=== PATIENT | female | born 1990 | race Caucasian/White ===

== ENCOUNTER 2020-07-20 11:52 | Outpatient (REF) | payer MEDICAID, SELFPAY ==
[2020-07-20 12:34] LABS: MANUAL DIFF FLAG NO
[2020-07-20 12:38] LABS: Basophils Absolute Auto 0.1 X10*3/uL (0.0-0.2); Basophils Percent Auto 0.7 % (0-2); Eosinophils Absolute Auto 0.2 X10*3/uL (0.0-0.4); Eosinophils Percent Auto 2.7 % (0-4); Hematocrit 41.7 % (37-47); Hemoglobin 13.6 g/dl (12.0-16.0); Imm Gran Abs Auto 0.02 X10*3/uL (0.00-0.03); Imm Gran Pct Auto 0.3 % (0.0-0.4); Lymphocytes Absolute Auto 2.4 X10*3/uL (1.2-4.9); Lymphocytes Percent Auto 31.9 % (20-40); Mean Corpuscular HGB Conc 32.6 g/dl (31.0-35.0); Mean Corpuscular Hemoglobin 30.4 pg (27.0-33.0); Mean Corpuscular Volume 93.1 fL (80-98); Mean Platelet Volume 9.3 fL (9.4-12.3); Monocytes Absolute Auto 0.5 X10*3/uL (0.1-1.2); Monocytes Percent Auto 6.4 % (2-11); Neutrophils Absolute Auto 4.3 X10*3/uL (2.0-8.3); Platelet Count 227 X10*3/uL (160-400); Red Blood Count 4.48 X10*6/uL (4.20-5.50); Red Cell Distribution Width 13.4 % (11.0-16.0); White Blood Count 7.5 X10*3/uL (4.8-10.8)
[2020-07-20 13:19] LABS: Lithium 0.49 mmol/L (0.60-1.20)
[2020-07-20 13:31] LABS: Alanine Aminotransferase 13 U/L (0-31); Albumin Level 4.4 g/dL (3.5-5.0); Alkaline Phosphatase 53 U/L (39-117); Anion Gap 12 (12-20); Aspartate Amino Transferase 17 U/L (5-31); Bilirubin Total 0.5 mg/dL (0.0-1.0); Blood Urea Nitrogen 10 mg/dL (9-16); Calcium 9.1 mg/dL (8.4-10.2); Carbon Dioxide 20 mmol/L (22-29); Chloride 111 mmol/L (96-108); Cholesterol 197 mg/dL; Estimated Glomerular Filt Rate > 60; Glucose Fasting 89 mg/dL (60-99); Potassium 3.9 mmol/l (3.3-5.1); Sodium 139 mmol/L (135-145); Total Protein 6.8 g/dL (6.5-8.0); Triglycerides 91 mg/dL
[2020-07-20 13:44] LABS: Thyroid Stimulating Hormone 3.02 mIU/mL (0.32-4.0)
[2020-07-20 14:36] LABS: Estimated Average Glucose 80 mg/dL; Hemoglobin A1c % 4.4 %
== END 2020-07-20 11:53 | disposition home or self-care (01) ==
LOC: HO.LAB 11:52
PROVIDERS: PCP Nurse Practitioner Family; Visit Provider Psychiatry & Neurology Psychiatry
DX: F31.75 Bipolar disorder, in partial remission, most recent episode depressed (principal)
CPT/HCPCS: 36415; 80053; 80178; 82465; 82947; 83036; 84443; 84478; 85025

== ENCOUNTER 2020-09-12 16:00 | Outpatient (RCR) | payer OTHER, SELFPAY | END 2020-09-22 23:55 | disposition home or self-care (01) | LOC: HO.PAOS 16:00 | PROVIDERS: Visit Provider Psychologist | DX: F31.9 Bipolar disorder, unspecified (principal) | CPT/HCPCS: 90834 ==

== ENCOUNTER 2021-02-13 07:18 | Outpatient (REF) | payer OTHER, SELFPAY ==
[2021-02-13 08:08] LABS: MANUAL DIFF FLAG NO
[2021-02-13 08:23] LABS: Basophils Percent Auto 0.5 % (0-2); Eosinophils Absolute Auto 0.2 X10*3/uL (0.0-0.4); Eosinophils Percent Auto 3.5 % (0-4); Hematocrit 43.9 % (37-47); Hemoglobin 14.3 g/dl (12.0-16.0); Imm Gran Abs Auto 0.03 X10*3/uL (0.00-0.03); Imm Gran Pct Auto 0.5 % (0.0-0.4); Lymphocytes Percent Auto 29.8 % (20-40); Mean Corpuscular HGB Conc 32.6 g/dl (31.0-35.0); Mean Corpuscular Hemoglobin 30.9 pg (27.0-33.0); Mean Corpuscular Volume 94.8 fL (80-98); Mean Platelet Volume 9.9 fL (9.4-12.3); Monocytes Absolute Auto 0.4 X10*3/uL (0.1-1.2); Monocytes Percent Auto 6.4 % (2-11); Neutrophils Absolute Auto 3.9 X10*3/uL (2.0-8.3); Neutrophils Percent Auto 59.3 % (45-73); Platelet Count 212 X10*3/uL (160-400); Red Blood Count 4.63 X10*6/uL (4.20-5.50); Red Cell Distribution Width 13.4 % (11.0-16.0); White Blood Count 6.6 X10*3/uL (4.8-10.8)
[2021-02-13 08:31] LABS: Lithium 0.69 mmol/L (0.60-1.20)
[2021-02-13 08:37] LABS: Alanine Aminotransferase 11 U/L (0-31); Albumin Level 4.3 g/dL (3.5-5.0); Alkaline Phosphatase 52 U/L (39-117); Anion Gap 9 (12-20); Aspartate Amino Transferase 14 U/L (5-31); Bilirubin Direct 0.2 mg/dL (0.0-0.5); Bilirubin Total 0.5 mg/dL (0.0-1.0); Blood Urea Nitrogen 18 mg/dL (9-16); Calcium 9.3 mg/dL (8.4-10.2); Carbon Dioxide 23 mmol/L (22-29); Chloride 112 mmol/L (96-108); Cholesterol 208 mg/dL; Estimated Glomerular Filt Rate > 60; Glucose Fasting 94 mg/dL (60-99); HDL Cholesterol 60 mg/dL; LDL Cholesterol Calculated 123 mg/dl; Potassium 4.1 mmol/L (3.3-5.1); Sodium 140 mmol/L (135-145); Total Protein 6.8 g/dL (6.5-8.0); Triglycerides 129 mg/dL
[2021-02-13 08:57] LABS: Thyroid Stimulating Hormone 3.79 uIU/mL (0.32-4.0)
[2021-02-13 10:08] LABS: Estimated Average Glucose 82 mg/dL; Hemoglobin A1c % 4.5 %
== END 2021-02-13 07:19 | disposition home or self-care (01) ==
LOC: HO.LAB 07:18
PROVIDERS: PCP Nurse Practitioner Family; Visit Provider Psychiatry & Neurology Psychiatry
DX: F31.75 Bipolar disorder, in partial remission, most recent episode depressed (principal); Z79.899 Other long term (current) drug therapy
CPT/HCPCS: 36415; 80048; 80061; 80076; 80178; 82947; 83036; 84443; 85025

== ENCOUNTER 2021-08-02 06:55 | Outpatient (REF) | payer OTHER, SELFPAY ==
[2021-08-02 07:03] LABS: MANUAL DIFF FLAG NO
[2021-08-02 07:56] LABS: Basophils Percent Auto 0.5 % (0-2); Eosinophils Absolute Auto 0.3 X10*3/uL (0.0-0.4); Eosinophils Percent Auto 3.6 % (0-4); Hematocrit 41.9 % (37-47); Hemoglobin 14.3 g/dl (12.0-16.0); Imm Gran Abs Auto 0.02 X10*3/uL (0.00-0.03); Imm Gran Pct Auto 0.3 % (0.0-0.4); Lymphocytes Absolute Auto 2.3 X10*3/uL (1.2-4.9); Lymphocytes Percent Auto 29.1 % (20-40); Mean Corpuscular HGB Conc 34.1 g/dl (31.0-35.0); Mean Corpuscular Volume 90.7 fL (80-98); Mean Platelet Volume 9.6 fL (9.4-12.3); Monocytes Absolute Auto 0.5 X10*3/uL (0.1-1.2); Monocytes Percent Auto 5.7 % (2-11); Neutrophils Absolute Auto 4.8 X10*3/uL (2.0-8.3); Neutrophils Percent Auto 60.8 % (45-73); Platelet Count 232 X10*3/uL (160-400); Red Blood Count 4.62 X10*6/uL (4.20-5.50); Red Cell Distribution Width 12.7 % (11.0-16.0); White Blood Count 7.9 X10*3/uL (4.8-10.8)
[2021-08-02 08:12] LABS: Lithium 0.57 mmol/L (0.60-1.20)
[2021-08-02 08:16] LABS: Alanine Aminotransferase 10 U/L (0-31); Albumin Level 4.4 g/dL (3.5-5.0); Alkaline Phosphatase 61 U/L (39-117); Anion Gap 13 (12-20); Aspartate Amino Transferase 16 U/L (5-31); Bilirubin Direct 0.3 mg/dL (0.0-0.5); Bilirubin Total 1.1 mg/dL (0.0-1.0); Blood Urea Nitrogen 10 mg/dL (9-16); Calcium 9.3 mg/dL (8.4-10.2); Carbon Dioxide 20 mmol/L (22-29); Chloride 109 mmol/L (96-108); Cholesterol 187 mg/dL; Estimated Glomerular Filt Rate > 60; Glucose Fasting 88 mg/dL (60-99); HDL Cholesterol 61 mg/dL; LDL Cholesterol Calculated 101 mg/dl; Potassium 4.1 mmol/L (3.3-5.1); Sodium 138 mmol/L (135-145); Total Protein 6.9 g/dL (6.5-8.0); Triglycerides 128 mg/dL
[2021-08-02 08:48] LABS: Thyroid Stimulating Hormone 3.95 uIU/mL (0.32-4.0)
[2021-08-02 08:53] LABS: Estimated Average Glucose 82 mg/dL; Hemoglobin A1c % 4.5 %
== END 2021-08-02 06:56 | disposition home or self-care (01) ==
LOC: HO.LAB 06:55
PROVIDERS: PCP Internal Medicine; Visit Provider Psychiatry & Neurology Psychiatry
DX: F31.75 Bipolar disorder, in partial remission, most recent episode depressed (principal)
CPT/HCPCS: 36415; 80048; 80061; 80076; 80178; 82947; 83036; 84443; 85025

== ENCOUNTER 2022-04-07 07:31 | Outpatient (REF) | payer OTHER, SELFPAY ==
[2022-04-07 07:45] LABS: MANUAL DIFF FLAG NO
[2022-04-07 08:18] LABS: Basophils Percent Auto 0.6 % (0-2); Eosinophils Absolute Auto 0.3 X10*3/uL (0.0-0.4); Eosinophils Percent Auto 4.4 % (0-4); Hematocrit 42.5 % (37.0-47.0); Imm Gran Abs Auto 0.02 X10*3/uL (0.00-0.03); Imm Gran Pct Auto 0.3 % (0.0-0.4); Lymphocytes Absolute Auto 1.8 X10*3/uL (1.2-4.9); Lymphocytes Percent Auto 28.2 % (20-40); Mean Corpuscular HGB Conc 32.9 g/dl (31.0-35.0); Mean Corpuscular Hemoglobin 30.4 pg (27.0-33.0); Mean Corpuscular Volume 92.4 fL (80.0-98.0); Monocytes Absolute Auto 0.4 X10*3/uL (0.1-1.2); Monocytes Percent Auto 6.5 % (2-11); Neutrophils Absolute Auto 3.8 x10*3/uL (2.0-8.3); Platelet Count 237 X10*3/uL (160-400); Red Cell Distribution Width 13.2 % (11.0-16.0); White Blood Count 6.3 X10*3/uL (4.8-10.8)
[2022-04-07 08:26] LABS: Lithium 0.79 mmol/L (0.60-1.20)
[2022-04-07 08:33] LABS: Estimated Average Glucose 80 mg/dL; Hemoglobin A1c % 4.4 %
[2022-04-07 08:39] LABS: Alanine Aminotransferase 11 U/L (0-31); Albumin Level 4.1 g/dL (3.5-5.0); Alkaline Phosphatase 51 U/L (39-117); Anion Gap 9 (12-20); Aspartate Amino Transferase 15 U/L (5-31); Bilirubin Total 0.4 mg/dL (0.0-1.0); Blood Urea Nitrogen 11 mg/dL (9-16); Calcium 8.9 mg/dL (8.4-10.2); Carbon Dioxide 21 mmol/L (22-29); Chloride 114 mmol/L (96-108); Cholesterol 176 mg/dL; Estimated Glomerular Filt Rate > 60; Glucose Fasting 88 mg/dL (60-99); HDL Cholesterol 60 mg/dL; LDL Cholesterol Calculated 101 mg/dl; Potassium 4.2 mmol/L (3.3-5.1); Sodium 140 mmol/L (135-145); Total Protein 6.6 g/dL (6.5-8.0); Triglycerides 77 mg/dL
[2022-04-07 09:01] LABS: Thyroid Stimulating Hormone 3.91 uIU/mL (0.32-4.0)
== END 2022-04-07 07:32 | disposition home or self-care (01) ==
LOC: HO.LAB 07:31
PROVIDERS: PCP Internal Medicine; Visit Provider Psychiatry & Neurology Psychiatry
DX: F31.75 Bipolar disorder, in partial remission, most recent episode depressed (principal)
CPT/HCPCS: 36415; 80053; 80061; 80178; 82947; 83036; 84443; 85025

== ENCOUNTER 2022-06-22 09:25 | Day surgery (SDC) | payer OTHER, SELFPAY ==
[2022-06-22] VITALS (9 sets, daily range): BP systolic 100–123; BP diastolic 60–87; PULSE 64–78; RESP 12–20; TEMP 36.6–36.7; O2SAT 98–100; BMI 30.2
--- NOTE | ~2022-06-22 | FL_ITS ---
EXAMINATION: XR LUMBAR PUNCTURE CLINICAL INFORMATION: Pseudotumor cerebri. COMPARISON: None. TECHNIQUE: Following explaining fluoroscopy-guided lumbar puncture procedure, benefits and risks, a written consent was obtained. Patient was placed prone on fluoroscopy table and low back area was cleaned and draped in the usual sterile manner. 1% lidocaine was injected overlying the left L4-L5 disc level. A 22-gauge spinal needle was then advanced from the skin intrathecally at the L4-L5 disc level. Patient was placed in left lateral decubitus view, however, fluid was not continuous. Patient was placed in the prone position and opening CSF pressure was obtained. FINDINGS: On visualized images, there is mild straightening of lumbar lordosis. The vertebral heights, alignment and disc heights are normal. No aggressive lytic or sclerotic process seen. There is needle positioned at L4-L5 disc level. The opening CSF pressure measured 17 cm of water. Approximately 8 ml of clear CSF fluid was collected. Initially the catheter was slightly hemorrhagic. With time, the CSF improved and was clear. FLUOROSCOPY TIME: 1.6 minutes. DOSE AREA PRODUCT: 15.821 uGy-m2 (microgray-meter squared). FL/FL guided lumbar puncture LP IMPRESSION: Successful fluoroscopy-guided L4-L5 lumbar puncture performed. Opening CSF pressure 17 cm of water. 8 mL of clear CSF fluid collected in 4 test tubes.
[2022-06-22 10:04] LABS: MANUAL DIFF FLAG NO
[2022-06-22 10:09] LABS: Basophils Percent Auto 0.6 % (0-2); Eosinophils Absolute Auto 0.2 X10*3/uL (0.0-0.4); Eosinophils Percent Auto 2.9 % (0-4); Hematocrit 40.3 % (37.0-47.0); Hemoglobin 13.4 g/dl (12.0-16.0); Imm Gran Abs Auto 0.01 X10*3/uL (0.00-0.03); Imm Gran Pct Auto 0.2 % (0.0-0.4); Lymphocytes Percent Auto 31.3 % (20-40); Mean Corpuscular HGB Conc 33.3 g/dl (31.0-35.0); Mean Corpuscular Hemoglobin 30.4 pg (27.0-33.0); Mean Corpuscular Volume 91.4 fL (80.0-98.0); Mean Platelet Volume 9.4 fL (9.4-12.3); Monocytes Absolute Auto 0.4 X10*3/uL (0.1-1.2); Monocytes Percent Auto 5.6 % (2-11); Neutrophils Absolute Auto 3.7 x10*3/uL (2.0-8.3); Neutrophils Percent Auto 59.4 % (45-73); Platelet Count 187 X10*3/uL (160-400); Red Blood Count 4.41 X10*6/uL (4.20-5.50); Red Cell Distribution Width 13.1 % (11.0-16.0); White Blood Count 6.2 X10*3/uL (4.8-10.8)
[2022-06-22 10:22] LABS: Prothrombin Time 10.9 SEC (10.0-13.1)
[2022-06-22 10:25] LABS: Partial Thromboplastin Time 32.5 SEC (26.0-36.4)
[2022-06-22 10:31] LABS: UPreg QC Valid YES; Urine Pregnancy NEGATIVE (NEGATIVE)
[2022-06-22 13:07] LABS: CSF Appearance Clear, Colorless; CSF Tube # 1
[2022-06-22 13:14] LABS: Glucose CSF 51 mg/dL; Total Protein CSF 56.6 mg/dL (15-45)
[2022-06-22] MEDS: ondansetron HCL 4 MG/2 ML VIAL IVPUSH (13:33)
[2022-06-22] MEDS: Acetaminophen 325 MG TABLET 650 MG PO (13:35)
[2022-06-22] MEDS: oxyCODONE HCl Immed Release 5 MG TABLET PO (13:35)
[2022-06-22 14:18] LABS: CSF Monos 11 %; Color CSF PINK; Lymphocytes CSF 35 %; Neutrophils CSF 54 %
[2022-06-22 14:19] LABS: Appearance CSF HAZY; CSF Tube # 3; Red Blood Cell CSF 1240 MM*3; White Blood Cell CSF 5 MM*3
== END 2022-06-22 15:31 | disposition home or self-care (01) ==
PROVIDERS: Radiology Diagnostic Radiology; PCP Internal Medicine; Visit Provider Psychiatry & Neurology Neurology
PROC: 009U3ZZ Drainage of Spinal Canal, Percutaneous Approach (ICD-10-PCS; CPT 62270; principal; 2022-06-22 11:00)
DX: G93.2 Benign intracranial hypertension (principal); G43.901 Migraine, unspecified, not intractable, with status migrainosus; G25.3 Myoclonus; F32.9 Major depressive disorder, single episode, unspecified; F41.8 Other specified anxiety disorders; F17.210 Nicotine dependence, cigarettes, uncomplicated; F14.90 Cocaine use, unspecified, uncomplicated; F12.90 Cannabis use, unspecified, uncomplicated; F11.90 Opioid use, unspecified, uncomplicated
CPT/HCPCS: 36415; 62328; 81025; 82945; 84157; 85025; 85610; 85730; 87015; 87070; 87205; 89051; J2405

== ENCOUNTER 2022-07-24 16:26 | Inpatient (IN) | payer OTHER, SELFPAY ==
[2022-07-24 16:28] VITALS: BP 155/101; PULSE 105; RESP 20; TEMP 37.1; O2SAT 98; BMI 31.1
--- NOTE | 2022-07-24 16:42 | ED.PSYCH ---
HPI - Psych General Chief Complaint: Psychiatric Symptoms Stated Complaint: CRISIS Time Seen by Provider: 07/24/22 16:41 Source: patient Mode of arrival: ambulatory Limitations: no limitations History of Present Illness HPI Narrative: 31-year-old female history of depression presents to the emergency department complaints of suicidal ideation with plan to overdose. Patient tells me that she has been having lot of life stressors, reports that in January her mother in since then she has not been feeling the same. She reports that she went to her psychiatrist today where she also told them that she was feeling suicidal. She reports in October she tried to overdose by taking 61 mg Ativan tablets. She tells me that her doctor told her that she could have from taking this and she is planning on doing it again. She denies visual, auditory and tactile hallucinations. Denies drugs, alcohol and tobacco. Tells me she is not taking her psychiatric medications as prescribed. Denies medical complaints at this time. Related Data Allergies Allergy/AdvReac Type Severity Reaction Status Date / Time No Known Allergies Allergy Unverified 06/30/20 18:56 [No Known Allergies*] Review of Systems Review of Systems: Constitutional : No Weight loss, No Fever, No Chills, No Fatigue, No Malaise ENT/Mouth : No sore throat, No Rhinorrhea Eyes: No Eye Pain, No Swelling, No Redness Cardiovascular : No Chest Pain, No SOB, No Dyspnea on Exertion, No Orthopnea, No Edema, No Palpitations Respiratory : No Cough, No Sputum, No Wheezing Gastrointestinal : No Nausea, No Vomiting, No Diarrhea, No Constipation, No abdominal Pain, No Hematochezia, No Melena Genitourinary : No Dysuria, No Urinary Frequency, No Hematuria, Musculoskeletal : No joint pain, No Myalgias, No Joint Swelling Skin : No Skin Lesions, No rash Neuro : No Weakness, No Numbness, No Dizziness, No Headache Psych : + Anxiety/Panic, + Depression, + SI All other systems reviewed and are negative Yes all other systems are reviewed and are negative [facility] Past Medical History Attestation statement: The following information was validated with the patient. Source: old records reviewed and nursing notes reviewed Social History Social History Alcohol intake: current Alcohol intake frequency: a few times a week Patient Tobacco Use Status: Former Tobacco user Smoked in Last 30 Days: No Use of substances other than those prescribed or required for medical reasons: Yes Substance Use Type: Marijuana Substance Use Frequency: Chronic Longstanding Last Used Substance: Unknown Advance Directives: No Advance Directives Information Provided: Yes Physical Exam Vital Signs: Vital Signs: Last Vital Signs Temp 98.7 F 07/24/22 16:28 Pulse 105 H 07/24/22 16:28 Resp 20 07/24/22 16:28 BP 155/101 H 07/24/22 16:28 Pulse Ox 98 07/24/22 16:28 O2 Del Method 07/24/22 16:28 BMI result Body Mass Index 31.1 vss Appearance: Alert.? Oriented X3.? No acute distress.? Head: Normocephalic, atraumatic, no step-offs or deformities Eyes: Pupils equal, round and reactive to light.? ENT: Pharynx normal.? Neck: Normal inspection.? Neck supple.? CVS: Normal heart rate and rhythm.? Pulses normal.? Respiratory: No respiratory distress.? Breath sounds normal.? Abdomen: Soft and nontender.? Skin: Skin warm and dry.? Normal skin color.? Normal skin turgor.? Extremities: No lower extremity edema.? No calf ttp. 5/5 strength to bilateral upper and lower extremities Neuro: Oriented X 3.? No motor deficit.? No sensory deficit. CN 2-12 intact Course Reevaluation(s) Reevaluation #1: CBC within normal limits. Chemistry with no acute electrolyte abnormalities requiring intervention. UA without infection, likely contaminated. Urine toxicology positive for marijuana. Ethanol negative. At this time patient will be placed into physician observation to allow more time to be evaluated by the care team. At time evaluation was started patient common cooperative no acute distress. Will continue to monitor. Time: 17:50 MDM - Psych MDM Narrative Medical decision making narrative: [id number] 31-year-old female presents with suicidal ideation with plan to overdose. Not taking her medications as prescribed. Physical exam benign Patient is noted to be hypertensive however patient very anxious and paranoid upon my examination. Likely contributing. Will obtain a repeat blood pressure at a later time after patient settles in. Plan at this time is medical clearance and evaluation by the behavioral health team. Medical Records Attestation: I reviewed the patient's medical records. Lab Data Attestation: I reviewed the patient's lab results. Result diagrams: 07/24/22 17:19 07/24/22 17:19 Labs: Lab Results 07/24/22 07/24/22 07/24/22 Range/Units 16:54 16:54 16:54 WBC (4.8-10.8) X10*3/uL RBC (4.20-5.50) X10*6/uL Hgb (12.0-16.0) g/dl Hct (37.0-47.0) % MCV (80.0-98.0) fL MCH (27.0-33.0) pg MCHC (31.0-35.0) g/dl RDW (11.0-16.0) % Plt Count (160-400) X10*3/uL MPV (9.4-12.3) fL Absolute Nucleated RBC (0.0-0.012) X10*3/uL Nucleated RBC % (auto) (0.0-0.2) /100WBC Sodium (135-145) mmol/L Potassium (3.3-5.1) mmol/L Chloride (96-108) mmol/L Carbon Dioxide (22-29) mmol/L Anion Gap (12-20) BUN (9-16) mg/dL Creatinine (0.5-1.4) mg/dL Estim Creat Clear Calc Estimated GFR Random Glucose (60-115) mg/dL Calcium (8.4-10.2) mg/dL Urine Color Yellow Urine Appearance Cloudy Urine pH 5.0 (5.0-9.0) Ur Specific [place] 1.025 (1.005-1.025) Urine Protein Negative (Neg-Trace) mg/dL Urine Glucose (UA) Negative (Negative) mg/dL Urine Ketones Trace (Negative) mg/dL Urine Blood Negative (Negative) Urine Nitrite Negative (Negative) Ur Leukocyte Esterase Small (1+) H (Negative) Urine RBC 0-2 (0-2) /HPF Urine WBC 0-5 (0-5) /HPF Ur Squamous Epith Cells 6-10 (0-2) /HPF Urine Bacteria 1+ (None Seen) Hyaline Casts 0-2 (0-2) /LPF Urine Opiates Screen Not Detected (Not Detect) Urine Fentanyl Screen Not Detected (Not Detect) Ur Barbiturates Screen Not Detected (Not Detect) Ur Phencyclidine Scrn Not Detected (Not Detect) Ur Amphetamines Screen Not Detected (Not Detect) U Benzodiazepines Scrn Not Detected (Not Detect) Urine Cocaine Screen Not Detected (Not Detect) U Marijuana (THC) Screen POSITIVE H (Not Detect) Ethyl Alcohol mg/dL COVID-19 (MIGUEL) Negative (Negative) COVID-19 Clin Com See Note 07/24/22 07/24/22 07/24/22 Range/Units 17:19 17:19 17:19 WBC 10.2 (4.8-10.8) X10*3/uL RBC 4.51 (4.20-5.50) X10*6/uL Hgb 13.8 (12.0-16.0) g/dl Hct 40.0 (37.0-47.0) % MCV 88.7 (80.0-98.0) fL MCH 30.6 (27.0-33.0) pg MCHC 34.5 (31.0-35.0) g/dl RDW 12.5 (11.0-16.0) % Plt Count 230 (160-400) X10*3/uL MPV 9.4 (9.4-12.3) fL Absolute Nucleated RBC 0.000 (0.0-0.012) X10*3/uL Nucleated RBC % (auto) 0.0 (0.0-0.2) /100WBC Sodium 140 (135-145) mmol/L Potassium 3.6 (3.3-5.1) mmol/L Chloride 112 H (96-108) mmol/L Carbon Dioxide 16 L (22-29) mmol/L Anion Gap 16 (12-20) BUN 11 (9-16) mg/dL Creatinine 0.74 (0.5-1.4) mg/dL Estim Creat Clear Calc 105.8 Estimated GFR > 60 Random Glucose 98 (60-115) mg/dL Calcium 9.0 (8.4-10.2) mg/dL Urine Color Urine Appearance Urine pH (5.0-9.0) Ur Specific [place] (1.005-1.025) Urine Protein (Neg-Trace) mg/dL Urine Glucose (UA) (Negative) mg/dL Urine Ketones (Negative) mg/dL Urine Blood (Negative) Urine Nitrite (Negative) Ur Leukocyte Esterase (Negative) Urine RBC (0-2) /HPF Urine WBC (0-5) /HPF Ur Squamous Epith Cells (0-2) /HPF Urine Bacteria (None Seen) Hyaline Casts (0-2) /LPF Urine Opiates Screen (Not Detect) Urine Fentanyl Screen (Not Detect) Ur Barbiturates Screen (Not Detect) Ur Phencyclidine Scrn (Not Detect) Ur Amphetamines Screen (Not Detect) U Benzodiazepines Scrn (Not Detect) Urine Cocaine Screen (Not Detect) U Marijuana (THC) Screen (Not Detect) Ethyl Alcohol < 10 mg/dL COVID-19 (MIGUEL) (Negative) COVID-19 Clin Com Critical Care Time Critical Care Time Critical Care Time: No Discharge Plan Discharge Clinical Impression: Suicidal ideation, Depression, Paranoid behavior Patient Disposition: Still a Patient
[2022-07-24 17:04] LABS: Appearance Urine Cloudy; Color Urine Yellow; Glucose Urine UA Negative (Negative); Leukocyte Esterase Urine Small (1+) (Negative); Nitrite Urine Negative (Negative); Specific Gravity - Urine 1.025 (1.005-1.025); UMIC TRIGGER UACC YES; Urine Blood Negative (Negative); Urine Ketones Trace mg/dL (Negative); Urine Protein Negative (Neg-Trace)
[2022-07-24 17:16] LABS: Amphetamine Screen Urine Not Detected (Not Detect); Barbiturates, Urine Not Detected (Not Detect); Benzodiazepines Screen Urine Not Detected (Not Detect); COVID-19 Test Negative (Negative); Cannabinoid Screen Urine POSITIVE (Not Detect); Cocaine Screen Urine Not Detected (Not Detect); Fentanyl, urine Not Detected (Not Detect); IDNOW Serial# 16C4AD1C; Opiate Screen Urine Not Detected (Not Detect); Phencyclidine Screen Urine Not Detected (Not Detect)
[2022-07-24 17:21] LABS: Bacteria Urine 1+ (None Seen); Hyaline Casts Urine 0-2 /LPF (0-2); RBC Urine 0-2 /HPF (0-2); UACC Culture Trigger YES; WBC Urine 0-5 /HPF (0-5)
[2022-07-24 17:28] LABS: Hemoglobin 13.8 g/dl (12.0-16.0); Mean Corpuscular HGB Conc 34.5 g/dl (31.0-35.0); Mean Corpuscular Hemoglobin 30.6 pg (27.0-33.0); Mean Corpuscular Volume 88.7 fL (80.0-98.0); Mean Platelet Volume 9.4 fL (9.4-12.3); Platelet Count 230 X10*3/uL (160-400); Red Blood Count 4.51 X10*6/uL (4.20-5.50); Red Cell Distribution Width 12.5 % (11.0-16.0); White Blood Count 10.2 X10*3/uL (4.8-10.8)
[2022-07-24 17:45] LABS: Anion Gap 16 (12-20); Blood Urea Nitrogen 11 mg/dL (9-16); Carbon Dioxide 16 mmol/L (22-29); Chloride 112 mmol/L (96-108); Creatinine Clr Calc Pharmacy 105.8; Estimated Glomerular Filt Rate > 60; Glucose Random 98 mg/dL (60-115); Potassium 3.6 mmol/L (3.3-5.1); Sodium 140 mmol/L (135-145)
[2022-07-24 17:47] LABS: Ethanol < 10 mg/dL
[2022-07-24 17:57] LABS: Acetaminophen LAB < 1 mcg/mL (<30); Salicylate < 5.0 mg/dL (15-30)
[2022-07-24] MEDS: LORazepam 1 MG TABLET PO (17:59)
[2022-07-24 18:45] VITALS: BP 115/77; PULSE 89
--- NOTE | 2022-07-24 19:33 | PHA.MEDREC ---
Pharmacy Consult ? Medication Reconciliation Pharmacy has completed the medication reconciliation Spoke with patient in [facility]. patient knew all medications. patient states she has not taken her medications in a few days. .
--- OUTSIDE RECORDS SUMMARY | 2022-07-24 19:36 | XMS_ITS ---
:1990 Author Care Team Providers Name Role Phone Julieth Davidson Primary Care Provider Unavailable Allergies Code Code System Name Reaction Severity Status Onset NKDA ? Medications Name Status Start Date Stop Date ? ? acetazolamide 250 mg tablet Active ? Not available TAKE 1 & 1/2 TABLET TWICE A DAY azithromycin 250 mg tablet Completed ? 05/16 TAKE 2 TABLETS BY MOUTH TODAY, THEN TAKE 1 TABLET DAILY FOR 4 D AYS [id number]-vvtgzhab 50 mg-325 mg-40 mg tablet Acti ve ? Not available TAKE 1-2 TABLETS NEEDED EVERY 8 HOURS ORALLY 30 DAYS cephalexin 500 mg capsule Completed ? 2019 TAKE 1 CAPSULE BY MOUTH THREE TIMES A DAY FOR 7 DAYS lamotrigine 100 mg tablet Active ? Not av ailable TAKE 1 TABLET BY MOUTH EVERY DAY lamotrigine 150 mg tablet Completed ? 2019 TAKE 1 TABLET BY MOUTH EVERY DAY lamotrigine 25 mg tablet Completed ? 020 TAKE 1 TABLET BY MOUTH ONCE DAILY FOR 7 DAYS THEN INCREASE TO 1 TABLET TWICE DAILY lithium carbonate ER 300 mg tablet,extended release Active ? Not available TAKE 4 TABLETS BY MOUTH AT BEDTIME lorazepam 1 mg tablet Active ? Not availa ble TAKE 1 TABLET BY MOUTH EVERY DAY ondansetron HCl 4 mg tablet Completed ? 12/2019 TAKE 1 TABLET BY MOUTH EVERY 8 HOURS ondansetron HCl 8 mg tablet Active ? Not available TAKE 1 TABLET EVERY 12 HOURS NEEDED FOR NAUSEA ORALLY 30 DAY S prednisone 10 mg tablet Completed ? 05/16/20 20 TAKE 4 TABLETS BY MOUTH EVERY DAY prednisone 20 mg tablet Completed ? 05/16/20 20 TAKE 2 TABLETS BY MOUTH 1 TIME PER DAY FOR 5 DAYS TAKE WITH JACQUELYN Mann quetiapine 25 mg tablet Completed ? 05/16/20 20 TAKE 1 TABLET BY MOUTH TWICE A DAY NEEDED FOR ANXIETY quetiapine 300 mg tablet Completed ? 020 TAKE 2 TABLETS BY MOUTH AT BEDTIME quetiapine 400 mg tablet Active ? Not toyin ilable TAKE 1 TABLET BY MOUTH EVERYDAY AT BEDTIME quetiapine 50 mg tablet Completed ? 05/16/20 20 TAKE 1 TABLET BY MOUTH EVERY 4 HOURS NEEDED ANXIETY/RESTLESS NESS sumatriptan 100 mg tablet Active ? Not av ailable 1 TABLET NEEDED EVERY 4 HOURS. UP TO 2 TABS PER DAY ORALLY 3 0 DAYS topiramate 100 mg tablet Active ? Not toyin ilable TAKE 1 TABLET BY MOUTH TWICE A DAY trazodone 50 mg tablet Completed ? 0 TAKE 1/2 -1 TAB BEDTIME Problems None recorded. Procedures None recorded. Results Lab Results Date Name Specimen Result Interpretation Description Value Range Status Address ? 05/16/2020 SARS CoV 2 RNA ? Covid-19 RNA ? (neg) Final [facility] Reference (COVID-19), QL, by PCR L [facility]atories: [address] [employer]-PCR, Graciela Barrientos, [facility] [place] Specimen Past Encounters None recorded. Social History Tobacco Smoking Status Never Smoker Vaccine List None recorded. Plan of Care Reminders Provider Appointments None recorded. ? ? Lab None recorded. ? ? Referral None recorded. ? ? Procedures None recorded. ? ? Surgeries None recorded. ? ? Imaging None recorded. ? ? Vitals None recorded.
--- NOTE | 2022-07-24 20:59 | PC.NURSE ---
Jodi was admitted to at 1945 from [facility] [place] pod on CV for treatment of Bipolar Disorder? Precipitants of admission include of mom in 01/2022, inconsistent compliance with medications and stressors at work. Patient has experienced exacerbation of insomnia and nightmares, excessive spending and paranoia about her medications. She reports she had a plan today to overdose on prescribed medications which she discussed with Dr Jensen Joseph and came to the ED instead. She is alert, fully oriented, and cooperative with admission process. Mood is depressed. Jodi is tearful throughout admission interview. Affect is sad. She denies hallucinations of any kind. Thought process is linear and organized. She continues to report ideation, plan and intent to overdose on prescribed medications but denies plan to harm self or others while on the unit. Jodi reports appetite is good and has not experienced weight loss or gain. Sleep is poor. If I take seroquel I have terrible nightmares. If I don't take it I don't sleep at all. Jodi reports history of cocaine use disorder - no use x 3 years. She reports drinking 5 drinks 2-3 x weekly, last use on Saturday07/22/22 Medical Issue is pseudo tumor cerebri causing excessive CSF and headaches Jodi denies current physical complaint. She is placed on q 15 min checks for safety.
[2022-07-24 21:17] VITALS: BMI 31.6
[2022-07-24 21:31] LABS: Lithium < 0.04 mmol/L (0.60-1.20)
[2022-07-24] MEDS: acetaZOLAMIDE 250 MG TABLET PO (23:03)
[2022-07-24] MEDS: lamoTRIgine 100 MG TABLET 200 MG PO (23:03)
[2022-07-24] MEDS: QUEtiapine Fumarate 50 MG TABLET PO (23:03)
[2022-07-24] MEDS: Lithium Carbonate ER 450 MG TABLET.ER 900 MG PO (23:03)
[2022-07-24] MEDS: Topiramate 100 MG TABLET PO (23:03)
[2022-07-24] MEDS: QUEtiapine Fumarate 400 MG TABLET PO (23:05)
--- NOTE | 2022-07-25 | ECG_ITS ---
Test Reason : medical clearance for ECT Blood Pressure : / mmHG Vent. Rate : 085 BPM Atrial Rate : 085 BPM P-R Int : 138 ms QRS Dur : 110 ms QT Int : 382 ms P-R-T Axes : 050 049 033 degrees QTc Int : 454 ms Normal sinus rhythm Normal ECG When compared with ECG of 23-MAY-2020 15:20, No significant change was found Referred By: Von Shah Electronically Signed By:MICHAEL IZAGUIRRE MD
[2022-07-25 08:52] LABS: Estimated Average Glucose 80 mg/dL; Hemoglobin A1c % 4.4 %
[2022-07-25 08:59] VITALS: BP 112/71; PULSE 91; RESP 18; TEMP 36.6; O2SAT 100
[2022-07-25] MEDS: acetaZOLAMIDE 250 MG TABLET PO ×2 (09:00→20:16)
[2022-07-25] MEDS: Multivitamin TABLET 1 TAB PO (09:00)
[2022-07-25 09:16] LABS: Alanine Aminotransferase 8 U/L (0-31); Alkaline Phosphatase 54 U/L (39-117); Anion Gap 11 (12-20); Aspartate Amino Transferase 13 U/L (5-31); Bilirubin Total 0.6 mg/dL (0.0-1.0); Blood Urea Nitrogen 11 mg/dL (9-16); Calcium 8.7 mg/dL (8.4-10.2); Carbon Dioxide 20 mmol/L (22-29); Chloride 112 mmol/L (96-108); Cholesterol 200 mg/dL; Creatinine Clr Calc Pharmacy 96.4; Estimated Glomerular Filt Rate > 60; Glucose Fasting 91 mg/dL (60-99); HDL Cholesterol 55 mg/dL; LDL Cholesterol Calculated 126 mg/dl; Sodium 139 mmol/L (135-145); Total Protein 6.3 g/dL (6.5-8.0); Triglycerides 99 mg/dL
[2022-07-25 09:39] LABS: Thyroid Stimulating Hormone 3.28 uIU/mL (0.32-4.0)
[2022-07-25 10:02] LABS: Folate 11.1 ng/mL (> or = 4.0); Vitamin B12 279 pg/mL (200-900)
[2022-07-25] MEDS: LORazepam 1 MG TABLET PO ×2 (10:33→20:16)
[2022-07-25] MEDS: Nicotine Polacrilex Lozenge 2 MG LOZENGE BUCCAL ×2 (10:33→20:17)
--- NOTE | 2022-07-25 16:55 | HO.PSYADMNOT ---
HPI Date of Service: 07/25/22 Chief Complaint: psychosis HPI Narrative: pt self-presented to ED at recommendation of her outpt psych MD after reporting increased SI with plan to overdose, which she has done in the past. has Dx of bipolar disorder and has been off meds for weeks. not sleeping well, up all night cleaning, periods of no energy, engaging in excessive spending. she reported to crisis that she has been struggling since the of her mother from cancer in january,. she reports she started to feel better a couple months ago and stopped taking her meds as prescribed, then a month after that the SI started. 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 thoughts of SI increasingly intrusive the past few days, so came in. on interview with MD, pt expresses desire to restart/continue her preior medications regimen. meds reviewed and reconciled. one change was made, which was to decrease HS seroquel from 450 mg to 300 mg, as she stated she has been feeling over sedated from it. she reported she has been taking ara medications as prescribed for the past week, but her lithium level at admission was negligible. she states she was very much helped by ECT previously, and she is interested in doing it again. she asked that her outpt psych MD be kept informed of the plan. Past Psychiatric History: sees osmar aviles for outpt meds. cherie metzger for therapy. intermittently in therapy and meds since 20 yo. h/o at least 7 psych hosps. MRE 11/04 at [facility] after SA via overdose. h/o 4 SAs, all via overdose (ages 16, 20, 26, 31) [place] and [place] [facility] [place] Medical Evaluation Reviewed: Yes [facility] Narrative: migraine BRENNAN asthma pseudotumor cerebri Family History: father - alcohol mother - depression bro - bipolar paternal grandfather - bipolar Social History: in partnership past 3 years. from [place] in intact family. one younger brother and two older half-sisters from her mother's prior partnership. mother 02/02. father in recivery from alcohol addiction. Substance History: cannabis - uses tobacco - uses denies other use Diagnostics Vital Signs (24Hr): Vital Signs - 24 hr 07/24/22 18:45 07/25/22 08:59 Temperature 97.8 F Pulse Rate 89 91 Respiratory Rate 18 Blood Pressure 115/77 112/71 Pulse Oximetry 100 Oxygen Delivery Method Room Air BMI result Body Mass Index 31.6 Labs Results: 07/24/22 17:19 07/25/22 08:23 Labs: Laboratory Results - last 48 hr 07/24/22 07/24/22 07/24/22 16:54 16:54 16:54 WBC RBC Hgb Hct MCV MCH MCHC RDW Plt Count MPV Absolute Nucleated RBC Nucleated RBC % (auto) Sodium Potassium Chloride Carbon Dioxide Anion Gap BUN Creatinine Estim Creat Clear Calc Estimated GFR Random Glucose Fasting Glucose Estimat Average Glucose Hemoglobin A1c % Calcium Total Bilirubin AST ALT Alkaline Phosphatase Total Protein Albumin Triglycerides Cholesterol LDL Cholesterol, Calc HDL Cholesterol Vitamin B12 Folate TSH Urine Color Yellow Urine Appearance Cloudy Urine pH 5.0 Ur Specific [place] 1.025 Urine Protein Negative Urine Glucose (UA) Negative Urine Ketones Trace Urine Blood Negative Urine Nitrite Negative Ur Leukocyte Esterase Small (1+) H Urine RBC 0-2 Urine WBC 0-5 Ur Squamous Epith Cells 6-10 Urine Bacteria 1+ Hyaline Casts 0-2 Salicylates Urine Opiates Screen Not Detected Urine Fentanyl Screen Not Detected Acetaminophen Ur Barbiturates Screen Not Detected Ur Phencyclidine Scrn Not Detected Ur Amphetamines Screen Not Detected U Benzodiazepines Scrn Not Detected [place] Urine Cocaine Screen Not Detected U Marijuana (THC) Screen POSITIVE H Ethyl Alcohol COVID-19 (MIGUEL) Negative COVID-19 Clin Com See Note 07/24/22 07/24/22 07/24/22 17:19 17:19 17:19 WBC 10.2 RBC 4.51 Hgb 13.8 Hct 40.0 MCV 88.7 MCH 30.6 MCHC 34.5 RDW 12.5 Plt Count 230 MPV 9.4 Absolute Nucleated RBC 0.000 Nucleated RBC % (auto) 0.0 Sodium 140 Potassium 3.6 Chloride 112 H Carbon Dioxide 16 L Anion Gap 16 BUN 11 Creatinine 0.74 Estim Creat Clear Calc 105.8 Estimated GFR > 60 Random Glucose 98 Fasting Glucose Estimat Average Glucose Hemoglobin A1c % Calcium 9.0 Total Bilirubin AST ALT Alkaline Phosphatase Total Protein Albumin Triglycerides Cholesterol LDL Cholesterol, Calc HDL Cholesterol Vitamin B12 Folate TSH Urine Color Urine Appearance Urine pH Ur Specific [place] Urine Protein Urine Glucose (UA) Urine Ketones Urine Blood Urine Nitrite Ur Leukocyte Esterase Urine RBC Urine WBC Ur Squamous Epith Cells Urine Bacteria Hyaline Casts Salicylates < 5.0 L Urine Opiates Screen Urine Fentanyl Screen Acetaminophen < 1 Ur Barbiturates Screen Ur Phencyclidine Scrn Ur Amphetamines Screen U Benzodiazepines Scrn [place] Urine Cocaine Screen U Marijuana (THC) Screen Ethyl Alcohol < 10 COVID-19 (MIGUEL) COVID-19 [facility] 07/24/22 07/25/22 07/25/22 20:45 08:23 08:23 WBC RBC Hgb Hct MCV MCH MCHC RDW Plt Count MPV Absolute Nucleated RBC Nucleated RBC % (auto) Sodium 139 Potassium 4.0 Chloride 112 H Carbon Dioxide 20 L Anion Gap 11 L BUN 11 Creatinine 0.82 Estim Creat Clear Calc 96.4 Estimated GFR > 60 Random Glucose Fasting Glucose 91 Estimat Average Glucose 80 Hemoglobin A1c % 4.4 Calcium 8.7 Total Bilirubin 0.6 AST 13 ALT 8 Alkaline Phosphatase 54 Total Protein 6.3 L Albumin 4.0 Triglycerides 99 Cholesterol 200 LDL Cholesterol, Calc 126 HDL Cholesterol 55 Vitamin B12 Folate TSH 3.28 Urine Color Urine Appearance Urine pH Ur Specific [place] Urine Protein Urine Glucose (UA) Urine Ketones Urine Blood Urine Nitrite Ur Leukocyte Esterase Urine RBC Urine WBC Ur Squamous Epith Cells Urine Bacteria Hyaline Casts Salicylates Urine Opiates Screen Urine Fentanyl Screen Acetaminophen Ur Barbiturates Screen Ur Phencyclidine Scrn Ur Amphetamines Screen U Benzodiazepines Scrn [place] < 0.04 L Urine Cocaine Screen U Marijuana (THC) Screen Ethyl Alcohol COVID-19 ([facility]IGUEL) COVID-19 [facility] 07/25/22 08:23 WBC RBC Hgb Hct MCV MCH MCHC RDW Plt Count MPV Absolute Nucleated RBC Nucleated RBC % (auto) Sodium Potassium Chloride Carbon Dioxide Anion Gap BUN Creatinine Estim Creat Clear Calc Estimated GFR Random Glucose Fasting Glucose Estimat Average Glucose Hemoglobin A1c % Calcium Total Bilirubin AST ALT Alkaline Phosphatase Total Protein Albumin Triglycerides Cholesterol LDL Cholesterol, Calc HDL Cholesterol Vitamin B12 279 Folate 11.1 TSH Urine Color Urine Appearance Urine pH Ur Specific [place] Urine Protein Urine Glucose (UA) Urine Ketones Urine Blood Urine Nitrite Ur Leukocyte Esterase Urine RBC Urine WBC Ur Squamous Epith Cells Urine Bacteria Hyaline Casts Salicylates Urine Opiates Screen Urine Fentanyl Screen Acetaminophen Ur Barbiturates Screen Ur Phencyclidine Scrn Ur Amphetamines Screen U Benzodiazepines Scrn [place] Urine Cocaine Screen U Marijuana (THC) Screen Ethyl Alcohol COVID-19 ([facility]IGUEL) COVID-19 [facility] Meds/Allergies Meds Home Medications Medication Instructions Recorded Confirmed Type acetazolamide 250 mg tablet 250 mg PO BID 07/24/22 07/24/22 History lamotrigine 200 mg tablet 200 mg PO BEDTIME 07/24/22 07/24/22 History lithium carbonate 450 mg 900 mg PO BEDTIME 07/24/22 07/24/22 History tablet,extended release lorazepam 1 mg tablet 1 tab PO BID PRN Anxiety 07/24/22 07/24/22 History multivitamin 1 tab PO DAILY 07/24/22 07/24/22 History ondansetron HCl 8 mg tablet 1 tab PO Q12H PRN nausea 07/24/22 07/24/22 History quetiapine 300 mg tablet 450 mg PO BEDTIME 07/24/22 07/24/22 History sumatriptan succinate 100 mg tablet 100 mg PO Q4H PRN Migraine Headache 07/24/22 07/24/22 History topiramate 100 mg tablet 100 mg PO BEDTIME 07/24/22 07/24/22 History Allergies Allergies Allergy/AdvReac Type Severity Reaction Status Date / Time No Known Allergies Allergy Unverified 06/30/20 18:56 [No Known Allergies*] Mental Status Exam Mental Status Exam Narrative: calm, cooperative. dressed in street clothes. adequately dressed and groomed. cooperative, no PMA/PMR. some tearfulness. speech nml rate, amount, loudness, latency. thoughts linear and logical with report of paranoia of someone manipulating her medications in some way (inside her home). affect constricted, min-labile. mood depressed. endorses SI with plan to overdose. denies HI/AVH. Assessment & Plan Assessment & Plan (1) Bipolar 1 disorder: Status: Acute Code(s): F31.9 - Bipolar disorder, unspecified Plan restart prior meds regimen aside from reducing seroquel from 450 QHS to 300 QHS. investigate and prepare for ECT as an option. Patient educated on: medication risk/benefits and ECT Reason for continued inpatient stay Substantial Risk for: harm to self, inability to function and rapid decompensation
--- NOTE | 2022-07-25 18:50 | HO.PM.IMCN ---
History of Present Illness Data of Consult Service Date: 07/25/22 Requesting physician: Von Shah Primary Care Provider: Julieth Ulloa MD [facility] Reason for consult: ect evaluation 31 year old female with history of pseudotumor cerebri, migraines, cigarette smoker, mild intermittent asthma, bipolar disorder admitted to psychiatry with consult placed for ECT medical pre-op eval. She follows with neurology and recently underwent therapeutic LP. Also taking diamox. Reports symptoms have been stable, no heaches or visual changes. Migraines stable on topamax. Rare albuterol usage, only when sick. No sob, adame, orthopnea, palpitations, lightheadedness, or chest pain. Review of Systems Review of Systems: General: No fevers, malaise, unintentional weight loss HEENT: No blurred vision or diplopia Cardiovascular: No chest pain, palpitations, or leg edema Respiratory: No shortness of breath, wheezing, cough GI: No abdominal pain, nausea, vomiting, diarrhea, constipation, melena, hematochezia Neuro: No headaches, weakness, paresthesias Skin: No rashes or lesions [facility] Medical History (Updated 07/25/22 @ 18:58 by TRISHA Thomas) Bipolar 1 disorder Migraines Mild intermittent asthma Pseudotumor cerebri Family History (Updated 07/25/22 @ 19:00 by TRISHA Thomas) Brother Bipolar disorder Depression Paternal Grandfather Bipolar disorder Father Alcohol dependence Mother Breast cancer Social History Household Members: None Housing: Apartment Do you presently have visiting nurse or other home services: No Alcohol intake: current Alcohol intake frequency: a few times a week Patient Tobacco Use Status: Former Tobacco user Smoked in Last 30 Days: Yes e-Cigarette/Vaping Use: Currently Using Frequency of e-Cigarette/Vaping Use: 5-6 uses per day Patient Interested in Nicotine Replacement: Yes (requested theo lozenges) Patient Given Instructions on How to Stop Smoking: No Second Hand Smoke Exposure: No Use of substances other than those prescribed or required for medical reasons: Yes Substance Use Type: Marijuana Substance Use Frequency: Weekly Last Used Substance: Days (ago) Last Used Substance Other:: 1 Currently Displaying Signs/Symptoms of Drug Intoxication Withdrawal: No Other Past Substance Use Problem:: history of cocaine abuse - last use 3 years ago Any prior treatment program specific to substance use: No Have you been hit, kicked, punched, or otherwise hurt by someone within the past year? If so, by whom?: No Do you feel safe in your current relationship?: Yes Is there a partner from a previous relationship who is making you feel unsafe now?: No Are you made to feel afraid or neglected: No Advance Directives: No Advance Directives Information Provided: Yes Guardian: No Do you have thoughts of harming others: None Do you have a plan to hurt others: No Plan Recently lost weight without trying: No Nutrition Risks: No Nutritional Risk Patient : No : No Poor oral hygiene: No service: No Sexual orientation: Straight/Heterosexual Meds Allergies Allergy/AdvReac Type Severity Reaction Status Date / Time No Known Allergies Allergy Unverified 06/30/20 18:56 [No Known Allergies*] Active Medications: Current Medications Acetaminophen (Acetaminophen 325 Mg Tablet) 650 mg PO Q6H PRN PRN Reason: Headache/Pain Mild Scale (1-3) Acetazolamide (Acetazolamide 250 Mg Tablet) 250 mg PO BID [facility] Last Admin: 07/25/22 09:00 Dose: 250 mg Al Hydroxide/Mg Hydroxide (Magnesium Hydrox/Alum Hydrox 30 Ml Oral.Susp) 30 ml PO Q6H PRN PRN Reason: Heartburn/Nausea Hydroxyzine HCl (Hydroxyzine Hcl 25 Mg Tablet) 25 mg PO Q6H PRN PRN Reason: Anxiety Lamotrigine (Lamotrigine 100 Mg Tablet) 200 mg PO BEDTIME [facility] Last Admin: 07/24/22 23:03 Dose: [address] [place] Carbonate ([place] Carbonate Er 450 Mg Tablet.Er) 900 mg PO BEDTIME [facility] Last Admin: 07/24/22 23:03 Dose: 900 mg Lorazepam (Lorazepam 1 Mg Tablet) 1 mg PO BID PRN PRN Reason: Anxiety Last Admin: 07/25/22 10:33 Dose: 1 mg Magnesium Hydroxide (Milk Of Magnesia 30 Ml Oral.Susp) 30 ml PO DAILY PRN PRN Reason: Constipation Multivitamins/Vitamin C (Multivitamin Tablet) 1 tab PO DAILY [facility] Last Admin: 07/25/22 09:00 Dose: 1 tab Nicotine Polacrilex (Nicotine Polacrilex Lozenge 2 Mg Lozenge) 2 mg BUCCAL Q2H PRN PRN Reason: Nicotine Cravings Last Admin: 07/25/22 10:33 Dose: 2 mg Ondansetron HCl (Ondansetron Odt 8 Mg Tab.Rapdis) 8 mg TRANSLINGU Q12H PRN PRN Reason: nausea Quetiapine Fumarate (Quetiapine Fumarate 300 Mg Tablet) 300 mg PO BEDTIME [facility] Quetiapine Fumarate (Quetiapine Fumarate 50 Mg Tablet) 150 mg PO BEDTIME PRN PRN Reason: insomnia Sumatriptan Succinate (Sumatriptan Succinate 100 Mg Tablet) 100 mg PO Q4H PRN PRN Reason: Migraine Headache Topiramate (Topiramate 100 Mg Tablet) 100 mg PO BEDTIME [facility] Last Admin: 07/24/22 23:03 Dose: 100 mg Trazodone HCl (Trazodone Hcl 50 Mg Tablet) 50 mg PO BEDTIME PRN PRN Reason: Insomnia Home Medications Medication Instructions Recorded Confirmed Last Taken Type acetazolamide 250 mg tablet 250 mg PO BID 07/24/22 07/24/22 Unknown History lamotrigine 200 mg tablet 200 mg PO BEDTIME 07/24/22 07/24/22 Unknown History lithium carbonate 450 mg 900 mg PO BEDTIME 07/24/22 07/24/22 Unknown History tablet,extended release lorazepam 1 mg tablet 1 tab PO BID PRN Anxiety 07/24/22 07/24/22 Unknown History multivitamin 1 tab PO DAILY 07/24/22 07/24/22 Unknown History ondansetron HCl 8 mg tablet 1 tab PO Q12H PRN nausea 07/24/22 07/24/22 Unknown History quetiapine 300 mg tablet 450 mg PO BEDTIME 07/24/22 07/24/22 Unknown History sumatriptan succinate 100 mg tablet 100 mg PO Q4H PRN Migraine Headache 07/24/22 07/24/22 Unknown History topiramate 100 mg tablet 100 mg PO BEDTIME 07/24/22 07/24/22 Unknown History Physical Exam Vital Signs and Narrative: Vital Signs: Last Vital Signs Temp 97.8 F 07/25/22 08:59 Pulse 91 07/25/22 08:59 Resp 18 07/25/22 08:59 BP 112/71 07/25/22 08:59 Pulse Ox 100 07/25/22 08:59 O2 Del Method 07/25/22 08:59 BMI result Body Mass Index 31.6 Constitutional - Awake and Alert, No apparent distress Eyes - PERRLA, EOMI Cardiovascular - S1S2, RRR, No edema Respiratory - Normal lung expansion, Normal respiratory effort, No respiratory distress, CTA bilaterally Gastrointestinal - NT / ND; +BS; No rebound or guarding Extremities - no calf tenderness bilaterally, no swelling Skin - Warm/Dry Neurological - Alert & oriented x3, CN II-XII in tact, 5/5 strength BUE and BLE Psychological - Appropriate affect Results Labs CBC and Chem 7: 07/24/22 17:19 07/25/22 08:23 Labs: Laboratory Results - last 24 hr 07/24/22 07/25/22 07/25/22 20:45 08:23 08:23 Anion Gap 11 L Estim Creat Clear Calc 96.4 Estimated GFR > 60 Fasting Glucose 91 Estimat Average Glucose 80 Hemoglobin A1c % 4.4 Calcium 8.7 Total Bilirubin 0.6 AST 13 ALT 8 Alkaline Phosphatase 54 Total Protein 6.3 L Albumin 4.0 Triglycerides 99 Cholesterol 200 LDL Cholesterol, Calc 126 HDL Cholesterol 55 Vitamin B12 Folate TSH 3.28 [place] < 0.04 L 07/25/22 08:23 Anion Gap Estim Creat Clear Calc Estimated GFR Fasting Glucose Estimat Average Glucose Hemoglobin A1c % Calcium Total Bilirubin AST ALT Alkaline Phosphatase Total Protein Albumin Triglycerides Cholesterol LDL Cholesterol, Calc HDL Cholesterol Vitamin B12 [address] Assessment and Plan (1) Bipolar 1 disorder: Status: Acute (2) Suicidal ideation: Status: Acute (3) Depression: Status: Acute (4) Paranoid behavior: Status: Acute Plan 31 year old female with history of pseudotumor cerebri, migraines, cigarette smoker, mild intermittent asthma, bipolar disorder admitted to psychiatry with consult placed for ECT medical pre-op eval. 1- Bipolar disorder with paranoia and SI -Planning for possible ECT -Plan per psychiatry 2-Pseudotumor cerebri- stable -Recent LP with full resolution of symptoms -Continue diamox 3-Migraines- stable on topamax 4- Mild intermittent asthma without exacerbation -Albuterol prn- no recent use Cardiac pre-op risk score is 0. At this time there is no medical contraindication to patient undergoing ECT. Thank you for allowing me to participate in this consult. Signing off at this time. Please do not hesitate to call for further questions.
[2022-07-25] MEDS: lamoTRIgine 100 MG TABLET 200 MG PO (20:16)
[2022-07-25] MEDS: Lithium Carbonate ER 450 MG TABLET.ER 900 MG PO (20:16)
[2022-07-25] MEDS: QUEtiapine Fumarate 300 MG TABLET PO (20:16)
[2022-07-25] MEDS: Topiramate 100 MG TABLET PO (20:17)
[2022-07-25 20:20] VITALS: BP 117/82; PULSE 86; RESP 16; TEMP 36.4; O2SAT 99
[2022-07-26 07:00] VITALS: BMI 31.9
[2022-07-26] MEDS: Multivitamin TABLET 1 TAB PO (08:39)
[2022-07-26] MEDS: acetaZOLAMIDE 250 MG TABLET PO ×2 (08:39→20:36)
[2022-07-26 08:40] VITALS: BP 112/64; PULSE 84; RESP 18; TEMP 36.6; O2SAT 100
[2022-07-26] MEDS: LORazepam 1 MG TABLET PO ×3 (08:46→18:36)
--- NOTE | 2022-07-26 14:20 | P.PNPSI_ITS ---
Subjective Subjective Date of Service: 07/26/22 Reason For Visit: psychosis Interim History: calm, cooperative. tearful at points. some residual paranoia about her meds being tampered with, even here, but she is trying to trust. c/o severe anxiety, increases ativan availability to Q4H PRN. slept OK, no nightmares. now agrees seroquel doesn't have anything to do with nightmares. EKG results reviewed, med consult for ECT clearance reviewed. pt awaiting eval by ECT practitioner prior to scheduling. no other complaints or requests currently. per staff, isolative, not attending groups. showered. poor sleep. anx 8 dep 9. +SI, no plan. cleared medically for ECT. med-compliant. Mental Status Exam Mental Status Exam Narrative: calm, cooperative. dressed in street clothes. adequately dressed and groomed. cooperative, no PMA/PMR. some tearfulness. speech nml rate, amount, loudness, latency. thoughts linear and logical with report of paranoia of someone manipulating her medications in some way. affect constricted, min-labile. no SI/HI/AVH expressed. Diagnostics Vital Signs (24Hr): Vital Signs - 24 hr 07/25/22 20:20 07/26/22 08:40 Temperature 97.6 F 97.8 F Pulse Rate 86 84 Respiratory Rate 16 18 Blood Pressure 117/82 112/64 Pulse Oximetry 99 100 Oxygen Delivery Method Room Air Room Air BMI result Body Mass Index 31.9 Labs Results: 07/24/22 17:19 07/25/22 08:23 Labs: Laboratory Results - last 48 hr 07/24/22 07/24/22 07/24/22 16:54 16:54 16:54 WBC RBC Hgb Hct MCV MCH MCHC RDW Plt Count MPV Absolute Nucleated RBC Nucleated RBC % (auto) Sodium Potassium Chloride Carbon Dioxide Anion Gap BUN Creatinine Estim Creat Clear Calc Estimated GFR Random Glucose Fasting Glucose Estimat Average Glucose Hemoglobin A1c % Calcium Total Bilirubin AST ALT Alkaline Phosphatase Total Protein Albumin Triglycerides Cholesterol LDL Cholesterol, Calc HDL Cholesterol Vitamin B12 Folate TSH Urine Color Yellow Urine Appearance Cloudy Urine pH 5.0 Ur Specific [place] 1.025 Urine Protein Negative Urine Glucose (UA) Negative Urine Ketones Trace Urine Blood Negative Urine Nitrite Negative Ur Leukocyte Esterase Small (1+) H Urine RBC 0-2 Urine WBC 0-5 Ur Squamous Epith Cells 6-10 Urine Bacteria 1+ Hyaline Casts 0-2 Salicylates Urine Opiates Screen Not Detected Urine Fentanyl Screen Not Detected Acetaminophen Ur Barbiturates Screen Not Detected Ur Phencyclidine Scrn Not Detected Ur Amphetamines Screen Not Detected U Benzodiazepines Scrn Not Detected [place] Urine Cocaine Screen Not Detected U Marijuana (THC) Screen POSITIVE H Ethyl Alcohol COVID-19 ([facility]) Negative COVID-19 Clin Com See Note 07/24/22 07/24/22 07/24/22 17:19 17:19 17:19 WBC 10.2 RBC 4.51 Hgb 13.8 Hct 40.0 MCV 88.7 MCH 30.6 MCHC 34.5 RDW 12.5 Plt Count 230 MPV 9.4 Absolute Nucleated RBC 0.000 Nucleated RBC % (auto) 0.0 Sodium 140 Potassium 3.6 Chloride 112 H Carbon Dioxide 16 L Anion Gap 16 BUN 11 Creatinine 0.74 Estim Creat Clear Calc 105.8 Estimated GFR > 60 Random Glucose 98 Fasting Glucose Estimat Average Glucose Hemoglobin A1c % Calcium 9.0 Total Bilirubin AST ALT Alkaline Phosphatase Total Protein Albumin Triglycerides Cholesterol LDL Cholesterol, Calc HDL Cholesterol Vitamin B12 Folate TSH Urine Color Urine Appearance Urine pH Ur Specific [place] Urine Protein Urine Glucose (UA) Urine Ketones Urine Blood Urine Nitrite Ur Leukocyte Esterase Urine RBC Urine WBC Ur Squamous Epith Cells Urine Bacteria Hyaline Casts Salicylates < 5.0 L Urine Opiates Screen Urine Fentanyl Screen Acetaminophen < 1 Ur Barbiturates Screen Ur Phencyclidine Scrn Ur Amphetamines Screen U Benzodiazepines Scrn [place] Urine Cocaine Screen U Marijuana (THC) Screen Ethyl Alcohol < 10 COVID-19 ([facility]) COVID-19 [employer] Com 07/24/22 07/25/22 07/25/22 20:45 08:23 08:23 WBC RBC Hgb Hct MCV MCH MCHC RDW Plt Count MPV Absolute Nucleated RBC Nucleated RBC % (auto) Sodium 139 Potassium 4.0 Chloride 112 H Carbon Dioxide 20 L Anion Gap 11 L BUN 11 Creatinine 0.82 Estim Creat Clear Calc 96.4 Estimated GFR > 60 Random Glucose Fasting Glucose 91 Estimat Average Glucose 80 Hemoglobin A1c % 4.4 Calcium 8.7 Total Bilirubin 0.6 AST 13 ALT 8 Alkaline Phosphatase 54 Total Protein 6.3 L Albumin 4.0 Triglycerides 99 Cholesterol 200 LDL Cholesterol, Calc 126 HDL Cholesterol 55 Vitamin B12 Folate TSH 3.28 Urine Color Urine Appearance Urine pH Ur Specific [place] Urine Protein Urine Glucose (UA) Urine Ketones Urine Blood Urine Nitrite Ur Leukocyte Esterase Urine RBC Urine WBC Ur Squamous Epith Cells Urine Bacteria Hyaline Casts Salicylates Urine Opiates Screen Urine Fentanyl Screen Acetaminophen Ur Barbiturates Screen Ur Phencyclidine Scrn Ur Amphetamines Screen U Benzodiazepines Scrn [place] < 0.04 L Urine Cocaine Screen U Marijuana (THC) Screen Ethyl Alcohol COVID-19 ([facility]) COVID-19 Clin Com 07/25/22 08:23 WBC RBC Hgb Hct MCV MCH MCHC RDW Plt Count MPV Absolute Nucleated RBC Nucleated RBC % (auto) Sodium Potassium Chloride Carbon Dioxide Anion Gap BUN Creatinine Estim Creat Clear Calc Estimated GFR Random Glucose Fasting Glucose Estimat Average Glucose Hemoglobin A1c % Calcium Total Bilirubin AST ALT Alkaline Phosphatase Total Protein Albumin Triglycerides Cholesterol LDL Cholesterol, Calc HDL Cholesterol Vitamin B12 279 Folate 11.1 TSH Urine Color Urine Appearance Urine pH Ur Specific [place] Urine Protein Urine Glucose (UA) Urine Ketones Urine Blood Urine Nitrite Ur Leukocyte Esterase Urine RBC Urine WBC Ur Squamous Epith Cells Urine Bacteria Hyaline Casts Salicylates Urine Opiates Screen Urine Fentanyl Screen Acetaminophen Ur Barbiturates Screen Ur Phencyclidine Scrn Ur Amphetamines Screen U Benzodiazepines Scrn [place] Urine Cocaine Screen U Marijuana (THC) Screen Ethyl Alcohol COVID-19 ([facility]) COVID-19 Clin Com Medications Medications Current Medications Acetaminophen (Acetaminophen 325 Mg Tablet) 650 mg PO Q6H PRN PRN Reason: Headache/Pain Mild Scale (1-3) Acetazolamide (Acetazolamide 250 Mg Tablet) 250 mg PO BID [facility] Last Admin: 07/26/22 08:39 Dose: 250 mg Al Hydroxide/Mg Hydroxide (Magnesium Hydrox/Alum Hydrox 30 Ml Oral.Susp) 30 ml PO Q6H PRN PRN Reason: Heartburn/Nausea Hydroxyzine HCl (Hydroxyzine Hcl 25 Mg Tablet) 25 mg PO Q6H PRN PRN Reason: Anxiety Lamotrigine (Lamotrigine 100 Mg Tablet) 200 mg PO BEDTIME [facility] Last Admin: 07/25/22 20:16 Dose: 200 mg [place] Carbonate ([place] Carbonate Er 450 Mg Tablet.Er) 900 mg PO BEDTIME [facility] Last Admin: 07/25/22 20:16 Dose: 900 mg Lorazepam (Lorazepam 1 Mg Tablet) 1 mg PO Q4H PRN PRN Reason: Anxiety Last Admin: 07/26/22 12:10 Dose: 1 mg Magnesium Hydroxide (Milk Of Magnesia 30 Ml Oral.Susp) 30 ml PO DAILY PRN PRN Reason: Constipation Multivitamins/Vitamin C (Multivitamin Tablet) 1 tab PO DAILY [facility] Last Admin: 07/26/22 08:39 Dose: 1 tab Nicotine Polacrilex (Nicotine Polacrilex Lozenge 2 Mg Lozenge) 2 mg BUCCAL Q2H PRN PRN Reason: Nicotine Cravings Last Admin: 07/25/22 20:17 Dose: 2 mg Ondansetron HCl (Ondansetron Odt 8 Mg Tab.Rapdis) 8 mg TRANSLINGU Q12H PRN PRN Reason: nausea Quetiapine Fumarate (Quetiapine Fumarate 300 Mg Tablet) 300 mg PO BEDTIME [facility] Last Admin: 07/25/22 20:16 Dose: 300 mg Quetiapine Fumarate (Quetiapine Fumarate 50 Mg Tablet) 150 mg PO BEDTIME PRN PRN Reason: insomnia Sumatriptan Succinate (Sumatriptan Succinate 100 Mg Tablet) 100 mg PO Q4H PRN PRN Reason: Migraine Headache Topiramate (Topiramate 100 Mg Tablet) 100 mg PO BEDTIME [facility] Last Admin: 07/25/22 20:17 Dose: 100 mg Trazodone HCl (Trazodone Hcl 50 Mg Tablet) 50 mg PO BEDTIME PRN PRN Reason: Insomnia Allergies Allergies Allergy/AdvReac Type Severity Reaction Status Date / Time No Known Allergies Allergy Unverified 06/30/20 18:56 [No Known Allergies*] Assessment & Plan Assessment & Plan (1) Bipolar 1 disorder: Status: Acute Code(s): F31.9 - Bipolar disorder, unspecified (2) Suicidal ideation: Status: Acute Code(s): R45.851 - Suicidal ideations (3) Depression: Status: Acute Code(s): F32.A - Depression, unspecified (4) Paranoid behavior: Status: Acute Code(s): F22 - Delusional disorders Plan 07/25: restarted prior meds regimen aside from reducing seroquel from 450 QHS to 300 QHS. investigate and prepare for ECT as an option. 07/26: medically cleared for ECT. awaiting consultation from ECT practitioner. c/o severe anxiety, ativan frequency increased. otherwise no med changes. per staff, SI without plan. I spent ___25___ minutes with the patient and/or on the patient floor today, greater than?50% of which was spent counseling/coordinating care. Reason for contiued inpatient stay Substantial Risk for: harm to self, inability to function and rapid d ecompensation
[2022-07-26] MEDS: Nicotine Polacrilex Lozenge 2 MG LOZENGE BUCCAL (18:36)
[2022-07-26] MEDS: Topiramate 100 MG TABLET PO (20:36)
[2022-07-26] MEDS: QUEtiapine Fumarate 300 MG TABLET PO (20:37)
[2022-07-26] MEDS: Lithium Carbonate ER 450 MG TABLET.ER 900 MG PO (20:37)
[2022-07-26] MEDS: lamoTRIgine 100 MG TABLET 200 MG PO (20:37)
[2022-07-26 20:40] VITALS: BP 126/83; PULSE 87; RESP 16; TEMP 36.8; O2SAT 99
[2022-07-27 06:00] VITALS: BP 103/76; PULSE 86; RESP 18; TEMP 36.6; O2SAT 99
--- NOTE | 2022-07-27 09:36 | HO.PSYCHPN ---
Subjective Subjective Date of Service: 07/27/22 Reason For Visit: psychosis Subjective Notes: Conditional Voluntary Interim History: Pt reports feeling very anxious. She also reports at times feeling numbed. She reports using PRN meds with good effect. She reports sleep is fair. She denies AH/VH. She reports passive SI but denies any plan or intent to harm self while on the unit. She is looking forward to start ECT as it has been very helpful for her in the past. Medication Compliance: Yes Side effects from medications: No Review of Systems Review of Systems General: No fevers, malaise, unintentional weight loss HEENT: No blurred vision or diplopia Cardiovascular: No chest pain, palpitations, or leg edema Respiratory: No shortness of breath, wheezing, cough GI: No abdominal pain, nausea, vomiting, diarrhea, constipation, melena, hematochezia Neuro: No headaches, weakness, paresthesias Skin: No rashes or lesions Yes all other systems are reviewed and are negative Mental Status Exam Mental Status Exam Narrative: calm, cooperative. dressed in street clothes. adequately dressed and groomed. cooperative, no PMA/PMR. some tearfulness. speech nml rate, amount, loudness, latency. thoughts linear and logical with report of paranoia of someone manipulating her medications in some way. affect constricted, min-labile. no SI/HI/AVH expressed. Diagnostics Vital Signs (24Hr): Vital Signs - 24 hr 07/27/22 21:10 Temperature 98.6 F Pulse Rate 77 Respiratory Rate 18 Blood Pressure 114/67 Pulse Oximetry 98 Oxygen Delivery Method Room Air BMI result Body Mass Index 31.9 Labs Results: 07/24/22 17:19 07/25/22 08:23 Medications Medications Current Medications Acetaminophen (Acetaminophen 325 Mg Tablet) 650 mg PO Q6H PRN PRN Reason: Headache/Pain Mild Scale (1-3) Acetazolamide (Acetazolamide 250 Mg Tablet) 250 mg PO BID [facility] Last Admin: 07/27/22 21:22 Dose: 250 mg Al Hydroxide/Mg Hydroxide (Magnesium Hydrox/Alum Hydrox 30 Ml Oral.Susp) 30 ml PO Q6H PRN PRN Reason: Heartburn/Nausea Hydroxyzine HCl (Hydroxyzine Hcl 25 Mg Tablet) 25 mg PO Q6H PRN PRN Reason: Anxiety Lamotrigine (Lamotrigine 100 Mg Tablet) 200 mg PO BEDTIME [facility] Last Admin: 07/27/22 21:23 Dose: 200 mg [place] Carbonate ([place] Carbonate Er 450 Mg Tablet.Er) 900 mg PO BEDTIME [facility] Last Admin: 07/27/22 21:22 Dose: 900 mg Lorazepam (Lorazepam 1 Mg Tablet) 1 mg PO Q4H PRN PRN Reason: Anxiety Last Admin: 07/27/22 21:22 Dose: 1 mg Magnesium Hydroxide (Milk Of Magnesia 30 Ml Oral.Susp) 30 ml PO DAILY PRN PRN Reason: Constipation Multivitamins/Vitamin C (Multivitamin Tablet) 1 tab PO DAILY [facility] Last Admin: 07/27/22 10:33 Dose: 1 tab Nicotine Polacrilex (Nicotine Polacrilex Lozenge 2 Mg Lozenge) 2 mg BUCCAL Q2H PRN PRN Reason: Nicotine Cravings Last Admin: 07/27/22 15:39 Dose: 2 mg Ondansetron HCl (Ondansetron Odt 8 Mg Tab.Rapdis) 8 mg TRANSLINGU Q12H PRN PRN Reason: nausea Quetiapine Fumarate (Quetiapine Fumarate 300 Mg Tablet) 300 mg PO BEDTIME [facility] Last Admin: 07/27/22 21:21 Dose: 300 mg Quetiapine Fumarate (Quetiapine Fumarate 50 Mg Tablet) 150 mg PO BEDTIME PRN PRN Reason: insomnia Sumatriptan Succinate (Sumatriptan Succinate 100 Mg Tablet) 100 mg PO Q4H PRN PRN Reason: Migraine Headache Topiramate (Topiramate 100 Mg Tablet) 100 mg PO BEDTIME [facility] Last Admin: 07/27/22 21:22 Dose: 100 mg Trazodone HCl (Trazodone Hcl 50 Mg Tablet) 50 mg PO BEDTIME PRN PRN Reason: Insomnia Allergies Allergies Allergy/AdvReac Type Severity Reaction Status Date / Time No Known Allergies Allergy Unverified 06/30/20 18:56 [No Known Allergies*] Assessment & Plan Assessment & Plan (1) Bipolar 1 disorder: Status: Acute Code(s): F31.9 - Bipolar disorder, unspecified (2) Suicidal ideation: Status: Acute Code(s): R45.851 - Suicidal ideations (3) Depression: Status: Acute Code(s): F32.A - Depression, unspecified (4) Paranoid behavior: Status: Acute Code(s): F22 - Delusional disorders Plan 07/25: restarted prior meds regimen aside from reducing seroquel from 450 QHS to 300 QHS. investigate and prepare for ECT as an option. 07/26: medically cleared for ECT. awaiting consultation from ECT practitioner. c/o severe anxiety, ativan frequency increased. otherwise no med changes. per staff, SI without plan. 07/27 teaful, anxious, no VH/AH, passive SI, awaiting ECT. I spent minutes with the patient and/or on the patient floor today, greater than?50% of which was spent counseling/coordinating care. Reason for contiued inpatient stay Substantial Risk for: harm to self and inability to function
[2022-07-27] MEDS: Multivitamin TABLET 1 TAB PO (10:33)
[2022-07-27] MEDS: acetaZOLAMIDE 250 MG TABLET PO ×2 (10:34→21:22)
[2022-07-27] MEDS: LORazepam 1 MG TABLET PO ×3 (10:36→21:22)
[2022-07-27] MEDS: Nicotine Polacrilex Lozenge 2 MG LOZENGE BUCCAL ×2 (12:15→15:39)
[2022-07-27 21:10] VITALS: BP 114/67; PULSE 77; RESP 18; TEMP 37; O2SAT 98
[2022-07-27] MEDS: QUEtiapine Fumarate 300 MG TABLET PO (21:21)
[2022-07-27] MEDS: Lithium Carbonate ER 450 MG TABLET.ER 900 MG PO (21:22)
[2022-07-27] MEDS: Topiramate 100 MG TABLET PO (21:22)
[2022-07-27] MEDS: lamoTRIgine 100 MG TABLET 200 MG PO (21:23)
[2022-07-28 10:18] VITALS: BP 115/63; PULSE 80; RESP 17; TEMP 36.6; O2SAT 98
[2022-07-28] MEDS: LORazepam 1 MG TABLET PO ×3 (10:35→20:49)
[2022-07-28] MEDS: Acetaminophen 325 MG TABLET 650 MG PO (10:35)
[2022-07-28] MEDS: Multivitamin TABLET 1 TAB PO (10:37)
[2022-07-28] MEDS: acetaZOLAMIDE 250 MG TABLET PO ×2 (10:37→20:49)
[2022-07-28] MEDS: hydrOXYzine HCL 25 MG TABLET PO (13:25)
--- NOTE | 2022-07-28 15:02 | HO.PSYCHPN ---
Subjective Subjective Date of Service: 07/28/22 Reason For Visit: psychosis Interim History: calm, cooperative. a bit teary. states she had a dream about her mother, who several months ago. talking of her impulse to isolate in her room. awaiting ECT consult. mood depressed, MNA at 3-4 a.m. agreeable to increase HS seroquel to 350 from 300. per staff, medically cleared for ECT. attending groups, showering. MNA. had a panic attack at 2100. got ativan and scheduled meds at 2130. appeared to have slept after 2200. Mental Status Exam Mental Status Exam Narrative: calm, cooperative. dressed in street clothes. adequately dressed and groomed. cooperative, no PMA/PMR. some tearfulness. speech nml rate, amount, loudness, latency. thoughts linear and logical, no paranoia or delusions expressed. mood depressed. affect constricted, min-labile. no SI/HI/AVH expressed. Diagnostics Vital Signs (24Hr): Vital Signs - 24 hr 07/27/22 21:10 07/28/22 10:18 Temperature 98.6 F 98 F Pulse Rate 77 80 Respiratory Rate 18 17 Blood Pressure 114/67 115/63 Pulse Oximetry 98 98 Oxygen Delivery Method Room Air Room Air BMI result Body Mass Index 31.9 Labs Results: 07/24/22 17:19 07/25/22 08:23 Medications Medications Current Medications Acetaminophen (Acetaminophen 325 Mg Tablet) 650 mg PO Q6H PRN PRN Reason: Headache/Pain Mild Scale (1-3) Last Admin: 07/28/22 10:35 Dose: 650 mg Acetazolamide (Acetazolamide 250 Mg Tablet) 250 mg PO BID [facility]ACI Last Admin: 07/28/22 10:37 Dose: 250 mg Al Hydroxide/Mg Hydroxide (Magnesium Hydrox/Alum Hydrox 30 Ml Oral.Susp) 30 ml PO Q6H PRN PRN Reason: Heartburn/Nausea Hydroxyzine HCl (Hydroxyzine Hcl 25 Mg Tablet) 25 mg PO Q6H PRN PRN Reason: Anxiety Last Admin: 07/28/22 13:25 Dose: 25 mg Lamotrigine (Lamotrigine 100 Mg Tablet) 200 mg PO BEDTIME KACI Last Admin: 07/27/22 21:23 Dose: 200 mg [place] Carbonate ([place] Carbonate Er 450 Mg Tablet.Er) 900 mg PO BEDTIME KACI Last Admin: 07/27/22 21:22 Dose: 900 mg Lorazepam (Lorazepam 1 Mg Tablet) 1 mg PO Q4H PRN PRN Reason: Anxiety Last Admin: 07/28/22 10:35 Dose: 1 mg Magnesium Hydroxide (Milk Of Magnesia 30 Ml Oral.Susp) 30 ml PO DAILY PRN PRN Reason: Constipation Multivitamins/Vitamin C (Multivitamin Tablet) 1 tab PO DAILY KACI Last Admin: 07/28/22 10:37 Dose: 1 tab Nicotine Polacrilex (Nicotine Polacrilex Lozenge 2 Mg Lozenge) 2 mg BUCCAL Q2H PRN PRN Reason: Nicotine Cravings Last Admin: 07/27/22 15:39 Dose: 2 mg Ondansetron HCl (Ondansetron Odt 8 Mg Tab.Rapdis) 8 mg TRANSLINGU Q12H PRN PRN Reason: nausea Quetiapine Fumarate (Quetiapine Fumarate 50 Mg Tablet) 150 mg PO BEDTIME PRN PRN Reason: insomnia Quetiapine Fumarate (Quetiapine Fumarate 50 Mg Tablet) 350 mg PO BEDTIME [facility] Sumatriptan Succinate (Sumatriptan Succinate 100 Mg Tablet) 100 mg PO Q4H PRN PRN Reason: Migraine Headache Topiramate (Topiramate 100 Mg Tablet) 100 mg PO BEDTIME [facility] Last Admin: 07/27/22 21:22 Dose: 100 mg Trazodone HCl (Trazodone Hcl 50 Mg Tablet) 50 mg PO BEDTIME PRN PRN Reason: Insomnia Allergies Allergies Allergy/AdvReac Type Severity Reaction Status Date / Time No Known Allergies Allergy Unverified 06/30/20 18:56 [No Known Allergies*] Assessment & Plan Assessment & Plan (1) Bipolar 1 disorder: Status: Acute Code(s): F31.9 - Bipolar disorder, unspecified (2) Suicidal ideation: Status: Acute Code(s): R45.851 - Suicidal ideations (3) Depression: Status: Acute Code(s): F32.A - Depression, unspecified (4) Paranoid behavior: Status: Acute Code(s): F22 - Delusional disorders Plan 07/25: restarted prior meds regimen aside from reducing seroquel from 450 QHS to 300 QHS. investigate and prepare for ECT as an option. 07/26: medically cleared for ECT. awaiting consultation from ECT practitioner. c/o severe anxiety, ativan frequency increased. otherwise no med changes. per staff, SI without plan. 07/27 teaful, anxious, no VH/AH, passive SI, awaiting ECT. 07/28: stable presentation, same as yesterday. continue current mgmt. yuliya or kimberly to see pt for ECT saturday. I spent ___15___ minutes with the patient and/or on the patient floor today, greater than?50% of which was spent counseling/coordinating care. Reason for contiued inpatient stay Substantial Risk for: harm to self, inability to function and rapid decompensation
[2022-07-28 20:40] VITALS: BP 134/83; PULSE 82; RESP 18; TEMP 36.5; O2SAT 100
[2022-07-28] MEDS: Lithium Carbonate ER 450 MG TABLET.ER 900 MG PO (20:49)
[2022-07-28] MEDS: lamoTRIgine 100 MG TABLET 200 MG PO (20:49)
[2022-07-28] MEDS: Topiramate 100 MG TABLET PO (20:49)
[2022-07-28] MEDS: QUEtiapine Fumarate 50 MG TABLET PO (21:14)
[2022-07-28] MEDS: QUEtiapine Fumarate 300 MG TABLET PO (21:14)
[2022-07-29] MEDS: acetaZOLAMIDE 250 MG TABLET PO ×2 (09:21→20:38)
[2022-07-29] MEDS: LORazepam 1 MG TABLET PO ×3 (09:22→18:21)
[2022-07-29] MEDS: Multivitamin TABLET 1 TAB PO (09:22)
[2022-07-29 09:45] VITALS: BP 102/65; PULSE 90; RESP 18; TEMP 36.6; O2SAT 99
[2022-07-29] MEDS: QUEtiapine Fumarate 25 MG TABLET PO ×2 (14:01→18:21)
--- NOTE | 2022-07-29 15:04 | P.PNPSI_ITS ---
Subjective Subjective Date of Service: 07/29/22 Reason For Visit: psychosis Interim History: tearful, lable. Sad and anxious. can't stop crying. states she slept better last night with increase in seroquel. will try seroquel 25 mg PRN anxiety as well as ativan. per staff, taking ativan regularly. lots of anxiety. poor sleep. MNA. Mental Status Exam Mental Status Exam Narrative: calm, cooperative. dressed in street clothes. adequately dressed and groomed. cooperative, no PMA/PMR. tearful. speech nml rate, amount, loudness, latency. thoughts linear and logical, no paranoia or delusions expressed. mood depressed. affect constricted, mod-labile. no SI/HI/AVH expressed. Diagnostics Vital Signs (24Hr): Vital Signs - 24 hr 07/28/22 20:40 07/29/22 09:45 Temperature 97.7 F 97.9 F Pulse Rate 82 90 Respiratory Rate 18 18 Blood Pressure 134/83 102/65 Pulse Oximetry 100 99 Oxygen Delivery Method Room Air Room Air BMI result Body Mass Index 31.9 Labs Results: 07/24/22 17:19 07/25/22 08:23 Medications Medications Current Medications Acetaminophen (Acetaminophen 325 Mg Tablet) 650 mg PO Q6H PRN PRN Reason: Headache/Pain Mild Scale (1-3) Last Admin: 07/28/22 10:35 Dose: 650 mg Acetazolamide (Acetazolamide 250 Mg Tablet) 250 mg PO BID [facility] Last Admin: 07/29/22 09:21 Dose: 250 mg Al Hydroxide/Mg Hydroxide (Magnesium Hydrox/Alum Hydrox 30 Ml Oral.Susp) 30 ml PO Q6H PRN PRN Reason: Heartburn/Nausea Hydroxyzine HCl (Hydroxyzine Hcl 25 Mg Tablet) 25 mg PO Q6H PRN PRN Reason: Anxiety Last Admin: 07/28/22 13:25 Dose: 25 mg Lamotrigine (Lamotrigine 100 Mg Tablet) 200 mg PO BEDTIME [facility] Last Admin: 07/28/22 20:49 Dose: 200 mg [place] Carbonate ([place] Carbonate Er 450 Mg Tablet.Er) 900 mg PO BEDTIME KACI Last Admin: 07/28/22 20:49 Dose: 900 mg Lorazepam (Lorazepam 1 Mg Tablet) 1 mg PO Q4H PRN PRN Reason: Anxiety Last Admin: 07/29/22 14:00 Dose: 1 mg Magnesium Hydroxide (Milk Of Magnesia 30 Ml Oral.Susp) 30 ml PO DAILY PRN PRN Reason: Constipation Multivitamins/Vitamin C (Multivitamin Tablet) 1 tab PO DAILY [facility]I Last Admin: 07/29/22 09:22 Dose: 1 tab Nicotine Polacrilex (Nicotine Polacrilex Lozenge 2 Mg Lozenge) 2 mg BUCCAL Q2H PRN PRN Reason: Nicotine Cravings Last Admin: 07/27/22 15:39 Dose: 2 mg Ondansetron HCl (Ondansetron Odt 8 Mg Tab.Rapdis) 8 mg TRANSLINGU Q12H PRN PRN Reason: nausea Quetiapine Fumarate (Quetiapine Fumarate 50 Mg Tablet) 150 mg PO BEDTIME PRN PRN Reason: insomnia Quetiapine Fumarate (Quetiapine Fumarate 300 Mg Tablet) 300 mg PO BEDTIME [facility] Last Admin: 07/28/22 21:14 Dose: 300 mg Quetiapine Fumarate (Quetiapine Fumarate 50 Mg Tablet) 50 mg PO BEDTIME [facility] Last Admin: 07/28/22 21:14 Dose: 50 mg Quetiapine Fumarate (Quetiapine Fumarate 25 Mg Tablet) 25 mg PO Q4H PRN PRN Reason: anxiety Last Admin: 07/29/22 14:01 Dose: 25 mg Sumatriptan Succinate (Sumatriptan Succinate 100 Mg Tablet) 100 mg PO Q4H PRN PRN Reason: Migraine Headache Topiramate (Topiramate 100 Mg Tablet) 100 mg PO BEDTIME [facility] Last Admin: 07/28/22 20:49 Dose: 100 mg Trazodone HCl (Trazodone Hcl 50 Mg Tablet) 50 mg PO BEDTIME PRN PRN Reason: Insomnia Allergies Allergies Allergy/AdvReac Type Severity Reaction Status Date / Time No Known Allergies Allergy Unverified 06/30/20 18:56 [No Known Allergies*] Assessment & Plan Assessment & Plan (1) Bipolar 1 disorder: Status: Acute Code(s): F31.9 - Bipolar disorder, unspecified (2) Suicidal ideation: Status: Acute Code(s): R45.851 - Suicidal ideations (3) Depression: Status: Acute Code(s): F32.A - Depression, unspecified (4) Paranoid behavior: Status: Acute Code(s): F22 - Delusional disorders Plan 07/25: restarted prior meds regimen aside from reducing seroquel from 450 QHS to 300 QHS. investigate and prepare for ECT as an option. 07/26: medically cleared for ECT. awaiting consultation from ECT practitioner. c/o severe anxiety, ativan frequency increased. otherwise no med changes. per staff, SI without plan. 07/27 teaful, anxious, no VH/AH, passive SI, awaiting ECT. 07/28: stable presentation, same as yesterday. continue current mgmtEmery dwyer or kimberly to see pt for ECT saturday. 07/29: more tearful/labile today. added seroquel 25 PRNs for anxiety. otherwise continue current mgmt. yuliya or kimberly to see pt for ECT saturday. I spent ___15___ minutes with the patient and/or on the patient floor today, greater than?50% of which was spent counseling/coordinating care. Reason for contiued inpatient stay Substantial Risk for: harm to self, inability to function and rapid decompensation
[2022-07-29 20:10] VITALS: BP 109/55; PULSE 84; RESP 16; TEMP 36.7; O2SAT 99
[2022-07-29] MEDS: Lithium Carbonate ER 450 MG TABLET.ER 900 MG PO (20:39)
[2022-07-29] MEDS: lamoTRIgine 100 MG TABLET 200 MG PO (20:39)
[2022-07-29] MEDS: Topiramate 100 MG TABLET PO (20:40)
[2022-07-29] MEDS: QUEtiapine Fumarate 300 MG TABLET PO (20:40)
[2022-07-29] MEDS: QUEtiapine Fumarate 50 MG TABLET PO (20:40)
[2022-07-30 08:30] VITALS: BP 133/78; PULSE 87; TEMP 36.4; O2SAT 100
[2022-07-30] MEDS: QUEtiapine Fumarate 25 MG TABLET PO ×2 (08:43→13:14)
[2022-07-30] MEDS: LORazepam 1 MG TABLET PO ×2 (08:43→13:14)
[2022-07-30] MEDS: acetaZOLAMIDE 250 MG TABLET PO ×2 (08:44→20:30)
[2022-07-30] MEDS: Multivitamin TABLET 1 TAB PO (08:44)
[2022-07-30] MEDS: Nicotine Polacrilex Lozenge 2 MG LOZENGE BUCCAL ×2 (12:21→19:40)
--- NOTE | 2022-07-30 14:56 | P.PNPSI_ITS ---
Subjective Subjective Date of Service: 07/30/22 Reason For Visit: psychosis Interim History: feeling worse today than yesterday, irritable. negativistic. up mostly since 329. ativan and seroquel hlpeful for anxiety. dreading the dark thoughts she is having. hopeless, doesn't want to live anymore. no plan or intent, just feeling hopeless. MD informed pt Dr. Brady has been made aware of her desire for ECT. asks to increase seroquel at HS to 400 mg, as she did not sleep well last night. no other complaints or requests. Mental Status Exam Mental Status Exam Narrative: calm, cooperative. dressed in street clothes. adequately dressed and groomed. cooperative, no PMA/PMR. tearful. speech nml rate, amount, loudness, latency. thoughts linear and logical, no paranoia or delusions expressed. mood hopeless. affect constricted, mod-labile. passive SI. no HI/AVH expressed. Diagnostics Vital Signs (24Hr): Vital Signs - 24 hr 07/29/22 20:10 07/30/22 08:30 Temperature 98.1 F 97.6 F Pulse Rate 84 87 Respiratory Rate 16 Blood Pressure 109/55 L 133/78 Pulse Oximetry 99 100 Oxygen Delivery Method Room Air Room Air BMI result Body Mass Index 31.9 Labs Results: 07/24/22 17:19 07/25/22 08:23 Medications Medications Current Medications Acetaminophen (Acetaminophen 325 Mg Tablet) 650 mg PO Q6H PRN PRN Reason: Headache/Pain Mild Scale (1-3) Last Admin: 07/28/22 10:35 Dose: 650 mg Acetazolamide (Acetazolamide 250 Mg Tablet) 250 mg PO BID [facility] Last Admin: 07/30/22 08:44 Dose: 250 mg Al Hydroxide/Mg Hydroxide (Magnesium Hydrox/Alum Hydrox 30 Ml Oral.Susp) 30 ml PO Q6H PRN PRN Reason: Heartburn/Nausea Hydroxyzine HCl (Hydroxyzine Hcl 25 Mg Tablet) 25 mg PO Q6H PRN PRN Reason: Anxiety Last Admin: 07/28/22 13:25 Dose: 25 mg Lamotrigine (Lamotrigine 100 Mg Tablet) 200 mg PO BEDTIME [facility] Last Admin: 07/29/22 20:39 Dose: 200 mg [place] Carbonate ([place] Carbonate Er 450 Mg Tablet.Er) 900 mg PO BEDTIME [facility] Last Admin: 07/29/22 20:39 Dose: 900 mg Lorazepam (Lorazepam 1 Mg Tablet) 1 mg PO Q4H PRN PRN Reason: Anxiety Last Admin: 07/30/22 13:14 Dose: 1 mg Magnesium Hydroxide (Milk Of Magnesia 30 Ml Oral.Susp) 30 ml PO DAILY PRN PRN Reason: Constipation Multivitamins/Vitamin C (Multivitamin Tablet) 1 tab PO DAILY [facility]I Last Admin: 07/30/22 08:44 Dose: 1 tab Nicotine Polacrilex (Nicotine Polacrilex Lozenge 2 Mg Lozenge) 2 mg BUCCAL Q2H PRN PRN Reason: Nicotine Cravings Last Admin: 07/30/22 12:21 Dose: 2 mg Ondansetron HCl (Ondansetron Odt 8 Mg Tab.Rapdis) 8 mg TRANSLINGU Q12H PRN PRN Reason: nausea Quetiapine Fumarate (Quetiapine Fumarate 50 Mg Tablet) 150 mg PO BEDTIME PRN PRN Reason: insomnia Quetiapine Fumarate (Quetiapine Fumarate 25 Mg Tablet) 25 mg PO Q4H PRN PRN Reason: anxiety Last Admin: 07/30/22 13:14 Dose: 25 mg Quetiapine Fumarate (Quetiapine Fumarate 400 Mg Tablet) 400 mg PO BEDTIME [facility] Sumatriptan Succinate (Sumatriptan Succinate 100 Mg Tablet) 100 mg PO Q4H PRN PRN Reason: Migraine Headache Topiramate (Topiramate 100 Mg Tablet) 100 mg PO BEDTIME [facility] Last Admin: 07/29/22 20:40 Dose: 100 mg Trazodone HCl (Trazodone Hcl 50 Mg Tablet) 50 mg PO BEDTIME PRN PRN Reason: Insomnia Allergies Allergies Allergy/AdvReac Type Severity Reaction Status Date / Time No Known Allergies Allergy Unverified 06/30/20 18:56 [No Known Allergies*] Assessment & Plan Assessment & Plan (1) Bipolar 1 disorder: Status: Acute Code(s): F31.9 - Bipolar disorder, unspecified (2) Suicidal ideation: Status: Acute Code(s): R45.851 - Suicidal ideations (3) Depression: Status: Acute Code(s): F32.A - Depression, unspecified (4) Paranoid behavior: Status: Acute Code(s): F22 - Delusional disorders Plan 07/25: restarted prior meds regimen aside from reducing seroquel from 450 QHS to 300 QHS. investigate and prepare for ECT as an option. 07/26: medically cleared for ECT. awaiting consultation from ECT practitioner. c/o severe anxiety, ativan frequency increased. otherwise no med changes. per staff, SI without plan. 07/27 teaful, anxious, no VH/AH, passive SI, awaiting ECT. 07/28: stable presentation, same as yesterday. continue current mgmt. yuliya or harris to see pt for ECT saturday. 07/29: more tearful/labile today. added seroquel 25 PRNs for anxiety. otherwise continue current mgmt. yuliya or harris to see pt for ECT saturday. 07/30: poor sleep, seroquel increased to 400 mg QHS as of tonight. seroquel 25 mg plus ativan 1 mg helpful for anxiety. awaiting visit from ECT provider. reports she is feeling worse today, very hopeless. [place] paperwork filled out. I spent ___35___ minutes with the patient and/or on the patient floor today, greater than?50% of which was spent counseling/coordinating care. Reason for contiued inpatient stay Substantial Risk for: harm to self, inability to function and rapid decompensation
[2022-07-30 20:04] VITALS: BP 112/55; PULSE 89; RESP 16; TEMP 36.6; O2SAT 95
[2022-07-30] MEDS: Topiramate 100 MG TABLET PO (20:30)
[2022-07-30] MEDS: Lithium Carbonate ER 450 MG TABLET.ER 900 MG PO (20:30)
[2022-07-30] MEDS: QUEtiapine Fumarate 400 MG TABLET PO (20:30)
[2022-07-30] MEDS: lamoTRIgine 100 MG TABLET 200 MG PO (20:30)
[2022-07-31] MEDS: Multivitamin TABLET 1 TAB PO (09:22)
[2022-07-31] MEDS: acetaZOLAMIDE 250 MG TABLET PO ×2 (09:22→20:28)
[2022-07-31 09:24] VITALS: BP 139/94; PULSE 99; RESP 18; TEMP 36.3; O2SAT 100
[2022-07-31] MEDS: LORazepam 1 MG TABLET PO (09:47)
[2022-07-31] MEDS: QUEtiapine Fumarate 25 MG TABLET PO ×2 (09:47→16:43)
--- NOTE | 2022-07-31 11:28 | P.CONECT_ITS ---
History of Present Illness General Data Date of Service: 07/30/22 Reason for consult: ect referral pt requesting Requesting provider: Von Shah History of Present Illness The patient is a 31-year-old female with a history of bipolar disorder patient of Dr. Francisca chicas who is requesting ECT treatment. She has done well with this on previous occasions for bipolar depression last treatment was in June of 2020 she had had a series of 9 treatments 3 maintenance treatments last treatment was bitemporal with a pulse with the of 60.2 500% energy has seizure 72 seconds was treated with etomidate 14 mg succinylcholine 100 mg Toradol 15 mg had fentanyl 50 mcg as part of a protocol which had been helpful and Zofran 4 mg pretreatment. The patient has been on a combination of lithium Seroquel Lamictal and Topamax. Patient has been increasingly despondent intermittently suicidal with significant thoughts self-harm particularly since the of her mother January of 2022. Patient had gone off her medications for number of weeks increasingly hopeless despondent. Past Psychiatric History/Medication Trials: Patient states she has done quite well with ECT previously and had felt quite stable for an extended period of time patient does have a history of manic episodes with euphoria grandiosity increased energy [facility] Medical History (Updated 07/31/22 @ 11:45 by Laci Brady MD) Bipolar 1 disorder Migraines Mild intermittent asthma Pseudotumor cerebri Narrative: History of pseudotumor cerebri treated with Diamox sees Dr. Giovanny Lei from Neurology Family History: father - alcohol mother - depression bro - bipolar paternal grandfather - bipolar Social History: in partnership past 3 years. from [place], [place] in intact family. one younger brother and two older half-sisters from her mother's prior partnership. mother 02/02. father in recivery from alcohol addiction. Meds/Allergies Meds Home Medications Medication Instructions Recorded Confirmed Type acetazolamide 250 mg tablet 250 mg PO BID 07/24/22 07/24/22 History lamotrigine 200 mg tablet 200 mg PO BEDTIME 07/24/22 07/24/22 History lithium carbonate 450 mg 900 mg PO BEDTIME 07/24/22 07/24/22 History tablet,extended release lorazepam 1 mg tablet 1 tab PO BID PRN Anxiety 07/24/22 07/24/22 History multivitamin 1 tab PO DAILY 07/24/22 07/24/22 History ondansetron HCl 8 mg tablet 1 tab PO Q12H PRN nausea 07/24/22 07/24/22 History quetiapine 300 mg tablet 450 mg PO BEDTIME 07/24/22 07/24/22 History sumatriptan succinate 100 mg tablet 100 mg PO Q4H PRN Migraine Headache 07/24/22 07/24/22 History topiramate 100 mg tablet 100 mg PO BEDTIME 07/24/22 07/24/22 History Allergies Allergies Allergy/AdvReac Type Severity Reaction Status Date / Time No Known Allergies Allergy Unverified 06/30/20 18:56 [No Known Allergies*] Mental Status Exam Mental Status Exam Narrative: Patient casually dressed appropriately groomed. She is sad looking and tearful. She is cooperative to the interview. Speech is normal rate volume she feels hopeless helpless despondent cannot stand how she is feeling thoughts that she would be better off unsafe if discharged denies current plan or intent. Mood depressed constricted affect appropriate to mood impulse control seems adequate in this setting patient requesting ECT cannot stand how she is feeling understands that she needs to take medication regularly understands risks benefits alternatives and to ECT. No hallucinations or delusional material. Able to take information. Patient also where she is somewhat higher risk with ECT given history of pseudotumor cerebri Assessment & Plan Assessment & Plan (1) Bipolar 1 disorder, depressed, severe: Status: Acute Code(s): F31.4 - Bipolar disorder, current episode depressed, severe, without psychotic features Plan Patient has a history of severe bipolar depression has done well with ECT previously. Patient meets criteria for ECT because of acute suicidality inability to tolerate how she is feeling has lack of response to current medication regimen even when she was taking regimen regularly. Patient aware although much she Topamax Lamictal will need to be adjusted so as not to interfere with ECT patient was medically evaluated for ECT history of pseudotumor cerebri relative contraindication however patient's condition has generally been stable without significant increase pressure Dr. Salmon notified patient has tolerated ECT previously without difficulty. Labs EKG medical notes reviewed prior chart and treatment history including ECT reviewed I spent __35__ minutes with the patient and/or on the patient floor today, greater than?50% of which was spent counseling/coordinating care. Patient educated on: diagnosis, ECT and medical condition Informed Consent: understands
[2022-07-31 12:09] LABS: COVID-19 Test Negative (Negative); IDNOW Serial# 16C4AD1C
[2022-07-31] MEDS: Magnesium Hydrox/Alum Hydrox 30 ML ORAL.SUSP PO (12:59)
--- NOTE | 2022-07-31 13:48 | P.PNPSI_ITS ---
Subjective Subjective Date of Service: 07/31/22 Reason For Visit: psychosis Interim History: seen by yuliya last night, prepared for ECT tomorrow pending neuro consult and clearance due to pseudotumor cerebri. less labile than last couple of days, does state she continues to have a hard time due to dark thoughts. states she slept well, less paranoid. Very depressed and anxious. concerned about being on lamictal for ECT, referred to discuss further with yuliya. no other co mplaints or requests. per staff, overwhelmed yesterday. anx 7, dep 6. isolative. denied SI/HI/AVH. reading eves, attended art group. Mental Status Exam Mental Status Exam Narrative: Patient casually dressed appropriately groomed. She is cooperative to the interview. Speech is normal rate volume she feels hopeless helpless despondent cannot stand how she is feeling thoughts that she would be better off unsafe if discharged denies current plan or intent. Mood depressed constricted affect appropriate to mood impulse control seems adequate in this setting patient requesting ECT cannot stand how she is feeling understands that she needs to take medication regularly. No hallucinations or delusional material. Diagnostics Vital Signs (24Hr): Vital Signs - 24 hr 07/30/22 20:04 07/31/22 09:24 Temperature 97.9 F 97.3 F Pulse Rate 89 99 Respiratory Rate 16 18 Blood Pressure 112/55 L 139/94 H Pulse Oximetry 95 100 Oxygen Delivery Method Room Air Room Air BMI result Body Mass Index 31.9 Labs Results: 07/24/22 17:19 07/25/22 08:23 Labs: Laboratory Results - last 48 hr 07/31/22 11:30 COVID-19 (MIGUEL) Negative COVID-19 Clin Com See Note Medications Medications Current Medications Acetaminophen (Acetaminophen 325 Mg Tablet) 650 mg PO Q6H PRN PRN Reason: Headache/Pain Mild Scale (1-3) Last Admin: 07/28/22 10:35 Dose: 650 mg Acetazolamide (Acetazolamide 250 Mg Tablet) 250 mg PO BID KACI Last Admin: 07/31/22 09:22 Dose: 250 mg Al Hydroxide/Mg Hydroxide (Magnesium Hydrox/Alum Hydrox 30 Ml Oral.Susp) 30 ml PO Q6H PRN PRN Reason: Heartburn/Nausea Last Admin: 07/31/22 12:59 Dose: 30 ml Hydroxyzine HCl (Hydroxyzine Hcl 25 Mg Tablet) 25 mg PO Q6H PRN PRN Reason: Anxiety Last Admin: 07/28/22 13:25 Dose: 25 mg Lamotrigine (Lamotrigine 100 Mg Tablet) 200 mg PO BEDTIME KACI Last Admin: 07/30/22 20:30 Dose: 200 mg Pacific Carbonate (Pacific Carbonate Er 450 Mg Tablet.Er) 900 mg PO BEDTIME KACI Last Admin: 07/30/22 20:30 Dose: 900 mg Magnesium Hydroxide (Milk Of Magnesia 30 Ml Oral.Susp) 30 ml PO DAILY PRN PRN Reason: Constipation Multivitamins/Vitamin C (Multivitamin Tablet) 1 tab PO DAILY [facility] Last Admin: 07/31/22 09:22 Dose: 1 tab Nicotine Polacrilex (Nicotine Polacrilex Lozenge 2 Mg Lozenge) 2 mg BUCCAL Q2H PRN PRN Reason: Nicotine Cravings Last Admin: 07/30/22 19:40 Dose: 2 mg Ondansetron HCl (Ondansetron Odt 8 Mg Tab.Rapdis) 8 mg TRANSLINGU Q12H PRN PRN Reason: nausea Quetiapine Fumarate (Quetiapine Fumarate 50 Mg Tablet) 150 mg PO BEDTIME PRN PRN Reason: insomnia Quetiapine Fumarate (Quetiapine Fumarate 25 Mg Tablet) 25 mg PO Q4H PRN PRN Reason: anxiety Last Admin: 07/31/22 09:47 Dose: 25 mg Quetiapine Fumarate (Quetiapine Fumarate 400 Mg Tablet) 400 mg PO BEDTIME [facility] Last Admin: 07/30/22 20:30 Dose: 400 mg Sumatriptan Succinate (Sumatriptan Succinate 100 Mg Tablet) 100 mg PO Q4H PRN PRN Reason: Migraine Headache Topiramate (Topiramate 100 Mg Tablet) 100 mg PO BEDTIME [facility] Last Admin: 07/30/22 20:30 Dose: 100 mg Trazodone HCl (Trazodone Hcl 50 Mg Tablet) 50 mg PO BEDTIME PRN PRN Reason: Insomnia Allergies Allergies Allergy/AdvReac Type Severity Reaction Status Date / Time No Known Allergies Allergy Unverified 06/30/20 18:56 [No Known Allergies*] Assessment & Plan Assessment & Plan (1) Bipolar 1 disorder, depressed, severe: Status: Acute Code(s): F31.4 - Bipolar disorder, current episode depressed, severe, without psychotic features Assessment and Plan: Patient has a history of severe bipolar depression has done well with ECT previously. Patient meets criteria for ECT because of acute suicidality inability to tolerate how she is feeling has lack of response to current medication regimen even when she was taking regimen regularly. Patient aware although much she Topamax Lamictal will need to be adjusted so as not to interfere with ECT patient was medically evaluated for ECT history of pseudotumor cerebri relative contraindication however patient's condition has generally been stable without significant increase pressure Dr. Salmon notified patient has tolerated ECT previously without difficulty. Labs EKG medical notes reviewed prior chart and treatment history including ECT reviewed Plan 07/25: restarted prior meds regimen aside from reducing seroquel from 450 QHS to 300 QHS.? investigate and prepare for ECT as an option. 07/26: medically cleared for ECT.? awaiting consultation from ECT practitioner.? c/o severe anxiety, ativan frequency increased.? otherwise no med changes.? per staff, SI without plan. 07/27 teaful, anxious, no VH/AH, passive SI, awaiting ECT. 07/28: stable presentation, same as yesterday.? continue current mgmt.? yuliya or kimberly to see pt for ECT saturday. 07/29: more tearful/labile today.? added seroquel 25 PRNs for anxiety.? otherwise continue current mgmt.? yuliya or kimberly to see pt for ECT saturday. 07/30: poor sleep, seroquel increased to 400 mg QHS as of tonight.? seroquel 25 mg plus ativan 1 mg helpful for anxiety.? awaiting visit from ECT provider.? reports she is feeling worse today, very hopeless.? [facility] paperwork filled out. 07/31: seen by yuliya for ECT yesterday, which is approved pending neuro consult and clearance due to pseudotumor cerebri. less tearful today, remains despondent and hopeless. scheduled for ECT tomorrow. I spent ___35___ minutes with the patient and/or on the patient floor today, greater than?50% of which was spent counseling/coordinating care. Reason for contiued inpatient stay Substantial Risk for: inability to function and rapid decompensation
--- NOTE | 2022-07-31 16:03 | PM.NEUROCN ---
History of Present Illness Data of Consult Service Date: 07/31/22 Primary Care Provider: Julieth Ulloa MD [facility] Reason for consult: Clearance for ECT this is a 31-year-old woman with a history of bipolar disorder admitted for severe depression and suicidal ideation and is scheduled for ECT treatments. She had 8 ECT treatments previously that were completed in June 2020 and she did fairly well from it. I follow her along for long history of headaches and a past history of pseudotumor cerebri. She is a had a recent lumbar puncture done on 06/22/22 with normal pressure was 17 cm. Her EEG was normal. Review of Systems Review of Systems: General: No fevers, malaise, unintentional weight loss HEENT: No blurred vision or diplopia Cardiovascular: No chest pain, palpitations, or leg edema Respiratory: No shortness of breath, wheezing, cough GI: No abdominal pain, nausea, vomiting, diarrhea, constipation, melena, hematochezia Neuro: No headaches, weakness, paresthesias Skin: No rashes or lesions Yes all other systems are reviewed and are negative [facility] Past Medical History Medical History (Updated 07/31/22 @ 16:06 by Graciela Salmon MD) Bipolar 1 disorder Migraines Mild intermittent asthma Pseudotumor cerebri Family History Family History (Updated 07/25/22 @ 19:00 by TRISHA Thomas) Brother Bipolar disorder Depression Paternal Grandfather Bipolar disorder Father Alcohol dependence Mother Breast cancer Social History Social History Household Members: None Housing: Apartment Do you presently have visiting nurse or other home services: No Alcohol intake: current Alcohol intake frequency: a few times a week Patient Tobacco Use Status: Former Tobacco user Smoked in Last 30 Days: Yes e-Cigarette/Vaping Use: Currently Using Frequency of e-Cigarette/Vaping Use: 5-6 uses per day Patient Interested in Nicotine Replacement: Yes (requested theo lozenges) Patient Given Instructions on How to Stop Smoking: No Second Hand Smoke Exposure: No Use of substances other than those prescribed or required for medical reasons: Yes Substance Use Type: Marijuana Substance Use Frequency: Weekly Last Used Substance: Days (ago) Last Used Substance Other:: 1 Currently Displaying Signs/Symptoms of Drug Intoxication Withdrawal: No Other Past Substance Use Problem:: history of cocaine abuse - last use 3 years ago Any prior treatment program specific to substance use: No Have you been hit, kicked, punched, or otherwise hurt by someone within the past year? If so, by whom?: No Do you feel safe in your current relationship?: Yes Is there a partner from a previous relationship who is making you feel unsafe now?: No Are you made to feel afraid or neglected: No Advance Directives: No Advance Directives Information Provided: Yes Guardian: No Do you have thoughts of harming others: None Do you have a plan to hurt others: No Plan Recently lost weight without trying: No Nutrition Risks: No Nutritional Risk Patient : No : No Poor oral hygiene: No service: No Sexual orientation: Straight/Heterosexual Meds Allergies Allergy/AdvReac Type Severity Reaction Status Date / Time No Known Allergies Allergy Unverified 06/30/20 18:56 [No Known Allergies*] Active Medications: Current Medications Acetaminophen (Acetaminophen 325 Mg Tablet) 650 mg PO Q6H PRN PRN Reason: Headache/Pain Mild Scale (1-3) Last Admin: 07/28/22 10:35 Dose: 650 mg Acetazolamide (Acetazolamide 250 Mg Tablet) 250 mg PO BID KACI Last Admin: 07/31/22 09:22 Dose: 250 mg Al Hydroxide/Mg Hydroxide (Magnesium Hydrox/Alum Hydrox 30 Ml Oral.Susp) 30 ml PO Q6H PRN PRN Reason: Heartburn/Nausea Last Admin: 07/31/22 12:59 Dose: 30 ml Hydroxyzine HCl (Hydroxyzine Hcl 25 Mg Tablet) 25 mg PO Q6H PRN PRN Reason: Anxiety Last Admin: 07/28/22 13:25 Dose: 25 mg Lamotrigine (Lamotrigine 100 Mg Tablet) 200 mg PO BEDTIME KACI Last Admin: 07/30/22 20:30 Dose: 200 mg Smoke Rise Carbonate (Smoke Rise Carbonate Er 450 Mg Tablet.Er) 900 mg PO BEDTIME KACI Last Admin: 07/30/22 20:30 Dose: 900 mg Magnesium Hydroxide (Milk Of Magnesia 30 Ml Oral.Susp) 30 ml PO DAILY PRN PRN Reason: Constipation Multivitamins/Vitamin C (Multivitamin Tablet) 1 tab PO DAILY KACI Last Admin: 07/31/22 09:22 Dose: 1 tab Nicotine Polacrilex (Nicotine Polacrilex Lozenge 2 Mg Lozenge) 2 mg BUCCAL Q2H PRN PRN Reason: Nicotine Cravings Last Admin: 07/30/22 19:40 Dose: 2 mg Ondansetron HCl (Ondansetron Odt 8 Mg Tab.Rapdis) 8 mg TRANSLINGU Q12H PRN PRN Reason: nausea Quetiapine Fumarate (Quetiapine Fumarate 50 Mg Tablet) 150 mg PO BEDTIME PRN PRN Reason: insomnia Quetiapine Fumarate (Quetiapine Fumarate 25 Mg Tablet) 25 mg PO Q4H PRN PRN Reason: anxiety Last Admin: 07/31/22 09:47 Dose: 25 mg Quetiapine Fumarate (Quetiapine Fumarate 400 Mg Tablet) 400 mg PO BEDTIME KACI Last Admin: 07/30/22 20:30 Dose: 400 mg Sumatriptan Succinate (Sumatriptan Succinate 100 Mg Tablet) 100 mg PO Q4H PRN PRN Reason: Migraine Headache Topiramate (Topiramate 100 Mg Tablet) 100 mg PO BEDTIME KACI Last Admin: 07/30/22 20:30 Dose: 100 mg Trazodone HCl (Trazodone Hcl 50 Mg Tablet) 50 mg PO BEDTIME PRN PRN Reason: Insomnia Home Medications Medication Instructions Recorded Confirmed Last Taken Type acetazolamide 250 mg tablet 250 mg PO BID 07/24/22 07/24/22 Unknown History lamotrigine 200 mg tablet 200 mg PO BEDTIME 07/24/22 07/24/22 Unknown History lithium carbonate 450 mg 900 mg PO BEDTIME 07/24/22 07/24/22 Unknown History tablet,extended release lorazepam 1 mg tablet 1 tab PO BID PRN Anxiety 07/24/22 07/24/22 Unknown History multivitamin 1 tab PO DAILY 07/24/22 07/24/22 Unknown History ondansetron HCl 8 mg tablet 1 tab PO Q12H PRN nausea 07/24/22 07/24/22 Unknown History quetiapine 300 mg tablet 450 mg PO BEDTIME 07/24/22 07/24/22 Unknown History sumatriptan succinate 100 mg tablet 100 mg PO Q4H PRN Migraine Headache 07/24/22 07/24/22 Unknown History topiramate 100 mg tablet 100 mg PO BEDTIME 07/24/22 07/24/22 Unknown History Physical Exam Vital Signs: Vital Signs: Last Vital Signs Temp 97.3 F 10/18/22 09:24 Pulse 99 07/31/22 09:24 Resp 18 07/31/22 09:24 BP 139/94 H 07/31/22 09:24 Pulse Ox 100 07/31/22 09:24 O2 Del Method 07/31/22 09:24 BMI result Body Mass Index 31.9 Neuro: Other: normal nonfocal neurological examination Results Labs CBC & Chem 7: 07/24/22 17:19 07/25/22 08:23 Microbiology Microbiology Results: Microbiology 07/24/22 Unknown Urine clean catch - Urine crowley top Urine Culture - Final Assessment and Plan (1) Bipolar 1 disorder, depressed, severe: Status: Acute Patient has a history of severe bipolar depression has done well with ECT previously. Patient meets criteria for ECT because of acute suicidality inability to tolerate how she is feeling has lack of response to current medication regimen even when she was taking regimen regularly. Patient aware although much she Topamax Lamictal will need to be adjusted so as not to interfere with ECT patient was medically evaluated for ECT history of pseudotumor cerebri relative contraindication however patient's condition has generally been stable without significant increase pressure Dr. Salmon notified patient has tolerated ECT previously without difficulty. Labs EKG medical notes reviewed prior chart and treatment history including ECT reviewed (2) Migraine: Status: Acute she is cleared for ECT treatments for her depression. There is no neurological contraindication. Her spinal fluid pressure one month ago was normal Plan 07/25: restarted prior meds regimen aside from reducing seroquel from 450 QHS to 300 QHS.? investigate and prepare for ECT as an option. 07/26: medically cleared for ECT.? awaiting consultation from ECT practitioner.? c/o severe anxiety, ativan frequency increased.? otherwise no med changes.? per staff, SI without plan. 07/27 teaful, anxious, no VH/AH, passive SI, awaiting ECT. 07/28: stable presentation, same as yesterday.? continue current mgmt.? yuliya or kimberly to see pt for ECT saturday. 07/29: more tearful/labile today.? added seroquel 25 PRNs for anxiety.? otherwise continue current mgmt.? yuliya or kimberly to see pt for ECT saturday. 07/30: poor sleep, seroquel increased to 400 mg QHS as of tonight.? seroquel 25 mg plus ativan 1 mg helpful for anxiety.? awaiting visit from ECT provider.? reports she is feeling worse today, very hopeless.? [facility] paperwork filled out. 07/31: seen by yuliya for ECT yesterday, which is approved pending neuro consult and clearance due to pseudotumor cerebri. less tearful today, remains despondent and hopeless. scheduled for ECT tomorrow. Procedures Date of Service Date of Service: 07/31/22
[2022-07-31] MEDS: hydrOXYzine HCL 25 MG TABLET PO (16:43)
[2022-07-31 20:00] VITALS: BP 124/70; PULSE 85; RESP 16; TEMP 36.4; O2SAT 99
--- NOTE | 2022-07-31 20:20 | PC.NURSE ---
Pt scheduled for ECT 08/01/[address] Shah, will hold lamotrigine and topiramate tonight. Pt verbalized understanding and will be NPO after midnight.
[2022-07-31] MEDS: Lithium Carbonate ER 450 MG TABLET.ER 900 MG PO (20:28)
[2022-07-31] MEDS: Nicotine Polacrilex Lozenge 2 MG LOZENGE BUCCAL (20:28)
[2022-07-31] MEDS: QUEtiapine Fumarate 400 MG TABLET PO (20:28)
[2022-08-01] VITALS (15 sets, daily range): BP systolic 99–123; BP diastolic 58–83; PULSE 70–94; RESP 12–21; TEMP 36.1–36.6; O2SAT 95–100; BMI 31.1
--- NOTE | 2022-08-01 06:46 | HO.ANESPROP2 ---
ON LICENSE OF [facility] Active Problems Active Problems: All Active Problems (Updated 07/31/22 @ 16:06 by Graciela Salmon MD) Migraine (Acute) Pseudotumor cerebri (Acute) Bipolar 1 disorder, depressed, severe (Acute) Bipolar 1 disorder (Acute) Suicidal ideation (Acute) Depression (Acute) Paranoid behavior (Acute) Past Medical History Medical History Bipolar 1 disorder Migraines Mild intermittent asthma Pseudotumor cerebri Functional capacity: independent ambulation Patient : No Family History Family History Brother Bipolar disorder Depression Paternal Grandfather Bipolar disorder Father Alcohol dependence Mother Breast cancer Family history of problems with anesthesia: No Surgical History History of Problems with Anesthesia: No Social History Social History Household Members: None Housing: Apartment Do you presently have visiting nurse or other home services: No Alcohol intake: current Alcohol intake frequency: a few times a week Patient Tobacco Use Status: Current someday Tobacco user Tobacco use type: Cigarette Smoked in Last 30 Days: Yes e-Cigarette/Vaping Use: Currently Using Frequency of e-Cigarette/Vaping Use: 5-6 uses per day Patient Interested in Nicotine Replacement: Yes (requested theo lozenges) Patient Given Instructions on How to Stop Smoking: No Second Hand Smoke Exposure: No Use of substances other than those prescribed or required for medical reasons: Yes Substance Use Type: Marijuana Substance Use Frequency: Socially Last Used Substance: Days (ago) Last Used Substance Other:: 1 Currently Displaying Signs/Symptoms of Drug Intoxication Withdrawal: No Other Past Substance Use Problem:: history of cocaine abuse - last use 3 years ago Any prior treatment program specific to substance use: No Have you been hit, kicked, punched, or otherwise hurt by someone within the past year? If so, by whom?: No Do you feel safe in your current relationship?: Yes Is there a partner from a previous relationship who is making you feel unsafe now?: No Are you made to feel afraid or neglected: No Are you DNR?: No Advance Directives: No Advance Directives Information Provided: Yes Guardian: No Do you have thoughts of harming others: None Do you have a plan to hurt others: No Plan Recently lost weight without trying: No Nutrition Risks: No Nutritional Risk Patient : No : No Poor oral hygiene: No service: No Sexual orientation: Straight/Heterosexual Meds Allergies Allergy/AdvReac Type Severity Reaction Status Date / Time No Known Allergies Allergy Unverified 06/30/20 18:56 [No Known Allergies*] Active Medications: Current Medications Acetaminophen (Acetaminophen 325 Mg Tablet) 650 mg PO Q6H PRN PRN Reason: Headache/Pain Mild Scale (1-3) Last Admin: 07/28/22 10:35 Dose: 650 mg Acetazolamide (Acetazolamide 250 Mg Tablet) 250 mg PO BID [facility] Last Admin: 07/31/22 20:28 Dose: 250 mg Al Hydroxide/Mg Hydroxide (Magnesium Hydrox/Alum Hydrox 30 Ml Oral.Susp) 30 ml PO Q6H PRN PRN Reason: Heartburn/Nausea Last Admin: 07/31/22 12:59 Dose: 30 ml Hydroxyzine HCl (Hydroxyzine Hcl 25 Mg Tablet) 25 mg PO Q6H PRN PRN Reason: Anxiety Last Admin: 07/31/22 16:43 Dose: 25 mg Lamotrigine (Lamotrigine 100 Mg Tablet) 100 mg PO DAILY [facility] [employer] Carbonate ([employer] [place] Carbonate Er 450 Mg Tablet.Er) 900 mg PO BEDTIME [facility] Last Admin: 07/31/22 20:28 Dose: 900 mg Lorazepam (Lorazepam 1 Mg Tablet) 1 mg PO Q4H PRN PRN Reason: Anxiety Magnesium Hydroxide (Milk Of Magnesia 30 Ml Oral.Susp) 30 ml PO DAILY PRN PRN Reason: Constipation Multivitamins/Vitamin C (Multivitamin Tablet) 1 tab PO DAILY [facility] Last Admin: 07/31/22 09:22 Dose: 1 tab Nicotine Polacrilex (Nicotine Polacrilex Lozenge 2 Mg Lozenge) 2 mg BUCCAL Q2H PRN PRN Reason: Nicotine Cravings Last Admin: 07/31/22 20:28 Dose: 2 mg Ondansetron HCl (Ondansetron Odt 8 Mg Tab.Rapdis) 8 mg TRANSLINGU Q12H PRN PRN Reason: nausea Quetiapine Fumarate (Quetiapine Fumarate 50 Mg Tablet) 150 mg PO BEDTIME PRN PRN Reason: insomnia Quetiapine Fumarate (Quetiapine Fumarate 25 Mg Tablet) 25 mg PO Q4H PRN PRN Reason: anxiety Last Admin: 07/31/22 16:43 Dose: 25 mg Quetiapine Fumarate (Quetiapine Fumarate 400 Mg Tablet) 400 mg PO BEDTIME [facility] Last Admin: 07/31/22 20:28 Dose: 400 mg Sumatriptan Succinate (Sumatriptan Succinate 100 Mg Tablet) 100 mg PO Q4H PRN PRN Reason: Migraine Headache Topiramate (Topiramate 25 Mg Tablet) 50 mg PO DAILY [facility] Trazodone HCl (Trazodone Hcl 50 Mg Tablet) 50 mg PO BEDTIME PRN PRN Reason: Insomnia Home Medications Medication Instructions Recorded Confirmed Last Taken Type acetazolamide 250 mg tablet 250 mg PO BID 07/24/22 07/24/22 Unknown History lamotrigine 200 mg tablet 200 mg PO BEDTIME 07/24/22 07/24/22 Unknown History lithium carbonate 450 mg 900 mg PO BEDTIME 07/24/22 07/24/22 Unknown History tablet,extended release lorazepam 1 mg tablet 1 tab PO BID PRN Anxiety 07/24/22 07/24/22 Unknown History multivitamin 1 tab PO DAILY 07/24/22 07/24/22 Unknown History ondansetron HCl 8 mg tablet 1 tab PO Q12H PRN nausea 07/24/22 07/24/22 Unknown History quetiapine 300 mg tablet 450 mg PO BEDTIME 07/24/22 07/24/22 Unknown History sumatriptan succinate 100 mg tablet 100 mg PO Q4H PRN Migraine Headache 07/24/22 07/24/22 Unknown History topiramate 100 mg tablet 100 mg PO BEDTIME 07/24/22 07/24/22 Unknown History Exam Exam Date and Time: August 01, 2022 0646 Height,Weight and Vital Signs: Height 5 ft 2 in Weight 77.111 kg Last Vital Signs Temp 97.2 F 08/01/22 06:32 Pulse 77 08/01/22 06:32 Resp 18 08/01/22 06:32 BP 106/61 08/01/22 06:32 Pulse Ox 100 08/01/22 06:32 O2 Del Method 08/01/22 06:32 Pertinent Lab Results Pertinent Lab Results: Laboratory Tests 07/24/22 07/24/22 07/24/22 16:54 16:54 16:54 WBC RBC Hgb Hct MCV MCH MCHC RDW Plt Count MPV Absolute Nucleated RBC Nucleated RBC % (auto) Sodium Potassium Chloride Carbon Dioxide Anion Gap BUN Creatinine Estim Creat Clear Calc Estimated GFR Random Glucose Fasting Glucose Estimat Average Glucose Hemoglobin A1c % Calcium Total Bilirubin AST ALT Alkaline Phosphatase Total Protein Albumin Triglycerides Cholesterol LDL Cholesterol, Calc HDL Cholesterol Vitamin B12 Folate TSH Urine Color Yellow Urine Appearance Cloudy Urine pH 5.0 Ur Specific Correll 1.025 Urine Protein Negative Urine Glucose (UA) Negative Urine Ketones Trace Urine Blood Negative Urine Nitrite Negative Ur Leukocyte Esterase Small (1+) H Urine RBC 0-2 Urine WBC 0-5 Ur Squamous Epith Cells 6-10 Urine Bacteria 1+ Hyaline Casts 0-2 Salicylates Urine Opiates Screen Not Detected Urine Fentanyl Screen Not Detected Acetaminophen Ur Barbiturates Screen Not Detected Ur Phencyclidine Scrn Not Detected Ur Amphetamines Screen Not Detected U Benzodiazepines Scrn Not Detected [employer] Urine Cocaine Screen Not Detected U Marijuana (THC) Screen POSITIVE H Ethyl Alcohol COVID-19 ([facility]) Negative COVID-19 Clin Com See Note 07/24/22 07/24/22 07/24/22 17:19 17:19 17:19 WBC 10.2 RBC 4.51 Hgb 13.8 Hct 40.0 MCV 88.7 MCH 30.6 MCHC 34.5 RDW 12.5 Plt Count 230 MPV 9.4 Absolute Nucleated RBC 0.000 Nucleated RBC % (auto) 0.0 Sodium 140 Potassium 3.6 Chloride 112 H Carbon Dioxide 16 L Anion Gap 16 BUN 11 Creatinine 0.74 Estim Creat Clear Calc 105.8 Estimated GFR > 60 Random Glucose 98 Fasting Glucose Estimat Average Glucose Hemoglobin A1c % Calcium 9.0 Total Bilirubin AST ALT Alkaline Phosphatase Total Protein Albumin Triglycerides Cholesterol LDL Cholesterol, Calc HDL Cholesterol Vitamin B12 Folate TSH Urine Color Urine Appearance Urine pH Ur Specific [place] Urine Protein Urine Glucose (UA) Urine Ketones Urine Blood Urine Nitrite Ur Leukocyte Esterase Urine RBC Urine WBC Ur Squamous Epith Cells Urine Bacteria Hyaline Casts Salicylates < 5.0 L Urine Opiates Screen Urine Fentanyl Screen Acetaminophen < 1 Ur Barbiturates Screen Ur Phencyclidine Scrn Ur Amphetamines Screen U Benzodiazepines Scrn [employer] Urine Cocaine Screen U Marijuana (THC) Screen Ethyl Alcohol < 10 COVID-19 ([facility]) COVID-19 Clin Com 07/24/22 07/25/22 07/25/22 20:45 08:23 08:23 WBC RBC Hgb Hct MCV MCH MCHC RDW Plt Count MPV Absolute Nucleated RBC Nucleated RBC % (auto) Sodium 139 Potassium 4.0 Chloride 112 H Carbon Dioxide 20 L Anion Gap 11 L BUN 11 Creatinine 0.82 Estim Creat Clear Calc 96.4 Estimated GFR > 60 Random Glucose Fasting Glucose 91 Estimat Average Glucose 80 Hemoglobin A1c % 4.4 Calcium 8.7 Total Bilirubin 0.6 AST 13 ALT 8 Alkaline Phosphatase 54 Total Protein 6.3 L Albumin 4.0 Triglycerides 99 Cholesterol 200 LDL Cholesterol, Calc 126 HDL Cholesterol 55 Vitamin B12 Folate TSH 3.28 Urine Color Urine Appearance Urine pH Ur Specific [place] Urine Protein Urine Glucose (UA) Urine Ketones Urine Blood Urine Nitrite Ur Leukocyte Esterase Urine RBC Urine WBC Ur Squamous Epith Cells Urine Bacteria Hyaline Casts Salicylates Urine Opiates Screen Urine Fentanyl Screen Acetaminophen Ur Barbiturates Screen Ur Phencyclidine Scrn Ur Amphetamines Screen U Benzodiazepines Scrn [employer] < 0.04 L Urine Cocaine Screen U Marijuana (THC) Screen Ethyl Alcohol COVID-19 ([facility]) COVID-19 [employer] Com 07/25/22 07/31/22 08:23 11:30 WBC RBC Hgb Hct MCV MCH MCHC RDW Plt Count MPV Absolute Nucleated RBC Nucleated RBC % (auto) Sodium Potassium Chloride Carbon Dioxide Anion Gap BUN Creatinine Estim Creat Clear Calc Estimated GFR Random Glucose Fasting Glucose Estimat Average Glucose Hemoglobin A1c % Calcium Total Bilirubin AST ALT Alkaline Phosphatase Total Protein Albumin Triglycerides Cholesterol LDL Cholesterol, Calc HDL Cholesterol Vitamin B12 279 Folate 11.1 TSH Urine Color Urine Appearance Urine pH Ur Specific [place] Urine Protein Urine Glucose (UA) Urine Ketones Urine Blood Urine Nitrite Ur Leukocyte Esterase Urine RBC Urine WBC Ur Squamous Epith Cells Urine Bacteria Hyaline Casts Salicylates Urine Opiates Screen Urine Fentanyl Screen Acetaminophen Ur Barbiturates Screen Ur Phencyclidine Scrn Ur Amphetamines Screen U Benzodiazepines Scrn [employer] Urine Cocaine Screen U Marijuana (THC) Screen Ethyl Alcohol COVID-19 ([facility]) Negative COVID-19 [employer] Com See Note Airway Mallampati Class: II TM Dist: >3cm Neck ROM: Full Heart: RRR Lungs: CTA Assessment and Plan Final Anesthetic Review Family History of Problems with Anesthesia: No History of Problems with Anesthesia: No NPO: Yes Final Preanesthetic Review: No Changes in Pt Med Stat, Meds/Allgs Chart Reviewed, Consent Obtained/Reviewed and Anes Risks/Benef Reviewed Patient Risk: Low Procedure Risk: Low Anesthetic Plan Anesthetic Plan: GA Disposition: Standard PACU
--- NOTE | 2022-08-01 07:07 | MHC.SHP ---
Pre-Procedural Eval Section A Date of Service: 08/01/22 The patient is an INPATIENT: Yes Changes since office visit: Yes Patient answered all questions; No Cold of Flu in the past 2 weeks, No New Medical Problems and No Changes in Medication The History & Physical has been completed within 30 days and I have reviewed it.: Yes Section B Chief Complaint: psychosis Allergies: Allergies Allergy/AdvReac Type Severity Reaction Status Date / Time No Known Allergies Allergy Unverified 06/30/20 18:56 [No Known Allergies*] Plan I have reviewed the history and physical and performed a pertinent physical examination on my patient. No changes have occurred unless specified.
--- NOTE | 2022-08-01 07:34 | HO.ECTPROC ---
ECT Procedure Note Diagnosis/Treatment Date of Service: 08/01/22 Diagnosis: Bipolar disorder Current Treatment Number: 1 Treatment: Series Interval Clinical Notes: pt with severe bipolar dep hx good response to ect hx of pseudotumor nl icp 1 month ago ECT Settings Device: THYMATRON DGx Electrode Placement: Bitemporal Program/Pulse Width: 0.25 Energy Percent: 100 Seizure Duration By EEG (in seconds): 71 Medications Administration General Anesthetic: Etomidate (16) Muscle Relaxant: Succinylcholine (100) Ancillary Medications Analgesics: Torodol - Pre ECT (15) Anti-emetics: Zofran - Pre ECT (4) Miscillaneous Medications: Propofol (30 post sz ) Airway Management Airway Management: Bag Mask Ventilation Treatment Recommendations Notes: inc salivation anesthesia suggests glyco pretx next time
--- NOTE | 2022-08-01 07:41 | HO.POSTANES ---
Post Anesthesia Evaluation Post Anesthesia Evaluation Vital Signs: Vital Signs Temp Pulse Resp BP Pulse Ox O2 Del Method 08/01/22 06:32 97.2 F 77 18 106/61 100 Room Air 08/01/22 05:55 97.8 F 82 111/72 100 Room Air 08/01/22 05:53 97.8 F 82 12 111/72 100 07/31/22 20:00 97.6 F 85 16 124/70 99 Room Air Anesthesia: General Mental Status: Awake Pain Control: Satisfactory Nausea/Vomiting: None Hydration: Adequate Anesthesia-Related Issues: No Anes. Related Issues
[2022-08-01] MEDS: fentaNYL citrate/PF 100 MCG/2 ML VIAL 50 MCG IVPUSH (08:24)
[2022-08-01] MEDS: Acetaminophen 325 MG TABLET 650 MG PO ×3 (08:28→19:11)
[2022-08-01] MEDS: Topiramate 25 MG TABLET 50 MG PO (09:50)
[2022-08-01] MEDS: acetaZOLAMIDE 250 MG TABLET PO ×2 (09:51→20:54)
[2022-08-01] MEDS: Multivitamin TABLET 1 TAB PO (09:51)
[2022-08-01] MEDS: lamoTRIgine 100 MG TABLET PO (09:51)
--- NOTE | 2022-08-01 11:04 | P.PNPSI_ITS ---
Subjective Subjective Date of Service: 08/01/22 Reason For Visit: psychosis Subjective Notes: Conditional Voluntary Interim History: Pt had ECT this AM. Pt reports headache after it, had tylenol with good effect. Pt reports improvement in some symptoms but continues to endorse depressed mood, anxious mood. She denies VH/AH. She denies SI/HI. No overt delusional content noted or reported. Pt mostly in bed today. No behavioral concerns. Medication Compliance: Yes Side effects from medications: No Review of Systems Review of Systems General: No fevers, malaise, unintentional weight loss HEENT: No blurred vision or diplopia Cardiovascular: No chest pain, palpitations, or leg edema Respiratory: No shortness of breath, wheezing, cough GI: No abdominal pain, nausea, vomiting, diarrhea, constipation, melena, hematochezia Neuro: No headaches, weakness, paresthesias Skin: No rashes or lesions Yes all other systems are reviewed and are negative Mental Status Exam Mental Status Exam Narrative: Appearance: casually groomed, fair hygiene in NAD Behavior: cooperative, less tearful than previous days psychomotor: no agitation or retardation noted Speech: clear, normal rate/rhythm, volume Thought process:linear Thought content:feeling better, positive about treatment, no overt delusional content Mood: better Affect: constricted but much less tearful and dysregulated SI:none HI: none VH/AH:none Delusions: none Insight/judgment:fair x 2. Memory/cog: alert, oriented x 3. grossly intact to conversational testing but not formally tested. Diagnostics Vital Signs (24Hr): Vital Signs - 24 hr 08/01/22 09:41 08/01/22 20:35 Temperature 97.3 F 97.4 F Pulse Rate 70 82 Respiratory Rate 16 16 Blood Pressure 99/58 L 105/62 Pulse Oximetry 98 100 Oxygen Delivery Method Room Air BMI result Body Mass Index 31.1 Labs Results: 07/24/22 17:19 07/25/22 08:23 Labs: Laboratory Results - last 48 hr 07/31/22 11:30 COVID-19 ([facility]) Negative COVID-19 Clin Com See Note Medications Medications Current Medications Acetaminophen (Acetaminophen 325 Mg Tablet) 650 mg PO Q6H PRN PRN Reason: Headache/Pain Mild Scale (1-3) Last Admin: 08/01/22 19:11 Dose: 650 mg Acetazolamide (Acetazolamide 250 Mg Tablet) 250 mg PO BID [facility] Last Admin: 08/01/22 20:54 Dose: 250 mg Al Hydroxide/Mg Hydroxide (Magnesium Hydrox/Alum Hydrox 30 Ml Oral.Susp) 30 ml PO Q6H PRN PRN Reason: Heartburn/Nausea Last Admin: 07/31/22 12:59 Dose: 30 ml Hydroxyzine HCl (Hydroxyzine Hcl 25 Mg Tablet) 25 mg PO Q6H PRN PRN Reason: Anxiety Last Admin: 07/31/22 16:43 Dose: 25 mg Lamotrigine (Lamotrigine 100 Mg Tablet) 100 mg PO DAILY [facility] Last Admin: 08/01/22 09:51 Dose: 100 mg [place] Carbonate ([place] Carbonate Er 450 Mg Tablet.Er) 900 mg PO BEDTIME [facility] Last Admin: 08/01/22 20:54 Dose: 900 mg Lorazepam (Lorazepam 1 Mg Tablet) 1 mg PO Q4H PRN PRN Reason: Anxiety Last Admin: 08/01/22 19:10 Dose: 1 mg Magnesium Hydroxide (Milk Of Magnesia 30 Ml Oral.Susp) 30 ml PO DAILY PRN PRN Reason: Constipation Multivitamins/Vitamin C (Multivitamin Tablet) 1 tab PO DAILY [facility] Last Admin: 08/01/22 09:51 Dose: 1 tab Nicotine Polacrilex (Nicotine Polacrilex Lozenge 2 Mg Lozenge) 2 mg BUCCAL Q2H PRN PRN Reason: Nicotine Cravings Last Admin: 07/31/22 20:28 Dose: 2 mg Ondansetron HCl (Ondansetron Odt 8 Mg Tab.Rapdis) 8 mg TRANSLINGU Q12H PRN PRN Reason: nausea Last Admin: 08/01/22 12:09 Dose: 8 mg Quetiapine Fumarate (Quetiapine Fumarate 50 Mg Tablet) 150 mg PO BEDTIME PRN PRN Reason: insomnia Quetiapine Fumarate (Quetiapine Fumarate 25 Mg Tablet) 25 mg PO Q4H PRN PRN Reason: anxiety Last Admin: 07/31/22 16:43 Dose: 25 mg Quetiapine Fumarate (Quetiapine Fumarate 400 Mg Tablet) 400 mg PO BEDTIME [facility] Last Admin: 08/01/22 20:54 Dose: 400 mg Sumatriptan Succinate (Sumatriptan Succinate 100 Mg Tablet) 100 mg PO Q4H PRN PRN Reason: Migraine Headache Last Admin: 08/01/22 12:09 Dose: 100 mg Topiramate (Topiramate 25 Mg Tablet) 50 mg PO DAILY [facility] Last Admin: 08/01/22 09:50 Dose: 50 mg Trazodone HCl (Trazodone Hcl 50 Mg Tablet) 50 mg PO BEDTIME PRN PRN Reason: Insomnia Allergies Allergies Allergy/AdvReac Type Severity Reaction Status Date / Time No Known Allergies Allergy Unverified 06/30/20 18:56 [No Known Allergies*] Assessment & Plan Assessment & Plan (1) Bipolar 1 disorder, depressed, severe: Status: Acute Code(s): F31.4 - Bipolar disorder, current episode depressed, severe, without psychotic features Assessment and Plan: Patient has a history of severe bipolar depression has done well with ECT previously. Patient meets criteria for ECT because of acute suicidality inability to tolerate how she is feeling has lack of response to current medication regimen even when she was taking regimen regularly. Patient aware although much she Topamax Lamictal will need to be adjusted so as not to interfere with ECT patient was medically evaluated for ECT history of pseudotumor cerebri relative contraindication however patient's condition has generally been stable without significant increase pressure Dr. Salmon notified patient has tolerated ECT previously without difficulty. Labs EKG medical notes reviewed prior chart and treatment history including ECT reviewed (2) Migraine: Status: Acute Code(s): G43.909 - Migraine, unspecified, not intractable, without status migrainosus Assessment and Plan: she is cleared for ECT treatments for her depression. There is no neurological contraindication. Her spinal fluid pressure one month ago was normal Plan 07/25: restarted prior meds regimen aside from reducing seroquel from 450 QHS to 300 QHS.? investigate and prepare for ECT as an option. 07/26: medically cleared for ECT.? awaiting consultation from ECT practitioner.? c/o severe anxiety, ativan frequency increased.? otherwise no med changes.? per staff, SI without plan. 07/27 teaful, anxious, no VH/AH, passive SI, awaiting ECT. 07/28: stable presentation, same as yesterday.? continue current mgmt.? yuliya or kimberly to see pt for ECT saturday. 07/29: more tearful/labile today.? added seroquel 25 PRNs for anxiety.? otherwise continue current mgmt.? yuliya or kimberly to see pt for ECT saturday. 07/30: poor sleep, seroquel increased to 400 mg QHS as of tonight.? seroquel 25 mg plus ativan 1 mg helpful for anxiety.? awaiting visit from ECT provider.? reports she is feeling worse today, very hopeless.? [facility] paperwork filled out. 07/31: seen by yuliya for ECT yesterday, which is approved pending neuro consult and clearance due to pseudotumor cerebri. less tearful today, remains despondent and hopeless. scheduled for ECT tomorrow. 08/01 continue tx. I spent minutes with the patient and/or on the patient floor today, grea ter than?50% of which was spent counseling/coordinating care. Reason for contiued inpatient stay Substantial Risk for: inability to function
[2022-08-01] MEDS: SUMAtriptan succinate 100 MG TABLET PO (12:09)
[2022-08-01] MEDS: Ondansetron ODT 8 MG TAB.RAPDIS TRANSLINGU (12:09)
[2022-08-01] MEDS: LORazepam 1 MG TABLET PO (19:10)
[2022-08-01] MEDS: Lithium Carbonate ER 450 MG TABLET.ER 900 MG PO (20:54)
[2022-08-01] MEDS: QUEtiapine Fumarate 400 MG TABLET PO (20:54)
[2022-08-02 07:00] VITALS: BMI 32.9
[2022-08-02 08:45] VITALS: BP 120/70; PULSE 86; RESP 18; TEMP 36.7; O2SAT 100
[2022-08-02] MEDS: Acetaminophen 325 MG TABLET 650 MG PO ×2 (09:31→16:39)
[2022-08-02] MEDS: Topiramate 25 MG TABLET 50 MG PO (09:31)
[2022-08-02] MEDS: lamoTRIgine 100 MG TABLET PO (09:32)
[2022-08-02] MEDS: Multivitamin TABLET 1 TAB PO (09:32)
[2022-08-02] MEDS: acetaZOLAMIDE 250 MG TABLET PO ×2 (09:34→21:04)
[2022-08-02] MEDS: LORazepam 1 MG TABLET PO ×2 (12:02→16:38)
--- NOTE | 2022-08-02 14:08 | HO.PSYCHPN ---
Subjective Subjective Date of Service: 08/02/22 Reason For Visit: psychosis Interim History: ECT yesterday, reports feeling improved, no need for ativan in the past day. both depression and anxiety are better. less paranoid, feeling more connected and grounded. discuss her not having had a lithium level recently, agrees to have labs drawn this evening. does report severe BRENNAN yesterday for which she received fentanyl, which she hopes will be avoided by use of fentanyl during the procedure. per staff, ECT yesterday, low anxiety and moderate depression. BRENNAN after ECT. brighter, not attending groups. eating eves, anxiety and depression moderate. Mental Status Exam Mental Status Exam Narrative: calm, cooperative. dressed in street clothes. adequately dressed and groomed. cooperative, no PMA/PMR. speech nml rate, amount, loudness, latency. thoughts linear and logical, no paranoia or delusions expressed. mood moderately depressed but less anxious. affect constricted, non-labile. no SI/HI/AVH expressed. Diagnostics Vital Signs (24Hr): Vital Signs - 24 hr 08/01/22 20:35 08/02/22 08:45 Temperature 97.4 F 98.1 F Pulse Rate 82 86 Respiratory Rate 16 18 Blood Pressure 105/62 120/70 Pulse Oximetry 100 100 Oxygen Delivery Method Room Air Room Air BMI result Body Mass Index 31.1 Labs Results: 07/24/22 17:19 07/25/22 08:23 Medications Medications Current Medications Acetaminophen (Acetaminophen 325 Mg Tablet) 650 mg PO Q6H PRN PRN Reason: Headache/Pain Mild Scale (1-3) Last Admin: 08/02/22 09:31 Dose: 650 mg Acetazolamide (Acetazolamide 250 Mg Tablet) 250 mg PO BID [facility] Last Admin: 08/02/22 09:34 Dose: 250 mg Al Hydroxide/Mg Hydroxide (Magnesium Hydrox/Alum Hydrox 30 Ml Oral.Susp) 30 ml PO Q6H PRN PRN Reason: Heartburn/Nausea Last Admin: 07/31/22 12:59 Dose: 30 ml Hydroxyzine HCl (Hydroxyzine Hcl 25 Mg Tablet) 25 mg PO Q6H PRN PRN Reason: Anxiety Last Admin: 07/31/22 16:43 Dose: 25 mg Lamotrigine (Lamotrigine 100 Mg Tablet) 100 mg PO DAILY [facility] Last Admin: 08/02/22 09:32 Dose: 100 mg [place] Carbonate ([place] Carbonate Er 450 Mg Tablet.Er) 900 mg PO BEDTIME KACI Last Admin: 08/01/22 20:54 Dose: 900 mg Lorazepam (Lorazepam 1 Mg Tablet) 1 mg PO Q4H PRN PRN Reason: Anxiety Last Admin: 08/02/22 12:02 Dose: 1 mg Magnesium Hydroxide (Milk Of Magnesia 30 Ml Oral.Susp) 30 ml PO DAILY PRN PRN Reason: Constipation Multivitamins/Vitamin C (Multivitamin Tablet) 1 tab PO DAILY [facility] Last Admin: 08/02/22 09:32 Dose: 1 tab Nicotine Polacrilex (Nicotine Polacrilex Lozenge 2 Mg Lozenge) 2 mg BUCCAL Q2H PRN PRN Reason: Nicotine Cravings Last Admin: 07/31/22 20:28 Dose: 2 mg Ondansetron HCl (Ondansetron Odt 8 Mg Tab.Rapdis) 8 mg TRANSLINGU Q12H PRN PRN Reason: nausea Last Admin: 08/01/22 12:09 Dose: 8 mg Quetiapine Fumarate (Quetiapine Fumarate 50 Mg Tablet) 150 mg PO BEDTIME PRN PRN Reason: insomnia Quetiapine Fumarate (Quetiapine Fumarate 25 Mg Tablet) 25 mg PO Q4H PRN PRN Reason: anxiety Last Admin: 07/31/22 16:43 Dose: 25 mg Quetiapine Fumarate (Quetiapine Fumarate 400 Mg Tablet) 400 mg PO BEDTIME KACI Last Admin: 08/01/22 20:54 Dose: 400 mg Sumatriptan Succinate (Sumatriptan Succinate 100 Mg Tablet) 100 mg PO Q4H PRN PRN Reason: Migraine Headache Last Admin: 08/01/22 12:09 Dose: 100 mg Topiramate (Topiramate 25 Mg Tablet) 50 mg PO DAILY [facility] Last Admin: 08/02/22 09:31 Dose: 50 mg Trazodone HCl (Trazodone Hcl 50 Mg Tablet) 50 mg PO BEDTIME PRN PRN Reason: Insomnia Allergies Allergies Allergy/AdvReac Type Severity Reaction Status Date / Time No Known Allergies Allergy Unverified 06/30/20 18:56 [No Known Allergies*] Assessment & Plan Assessment & Plan (1) Bipolar 1 disorder, depressed, severe: Status: Acute Code(s): F31.4 - Bipolar disorder, current episode depressed, severe, without psychotic features Assessment and Plan: Patient has a history of severe bipolar depression has done well with ECT previously. Patient meets criteria for ECT because of acute suicidality inability to tolerate how she is feeling has lack of response to current medication regimen even when she was taking regimen regularly. Patient aware although much she Topamax Lamictal will need to be adjusted so as not to interfere with ECT patient was medically evaluated for ECT history of pseudotumor cerebri relative contraindication however patient's condition has generally been stable without significant increase pressure Dr. Salmon notified patient has tolerated ECT previously without difficulty. Labs EKG medical notes reviewed prior chart and treatment history including ECT reviewed (2) Migraine: Status: Acute Code(s): G43.909 - Migraine, unspecified, not intractable, without status migrainosus Assessment and Plan: she is cleared for ECT treatments for her depression. There is no neurological contraindication. Her spinal fluid pressure one month ago was normal Plan 07/25: restarted prior meds regimen aside from reducing seroquel from 450 QHS to 300 QHS.? investigate and prepare for ECT as an option. 07/26: medically cleared for ECT.? awaiting consultation from ECT practitioner.? c/o severe anxiety, ativan frequency increased.? otherwise no med changes.? per staff, SI without plan. 07/27 teaful, anxious, no VH/AH, passive SI, awaiting ECT. 07/28: stable presentation, same as yesterday.? continue current mgmt.? yuliya or kimberly to see pt for ECT saturday. 07/29: more tearful/labile today.? added seroquel 25 PRNs for anxiety.? otherwise continue current mgmt.? yuliya or kimberly to see pt for ECT saturday. 07/30: poor sleep, seroquel increased to 400 mg QHS as of tonight.? seroquel 25 mg plus ativan 1 mg helpful for anxiety.? awaiting visit from ECT provider.? reports she is feeling worse today, very hopeless.? [facility] paperwork filled out. 07/31: seen by yuliya for ECT yesterday, which is approved pending neuro consult and clearance due to pseudotumor cerebri. less tearful today, remains despondent and hopeless. scheduled for ECT tomorrow. 08/01 continue tx. 08/02: check lithium level and related labs this evening. ECT #2 tomorrow. HS AEDs have been rescheduled for mornings for now. I spent ___25___ minutes with the patient and/or on the patient floor today, greater than?50% of which was spent counseling/coordinating care. Reason for contiued inpatient stay Substantial Risk for: harm to self, inability to function and rapid decompensation
[2022-08-02] MEDS: QUEtiapine Fumarate 25 MG TABLET PO (16:39)
[2022-08-02 17:25] VITALS: BP 118/68; PULSE 90; RESP 16; TEMP 36.4; O2SAT 100
[2022-08-02 19:17] LABS: MANUAL DIFF FLAG NO
[2022-08-02 19:19] LABS: Basophils Absolute Auto 0.1 X10*3/uL (0.0-0.2); Basophils Percent Auto 0.6 % (0-2); Eosinophils Absolute Auto 0.3 X10*3/uL (0.0-0.4); Eosinophils Percent Auto 3.1 % (0-4); Hematocrit 39.8 % (37.0-47.0); Hemoglobin 13.1 g/dl (12.0-16.0); Imm Gran Abs Auto 0.03 X10*3/uL (0.00-0.03); Imm Gran Pct Auto 0.3 % (0.0-0.4); Lymphocytes Absolute Auto 2.4 X10*3/uL (1.2-4.9); Mean Corpuscular HGB Conc 32.9 g/dl (31.0-35.0); Mean Corpuscular Hemoglobin 30.8 pg (27.0-33.0); Mean Corpuscular Volume 93.4 fL (80.0-98.0); Mean Platelet Volume 9.3 fL (9.4-12.3); Monocytes Absolute Auto 0.5 X10*3/uL (0.1-1.2); Monocytes Percent Auto 5.2 % (2-11); Neutrophils Absolute Auto 6.2 x10*3/uL (2.0-8.3); Neutrophils Percent Auto 65.8 % (45-73); Platelet Count 217 X10*3/uL (160-400); Red Blood Count 4.26 X10*6/uL (4.20-5.50); Red Cell Distribution Width 12.6 % (11.0-16.0); White Blood Count 9.4 X10*3/uL (4.8-10.8)
[2022-08-02 19:34] LABS: Lithium 0.31 mmol/L (0.60-1.20)
[2022-08-02 19:38] LABS: Anion Gap 14 (12-20); Blood Urea Nitrogen 13 mg/dL (9-16); Calcium 8.6 mg/dL (8.4-10.2); Carbon Dioxide 21 mmol/L (22-29); Chloride 109 mmol/L (96-108); Creatinine Clr Calc Pharmacy 92.7; Estimated Glomerular Filt Rate > 60; Glucose Random 106 mg/dL (60-115); Potassium 3.9 mmol/L (3.3-5.1); Sodium 140 mmol/L (135-145)
[2022-08-02] MEDS: QUEtiapine Fumarate 400 MG TABLET PO (21:04)
[2022-08-02] MEDS: Lithium Carbonate ER 450 MG TABLET.ER 900 MG PO (21:04)
[2022-08-03] VITALS (11 sets, daily range): BP systolic 99–120; BP diastolic 56–76; PULSE 70–92; RESP 14–18; TEMP 36.1–36.8; O2SAT 95–100
--- NOTE | 2022-08-03 10:30 | P.CONAN_ITS ---
[facility]LY [facility] Active Problems Active Problems: All Active Problems (Updated 07/31/22 @ 16:06 by Graciela Salmon MD) Migraine (Acute) Pseudotumor cerebri (Acute) Bipolar 1 disorder, depressed, severe (Acute) Bipolar 1 disorder (Acute) Suicidal ideation (Acute) Depression (Acute) Paranoid behavior (Acute) Past Medical History Medical History Bipolar 1 disorder Migraines Mild intermittent asthma Pseudotumor cerebri Functional capacity: independent ambulation Family History Family History Brother Bipolar disorder Depression Paternal Grandfather Bipolar disorder Father Alcohol dependence Mother Breast cancer Family history of problems with anesthesia: No Surgical History History of Problems with Anesthesia: No Social History Social History Household Members: None Housing: Apartment Do you presently have visiting nurse or other home services: No Alcohol intake: current Alcohol intake frequency: a few times a week Patient Tobacco Use Status: Current someday Tobacco user Tobacco use type: Cigarette Smoked in Last 30 Days: Yes e-Cigarette/Vaping Use: Currently Using Frequency of e-Cigarette/Vaping Use: 5-6 uses per day Patient Interested in Nicotine Replacement: Yes (requested theo lozenges) Patient Given Instructions on How to Stop Smoking: No Second Hand Smoke Exposure: No Use of substances other than those prescribed or required for medical reasons: Yes Substance Use Type: Marijuana Substance Use Frequency: Socially Last Used Substance: Days (ago) Last Used Substance Other:: 1 Currently Displaying Signs/Symptoms of Drug Intoxication Withdrawal: No Other Past Substance Use Problem:: history of cocaine abuse - last use 3 years ago Any prior treatment program specific to substance use: No Have you been hit, kicked, punched, or otherwise hurt by someone within the past year? If so, by whom?: No Do you feel safe in your current relationship?: Yes Is there a partner from a previous relationship who is making you feel unsafe now?: No Are you made to feel afraid or neglected: No Are you DNR?: No Advance Directives: No Advance Directives Information Provided: Yes Guardian: No Do you have thoughts of harming others: None Do you have a plan to hurt others: No Plan Recently lost weight without trying: No Nutrition Risks: No Nutritional Risk Patient : No : No Poor oral hygiene: No service: No Sexual orientation: Straight/Heterosexual Meds Allergies Allergy/AdvReac Type Severity Reaction Status Date / Time No Known Allergies Allergy Unverified 06/30/20 18:56 [No Known Allergies*] Active Medications: Current Medications Acetaminophen (Acetaminophen 325 Mg Tablet) 650 mg PO Q6H PRN PRN Reason: Headache/Pain Mild Scale (1-3) Last Admin: 08/02/22 16:39 Dose: 650 mg Acetazolamide (Acetazolamide 250 Mg Tablet) 250 mg PO BID KACI Last Admin: 08/02/22 21:04 Dose: 250 mg Al Hydroxide/Mg Hydroxide (Magnesium Hydrox/Alum Hydrox 30 Ml Oral.Susp) 30 ml PO Q6H PRN PRN Reason: Heartburn/Nausea Last Admin: 07/31/22 12:59 Dose: 30 ml Hydroxyzine HCl (Hydroxyzine Hcl 25 Mg Tablet) 25 mg PO Q6H PRN PRN Reason: Anxiety Last Admin: 07/31/22 16:43 Dose: 25 mg Lamotrigine (Lamotrigine 100 Mg Tablet) 100 mg PO DAILY KACI Last Admin: 08/02/22 09:32 Dose: 100 mg [place] Carbonate ([place] Carbonate Er 450 Mg Tablet.Er) 900 mg PO BEDTIME KACI Last Admin: 08/02/22 21:04 Dose: 900 mg Lorazepam (Lorazepam 1 Mg Tablet) 1 mg PO Q4H PRN PRN Reason: Anxiety Last Admin: 08/02/22 16:38 Dose: 1 mg Magnesium Hydroxide (Milk Of Magnesia 30 Ml Oral.Susp) 30 ml PO DAILY PRN PRN Reason: Constipation Multivitamins/Vitamin C (Multivitamin Tablet) 1 tab PO DAILY KACI Last Admin: 08/02/22 09:32 Dose: 1 tab Nicotine Polacrilex (Nicotine Polacrilex Lozenge 2 Mg Lozenge) 2 mg BUCCAL Q2H PRN PRN Reason: Nicotine Cravings Last Admin: 07/31/22 20:28 Dose: 2 mg Ondansetron HCl (Ondansetron Odt 8 Mg Tab.Rapdis) 8 mg TRANSLINGU Q12H PRN PRN Reason: nausea Last Admin: 08/01/22 12:09 Dose: 8 mg Quetiapine Fumarate (Quetiapine Fumarate 50 Mg Tablet) 150 mg PO BEDTIME PRN PRN Reason: insomnia Quetiapine Fumarate (Quetiapine Fumarate 25 Mg Tablet) 25 mg PO Q4H PRN PRN Reason: anxiety Last Admin: 08/02/22 16:39 Dose: 25 mg Quetiapine Fumarate (Quetiapine Fumarate 400 Mg Tablet) 400 mg PO BEDTIME KACI Last Admin: 08/02/22 21:04 Dose: 400 mg Sumatriptan Succinate (Sumatriptan Succinate 100 Mg Tablet) 100 mg PO Q4H PRN PRN Reason: Migraine Headache Last Admin: 08/01/22 12:09 Dose: 100 mg Topiramate (Topiramate 25 Mg Tablet) 50 mg PO DAILY [facility] Last Admin: 08/02/22 09:31 Dose: 50 mg Trazodone HCl (Trazodone Hcl 50 Mg Tablet) 50 mg PO BEDTIME PRN PRN Reason: Insomnia Home Medications Medication Instructions Recorded Confirmed Last Taken Type acetazolamide 250 mg tablet 250 mg PO BID 07/24/22 07/24/22 Unknown History lamotrigine 200 mg tablet 200 mg PO BEDTIME 07/24/22 07/24/22 Unknown History lithium carbonate 450 mg 900 mg PO BEDTIME 07/24/22 07/24/22 Unknown History tablet,extended release lorazepam 1 mg tablet 1 tab PO BID PRN Anxiety 07/24/22 07/24/22 Unknown History multivitamin 1 tab PO DAILY 07/24/22 07/24/22 Unknown History ondansetron HCl 8 mg tablet 1 tab PO Q12H PRN nausea 07/24/22 07/24/22 Unknown H istory quetiapine 300 mg tablet 450 mg PO BEDTIME 07/24/22 07/24/22 Unknown History sumatriptan succinate 100 mg tablet 100 mg PO Q4H PRN Migraine Headache 07/24/22 07/24/22 Unknown History topiramate 100 mg tablet 100 mg PO BEDTIME 07/24/22 07/24/22 Unknown History Exam Exam Date and Time: August 03, 2022 1030 Height,Weight and Vital Signs: Height 5 ft 2 in Weight 81.703 kg Last Vital Signs Temp 98.2 F 08/03/22 08:37 Pulse 89 08/03/22 08:37 Resp 18 08/03/22 08:37 BP 120/76 08/03/22 08:37 Pulse Ox 100 08/03/22 08:37 O2 Del Method 08/03/22 08:37 O2 Flow Rate 2 08/01/22 08:07 Pertinent Lab Results Pertinent Lab Results: Laboratory Tests 07/24/22 07/24/22 07/24/22 16:54 16:54 16:54 WBC RBC Hgb Hct MCV MCH MCHC RDW Plt Count MPV Immature Gran % (Auto) Neut % (Auto) Lymph % (Auto) [place] % (Auto) Eos % (Auto) Baso % (Auto) Lymph # (Auto) [place] # (Auto) Eos # (Auto) Baso # (Auto) Abs Immat Gran (auto) Absolute Neuts (auto) Absolute Nucleated RBC Nucleated RBC % (auto) Sodium Potassium Chloride Carbon Dioxide Anion Gap BUN Creatinine Estim Creat Clear Calc Estimated GFR Random Glucose Fasting Glucose Estimat Average Glucose Hemoglobin A1c % Calcium Total Bilirubin AST ALT Alkaline Phosphatase Total Protein Albumin Triglycerides Cholesterol LDL Cholesterol, Calc HDL Cholesterol Vitamin B12 Folate TSH Urine Color Yellow Urine Appearance Cloudy Urine pH 5.0 Ur Specific [place] 1.025 Urine Protein Negative Urine Glucose (UA) Negative Urine Ketones Trace Urine Blood Negative Urine Nitrite Negative Ur Leukocyte Esterase Small (1+) H Urine RBC 0-2 Urine WBC 0-5 Ur Squamous Epith Cells 6-10 Urine Bacteria 1+ Hyaline Casts 0-2 Salicylates Urine Opiates Screen Not Detected Urine Fentanyl Screen Not Detected Acetaminophen Ur Barbiturates Screen Not Detected Ur Phencyclidine Scrn Not Detected Ur Amphetamines Screen Not Detected U Benzodiazepines Scrn Not Detected [place] Urine Cocaine Screen Not Detected U Marijuana (THC) Screen POSITIVE H Ethyl Alcohol COVID-19 (MIGUEL) Negative COVID-19 Clin Com See Note 07/24/22 07/24/22 07/24/22 17:19 17:19 17:19 WBC 10.2 RBC 4.51 Hgb 13.8 Hct 40.0 MCV 88.7 MCH 30.6 MCHC 34.5 RDW 12.5 Plt Count 230 MPV 9.4 Immature Gran % (Auto) Neut % (Auto) Lymph % (Auto) [place] % (Auto) Eos % (Auto) Baso % (Auto) Lymph # (Auto) [place] # (Auto) Eos # (Auto) Baso # (Auto) Abs Immat Gran (auto) Absolute Neuts (auto) Absolute Nucleated RBC 0.000 Nucleated RBC % (auto) 0.0 Sodium 140 Potassium 3.6 Chloride 112 H Carbon Dioxide 16 L Anion Gap 16 BUN 11 Creatinine 0.74 Estim Creat Clear Calc 105.8 Estimated GFR > 60 Random Glucose 98 Fasting Glucose Estimat Average Glucose Hemoglobin A1c % Calcium 9.0 Total Bilirubin AST ALT Alkaline Phosphatase Total Protein Albumin Triglycerides Cholesterol LDL Cholesterol, Calc HDL Cholesterol Vitamin B12 Folate TSH Urine Color Urine Appearance Urine pH Ur Specific [place] Urine Protein Urine Glucose (UA) Urine Ketones Urine Blood Urine Nitrite Ur Leukocyte Esterase Urine RBC Urine WBC Ur Squamous Epith Cells Urine Bacteria Hyaline Casts Salicylates < 5.0 L Urine Opiates Screen Urine Fentanyl Screen Acetaminophen < 1 Ur Barbiturates Screen Ur Phencyclidine Scrn Ur Amphetamines Screen U Benzodiazepines Scrn [place] Urine Cocaine Screen U Marijuana (THC) Screen Ethyl Alcohol < 10 COVID-19 (MIGUEL) [employer] For[employer] 07/24/22 07/25/22 07/25/22 20:45 08:23 08:23 WBC RBC Hgb Hct MCV MCH MCHC RDW Plt Count MPV Immature Gran % (Auto) Neut % (Auto) Lymph % (Auto) [place] % (Auto) Eos % (Auto) Baso % (Auto) Lymph # (Auto) [place] # (Auto) Eos # (Auto) Baso # (Auto) Abs Immat Gran (auto) Absolute Neuts (auto) Absolute Nucleated RBC Nucleated RBC % (auto) Sodium 139 Potassium 4.0 Chloride 112 H Carbon Dioxide 20 L Anion Gap 11 L BUN 11 Creatinine 0.82 Estim Creat Clear Calc 96.4 Estimated GFR > 60 Random Glucose Fasting Glucose 91 Estimat Average Glucose 80 Hemoglobin A1c % 4.4 Calcium 8.7 Total Bilirubin 0.6 AST 13 ALT 8 Alkaline Phosphatase 54 Total Protein 6.3 L Albumin 4.0 Triglycerides 99 Cholesterol 200 LDL Cholesterol, Calc 126 HDL Cholesterol 55 Vitamin B12 Folate TSH 3.28 Urine Color Urine Appearance Urine pH Ur Specific [place] Urine Protein Urine Glucose (UA) Urine Ketones Urine Blood Urine Nitrite Ur Leukocyte Esterase Urine RBC Urine WBC Ur Squamous Epith Cells Urine Bacteria Hyaline Casts Salicylates Urine Opiates Screen Urine Fentanyl Screen Acetaminophen Ur Barbiturates Screen Ur Phencyclidine Scrn Ur Amphetamines Screen U Benzodiazepines Scrn [place] < 0.04 L Urine Cocaine Screen U Marijuana (THC) Screen Ethyl Alcohol COVID-19 (MIGUEL) COVID-19 Synaffix Com 07/25/22 07/31/22 08/02/22 08:23 11:30 19:08 WBC 9.4 RBC 4.26 Hgb 13.1 Hct 39.8 MCV 93.4 MCH 30.8 MCHC 32.9 RDW 12.6 Plt Count 217 MPV 9.3 L Immature Gran % (Auto) 0.3 Neut % (Auto) 65.8 Lymph % (Auto) 25.0 [place] % (Auto) 5.2 Eos % (Auto) 3.1 Baso % (Auto) 0.6 Lymph # (Auto) 2.4 [place] # (Auto) 0.5 Eos # (Auto) 0.3 Baso # (Auto) 0.1 Abs Immat Gran (auto) 0.03 Absolute Neuts (auto) 6.2 Absolute Nucleated RBC 0.000 Nucleated RBC % (auto) 0.0 Sodium Potassium Chloride Carbon Dioxide Anion Gap BUN Creatinine Estim Creat Clear Calc Estimated GFR Random Glucose Fasting Glucose Estimat Average Glucose Hemoglobin A1c % Calcium Total Bilirubin AST ALT Alkaline Phosphatase Total Protein Albumin Triglycerides Cholesterol LDL Cholesterol, Calc HDL Cholesterol Vitamin B12 279 Folate 11.1 TSH Urine Color Urine Appearance Urine pH Ur Specific [place] Urine Protein Urine Glucose (UA) Urine Ketones Urine Blood Urine Nitrite Ur Leukocyte Esterase Urine RBC Urine WBC Ur Squamous Epith Cells Urine Bacteria Hyaline Casts Salicylates Urine Opiates Screen Urine Fentanyl Screen Acetaminophen Ur Barbiturates Screen Ur Phencyclidine Scrn Ur Amphetamines Screen U Benzodiazepines Scrn [place] Urine Cocaine Screen U Marijuana (THC) Screen Ethyl Alcohol COVID-19 (MIGUEL) Negative COVID-19 Clin Com See Note 08/02/22 08/02/22 19:08 19:08 WBC RBC Hgb Hct MCV MCH MCHC RDW Plt Count MPV Immature Gran % (Auto) Neut % (Auto) Lymph % (Auto) [place] % (Auto) Eos % (Auto) Baso % (Auto) Lymph # (Auto) [place] # (Auto) Eos # (Auto) Baso # (Auto) Abs Immat Gran (auto) Absolute Neuts (auto) Absolute Nucleated RBC Nucleated RBC % (auto) Sodium 140 Potassium 3.9 Chloride 109 H Carbon Dioxide 21 L Anion Gap 14 BUN 13 Creatinine 0.87 Estim Creat Clear Calc 92.7 Estimated GFR > 60 Random Glucose 106 Fasting Glucose Estimat Average Glucose Hemoglobin A1c % Calcium 8.6 Total Bilirubin AST ALT Alkaline Phosphatase Total Protein Albumin Triglycerides Cholesterol LDL Cholesterol, Calc HDL Cholesterol Vitamin B12 Folate TSH Urine Color Urine Appearance Urine pH Ur Specific [place] Urine Protein Urine Glucose (UA) Urine Ketones Urine Blood Urine Nitrite Ur Leukocyte Esterase Urine RBC Urine WBC Ur Squamous Epith Cells Urine Bacteria Hyaline Casts Salicylates Urine Opiates Screen Urine Fentanyl Screen Acetaminophen Ur Barbiturates Screen Ur Phencyclidine Scrn Ur Amphetamines Screen U Benzodiazepines Scrn [place] 0.31 L Urine Cocaine Screen U Marijuana (THC) Screen Ethyl Alcohol COVID-19 (MGIUEL) COVID-19 Clin Com Airway Mallampati Class: II TM Dist: >3cm Neck ROM: Full Heart: rrr Lungs: cta Assessment and Plan Assessment Anesthesia Assessment: Anesthesia Plan Discussed and Chart Reviewed Final Anesthetic Review Family History of Problems with Anesthesia: No History of Problems with Anesthesia: No NPO: Yes ASA Class: III Final Preanesthetic Review: No Changes in Pt Med Stat, Meds/Allgs Chart Reviewed and Consent Obtained/Reviewed Patient Risk: Intermediate Procedure Risk: Intermediate Anesthetic Plan Anesthetic Plan: GA Disposition: Standard PACU
--- NOTE | 2022-08-03 10:57 | MHC.SHP ---
Pre-Procedural Eval Section A Date of Service: 08/03/22 The patient is an INPATIENT: Yes Changes since office visit: Yes Changes in Medication and Yes Patient answered all questions; No Cold of Flu in the past 2 weeks and No New Medical Problems The History & Physical has been completed within 30 days and I have reviewed it.: Yes Section B Chief Complaint: psychosis Allergies: Allergies Allergy/AdvReac Type Severity Reaction Status Date / Time No Known Allergies Allergy Unverified 06/30/20 18:56 [No Known Allergies*] Plan I have reviewed the history and physical and performed a pertinent physical examination on my patient. No changes have occurred unless specified.
[2022-08-03] MEDS: lamoTRIgine 100 MG TABLET PO (12:32)
[2022-08-03] MEDS: Topiramate 25 MG TABLET 50 MG PO (12:32)
[2022-08-03] MEDS: Multivitamin TABLET 1 TAB PO (12:32)
[2022-08-03] MEDS: acetaZOLAMIDE 250 MG TABLET PO ×2 (12:32→20:56)
--- NOTE | 2022-08-03 12:34 | PC.NURSE ---
Patient arrived back to [facility] from PACU post ECT at about 12:!0. A & Ox4. Patient reported 6/10 headache. No acute distress noted or reported. VSS.
--- NOTE | 2022-08-03 13:36 | P.PNPSI_ITS ---
Subjective Subjective Date of Service: 08/03/22 Reason For Visit: psychosis Interim History: pt seen shortly after return from ECT. appears somewhat dazed. calm and cooperative, lucid. states she does not have the severe BRENNAN she had after previous Tx. continues to feel improved from admission. no requests or complaints. per staff, attending groups. ECT today. brighter, anxious of having BRENNAN again after today's Tx. lithium 0.31 yesterday. appears rested. Mental Status Exam Mental Status Exam Narrative: calm, cooperative. in bed under covers. adequately groomed. cooperative, no PMA/PMR. speech nml rate, decr amount, decr loudness, nml latency. thoughts linear and logical, no paranoia or delusions expressed. affect constricted, non-labile. no SI/HI/AVH expressed. Diagnostics Vital Signs (24Hr): Vital Signs - 24 hr 08/02/22 17:25 08/03/22 06:15 08/03/22 06:23 Temperature 97.6 F 97.0 F 97.0 F Pulse Rate 90 78 78 Respiratory Rate 16 18 18 Blood Pressure 118/68 116/70 116/70 Pulse Oximetry 100 100 100 Oxygen Delivery Method Room Air Room Air Oxygen Flow Rate 08/03/22 08:37 08/03/22 11:30 08/03/22 11:35 Temperature 98.2 F 97.7 F Pulse Rate 89 70 87 Respiratory Rate 18 14 16 Blood Pressure 120/76 103/67 102/56 L Pulse Oximetry 100 100 97 Oxygen Delivery Method Room Air Nasal Cannula Room Air Oxygen Flow Rate 2 08/03/22 11:40 08/03/22 11:44 08/03/22 11:45 Temperature Pulse Rate 90 92 90 Respiratory Rate 14 14 Blood Pressure 100/58 L 110/71 107/63 Pulse Oximetry 97 97 95 Oxygen Delivery Method Room Air Room Air Room Air Oxygen Flow Rate 2 08/03/22 12:05 08/03/22 12:24 Temperature 97.2 F 97.8 F Pulse Rate 80 79 Respiratory Rate 17 17 Blood Pressure 105/64 116/66 Pulse Oximetry 96 97 Oxygen Delivery Method Room Air Oxygen Flow Rate BMI result Body Mass Index 32.9 Labs Results: 08/02/22 19:08 08/02/22 19:08 Labs: Laboratory Results - last 48 hr 08/02/22 08/02/22 08/02/22 19:08 19:08 19:08 WBC 9.4 RBC 4.26 Hgb 13.1 Hct 39.8 MCV 93.4 MCH 30.8 MCHC 32.9 RDW 12.6 Plt Count 217 MPV 9.3 L Immature Gran % (Auto) 0.3 Neut % (Auto) 65.8 Lymph % (Auto) 25.0 [place] % (Auto) 5.2 Eos % (Auto) 3.1 Baso % (Auto) 0.6 Lymph # (Auto) 2.4 [place] # (Auto) 0.5 Eos # (Auto) 0.3 Baso # (Auto) 0.1 Abs Immat Gran (auto) 0.03 Absolute Neuts (auto) 6.2 Absolute Nucleated RBC 0.000 Nucleated RBC % (auto) 0.0 Sodium 140 Potassium 3.9 Chloride 109 H Carbon Dioxide 21 L Anion Gap 14 BUN 13 Creatinine 0.87 Estim Creat Clear Calc 92.7 Estimated GFR > 60 Random Glucose 106 Calcium 8.6 [place] 0.31 L Medications Medications Current Medications Acetaminophen (Acetaminophen 325 Mg Tablet) 650 mg PO Q6H PRN PRN Reason: Headache/Pain Mild Scale (1-3) Last Admin: 08/02/22 16:39 Dose: 650 mg Acetazolamide (Acetazolamide 250 Mg Tablet) 250 mg PO BID [facility] Last Admin: 08/03/22 12:32 Dose: 250 mg Al Hydroxide/Mg Hydroxide (Magnesium Hydrox/Alum Hydrox 30 Ml Oral.Susp) 30 ml PO Q6H PRN PRN Reason: Heartburn/Nausea Last Admin: 07/31/22 12:59 Dose: 30 ml Hydroxyzine HCl (Hydroxyzine Hcl 25 Mg Tablet) 25 mg PO Q6H PRN PRN Reason: Anxiety Last Admin: 07/31/22 16:43 Dose: 25 mg Lamotrigine (Lamotrigine 100 Mg Tablet) 100 mg PO DAILY [facility] Last Admin: 08/03/22 12:32 Dose: 100 mg [place] Carbonate ([place] Carbonate Er 450 Mg Tablet.Er) 900 mg PO BEDTIME [facility] Last Admin: 08/02/22 21:04 Dose: 900 mg Lorazepam (Lorazepam 1 Mg Tablet) 1 mg PO Q4H PRN PRN Reason: Anxiety Last Admin: 08/02/22 16:38 Dose: 1 mg Magnesium Hydroxide (Milk Of Magnesia 30 Ml Oral.Susp) 30 ml PO DAILY PRN PRN Reason: Constipation Multivitamins/Vitamin C (Multivitamin Tablet) 1 tab PO DAILY [facility] Last Admin: 08/03/22 12:32 Dose: 1 tab Nicotine Polacrilex (Nicotine Polacrilex Lozenge 2 Mg Lozenge) 2 mg BUCCAL Q2H PRN PRN Reason: Nicotine Cravings Last Admin: 07/31/22 20:28 Dose: 2 mg Ondansetron HCl (Ondansetron Odt 8 Mg Tab.Rapdis) 8 mg TRANSLINGU Q12H PRN PRN Reason: nausea Last Admin: 08/01/22 12:09 Dose: 8 mg Quetiapine Fumarate (Quetiapine Fumarate 50 Mg Tablet) 150 mg PO BEDTIME PRN PRN Reason: insomnia Quetiapine Fumarate (Quetiapine Fumarate 25 Mg Tablet) 25 mg PO Q4H PRN PRN Reason: anxiety Last Admin: 08/02/22 16:39 Dose: 25 mg Quetiapine Fumarate (Quetiapine Fumarate 400 Mg Tablet) 400 mg PO BEDTIME [facility] Last Admin: 08/02/22 21:04 Dose: 400 mg Sumatriptan Succinate (Sumatriptan Succinate 100 Mg Tablet) 100 mg PO Q4H PRN PRN Reason: Migraine Headache Last Admin: 08/01/22 12:09 Dose: 100 mg Topiramate (Topiramate 25 Mg Tablet) 50 mg PO DAILY [facility] Last Admin: 08/03/22 12:32 Dose: 50 mg Trazodone HCl (Trazodone Hcl 50 Mg Tablet) 50 mg PO BEDTIME PRN PRN Reason: Insomnia Allergies Allergies Allergy/AdvReac Type Severity Reaction Status Date / Time No Known Allergies Allergy Unverified 06/30/20 18:56 [No Known Allergies*] Assessment & Plan Assessment & Plan (1) Bipolar 1 disorder, depressed, severe: Status: Acute Code(s): F31.4 - Bipolar disorder, current episode depressed, severe, without psychotic features Assessment and Plan: Patient has a history of severe bipolar depression has done well with ECT previ ously. Patient meets criteria for ECT because of acute suicidality inability to tolerate how she is feeling has lack of response to current medication regimen even when she was taking regimen regularly. Patient aware although much she Topamax Lamictal will need to be adjusted so as not to interfere with ECT patient was medically evaluated for ECT history of pseudotumor cerebri relative contraindication however patient's condition has generally been stable without significant increase pressure Dr. Salmon notified patient has tolerated ECT previously without difficulty. Labs EKG medical notes reviewed prior chart and treatment history including ECT reviewed (2) Migraine: Status: Acute Code(s): G43.909 - Migraine, unspecified, not intractable, without status migrainosus Assessment and Plan: she is cleared for ECT treatments for her depression. There is no neurological contraindication. Her spinal fluid pressure one month ago was normal Plan 07/25: restarted prior meds regimen aside from reducing seroquel from 450 QHS to 300 QHS.? investigate and prepare for ECT as an option. 07/26: medically cleared for ECT.? awaiting consultation from ECT practitioner.? c/o severe anxiety, ativan frequency increased.? otherwise no med changes.? per staff, SI without plan. 07/27 teaful, anxious, no VH/AH, passive SI, awaiting ECT. 07/28: stable presentation, same as yesterday.? continue current mgmt.? yuliya or kimberly to see pt for ECT saturday. 07/29: more tearful/labile today.? added seroquel 25 PRNs for anxiety.? otherwise continue current mgmt.? yuliya or kimberly to see pt for ECT saturday. 07/30: poor sleep, seroquel increased to 400 mg QHS as of tonight.? seroquel 25 mg plus ativan 1 mg helpful for anxiety.? awaiting visit from ECT provider.? reports she is feeling worse today, very hopeless.? [facility] paperwork filled out. 07/31: seen by yuliya for ECT yesterday, which is approved pending neuro consult and clearance due to pseudotumor cerebri. less tearful today, remains despondent and hopeless. scheduled for ECT tomorrow. 08/01 continue tx. 08/02: check lithium level and related labs this evening. ECT #2 tomorrow. HS AEDs have been rescheduled for mornings for now. 08/03: lithium subtherapeutic at 0.31, other labs unremarkable. ECT #2 completed, #3 scheduled for saturday. continue current mgmt for the weekend. I spent __20____ minutes with the patient and/or on the patient floor today, greater than?50% of which was spent counseling/coordinating care. Reason for contiued inpatient stay Substantial Risk for: harm to self, inability to function and rapid decompensation
[2022-08-03] MEDS: Acetaminophen 325 MG TABLET 650 MG PO ×2 (13:40→18:14)
[2022-08-03] MEDS: oxyCODONE HCl Immed Release 5 MG TABLET PO (15:54)
[2022-08-03] MEDS: Ibuprofen 400 MG TABLET PO (15:54)
--- NOTE | 2022-08-03 16:43 | HO.ECTPROC ---
ECT Procedure Note Diagnosis/Treatment Date of Service: 08/03/22 Diagnosis: Bipolar disorder Previous ECT Date: 08/01/22 Current Treatment Number: 2 Treatment: Series Interval Clinical Notes: pt seems somewhat improved had significant BRENNAN post ect otherwise tolerated well ECT Settings Device: THYMATRON DGx Electrode Placement: Bitemporal Program/Pulse Width: 0.25 Energy Percent: 100 Seizure Duration By EEG (in seconds): 73 Medications Administration General Anesthetic: Etomidate (16) Muscle Relaxant: Succinylcholine (100) Ancillary Medications Analgesics: Torodol - Pre ECT (15) and Narcotics (50 mcg ) Anti-emetics: Zofran - Pre ECT (4) Miscillaneous Medications: Propofol (30 post sz ) Airway Management Airway Management: Bag Mask Ventilation Treatment Recommendations Energy Percent: 75 Pt Tolerated Procedure w/o Issue: Yes
[2022-08-03] MEDS: Lithium Carbonate ER 450 MG TABLET.ER 900 MG PO (20:56)
[2022-08-03] MEDS: QUEtiapine Fumarate 400 MG TABLET PO (20:56)
[2022-08-03] MEDS: SUMAtriptan succinate 100 MG TABLET PO (20:56)
[2022-08-04 08:15] VITALS: BP 118/60; PULSE 91; RESP 18; TEMP 36.5; O2SAT 100
--- NOTE | 2022-08-04 08:38 | P.PNPSI_ITS ---
Subjective Subjective Date of Service: 08/04/22 Reason For Visit: psychosis Subjective Notes: Conditional Voluntary Healthcare Proxy: No Guardianship: No Medical Problems Affecting Mental Status: No Interim History: Patient was seen and discussed in rounds today. Records and plans were revie wed. She has been doing better and it appears that the ECT treatment has been helpful. No SI. Eating adequately. Continues to be somewhat isolative. No complaints today. No changes were made Medication Compliance: Yes Side effects from medications: No Review of Systems Review of Systems Yes all other systems are reviewed and are negative Mental Status Exam Mental Status Exam Narrative: In today's visit she is alert, oriented and pleasant. Normal speech. Moderate eye contact. Affect is appropriate and constricted. No SI. Cognitively is intact. Judgment is intact Diagnostics Vital Signs (24Hr): Vital Signs - 24 hr 08/03/22 11:30 08/03/22 11:35 08/03/22 11:40 Temperature 97.7 F Pulse Rate 70 87 90 Respiratory Rate 14 16 14 Blood Pressure 103/67 102/56 L 100/58 L Pulse Oximetry 100 97 97 Oxygen Delivery Method Nasal Cannula Room Air Room Air Oxygen Flow Rate 2 08/03/22 11:44 08/03/22 11:45 08/03/22 12:05 Temperature 97.2 F Pulse Rate 92 90 80 Respiratory Rate 14 17 Blood Pressure 110/71 107/63 105/64 Pulse Oximetry 97 95 96 Oxygen Delivery Method Room Air Room Air Room Air Oxygen Flow Rate 2 08/03/22 12:24 08/03/22 21:01 Temperature 97.8 F 97.8 F Pulse Rate 79 77 Respiratory Rate 17 16 Blood Pressure 116/66 99/58 L Pulse Oximetry 97 95 Oxygen Delivery Method Room Air Oxygen Flow Rate BMI result Body Mass Index 32.9 Labs Results: 08/02/22 19:08 08/02/22 19:08 Labs: Laboratory Results - last 48 hr 08/02/22 08/02/22 08/02/22 19:08 19:08 19:08 WBC 9.4 RBC 4.26 Hgb 13.1 Hct 39.8 MCV 93.4 MCH 30.8 MCHC 32.9 RDW 12.6 Plt Count 217 MPV 9.3 L Immature Gran % (Auto) 0.3 Neut % (Auto) 65.8 Lymph % (Auto) 25.0 [place] % (Auto) 5.2 Eos % (Auto) 3.1 Baso % (Auto) 0.6 Lymph # (Auto) 2.4 [place] # (Auto) 0.5 Eos # (Auto) 0.3 Baso # (Auto) 0.1 Abs Immat Gran (auto) 0.03 Absolute Neuts (auto) 6.2 Absolute Nucleated RBC 0.000 Nucleated RBC % (auto) 0.0 Sodium 140 Potassium 3.9 Chloride 109 H Carbon Dioxide 21 L Anion Gap 14 BUN 13 Creatinine 0.87 Estim Creat Clear Calc 92.7 Estimated GFR > 60 Random Glucose 106 Calcium 8.6 [place] 0.31 L Medications Medications Current Medications Acetaminophen (Acetaminophen 325 Mg Tablet) 650 mg PO Q6H PRN PRN Reason: Headache/Pain Mild Scale (1-3) Last Admin: 08/03/22 18:14 Dose: 650 mg Acetazolamide (Acetazolamide 250 Mg Tablet) 250 mg PO BID [facility] Last Admin: 08/03/22 20:56 Dose: 250 mg Al Hydroxide/Mg Hydroxide (Magnesium Hydrox/Alum Hydrox 30 Ml Oral.Susp) 30 ml PO Q6H PRN PRN Reason: Heartburn/Nausea Last Admin: 07/31/22 12:59 Dose: 30 ml Hydroxyzine HCl (Hydroxyzine Hcl 25 Mg Tablet) 25 mg PO Q6H PRN PRN Reason: Anxiety Last Admin: 07/31/22 16:43 Dose: 25 mg Lamotrigine (Lamotrigine 100 Mg Tablet) 100 mg PO DAILY [facility] Last Admin: 08/03/22 12:32 Dose: 100 mg [place] Number Two Carbonate ([place] Carbonate Er 450 Mg Tablet.Er) 900 mg PO BEDTIME [facility] Last Admin: 08/03/22 20:56 Dose: 900 mg Lorazepam (Lorazepam 1 Mg Tablet) 1 mg PO Q4H PRN PRN Reason: Anxiety Last Admin: 08/02/22 16:38 Dose: 1 mg Magnesium Hydroxide (Milk Of Magnesia 30 Ml Oral.Susp) 30 ml PO DAILY PRN PRN Reason: Constipation Multivitamins/Vitamin C (Multivitamin Tablet) 1 tab PO DAILY [facility] Last Admin: 08/03/22 12:32 Dose: 1 tab Nicotine Polacrilex (Nicotine Polacrilex Lozenge 2 Mg Lozenge) 2 mg BUCCAL Q2H PRN PRN Reason: Nicotine Cravings Last Admin: 07/31/22 20:28 Dose: 2 mg Ondansetron HCl (Ondansetron Odt 8 Mg Tab.Rapdis) 8 mg TRANSLINGU Q12H PRN PRN Reason: nausea Last Admin: 08/01/22 12:09 Dose: 8 mg Quetiapine Fumarate (Quetiapine Fumarate 50 Mg Tablet) 150 mg PO BEDTIME PRN PRN Reason: insomnia Quetiapine Fumarate (Quetiapine Fumarate 25 Mg Tablet) 25 mg PO Q4H PRN PRN Reason: anxiety Last Admin: 08/02/22 16:39 Dose: 25 mg Quetiapine Fumarate (Quetiapine Fumarate 400 Mg Tablet) 400 mg PO BEDTIME [facility] Last Admin: 08/03/22 20:56 Dose: 400 mg Sumatriptan Succinate (Sumatriptan Succinate 100 Mg Tablet) 100 mg PO Q4H PRN PRN Reason: Migraine Headache Last Admin: 08/03/22 20:56 Dose: 100 mg Topiramate (Topiramate 25 Mg Tablet) 50 mg PO DAILY [facility] Last Admin: 08/03/22 12:32 Dose: 50 mg Trazodone HCl (Trazodone Hcl 50 Mg Tablet) 50 mg PO BEDTIME PRN PRN Reason: Insomnia Allergies Allergies Allergy/AdvReac Type Severity Reaction Status Date / Time No Known Allergies Allergy Unverified 06/30/20 18:56 [No Known Allergies*] Assessment & Plan Assessment & Plan (1) Bipolar 1 disorder, depressed, severe: Status: Acute Code(s): F31.4 - Bipolar disorder, current episode depressed, severe, without psychotic features Assessment and Plan: Patient has a history of severe bipolar depression has done well with ECT prev iously. Patient meets criteria for ECT because of acute suicidality inability to tolerate how she is feeling has lack of response to current medication regimen even when she was taking regimen regularly. Patient aware although much she Topamax Lamictal will need to be adjusted so as not to interfere with ECT patient was medically evaluated for ECT history of pseudotumor cerebri relative contraindication however patient's condition has generally been stable without significant increase pressure Dr. Salmon notified patient has tolerated ECT previously without difficulty. Labs EKG medical notes reviewed prior chart and treatment history including ECT reviewed 08/04: Continue current regimen and plans (2) Migraine: Status: Acute Code(s): G43.909 - Migraine, unspecified, not intractable, without status migrainosus Assessment and Plan: she is cleared for ECT treatments for her depression. There is no neurological contraindication. Her spinal fluid pressure one month ago was normal Plan 07/25: restarted prior meds regimen aside from reducing seroquel from 450 QHS to 300 QHS.? investigate and prepare for ECT as an option. 07/26: medically cleared for ECT.? awaiting consultation from ECT practitioner.? c/o severe anxiety, ativan frequency increased.? otherwise no med changes.? per staff, SI without plan. 07/27 teaful, anxious, no VH/AH, passive SI, awaiting ECT. 07/28: stable presentation, same as yesterday.? continue current mgmt.? yuliya or kimberly to see pt for ECT saturday. 07/29: more tearful/labile today.? added seroquel 25 PRNs for anxiety.? otherwise continue current mgmt.? yuliya or kimberly to see pt for ECT saturday. 07/30: poor sleep, seroquel increased to 400 mg QHS as of tonight.? seroquel 25 mg plus ativan 1 mg helpful for anxiety.? awaiting visit from ECT provider.? reports she is feeling worse today, very hopeless.? [facility] paperwork filled out. 07/31: seen by yuliya for ECT yesterday, which is approved pending neuro consult and clearance due to pseudotumor cerebri. less tearful today, remains despondent and hopeless. scheduled for ECT tomorrow. 08/01 continue tx. 08/02: check lithium level and related labs this evening. ECT #2 tomorrow. HS AEDs have been rescheduled for mornings for now. 08/03: lithium subtherapeutic at 0.31, other labs unremarkable. ECT #2 completed, #3 scheduled for saturday. continue current mgmt for the . I spent minutes with the patient and/or on the patient floor today, greater than?50% of which was spent counseling/coordinating care. Reason for contiued inpatient stay Substantial Risk for: harm to self and med/psych decompensation
[2022-08-04] MEDS: Topiramate 25 MG TABLET 50 MG PO (09:00)
[2022-08-04] MEDS: lamoTRIgine 100 MG TABLET PO (09:00)
[2022-08-04] MEDS: Multivitamin TABLET 1 TAB PO (09:00)
[2022-08-04] MEDS: acetaZOLAMIDE 250 MG TABLET PO ×2 (09:00→20:52)
[2022-08-04] MEDS: QUEtiapine Fumarate 25 MG TABLET PO (10:37)
[2022-08-04] MEDS: LORazepam 1 MG TABLET PO (10:43)
[2022-08-04 20:35] VITALS: BP 108/64; PULSE 83; RESP 16; TEMP 36.6; O2SAT 99
[2022-08-04] MEDS: QUEtiapine Fumarate 400 MG TABLET PO (20:52)
[2022-08-04] MEDS: Acetaminophen 325 MG TABLET 650 MG PO (20:52)
[2022-08-04] MEDS: Lithium Carbonate ER 450 MG TABLET.ER 900 MG PO (20:52)
[2022-08-05 09:22] VITALS: BP 105/66; PULSE 89; RESP 16; TEMP 36.7; O2SAT 99
[2022-08-05] MEDS: lamoTRIgine 100 MG TABLET PO (09:24)
[2022-08-05] MEDS: Topiramate 25 MG TABLET 50 MG PO (09:24)
[2022-08-05] MEDS: acetaZOLAMIDE 250 MG TABLET PO ×2 (09:24→20:51)
[2022-08-05] MEDS: Multivitamin TABLET 1 TAB PO (09:24)
--- NOTE | 2022-08-05 09:26 | P.PNPSI_ITS ---
Subjective Subjective Date of Service: 08/05/22 Reason For Visit: psychosis Subjective Notes: Conditional Voluntary Healthcare Proxy: No Guardianship: No Medical Problems Affecting Mental Status: No Interim History: Patient was seen and discussed in rounds today. Records and plans were revie wed. She has been stable and continues to feel ?better?. No SI. She is also feeling less anxious. She has been little more visible. The headaches from the ECT on Saturday have subsided. Eating and sleeping well. No changes were made today Medication Compliance: Yes Side effects from medications: No Review of Systems Review of Systems Yes all other systems are reviewed and are negative Diagnostics Vital Signs (24Hr): Vital Signs - 24 hr 08/04/22 20:35 08/05/22 09:22 Temperature 97.8 F 98.1 F Pulse Rate 83 89 Respiratory Rate 16 16 Blood Pressure 108/64 105/66 Pulse Oximetry 99 99 Oxygen Delivery Method Room Air Room Air BMI result Body Mass Index 32.9 Labs Results: 08/02/22 19:08 08/02/22 19:08 Medications Medications Current Medications Acetaminophen (Acetaminophen 325 Mg Tablet) 650 mg PO Q6H PRN PRN Reason: Headache/Pain Mild Scale (1-3) Last Admin: 08/04/22 20:52 Dose: 650 mg Acetazolamide (Acetazolamide 250 Mg Tablet) 250 mg PO BID [facility] Last Admin: 08/04/22 20:52 Dose: 250 mg Al Hydroxide/Mg Hydroxide (Magnesium Hydrox/Alum Hydrox 30 Ml Oral.Susp) 30 ml PO Q6H PRN PRN Reason: Heartburn/Nausea Last Admin: 07/31/22 12:59 Dose: 30 ml Hydroxyzine HCl (Hydroxyzine Hcl 25 Mg Tablet) 25 mg PO Q6H PRN PRN Reason: Anxiety Last Admin: 07/31/22 16:43 Dose: 25 mg Lamotrigine (Lamotrigine 100 Mg Tablet) 100 mg PO DAILY [facility] Last Admin: 08/04/22 09:00 Dose: 100 mg [place] Carbonate ([place] Carbonate Er 450 Mg Tablet.Er) 900 mg PO BEDTIME [facility] Last Admin: 08/04/22 20:52 Dose: 900 mg Lorazepam (Lorazepam 1 Mg Tablet) 1 mg PO Q4H PRN PRN Reason: Anxiety Last Admin: 08/04/22 10:43 Dose: 1 mg Magnesium Hydroxide (Milk Of Magnesia 30 Ml Oral.Susp) 30 ml PO DAILY PRN PRN Reason: Constipation Multivitamins/Vitamin C (Multivitamin Tablet) 1 tab PO DAILY [facility] Last Admin: 08/04/22 09:00 Dose: 1 tab Nicotine Polacrilex (Nicotine Polacrilex Lozenge 2 Mg Lozenge) 2 mg BUCCAL Q2H PRN PRN Reason: Nicotine Cravings Last Admin: 07/31/22 20:28 Dose: 2 mg Ondansetron HCl (Ondansetron Odt 8 Mg Tab.Rapdis) 8 mg TRANSLINGU Q12H PRN PRN Reason: nausea Last Admin: 08/01/22 12:09 Dose: 8 mg Quetiapine Fumarate (Quetiapine Fumarate 50 Mg Tablet) 150 mg PO BEDTIME PRN PRN Reason: insomnia Quetiapine Fumarate (Quetiapine Fumarate 25 Mg Tablet) 25 mg PO Q4H PRN PRN Reason: anxiety Last Admin: 08/04/22 10:37 Dose: 25 mg Quetiapine Fumarate (Quetiapine Fumarate 400 Mg Tablet) 400 mg PO BEDTIME [facility] Last Admin: 08/04/22 20:52 Dose: 400 mg Sumatriptan Succinate (Sumatriptan Succinate 100 Mg Tablet) 100 mg PO Q4H PRN PRN Reason: Migraine Headache Last Admin: 08/03/22 20:56 Dose: 100 mg Topiramate (Topiramate 25 Mg Tablet) 50 mg PO DAILY [facility] Last Admin: 08/04/22 09:00 Dose: 50 mg Trazodone HCl (Trazodone Hcl 50 Mg Tablet) 50 mg PO BEDTIME PRN PRN Reason: Insomnia Allergies Allergies Allergy/AdvReac Type Severity Reaction Status Date / Time No Known Allergies Allergy Unverified 06/30/20 18:56 [No Known Allergies*] Assessment & Plan Assessment & Plan (1) Bipolar 1 disorder, depressed, severe: Status: Acute Code(s): F31.4 - Bipolar disorder, current episode depressed, severe, without psychotic features Assessment and Plan: Patient has a history of severe bipolar depression has done well with ECT previously. Patient meets criteria for ECT because of acute suicidality inability to tolerate how she is feeling has lack of response to current medication regimen even when she was taking regimen regularly. Patient aware although much she Topamax Lamictal will need to be adjusted so as not to interfere with ECT patient was medically evaluated for ECT history of pseudotumor cerebri relative contraindication however patient's condition has generally been stable without significant increase pressure Dr. Salmon notified patient has tolerated ECT previously without difficulty. Labs EKG medical notes reviewed prior chart and treatment history including ECT reviewed 08/04: Continue current regimen and plans (2) Migraine: Status: Acute Code(s): G43.909 - Migraine, unspecified, not intractable, without status migrainosus Assessment and Plan: she is cleared for ECT treatments for her depression. There is no neurological contraindication. Her spinal fluid pressure one month ago was normal Plan 07/25: restarted prior meds regimen aside from reducing seroquel from 450 QHS to 300 QHS.? investigate and prepare for ECT as an option. 07/26: medically cleared for ECT.? awaiting consultation from ECT practitioner.? c/o severe anxiety, ativan frequency increased.? otherwise no med changes.? per staff, SI without plan. 07/27 teaful, anxious, no VH/AH, passive SI, awaiting ECT. 07/28: stable presentation, same as yesterday.? continue current mgmt.? yuliya or kimberly to see pt for ECT saturday. 07/29: more tearful/labile today.? added seroquel 25 PRNs for anxiety.? otherwise continue current mgmt.? yuliya or kimberly to see pt for ECT saturday. 07/30: poor sleep, seroquel increased to 400 mg QHS as of tonight.? seroquel 25 mg plus ativan 1 mg helpful for anxiety.? awaiting visit from ECT provider.? reports she is feeling worse today, very hopeless.? [facility] paperwork filled out. 07/31: seen by yuliya for ECT yesterday, which is approved pending neuro cons ult and clearance due to pseudotumor cerebri. less tearful today, remains despondent and hopeless. scheduled for ECT tomorrow. 08/01 continue tx. 08/02: check lithium level and related labs this evening. ECT #2 tomorrow. HS AEDs have been rescheduled for mornings for now. 08/03: lithium subtherapeutic at 0.31, other labs unremarkable. ECT #2 completed, #3 scheduled for saturday. continue current mgmt for the weekend. 08/05: Continue current regimen and plans I spent minutes with the patient and/or on the patient floor today, greater than?50% of which was spent counseling/coordinating care. Reason for contiued inpatient stay Substantial Risk for: med/psych decompensation
[2022-08-05] MEDS: LORazepam 1 MG TABLET PO ×2 (09:28→14:29)
[2022-08-05] MEDS: Nicotine Polacrilex Lozenge 2 MG LOZENGE BUCCAL (09:28)
[2022-08-05] MEDS: QUEtiapine Fumarate 25 MG TABLET PO (09:28)
[2022-08-05 20:35] VITALS: BP 108/58; PULSE 94; RESP 16; TEMP 36.4; O2SAT 99
[2022-08-05] MEDS: QUEtiapine Fumarate 400 MG TABLET PO (20:51)
[2022-08-05] MEDS: Lithium Carbonate ER 450 MG TABLET.ER 900 MG PO (20:51)
[2022-08-06] VITALS (12 sets, daily range): BP systolic 106–119; BP diastolic 41–75; PULSE 71–89; RESP 12–20; TEMP 36.1–36.8; O2SAT 96–100
--- NOTE | 2022-08-06 06:57 | HO.ANESPROP2 ---
[facility] Active Problems Active Problems: All Active Problems (Updated 07/31/22 @ 16:06 by Graciela Salmon MD) Migraine (Acute) Pseudotumor cerebri (Acute) Bipolar 1 disorder, depressed, severe (Acute) Bipolar 1 disorder (Acute) Suicidal ideation (Acute) Depression (Acute) Paranoid behavior (Acute) Past Medical History Medical History Bipolar 1 disorder Migraines Mild intermittent asthma Pseudotumor cerebri Functional capacity: independent ambulation Family History Family History Brother Bipolar disorder Depression Paternal Grandfather Bipolar disorder Father Alcohol dependence Mother Breast cancer Family history of problems with anesthesia: No Surgical History History of Problems with Anesthesia: No Social History Social History Household Members: None Housing: Apartment Do you presently have visiting nurse or other home services: No Alcohol intake: current Alcohol intake frequency: a few times a week Patient Tobacco Use Status: Current someday Tobacco user Tobacco use type: Cigarette Smoked in Last 30 Days: Yes e-Cigarette/Vaping Use: Currently Using Frequency of e-Cigarette/Vaping Use: 5-6 uses per day Patient Interested in Nicotine Replacement: Yes (requested theo lozenges) Patient Given Instructions on How to Stop Smoking: No Second Hand Smoke Exposure: No Use of substances other than those prescribed or required for medical reasons: Yes Substance Use Type: Marijuana Substance Use Frequency: Socially Last Used Substance: Days (ago) Last Used Substance Other:: 1 Currently Displaying Signs/Symptoms of Drug Intoxication Withdrawal: No Other Past Substance Use Problem:: history of cocaine abuse - last use 3 years ago Any prior treatment program specific to substance use: No Have you been hit, kicked, punched, or otherwise hurt by someone within the past year? If so, by whom?: No Do you feel safe in your current relationship?: Yes Is there a partner from a previous relationship who is making you feel unsafe now?: No Are you made to feel afraid or neglected: No Are you DNR?: No Advance Directives: No Advance Directives Information Provided: Yes Guardian: No Do you have thoughts of harming others: None Do you have a plan to hurt others: No Plan Recently lost weight without trying: No Nutrition Risks: No Nutritional Risk Patient : No : No Poor oral hygiene: No service: No Sexual orientation: Straight/Heterosexual Meds Allergies Allergy/AdvReac Type Severity Reaction Status Date / Time No Known Allergies Allergy Unverified 06/30/20 18:56 [No Known Allergies*] Active Medications: Current Medications Acetaminophen (Acetaminophen 325 Mg Tablet) 650 mg PO Q6H PRN PRN Reason: Headache/Pain Mild Scale (1-3) Last Admin: 08/04/22 20:52 Dose: 650 mg Acetazolamide (Acetazolamide 250 Mg Tablet) 250 mg PO BID KACI Last Admin: 08/05/22 20:51 Dose: 250 mg Al Hydroxide/Mg Hydroxide (Magnesium Hydrox/Alum Hydrox 30 Ml Oral.Susp) 30 ml PO Q6H PRN PRN Reason: Heartburn/Nausea Last Admin: 07/31/22 12:59 Dose: 30 ml Hydroxyzine HCl (Hydroxyzine Hcl 25 Mg Tablet) 25 mg PO Q6H PRN PRN Reason: Anxiety Last Admin: 07/31/22 16:43 Dose: 25 mg Lactated Ringer's (Lr) 1,000 mls @ 50 mls/hr IVCONT .Q20H KACI Lamotrigine (Lamotrigine 100 Mg Tablet) 100 mg PO DAILY [facility] Last Admin: 08/05/22 09:24 Dose: 100 mg [place] Carbonate ([place] Carbonate Er 450 Mg Tablet.Er) 900 mg PO BEDTIME [facility]I Last Admin: 08/05/22 20:51 Dose: 900 mg Magnesium Hydroxide (Milk Of Magnesia 30 Ml Oral.Susp) 30 ml PO DAILY PRN PRN Reason: Constipation Multivitamins/Vitamin C (Multivitamin Tablet) 1 tab PO DAILY [facility] Last Admin: 08/05/22 09:24 Dose: 1 tab Nicotine Polacrilex (Nicotine Polacrilex Lozenge 2 Mg Lozenge) 2 mg BUCCAL Q2H PRN PRN Reason: Nicotine Cravings Last Admin: 08/05/22 09:28 Dose: 2 mg Ondansetron HCl (Ondansetron Odt 8 Mg Tab.Rapdis) 8 mg TRANSLINGU Q12H PRN PRN Reason: nausea Last Admin: 08/01/22 12:09 Dose: 8 mg Quetiapine Fumarate (Quetiapine Fumarate 50 Mg Tablet) 150 mg PO BEDTIME PRN PRN Reason: insomnia Quetiapine Fumarate (Quetiapine Fumarate 25 Mg Tablet) 25 mg PO Q4H PRN PRN Reason: anxiety Last Admin: 08/05/22 09:28 Dose: 25 mg Quetiapine Fumarate (Quetiapine Fumarate 400 Mg Tablet) 400 mg PO BEDTIME [facility] Last Admin: 08/05/22 20:51 Dose: 400 mg Sumatriptan Succinate (Sumatriptan Succinate 100 Mg Tablet) 100 mg PO Q4H PRN PRN Reason: Migraine Headache Last Admin: 08/03/22 20:56 Dose: 100 mg Topiramate (Topiramate 25 Mg Tablet) 50 mg PO DAILY [facility] Last Admin: 08/05/22 09:24 Dose: 50 mg Trazodone HCl (Trazodone Hcl 50 Mg Tablet) 50 mg PO BEDTIME PRN PRN Reason: Insomnia Home Medications Medication Instructions Recorded Confirmed Last Taken Type acetazolamide 250 mg tablet 250 mg PO BID 07/24/22 07/24/22 Unknown History lamotrigine 200 mg tablet 200 mg PO BEDTIME 07/24/22 07/24/22 Unknown History lithium carbonate 450 mg 900 mg PO BEDTIME 07/24/22 07/24/22 Unknown History tablet,extended release lorazepam 1 mg tablet 1 tab PO BID PRN Anxiety 07/24/22 07/24/22 Unknown History multivitamin 1 tab PO DAILY 07/24/22 07/24/22 Unknown History ondansetron HCl 8 mg tablet 1 tab PO Q12H PRN nausea 07/24/22 07/24/22 Unknown History quetiapine 300 mg tablet 450 mg PO BEDTIME 07/24/22 07/24/22 Unknown History sumatriptan succinate 100 mg tablet 100 mg PO Q4H PRN Migraine Headache 07/24/22 07/24/22 Unknown History topiramate 100 mg tablet 100 mg PO BEDTIME 07/24/22 07/24/22 Unknown History Exam Exam Date and Time: August 06, 2022 0657 Height,Weight and Vital Signs: Height 5 ft 2 in Weight 81.703 kg Last Vital Signs Temp 97.4 F 08/06/22 06:35 Pulse 84 08/06/22 06:35 Resp 20 08/06/22 06:35 BP 115/41 L 08/06/22 06:35 Pulse Ox 96 08/06/22 06:35 O2 Del Method 08/06/22 06:35 O2 Flow Rate 2 08/03/22 11:45 Pertinent Lab Results Pertinent Lab Results: Laboratory Tests 07/24/22 07/24/22 07/24/22 16:54 16:54 16:54 WBC RBC Hgb Hct MCV MCH MCHC RDW Plt Count MPV Immature Gran % (Auto) Neut % (Auto) Lymph % (Auto) Travis % (Auto) Eos % (Auto) Baso % (Auto) Lymph # (Auto) Travis # (Auto) Eos # (Auto) Baso # (Auto) Abs Immat Gran (auto) Absolute Neuts (auto) Absolute Nucleated RBC Nucleated RBC % (auto) Sodium Potassium Chloride Carbon Dioxide Anion Gap BUN Creatinine Estim Creat Clear Calc Estimated GFR Random Glucose Fasting Glucose Estimat Average Glucose Hemoglobin A1c % Calcium Total Bilirubin AST ALT Alkaline Phosphatase Total Protein Albumin Triglycerides Cholesterol LDL Cholesterol, Calc HDL Cholesterol Vitamin B12 Folate TSH Urine Color Yellow Urine Appearance Cloudy Urine pH 5.0 Ur Specific [place] 1.025 Urine Protein Negative Urine Glucose (UA) Negative Urine Ketones Trace Urine Blood Negative Urine Nitrite Negative Ur Leukocyte Esterase Small (1+) H Urine RBC 0-2 Urine WBC 0-5 Ur Squamous Epith Cells 6-10 Urine Bacteria 1+ Hyaline Casts 0-2 Salicylates Urine Opiates Screen Not Detected Urine Fentanyl Screen Not Detected Acetaminophen Ur Barbiturates Screen Not Detected Ur Phencyclidine Scrn Not Detected Ur Amphetamines Screen Not Detected U Benzodiazepines Scrn Not Detected [place] Urine Cocaine Screen Not Detected U Marijuana (THC) Screen POSITIVE H Ethyl Alcohol COVID-19 ([facility]UEL) Negative COVID-19 Clin Com See Note 07/24/22 07/24/22 07/24/22 17:19 17:19 17:19 WBC 10.2 RBC 4.51 Hgb 13.8 Hct 40.0 MCV 88.7 MCH 30.6 MCHC 34.5 RDW 12.5 Plt Count 230 MPV 9.4 Immature Gran % (Auto) Neut % (Auto) Lymph % (Auto) Travis % (Auto) Eos % (Auto) Baso % (Auto) Lymph # (Auto) Travis # (Auto) Eos # (Auto) Baso # (Auto) Abs Immat Gran (auto) Absolute Neuts (auto) Absolute Nucleated RBC 0.000 Nucleated RBC % (auto) 0.0 Sodium 140 Potassium 3.6 Chloride 112 H Carbon Dioxide 16 L Anion Gap 16 BUN 11 Creatinine 0.74 Estim Creat Clear Calc 105.8 Estimated GFR > 60 Random Glucose 98 Fasting Glucose Estimat Average Glucose Hemoglobin A1c % Calcium 9.0 Total Bilirubin AST ALT Alkaline Phosphatase Total Protein Albumin Triglycerides Cholesterol LDL Cholesterol, Calc HDL Cholesterol Vitamin B12 Folate TSH Urine Color Urine Appearance Urine pH Ur Specific [place] Urine Protein Urine Glucose (UA) Urine Ketones Urine Blood Urine Nitrite Ur Leukocyte Esterase Urine RBC Urine WBC Ur Squamous Epith Cells Urine Bacteria Hyaline Casts Salicylates < 5.0 L Urine Opiates Screen Urine Fentanyl Screen Acetaminophen < 1 Ur Barbiturates Screen Ur Phencyclidine Scrn Ur Amphetamines Screen U Benzodiazepines Scrn [place] Urine Cocaine Screen U Marijuana (THC) Screen Ethyl Alcohol < 10 COVID-19 ([facility]UEL) COVID-19 [facility] 07/24/22 07/25/22 07/25/22 20:45 08:23 08:23 WBC RBC Hgb Hct MCV MCH MCHC RDW Plt Count MPV Immature Gran % (Auto) Neut % (Auto) Lymph % (Auto) Travis % (Auto) Eos % (Auto) Baso % (Auto) Lymph # (Auto) Travis # (Auto) Eos # (Auto) Baso # (Auto) Abs Immat Gran (auto) Absolute Neuts (auto) Absolute Nucleated RBC Nucleated RBC % (auto) Sodium 139 Potassium 4.0 Chloride 112 H Carbon Dioxide 20 L Anion Gap 11 L BUN 11 Creatinine 0.82 Estim Creat Clear Calc 96.4 Estimated GFR > 60 Random Glucose Fasting Glucose 91 Estimat Average Glucose 80 Hemoglobin A1c % 4.4 Calcium 8.7 Total Bilirubin 0.6 AST 13 ALT 8 Alkaline Phosphatase 54 Total Protein 6.3 L Albumin 4.0 Triglycerides 99 Cholesterol 200 LDL Cholesterol, Calc 126 HDL Cholesterol 55 Vitamin B12 Folate TSH 3.28 Urine Color Urine Appearance Urine pH Ur Specific [place] Urine Protein Urine Glucose (UA) Urine Ketones Urine Blood Urine Nitrite Ur Leukocyte Esterase Urine RBC Urine WBC Ur Squamous Epith Cells Urine Bacteria Hyaline Casts Salicylates Urine Opiates Screen Urine Fentanyl Screen Acetaminophen Ur Barbiturates Screen Ur Phencyclidine Scrn Ur Amphetamines Screen U Benzodiazepines Scrn [place] < 0.04 L Urine Cocaine Screen U Marijuana (THC) Screen Ethyl Alcohol COVID-19 ([facility]IGUEL) COVID-Native 07/25/22 07/31/22 08/02/22 08:23 11:30 19:08 WBC 9.4 RBC 4.26 Hgb 13.1 Hct 39.8 MCV 93.4 MCH 30.8 MCHC 32.9 RDW 12.6 Plt Count 217 MPV 9.3 L Immature Gran % (Auto) 0.3 Neut % (Auto) 65.8 Lymph % (Auto) 25.0 Travis % (Auto) 5.2 Eos % (Auto) 3.1 Baso % (Auto) 0.6 Lymph # (Auto) 2.4 Travis # (Auto) 0.5 Eos # (Auto) 0.3 Baso # (Auto) 0.1 Abs Immat Gran (auto) 0.03 Absolute Neuts (auto) 6.2 Absolute Nucleated RBC 0.000 Nucleated RBC % (auto) 0.0 Sodium Potassium Chloride Carbon Dioxide Anion Gap BUN Creatinine Estim Creat Clear Calc Estimated GFR Random Glucose Fasting Glucose Estimat Average Glucose Hemoglobin A1c % Calcium Total Bilirubin AST ALT Alkaline Phosphatase Total Protein Albumin Triglycerides Cholesterol LDL Cholesterol, Calc HDL Cholesterol Vitamin B12 279 Folate 11.1 TSH Urine Color Urine Appearance Urine pH Ur Specific [place] Urine Protein Urine Glucose (UA) Urine Ketones Urine Blood Urine Nitrite Ur Leukocyte Esterase Urine RBC Urine WBC Ur Squamous Epith Cells Urine Bacteria Hyaline Casts Salicylates Urine Opiates Screen Urine Fentanyl Screen Acetaminophen Ur Barbiturates Screen Ur Phencyclidine Scrn Ur Amphetamines Screen U Benzodiazepines Scrn [place] Urine Cocaine Screen U Marijuana (THC) Screen Ethyl Alcohol COVID-19 ([facility]EL) Negative COVID-19 Clin Com See Note 08/02/22 08/02/22 19:08 19:08 WBC RBC Hgb Hct MCV MCH MCHC RDW Plt Count MPV Immature Gran % (Auto) Neut % (Auto) Lymph % (Auto) Travis % (Auto) Eos % (Auto) Baso % (Auto) Lymph # (Auto) Travis # (Auto) Eos # (Auto) Baso # (Auto) Abs Immat Gran (auto) Absolute Neuts (auto) Absolute Nucleated RBC Nucleated RBC % (auto) Sodium 140 Potassium 3.9 Chloride 109 H Carbon Dioxide 21 L Anion Gap 14 BUN 13 Creatinine 0.87 Estim Creat Clear Calc 92.7 Estimated GFR > 60 Random Glucose 106 Fasting Glucose Estimat Average Glucose Hemoglobin A1c % Calcium 8.6 Total Bilirubin AST ALT Alkaline Phosphatase Total Protein Albumin Triglycerides Cholesterol LDL Cholesterol, Calc HDL Cholesterol Vitamin B12 Folate TSH Urine Color Urine Appearance Urine pH Ur Specific [place] Urine Protein Urine Glucose (UA) Urine Ketones Urine Blood Urine Nitrite Ur Leukocyte Esterase Urine RBC Urine WBC Ur Squamous Epith Cells Urine Bacteria Hyaline Casts Salicylates Urine Opiates Screen Urine Fentanyl Screen Acetaminophen Ur Barbiturates Screen Ur Phencyclidine Scrn Ur Amphetamines Screen U Benzodiazepines Scrn [place] 0.31 L Urine Cocaine Screen U Marijuana (THC) Screen Ethyl Alcohol COVID-19 ([facility]) COVID-19 Clin Com Airway Mallampati Class: II TM Dist: >3cm Neck ROM: Full Heart: rrr Lungs: cta Assessment and Plan Assessment Anesthesia Assessment: Anesthesia Plan Discussed and Chart Reviewed Final Anesthetic Review Family History of Problems with Anesthesia: No History of Problems with Anesthesia: No NPO: Yes ASA Class: III Final Preanesthetic Review: No Changes in Pt Med Stat, Meds/Allgs Chart Reviewed and Consent Obtained/Reviewed Patient Risk: Intermediate Procedure Risk: Intermediate Anesthetic Plan Anesthetic Plan: GA Disposition: Standard PACU
--- NOTE | 2022-08-06 07:00 | MHC.SHP ---
Pre-Procedural Eval Section A Date of Service: 08/06/22 The patient is an INPATIENT: Yes Changes since office visit: No Cold of Flu in the past 2 weeks, No New Medical Problems, No Changes in Medication and No Patient answered all questions The History & Physical has been completed within 30 days and I have reviewed it.: Yes Section B Chief Complaint: psychosis Allergies: Allergies Allergy/AdvReac Type Severity Reaction Status Date / Time No Known Allergies Allergy Unverified 06/30/20 18:56 [No Known Allergies*] Plan I have reviewed the history and physical and performed a pertinent physical examination on my patient. No changes have occurred unless specified.
--- NOTE | 2022-08-06 07:25 | HO.ECTPROC ---
ECT Procedure Note Diagnosis/Treatment Date of Service: 08/06/22 Diagnosis: Bipolar disorder Previous ECT Date: 08/03/22 Current Treatment Number: 3 Treatment: Series Interval Clinical Notes: The patient reported improvement of dysphoria. Her headaches on the last session started after been in the [place]. ECT Settings Device: THYMATRON DGx Electrode Placement: Bifrontal Program/Pulse Width: 0.25 Energy Percent: 100 Seizure Duration By EEG (in seconds): 99 By Motor Observation (in seconds): 0 Medications Administration General Anesthetic: Etomidate (16) Muscle Relaxant: Succinylcholine (100) Ancillary Medications Analgesics: Narcotics Anti-emetics: Zofran - Pre ECT Miscillaneous Medications: Flumazenil Airway Management Airway Management: Bag Mask Ventilation Treatment Recommendations Electrode Placement: Bitemporal Program/Pulse Width: 0.25 Energy Percent: 80 Notes: The patient had a long seizure since we reverted Ativan with Flumazenil, consider lowering the stimulation next time if she is reverted with Flumazenil Pt Tolerated Procedure w/o Issue: Yes
[2022-08-06] MEDS: Acetaminophen 325 MG TABLET 650 MG PO ×2 (08:22→16:31)
[2022-08-06] MEDS: oxyCODONE HCl Immed Release 5 MG TABLET PO (08:23)
[2022-08-06] MEDS: Topiramate 25 MG TABLET 50 MG PO (09:09)
[2022-08-06] MEDS: lamoTRIgine 100 MG TABLET PO (09:10)
[2022-08-06] MEDS: acetaZOLAMIDE 250 MG TABLET PO ×2 (09:10→21:21)
[2022-08-06] MEDS: Multivitamin TABLET 1 TAB PO (09:10)
--- NOTE | 2022-08-06 14:38 | HO.PSYCHPN ---
Subjective Subjective Date of Service: 08/06/22 Reason For Visit: psychosis Interim History: calm cooperative. seen post-ECT. reports her mood is improved. no bad BRENNAN today due to having been pre-medicated with oxycodone, she believes. taking ativan 1-2 times daily, is receiving flumazenil at ECT. will consider how many ECTs she would like to to inpatient and discuss the matter with Dr. Brady on . Mental Status Exam Mental Status Exam Narrative: calm, cooperative. in bed. adequately groomed. cooperative, no PMA/PMR. speech nml rate, decr amount, decr loudness, nml latency. thoughts linear and logical, no paranoia or delusions expressed. mood better. affect constricted, non-labile. no SI/HI/AVH expressed. Diagnostics Vital Signs (24Hr): Vital Signs - 24 hr 08/05/22 20:35 08/06/22 05:55 08/06/22 05:57 Temperature 97.6 F 97.0 F 97.0 F Pulse Rate 94 85 85 Respiratory Rate 16 16 16 Blood Pressure 108/58 L 107/64 107/64 Pulse Oximetry 99 98 98 Oxygen Delivery Method Room Air Room Air Oxygen Flow Rate 08/06/22 06:35 08/06/22 07:34 08/06/22 07:39 Temperature 97.4 F 98.2 F Pulse Rate 84 71 84 Respiratory Rate 20 12 15 Blood Pressure 115/41 L 114/66 118/75 Pulse Oximetry 96 100 99 Oxygen Delivery Method Room Air Nasal Cannula Nasal Cannula Oxygen Flow Rate 2 2 08/06/22 07:44 08/06/22 07:49 08/06/22 08:04 Temperature Pulse Rate 89 83 79 Respiratory Rate 16 17 17 Blood Pressure 119/68 110/72 107/63 Pulse Oximetry 99 99 99 Oxygen Delivery Method Nasal Cannula Nasal Cannula Nasal Cannula Oxygen Flow Rate 2 2 2 08/06/22 08:19 08/06/22 08:34 08/06/22 09:55 Temperature 98.2 F 97.8 F Pulse Rate 85 78 80 Respiratory Rate 16 16 16 Blood Pressure 107/65 106/64 107/69 Pulse Oximetry 98 98 99 Oxygen Delivery Method Room Air Room Air Room Air Oxygen Flow Rate 08/06/22 09:55 Temperature 97.8 F Pulse Rate 80 Respiratory Rate 16 Blood Pressure 107/69 Pulse Oximetry 99 Oxygen Delivery Method Oxygen Flow Rate BMI result Body Mass Index 32.9 Labs Results: 08/02/22 19:08 08/02/22 19:08 Medications Medications Current Medications Acetaminophen (Acetaminophen 325 Mg Tablet) 650 mg PO Q6H PRN PRN Reason: Headache/Pain Mild Scale (1-3) Last Admin: 08/04/22 20:52 Dose: 650 mg Acetazolamide (Acetazolamide 250 Mg Tablet) 250 mg PO BID [facility] Last Admin: 08/06/22 09:10 Dose: 250 mg Al Hydroxide/Mg Hydroxide (Magnesium Hydrox/Alum Hydrox 30 Ml Oral.Susp) 30 ml PO Q6H PRN PRN Reason: Heartburn/Nausea Last Admin: 07/31/22 12:59 Dose: 30 ml Hydroxyzine HCl (Hydroxyzine Hcl 25 Mg Tablet) 25 mg PO Q6H PRN PRN Reason: Anxiety Last Admin: 07/31/22 16:43 Dose: 25 mg Lamotrigine (Lamotrigine 100 Mg Tablet) 100 mg PO DAILY [facility] Last Admin: 08/06/22 09:10 Dose: 100 mg [place] Carbonate ([place] Carbonate Er 450 Mg Tablet.Er) 900 mg PO BEDTIME [facility] Last Admin: 08/05/22 20:51 Dose: 900 mg Magnesium Hydroxide (Milk Of Magnesia 30 Ml Oral.Susp) 30 ml PO DAILY PRN PRN Reason: Constipation Multivitamins/Vitamin C (Multivitamin Tablet) 1 tab PO DAILY [facility] Last Admin: 08/06/22 09:10 Dose: 1 tab Nicotine Polacrilex (Nicotine Polacrilex Lozenge 2 Mg Lozenge) 2 mg BUCCAL Q2H PRN PRN Reason: Nicotine Cravings Last Admin: 08/05/22 09:28 Dose: 2 mg Ondansetron HCl (Ondansetron Odt 8 Mg Tab.Rapdis) 8 mg TRANSLINGU Q12H PRN PRN Reason: nausea Last Admin: 08/01/22 12:09 Dose: 8 mg Quetiapine Fumarate (Quetiapine Fumarate 50 Mg Tablet) 150 mg PO BEDTIME PRN PRN Reason: insomnia Quetiapine Fumarate (Quetiapine Fumarate 25 Mg Tablet) 25 mg PO Q4H PRN PRN Reason: anxiety Last Admin: 08/05/22 09:28 Dose: 25 mg Quetiapine Fumarate (Quetiapine Fumarate 400 Mg Tablet) 400 mg PO BEDTIME [facility] Last Admin: 08/05/22 20:51 Dose: 400 mg Sumatriptan Succinate (Sumatriptan Succinate 100 Mg Tablet) 100 mg PO Q4H PRN PRN Reason: Migraine Headache Last Admin: 08/03/22 20:56 Dose: 100 mg Topiramate (Topiramate 25 Mg Tablet) 50 mg PO DAILY [facility] Last Admin: 08/06/22 09:09 Dose: 50 mg Trazodone HCl (Trazodone Hcl 50 Mg Tablet) 50 mg PO BEDTIME PRN PRN Reason: Insomnia Allergies Allergies Allergy/AdvReac Type Severity Reaction Status Date / Time No Known Allergies Allergy Unverified 06/30/20 18:56 [No Known Allergies*] Assessment & Plan Assessment & Plan (1) Bipolar 1 disorder, depressed, severe: Status: Acute Code(s): F31.4 - Bipolar disorder, current episode depressed, severe, without psychotic features Assessment and Plan: Patient has a history of severe bipolar depression has done well with ECT previously. Patient meets criteria for ECT because of acute suicidality inability to tolerate how she is feeling has lack of response to current medication regimen even when she was taking regimen regularly. Patient aware although much she Topamax Lamictal will need to be adjusted so as not to interfere with ECT patient was medically evaluated for ECT history of pseudotumor cerebri relative contraindication however patient's condition has generally been stable without significant increase pressure Dr. Salmon notified patient has tolerated ECT previously without difficulty. Labs EKG medical notes reviewed prior chart and treatment history including ECT reviewed (2) Migraine: Status: Acute Code(s): G43.909 - Migraine, unspecified, not intractable, without status migrainosus Assessment and Plan: she is cleared for ECT treatments for her depression. There is no neurological contraindication. Her spinal fluid pressure one month ago was normal Plan 07/25: restarted prior meds regimen aside from reducing seroquel from 450 QHS to 300 QHS.? investigate and prepare for ECT as an option. 07/26: medically cleared for ECT.? awaiting consultation from ECT practitioner.? c/o severe anxiety, ativan frequency increased.? otherwise no med changes.? per staff, SI without plan. 07/27 teaful, anxious, no VH/AH, passive SI, awaiting ECT. 07/28: stable presentation, same as yesterday.? continue current mgmt.? yuliya or kimberly to see pt for ECT saturday. 07/29: more tearful/labile today.? added seroquel 25 PRNs for anxiety.? otherwise continue current mgmt.? yuliya or kimberly to see pt for ECT saturday. 07/30: poor sleep, seroquel increased to 400 mg QHS as of tonight.? seroquel 25 mg plus ativan 1 mg helpful for anxiety.? awaiting visit from ECT provider.? reports she is feeling worse today, very hopeless.? [facility] paperwork filled out. 07/31: seen by yuliya for ECT yesterday, which is approved pending neuro consult and clearance due to pseudotumor cerebri. less tearful today, remains despondent and hopeless. scheduled for ECT tomorrow. 08/01 continue tx. 08/02: check lithium level and related labs this evening. ECT #2 tomorrow. HS AEDs have been rescheduled for mornings for now. 08/03: lithium subtherapeutic at 0.31, other labs unremarkable. ECT #2 completed, #3 scheduled for saturday. continue current mgmt for the weekend. 08/04: Continue current regimen and plans 08/05: Continue current regimen and plans 08/06: ECT #3 completed this morning, mood improved. contiue current mgmt. pt feels her medications are good as they are. I spent __25____ minutes with the patient and/or on the patient floor today, greater than?50% of which was spent counseling/coordinating care. Reason for contiued inpatient stay Substantial Risk for: inability to function and rapid decompensation
[2022-08-06] MEDS: Ondansetron ODT 8 MG TAB.RAPDIS TRANSLINGU (16:31)
[2022-08-06] MEDS: Lithium Carbonate ER 450 MG TABLET.ER 900 MG PO (21:21)
[2022-08-06] MEDS: QUEtiapine Fumarate 400 MG TABLET PO (21:21)
[2022-08-07 08:15] VITALS: BP 107/63; PULSE 86; RESP 18; TEMP 36.6; O2SAT 98
[2022-08-07] MEDS: Topiramate 25 MG TABLET 50 MG PO (08:59)
[2022-08-07] MEDS: acetaZOLAMIDE 250 MG TABLET PO ×2 (09:00→21:00)
[2022-08-07] MEDS: lamoTRIgine 100 MG TABLET PO (09:00)
[2022-08-07] MEDS: Multivitamin TABLET 1 TAB PO (09:01)
[2022-08-07] MEDS: LORazepam 1 MG TABLET PO (12:39)
--- NOTE | 2022-08-07 16:00 | HO.PSYCHPN ---
Subjective Subjective Date of Service: 08/07/22 Reason For Visit: psychosis Interim History: calm, cooperative. definitely feeling her mood has improved. did develop a BRENNAN later in the day yesterday, around 5 pm, with nausea, and got tylenol and zofran with reasonably good effect. she is weighing when to discharge to continue ECT from home. she is concerned she may have a severe BRENNAN at home and will have trouble getting adequate care for it there. she plans to discuss with Dr. Brady tomorrow morning prior to ECT. per staff, had BRENNAN after ECT yesterday. denies SI/HI/AVH. pleasant, eating well. Mental Status Exam Mental Status Exam Narrative: calm, cooperative. visible on the unit. adequately groomed. cooperative, no PMA/PMR. speech nml rate, amount, loudness, latency. thoughts linear and logical, no paranoia or delusions expressed. mood much better. affect more flexible, non-labile. no SI/HI/AVH expressed. Diagnostics Vital Signs (24Hr): Vital Signs - 24 hr 08/06/22 20:55 08/07/22 08:15 Temperature 97.2 F 97.9 F Pulse Rate 82 86 Respiratory Rate 16 18 Blood Pressure 112/56 L 107/63 Pulse Oximetry 98 98 Oxygen Delivery Method Room Air Room Air BMI result Body Mass Index 32.9 Labs Results: 08/02/22 19:08 08/02/22 19:08 Medications Medications Current Medications Acetaminophen (Acetaminophen 325 Mg Tablet) 650 mg PO Q6H PRN PRN Reason: Headache/Pain Mild Scale (1-3) Last Admin: 08/06/22 16:31 Dose: 650 mg Acetazolamide (Acetazolamide 250 Mg Tablet) 250 mg PO BID [facility] Last Admin: 08/07/22 09:00 Dose: 250 mg Al Hydroxide/Mg Hydroxide (Magnesium Hydrox/Alum Hydrox 30 Ml Oral.Susp) 30 ml PO Q6H PRN PRN Reason: Heartburn/Nausea Last Admin: 07/31/22 12:59 Dose: 30 ml Hydroxyzine HCl (Hydroxyzine Hcl 25 Mg Tablet) 25 mg PO Q6H PRN PRN Reason: Anxiety Last Admin: 07/31/22 16:43 Dose: 25 mg Lamotrigine (Lamotrigine 100 Mg Tablet) 100 mg PO DAILY [facility] Last Admin: 08/07/22 09:00 Dose: 100 mg [place] Carbonate (Gold Bar Carbonate Er 300 Mg Tablet.Er) 1,200 mg PO BEDTIME KACI Lorazepam (Lorazepam 1 Mg Tablet) 1 mg PO Q4H PRN PRN Reason: Anxiety Last Admin: 08/07/22 12:39 Dose: 1 mg Magnesium Hydroxide (Milk Of Magnesia 30 Ml Oral.Susp) 30 ml PO DAILY PRN PRN Reason: Constipation Multivitamins/Vitamin C (Multivitamin Tablet) 1 tab PO DAILY KACI Last Admin: 08/07/22 09:01 Dose: 1 tab Nicotine Polacrilex (Nicotine Polacrilex Lozenge 2 Mg Lozenge) 2 mg BUCCAL Q2H PRN PRN Reason: Nicotine Cravings Last Admin: 08/05/22 09:28 Dose: 2 mg Ondansetron HCl (Ondansetron Odt 8 Mg Tab.Rapdis) 8 mg TRANSLINGU Q12H PRN PRN Reason: nausea Last Admin: 08/06/22 16:31 Dose: 8 mg Quetiapine Fumarate (Quetiapine Fumarate 50 Mg Tablet) 150 mg PO BEDTIME PRN PRN Reason: insomnia Quetiapine Fumarate (Quetiapine Fumarate 25 Mg Tablet) 25 mg PO Q4H PRN PRN Reason: anxiety Last Admin: 08/05/22 09:28 Dose: 25 mg Quetiapine Fumarate (Quetiapine Fumarate 400 Mg Tablet) 400 mg PO BEDTIME KACI Last Admin: 08/06/22 21:21 Dose: 400 mg Sumatriptan Succinate (Sumatriptan Succinate 100 Mg Tablet) 100 mg PO Q4H PRN PRN Reason: Migraine Headache Last Admin: 08/03/22 20:56 Dose: 100 mg Topiramate (Topiramate 25 Mg Tablet) 50 mg PO DAILY [facility] Last Admin: 08/07/22 08:59 Dose: 50 mg Trazodone HCl (Trazodone Hcl 50 Mg Tablet) 50 mg PO BEDTIME PRN PRN Reason: Insomnia Allergies Allergies Allergy/AdvReac Type Severity Reaction Status Date / Time No Known Allergies Allergy Unverified 06/30/20 18:56 [No Known Allergies*] Assessment & Plan Assessment & Plan (1) Bipolar 1 disorder, depressed, severe: Status: Acute Code(s): F31.4 - Bipolar disorder, current episode depressed, severe, without psychotic features Assessment and Plan: Patient has a history of severe bipolar depression has done well with ECT previously. Patient meets criteria for ECT because of acute suicidality inability to tolerate how she is feeling has lack of response to current medication regimen even when she was taking regimen regularly. Patient aware although much she Topamax Lamictal will need to be adjusted so as not to interfere with ECT patient was medically evaluated for ECT history of pseudotumor cerebri relative contraindication however patient's condition has generally been stable without significant increase pressure Dr. Salmon notified patient has tolerated ECT previously without difficulty. Labs EKG medical notes reviewed prior chart and treatment history including ECT reviewed (2) Migraine: Status: Acute Code(s): G43.909 - Migraine, unspecified, not intractable, without status migrainosus Assessment and Plan: she is cleared for ECT treatments for her depression. There is no neurological contraindication. Her spinal fluid pressure one month ago was normal Plan 07/25: restarted prior meds regimen aside from reducing seroquel from 450 QHS to 300 QHS.? investigate and prepare for ECT as an option. 07/26: medically cleared for ECT.? awaiting consultation from ECT practitioner.? c/o severe anxiety, ativan frequency increased.? otherwise no med changes.? per staff, SI without plan. 07/27 teaful, anxious, no VH/AH, passive SI, awaiting ECT. 07/28: stable presentation, same as yesterday.? continue current mgmt.? yuliya or kimberly to see pt for ECT saturday. 07/29: more tearful/labile today.? added seroquel 25 PRNs for anxiety.? otherwise continue current mgmt.? yuliya or kimberly to see pt for ECT saturday. 07/30: poor sleep, seroquel increased to 400 mg QHS as of tonight.? seroquel 25 mg plus ativan 1 mg helpful for anxiety.? awaiting visit from ECT provider.? reports she is feeling worse today, very hopeless.? [facility] paperwork filled out. 07/31: seen by yuliya for ECT yesterday, which is approved pending neuro consult and clearance due to pseudotumor cerebri. less tearful today, remains despondent and hopeless. scheduled for ECT tomorrow. 08/01 continue tx. 08/02: check lithium level and related labs this evening. ECT #2 tomorrow. HS AEDs have been rescheduled for mornings for now. 08/03: lithium subtherapeutic at 0.31, other labs unremarkable. ECT #2 completed, #3 scheduled for saturday. continue current mgmt for the weekend. 08/04: Continue current regimen and plans 08/05: Continue current regimen and plans 08/06: ECT #3 completed this morning, mood improved. continue current mgmt. pt feels her medications are good as they are. 08/07: feeling much better mood-jimenez. considering when would be best for her to discharge and continue outpt. will discuss with Dr. Brady tomorrow prior to ECT #4. I spent ___25___ minutes with the patient and/or on the patient floor today, greater than?50% of which was spent counseling/coordinating care. Reason for contiued inpatient stay Substantial Risk for: inability to function and rapid decompensation
[2022-08-07] MEDS: Lithium Carbonate ER 300 MG TABLET.ER 1200 MG PO (21:00)
[2022-08-07] MEDS: QUEtiapine Fumarate 400 MG TABLET PO (21:01)
[2022-08-07 21:07] VITALS: BP 121/70; PULSE 16; RESP 16; TEMP 36.3; O2SAT 98
[2022-08-08] VITALS (12 sets, daily range): BP systolic 105–127; BP diastolic 60–79; PULSE 77–84; RESP 13–18; TEMP 36.3–37.2; O2SAT 96–100; BMI 31.1
--- NOTE | 2022-08-08 06:50 | P.CONAN_ITS ---
[facility] Active Problems Active Problems: All Active Problems (Updated 07/31/22 @ 16:06 by Graciela Salmon MD) Migraine (Acute) Pseudotumor cerebri (Acute) Bipolar 1 disorder, depressed, severe (Acute) Bipolar 1 disorder (Acute) Suicidal ideation (Acute) Depression (Acute) Paranoid behavior (Acute) Past Medical History Medical History Bipolar 1 disorder Migraines Mild intermittent asthma Pseudotumor cerebri Functional capacity: independent ambulation Family History Family History Brother Bipolar disorder Depression Paternal Grandfather Bipolar disorder Father Alcohol dependence Mother Breast cancer Family history of problems with anesthesia: No Surgical History History of Problems with Anesthesia: No Social History Social History Household Members: None Housing: Apartment Do you presently have visiting nurse or other home services: No Alcohol intake: current Alcohol intake frequency: a few times a week Patient Tobacco Use Status: Current someday Tobacco user Tobacco use type: Cigarette Smoked in Last 30 Days: Yes e-Cigarette/Vaping Use: Currently Using Frequency of e-Cigarette/Vaping Use: 5-6 uses per day Patient Interested in Nicotine Replacement: Yes (requested theo lozenges) Patient Given Instructions on How to Stop Smoking: No Second Hand Smoke Exposure: No Use of substances other than those prescribed or required for medical reasons: Yes Substance Use Type: Marijuana Substance Use Frequency: Socially Last Used Substance: Days (ago) Last Used Substance Other:: 1 Currently Displaying Signs/Symptoms of Drug Intoxication Withdrawal: No Other Past Substance Use Problem:: history of cocaine abuse - last use 3 years ago Any prior treatment program specific to substance use: No Have you been hit, kicked, punched, or otherwise hurt by someone within the past year? If so, by whom?: No Do you feel safe in your current relationship?: Yes Is there a partner from a previous relationship who is making you feel unsafe now?: No Are you made to feel afraid or neglected: No Are you DNR?: No Advance Directives: No Advance Directives Information Provided: Yes Guardian: No Do you have thoughts of harming others: None Do you have a plan to hurt others: No Plan Recently lost weight without trying: No Nutrition Risks: No Nutritional Risk Patient : No : No Poor oral hygiene: No service: No Sexual orientation: Straight/Heterosexual Meds Allergies Allergy/AdvReac Type Severity Reaction Status Date / Time No Known Allergies Allergy Unverified 06/30/20 18:56 [No Known Allergies*] Active Medications: Current Medications Acetaminophen (Acetaminophen 325 Mg Tablet) 650 mg PO Q6H PRN PRN Reason: Headache/Pain Mild Scale (1-3) Last Admin: 08/06/22 16:31 Dose: 650 mg Acetazolamide (Acetazolamide 250 Mg Tablet) 250 mg PO BID KACI Last Admin: 08/07/22 21:00 Dose: 250 mg Al Hydroxide/Mg Hydroxide (Magnesium Hydrox/Alum Hydrox 30 Ml Oral.Susp) 30 ml PO Q6H PRN PRN Reason: Heartburn/Nausea Last Admin: 07/31/22 12:59 Dose: 30 ml Hydroxyzine HCl (Hydroxyzine Hcl 25 Mg Tablet) 25 mg PO Q6H PRN PRN Reason: Anxiety Last Admin: 07/31/22 16:43 Dose: 25 mg Lactated Ringer's (Lr) 1,000 mls @ 50 mls/hr IVCONT .Q20H KACI Lamotrigine (Lamotrigine 100 Mg Tablet) 100 mg PO DAILY [facility] Last Admin: 08/07/22 09:00 Dose: 100 mg Humble Carbonate (Humble Carbonate Er 300 Mg Tablet.Er) 1,200 mg PO BEDTIME KACI Last Admin: 08/07/22 21:00 Dose: 1,200 mg Lorazepam (Lorazepam 1 Mg Tablet) 1 mg PO Q4H PRN PRN Reason: Anxiety Last Admin: 08/07/22 12:39 Dose: 1 mg Magnesium Hydroxide (Milk Of Magnesia 30 Ml Oral.Susp) 30 ml PO DAILY PRN PRN Reason: Constipation Multivitamins/Vitamin C (Multivitamin Tablet) 1 tab PO DAILY [facility] Last Admin: 08/07/22 09:01 Dose: 1 tab Nicotine Polacrilex (Nicotine Polacrilex Lozenge 2 Mg Lozenge) 2 mg BUCCAL Q2H PRN PRN Reason: Nicotine Cravings Last Admin: 08/05/22 09:28 Dose: 2 mg Ondansetron HCl (Ondansetron Odt 8 Mg Tab.Rapdis) 8 mg TRANSLINGU Q12H PRN PRN Reason: nausea Last Admin: 08/06/22 16:31 Dose: 8 mg Quetiapine Fumarate (Quetiapine Fumarate 50 Mg Tablet) 150 mg PO BEDTIME PRN PRN Reason: insomnia Quetiapine Fumarate (Quetiapine Fumarate 25 Mg Tablet) 25 mg PO Q4H PRN PRN Reason: anxiety Last Admin: 08/05/22 09:28 Dose: 25 mg Quetiapine Fumarate (Quetiapine Fumarate 400 Mg Tablet) 400 mg PO BEDTIME KACI Last Admin: 08/07/22 21:01 Dose: 400 mg Sumatriptan Succinate (Sumatriptan Succinate 100 Mg Tablet) 100 mg PO Q4H PRN PRN Reason: Migraine Headache Last Admin: 08/03/22 20:56 Dose: 100 mg Topiramate (Topiramate 25 Mg Tablet) 50 mg PO DAILY [facility] Last Admin: 08/07/22 08:59 Dose: 50 mg Trazodone HCl (Trazodone Hcl 50 Mg Tablet) 50 mg PO BEDTIME PRN PRN Reason: Insomnia Home Medications Medication Instructions Recorded Confirmed Last Taken Type acetazolamide 250 mg tablet 250 mg PO BID 07/24/22 07/24/22 Unknown History lamotrigine 200 mg tablet 200 mg PO BEDTIME 07/24/22 07/24/22 Unknown History lithium carbonate 450 mg 900 mg PO BEDTIME 07/24/22 07/24/22 Unknown History tablet,extended release lorazepam 1 mg tablet 1 tab PO BID PRN Anxiety 07/24/22 07/24/22 Unknown History multivitamin 1 tab PO DAILY 07/24/22 07/24/22 Unknown History ondansetron HCl 8 mg tablet 1 tab PO Q12H PRN nausea 07/24/22 07/24/22 Unknown History quetiapine 300 mg tablet 450 mg PO BEDTIME 07/24/22 07/24/22 Unknown History sumatriptan succinate 100 mg tablet 100 mg PO Q4H PRN Migraine Headache 07/24/22 07/24/22 Unknown History topiramate 100 mg tablet 100 mg PO BEDTIME 07/24/22 07/24/22 Unknown History Exam Exam Date and Time: August 08, 2022 0650 Height,Weight and Vital Signs: Height 5 ft 2 in Weight 81.703 kg Last Vital Signs Temp 97.6 F 08/08/22 05:45 Pulse 80 08/08/22 05:45 Resp 16 08/08/22 05:45 BP 105/67 08/08/22 05:45 Pulse Ox 99 08/08/22 05:45 O2 Del Method 08/08/22 05:45 O2 Flow Rate 2 08/06/22 08:04 Pertinent Lab Results Pertinent Lab Results: Laboratory Tests 07/24/22 07/24/22 07/24/22 16:54 16:54 16:54 WBC RBC Hgb Hct MCV MCH MCHC RDW Plt Count MPV Immature Gran % (Auto) Neut % (Auto) Lymph % (Auto) [place] % (Auto) Eos % (Auto) Baso % (Auto) Lymph # (Auto) [place] # (Auto) Eos # (Auto) Baso # (Auto) Abs Immat Gran (auto) Absolute Neuts (auto) Absolute Nucleated RBC Nucleated RBC % (auto) Sodium Potassium Chloride Carbon Dioxide Anion Gap BUN Creatinine Estim Creat Clear Calc Estimated GFR Random Glucose Fasting Glucose Estimat Average Glucose Hemoglobin A1c % Calcium Total Bilirubin AST ALT Alkaline Phosphatase Total Protein Albumin Triglycerides Cholesterol LDL Cholesterol, Calc HDL Cholesterol Vitamin B12 Folate TSH Urine Color Yellow Urine Appearance Cloudy Urine pH 5.0 Ur Specific [place] 1.025 Urine Protein Negative Urine Glucose (UA) Negative Urine Ketones Trace Urine Blood Negative Urine Nitrite Negative Ur Leukocyte Esterase Small (1+) H Urine RBC 0-2 Urine WBC 0-5 Ur Squamous Epith Cells 6-10 Urine Bacteria 1+ Hyaline Casts 0-2 Salicylates Urine Opiates Screen Not Detected Urine Fentanyl Screen Not Detected Acetaminophen Ur Barbiturates Screen Not Detected Ur Phencyclidine Scrn Not Detected Ur Amphetamines Screen Not Detected U Benzodiazepines Scrn Not Detected [place] Urine Cocaine Screen Not Detected U Marijuana (THC) Screen POSITIVE H Ethyl Alcohol COVID-19 (MIGUEL) Negative COVID-19 Clin Com See Note 07/24/22 07/24/22 07/24/22 17:19 17:19 17:19 WBC 10.2 RBC 4.51 Hgb 13.8 Hct 40.0 MCV 88.7 MCH 30.6 MCHC 34.5 RDW 12.5 Plt Count 230 MPV 9.4 Immature Gran % (Auto) Neut % (Auto) Lymph % (Auto) [place] % (Auto) Eos % (Auto) Baso % (Auto) Lymph # (Auto) [place] # (Auto) Eos # (Auto) Baso # (Auto) Abs Immat Gran (auto) Absolute Neuts (auto) Absolute Nucleated RBC 0.000 Nucleated RBC % (auto) 0.0 Sodium 140 Potassium 3.6 Chloride 112 H Carbon Dioxide 16 L Anion Gap 16 BUN 11 Creatinine 0.74 Estim Creat Clear Calc 105.8 Estimated GFR > 60 Random Glucose 98 Fasting Glucose Estimat Average Glucose Hemoglobin A1c % Calcium 9.0 Total Bilirubin AST ALT Alkaline Phosphatase Total Protein Albumin Triglycerides Cholesterol LDL Cholesterol, Calc HDL Cholesterol Vitamin B12 Folate TSH Urine Color Urine Appearance Urine pH Ur Specific [place] Urine Protein Urine Glucose (UA) Urine Ketones Urine Blood Urine Nitrite Ur Leukocyte Esterase Urine RBC Urine WBC Ur Squamous Epith Cells Urine Bacteria Hyaline Casts Salicylates < 5.0 L Urine Opiates Screen Urine Fentanyl Screen Acetaminophen < 1 Ur Barbiturates Screen Ur Phencyclidine Scrn Ur Amphetamines Screen U Benzodiazepines Scrn [place] Urine Cocaine Screen U Marijuana (THC) Screen Ethyl Alcohol < 10 COVID-19 (MIGUEL) COVID-19 Clin Com 07/24/22 07/25/22 07/25/22 20:45 08:23 08:23 WBC RBC Hgb Hct MCV MCH MCHC RDW Plt Count MPV Immature Gran % (Auto) Neut % (Auto) Lymph % (Auto) [place] % (Auto) Eos % (Auto) Baso % (Auto) Lymph # (Auto) [place] # (Auto) Eos # (Auto) Baso # (Auto) Abs Immat Gran (auto) Absolute Neuts (auto) Absolute Nucleated RBC Nucleated RBC % (auto) Sodium 139 Potassium 4.0 Chloride 112 H Carbon Dioxide 20 L Anion Gap 11 L BUN 11 Creatinine 0.82 Estim Creat Clear Calc 96.4 Estimated GFR > 60 Random Glucose Fasting Glucose 91 Estimat Average Glucose 80 Hemoglobin A1c % 4.4 Calcium 8.7 Total Bilirubin 0.6 AST 13 ALT 8 Alkaline Phosphatase 54 Total Protein 6.3 L Albumin 4.0 Triglycerides 99 Cholesterol 200 LDL Cholesterol, Calc 126 HDL Cholesterol 55 Vitamin B12 Folate TSH 3.28 Urine Color Urine Appearance Urine pH Ur Specific [place] Urine Protein Urine Glucose (UA) Urine Ketones Urine Blood Urine Nitrite Ur Leukocyte Esterase Urine RBC Urine WBC Ur Squamous Epith Cells Urine Bacteria Hyaline Casts Salicylates Urine Opiates Screen Urine Fentanyl Screen Acetaminophen Ur Barbiturates Screen Ur Phencyclidine Scrn Ur Amphetamines Screen U Benzodiazepines Scrn [place] < 0.04 L Urine Cocaine Screen U Marijuana (THC) Screen Ethyl Alcohol COVID-19 (MIGUEL) COVID-19 Clin Com 07/25/22 07/31/22 08/02/22 08:23 11:30 19:08 WBC 9.4 RBC 4.26 Hgb 13.1 Hct 39.8 MCV 93.4 MCH 30.8 MCHC 32.9 RDW 12.6 Plt Count 217 MPV 9.3 L Immature Gran % (Auto) 0.3 Neut % (Auto) 65.8 Lymph % (Auto) 25.0 [place] % (Auto) 5.2 Eos % (Auto) 3.1 Baso % (Auto) 0.6 Lymph # (Auto) 2.4 [place] # (Auto) 0.5 Eos # (Auto) 0.3 Baso # (Auto) 0.1 Abs Immat Gran (auto) 0.03 Absolute Neuts (auto) 6.2 Absolute Nucleated RBC 0.000 Nucleated RBC % (auto) 0.0 Sodium Potassium Chloride Carbon Dioxide Anion Gap BUN Creatinine Estim Creat Clear Calc Estimated GFR Random Glucose Fasting Glucose Estimat Average Glucose Hemoglobin A1c % Calcium Total Bilirubin AST ALT Alkaline Phosphatase Total Protein Albumin Triglycerides Cholesterol LDL Cholesterol, Calc HDL Cholesterol Vitamin B12 279 Folate 11.1 TSH Urine Color Urine Appearance Urine pH Ur Specific [place] Urine Protein Urine Glucose (UA) Urine Ketones Urine Blood Urine Nitrite Ur Leukocyte Esterase Urine RBC Urine WBC Ur Squamous Epith Cells Urine Bacteria Hyaline Casts Salicylates Urine Opiates Screen Urine Fentanyl Screen Acetaminophen Ur Barbiturates Screen Ur Phencyclidine Scrn Ur Amphetamines Screen U Benzodiazepines Scrn [place] Urine Cocaine Screen U Marijuana (THC) Screen Ethyl Alcohol COVID-19 (MIGUEL) Negative COVID-19 Clin Com See Note 08/02/22 08/02/22 19:08 19:08 WBC RBC Hgb Hct MCV MCH MCHC RDW Plt Count MPV Immature Gran % (Auto) Neut % (Auto) Lymph % (Auto) [place] % (Auto) Eos % (Auto) Baso % (Auto) Lymph # (Auto) [place] # (Auto) Eos # (Auto) Baso # (Auto) Abs Immat Gran (auto) Absolute Neuts (auto) Absolute Nucleated RBC Nucleated RBC % (auto) Sodium 140 Potassium 3.9 Chloride 109 H Carbon Dioxide 21 L Anion Gap 14 BUN 13 Creatinine 0.87 Estim Creat Clear Calc 92.7 Estimated GFR > 60 Random Glucose 106 Fasting Glucose Estimat Average Glucose Hemoglobin A1c % Calcium 8.6 Total Bilirubin AST ALT Alkaline Phosphatase Total Protein Albumin Triglycerides Cholesterol LDL Cholesterol, Calc HDL Cholesterol Vitamin B12 Folate TSH Urine Color Urine Appearance Urine pH Ur Specific [place] Urine Protein Urine Glucose (UA) Urine Ketones Urine Blood Urine Nitrite Ur Leukocyte Esterase Urine RBC Urine WBC Ur Squamous Epith Cells Urine Bacteria Hyaline Casts Salicylates Urine Opiates Screen Urine Fentanyl Screen Acetaminophen Ur Barbiturates Screen Ur Phencyclidine Scrn Ur Amphetamines Screen U Benzodiazepines Scrn [place] 0.31 L Urine Cocaine Screen U Marijuana (THC) Screen Ethyl Alcohol COVID-19 (MIGUEL) COVID-19 Clin Com Airway Mallampati Class: II TM Dist: >3cm Neck ROM: Full Heart: rrr Lungs: cta Assessment and Plan Assessment Anesthesia Assessment: Anesthesia Plan Discussed and Chart Reviewed Final Anesthetic Review Family History of Problems with Anesthesia: No History of Problems with Anesthesia: No NPO: Yes ASA Class: III Final Preanesthetic Review: No Changes in Pt Med Stat, Meds/Allgs Chart Reviewed and Consent Obtained/Reviewed Patient Risk: Intermediate Procedure Risk: Intermediate Anesthetic Plan Anesthetic Plan: GA Disposition: Standard PACU
--- NOTE | 2022-08-08 07:03 | MHC.SHP ---
Pre-Procedural Eval Section A Date of Service: 08/08/22 The patient is an INPATIENT: Yes Changes since office visit: Yes Changes in Medication and Yes Patient answered all questions; No Cold of Flu in the past 2 weeks and No New Medical Problems The History & Physical has been completed within 30 days and I have reviewed it.: Yes Section B Chief Complaint: psychosis Allergies: Allergies Allergy/AdvReac Type Severity Reaction Status Date / Time No Known Allergies Allergy Unverified 06/30/20 18:56 [No Known Allergies*] Plan I have reviewed the history and physical and performed a pertinent physical examination on my patient. No changes have occurred unless specified.
--- NOTE | 2022-08-08 07:29 | P.PCN_ITS ---
ECT Procedure Note Diagnosis/Treatment Date of Service: 08/08/22 Previous ECT Date: 08/06/22 Current Treatment Number: 4 Treatment: Series Interval Clinical Notes: pt with some improvement tolerating ect asking about outpt ECT Settings Device: THYMATRON DGx Electrode Placement: Bitemporal Program/Pulse Width: 0.25 Energy Percent: 75 Seizure Duration By EEG (in seconds): 36 Medications Administration General Anesthetic: Etomidate (16) Muscle Relaxant: Succinylcholine (100) Ancillary Medications Analgesics: Torodol - Pre ECT and Narcotics (50 mcg) Anti-emetics: Zofran - Pre ECT Airway Management Airway Management: Bag Mask Ventilation Treatment Recommendations Notes: may need post op oxycontin upstairs cont tx series outpt then transition to ma int Pt Tolerated Procedure w/o Issue: Yes
[2022-08-08] MEDS: oxyCODONE HCl Immed Release 5 MG TABLET PO (08:10)
[2022-08-08] MEDS: Acetaminophen 325 MG TABLET 650 MG PO ×2 (08:10→14:46)
[2022-08-08] MEDS: Multivitamin TABLET 1 TAB PO (08:53)
[2022-08-08] MEDS: lamoTRIgine 100 MG TABLET PO (08:53)
[2022-08-08] MEDS: acetaZOLAMIDE 250 MG TABLET PO ×2 (08:53→20:56)
[2022-08-08] MEDS: Topiramate 25 MG TABLET 50 MG PO (08:53)
--- NOTE | 2022-08-08 14:53 | PM.PSYDC ---
DS: Providers Provider Date of Service: 08/08/22 Date of admission: 07/24/22 19:29 Primary care physician: Julieth Ulloa MD DS: Diagnosis Discharge Diagnosis (1) Bipolar 1 disorder, depressed, severe: Status: Acute (2) Migraine: Status: Acute DS: Medications Discharge Medications Home Medications: Home Medications Medication Instructions Recorded Confirmed acetazolamide 250 mg tablet 250 mg PO BID 07/24/22 07/24/22 lithium carbonate 450 mg 900 mg PO BEDTIME 07/24/22 07/24/22 tablet,extended release lorazepam 1 mg tablet 1 tab PO BID PRN Anxiety 07/24/22 07/24/22 multivitamin 1 tab PO DAILY 07/24/22 07/24/22 ondansetron HCl 8 mg tablet 1 tab PO Q12H PRN nausea 07/24/22 07/24/22 sumatriptan succinate 100 mg tablet 100 mg PO Q4H PRN Migraine Headache 07/24/22 07/24/22 topiramate 100 mg tablet 100 mg PO BEDTIME 07/24/22 07/24/22 Previous Rx's Medication Instructions Recorded lamotrigine 100 mg tablet 100 mg PO BEDTIME 30 days #30 tabs 08/08/22 nicotine (polacrilex) 2 mg buccal 2 mg buccal BID PRN Nicotine 08/08/22 lozenge Cravings 30 days #72 ea quetiapine 400 mg tablet 400 mg PO BEDTIME 30 days #30 tabs 08/08/22 Mental Status Exam Mental Status Exam Narrative: calm, cooperative. visible on the unit. adequately groomed. cooperative, no PMA/PMR. speech nml rate, amount, loudness, latency. thoughts linear and logical, no paranoia or delusions expressed. mood even. OK. not happy but not super depressed. affect more flexible, non-labile. no SI/HI/AVH. Data Data Completed and Pending Completed studies during hospitalization [Text1]: 08/02/22 08/02/22 08/02/22 19:08 19:08 19:08 WBC 9.4 RBC 4.26 Hgb 13.1 Hct 39.8 MCV 93.4 MCH 30.8 MCHC 32.9 RDW 12.6 Plt Count 217 MPV 9.3 L Immature Gran % (Auto) 0.3 Neut % (Auto) 65.8 Lymph % (Auto) 25.0 Shannon % (Auto) 5.2 Eos % (Auto) 3.1 Baso % (Auto) 0.6 Lymph # (Auto) 2.4 Shannon # (Auto) 0.5 Eos # (Auto) 0.3 Baso # (Auto) 0.1 Abs Immat Gran (auto) 0.03 Absolute Neuts (auto) 6.2 Absolute Nucleated RBC 0.000 Nucleated RBC % (auto) 0.0 Sodium 140 Potassium 3.9 Chloride 109 H Carbon Dioxide 21 L Anion Gap 14 BUN 13 Creatinine 0.87 Estim Creat Clear Calc 92.7 Estimated GFR > 60 Random Glucose 106 Calcium 8.6 Camas 0.31 L 07/24/22 Unknown Urine clean catch - Urine crowley top Urine Culture - Final DS: Summary Hospital Course Hospital Course: per 07/25 admission note: pt self-presented to ED at recommendation of her outpt psych MD after reporting increased SI with plan to overdose, which she has done in the past.? has Dx of bipolar disorder and has been off meds for weeks.? not sleeping well, up all night cleaning, periods of no energy, engaging in excessive spending.? she reported to crisis that she has been struggling since the of her mother from cancer in january,.? she reports she started to feel better a couple months ago and stopped taking her meds as prescribed, then a month after that the SI started.? 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 thoughts of SI increasingly intrusive the past few days, so came in. on interview with MD, pt expresses desire to restart/continue her preior medications regimen.? meds reviewed and reconciled.? one change was made, which was to decrease HS seroquel from 450 mg to 300 mg, as she stated she has been feeling over sedated from it.? she reported she has been taking ara medications as prescribed for the past week, but her lithium level at admission was negligible.? she states she was very much helped by ECT previously, and she is interested in doing it again.? she asked that her outpt psych MD be kept informed of the plan. Past Psychiatric History: sees maryjane allan for outpt meds. cherie metzger for therapy. intermittently in therapy and meds since 20 yo. h/o at least 7 psych hosps. ? MRE 11/04 at [facility] after SA via overdose. h/o 4 SAs, all via overdose (ages 16, 20, 26, 31) has done PHP and ECT at [facility]. Medical Evaluation Reviewed: Yes [facility] Narrative: migraine BRENNAN asthma pseudotumor cerebri Family History: father - alcohol mother - depression bro - bipolar paternal grandfather - bipolar Social History: in partnership past 3 years.? from [place] in intact family.? one younger brother and two older half-sisters from her mother's prior partnership.? mother 02/02.? father in recivery from alcohol addiction. Substance History: cannabis - uses tobacco - uses denies other use Precis: 07/25: restarted prior meds regimen aside from reducing seroquel from 450 QHS to 300 QHS.? investigate and prepare for ECT as an option. 07/26: medically cleared for ECT.? awaiting consultation from ECT practitioner.? c/o severe anxiety, ativan frequency increased.? otherwise no med changes.? per staff, SI without plan. 07/27 tearful, anxious, no VH/AH, passive SI, awaiting ECT. 07/28: stable presentation, same as yesterday.? continue current mgmt.? yuliya or kimberly to see pt for ECT saturday. 07/29: more tearful/labile today.? added seroquel 25 PRNs for anxiety.? otherwise continue current mgmt.? yuliya or kimberly to see pt for ECT saturday. 07/30: poor sleep, seroquel increased to 400 mg QHS as of tonight.? seroquel 25 mg plus ativan 1 mg helpful for anxiety.? awaiting visit from ECT provider.? reports she is feeling worse today, very hopeless.? [facility] paperwork filled out. 07/31: seen by yuliya for ECT yesterday, which is approved pending neuro consult and clearance due to pseudotumor cerebri.? less tearful today, remains despondent and hopeless.? scheduled for ECT tomorrow. 08/01 continue tx. 08/02: check lithium level and related labs this evening.? ECT #2 tomorrow.? HS AEDs have been rescheduled for mornings for now. 08/03: lithium subtherapeutic at 0.31, other labs unremarkable.? ECT #2 completed, #3 scheduled for saturday.? continue current mgmt for the weekend. 08/04:? Continue current regimen and plans 08/05:? Continue current regimen and plans 08/06: ECT #3 completed this morning, mood improved.? continue current mgmt.? pt feels her medications are good as they are. 08/07: feeling much better mood-jimenez.? considering when would be best for her to discharge and continue outpt.? will discuss with Dr. Brady tomorrow prior to ECT #4. 08/08: mood continues much improved, no SI. asking for DC tomorrow to complete ECT series from outpatient. meds reviewed, reconciled, and prescribed. pt to broach major change of medications with outpt provider as her current regimen has not seemed to have kept her from being extremely depressed. lithium decreased back to 900 mg QHS out of concern for lithium + ECT interaction, dosing may be increased once ECT series complete. 08/09: discharged as per plan. stable, no issues overnight. Time Spent with Patient Time attestation: Total time spent providing and/or coordinating discharge services: Time spent: Greater than 30 minutes Discharge Plan Discharge Anticipated Discharge Date/Time: 08/09/22 11:00 Patient Disposition: Home, Self-Care Discharge Diagnosis: Bipolar I Disorder, MRE Depressed Referrals: MARYJANE ALLAN, PSYCHIATRY [Other] - 08/17/22 1:40 pm OUT PATIENT ECT [Other] - 1 Week (08/10, 08/13 AND 08/15 PLEASE ARRIVE 6:00 AM) Julieth Ulloa MD [Primary Care Provider] - 08/10/22 3:00 am Discharge Medications: New nicotine (polacrilex) 2 mg Lozenge 2 mg buccal BID PRN (Reason: Nicotine Cravings) 30 Days Qty: 72 0RF lamotrigine 100 mg Tablet 100 mg PO BEDTIME 30 Days Qty: 30 0RF quetiapine 400 mg Tablet 400 mg PO BEDTIME 30 Days Qty: 30 0RF Continued sumatriptan succinate 100 mg Tablet 100 mg PO Q4H PRN (Reason: Migraine Headache) Rx Instructions: do not exceed 2 doses per 24 hrs acetazolamide 250 mg Tablet 250 mg PO BID Rx Instructions: x 30 days lithium carbonate 450 mg Tablet Extended Release 900 mg PO BEDTIME Rx Instructions: Take 2 tablets at bedtime topiramate 100 mg Tablet 100 mg PO BEDTIME multivitamin Tablet 1 tab PO DAILY ondansetron HCl 8 mg tablet 1 tab PO Q12H PRN (Reason: nausea) lorazepam 1 mg tablet 1 tab PO BID PRN (Reason: Anxiety) Discontinued lamotrigine 200 mg Tablet 200 mg PO BEDTIME quetiapine 300 mg Tablet 450 mg PO BEDTIME Rx Instructions: Take 1.5 tablets at bedtime Discharge Orders: Discharge Order (Routine); Ordered 08/09/22 Ordered By: Von Shah Diet: Advance to usual diet Activity on Discharge: As tolerated Stand Alone Forms: Patient Portal Discharge page, Community Support Care Plan Goals: remain safe and stable in the outpatient treatment setting Health Concerns: none Plan of Treatment: take medications as prescribed, attend appointments as prescribed. continue to engage in M-W-F ECT until such time as you and Dr. Brady decide that cessation or lower frequency is indicated. Assessment: not at imminent risk of harm to self or others Discharge Date/Time: 08/09/22 09:55
[2022-08-08] MEDS: Lithium Carbonate ER 450 MG TABLET.ER 900 MG PO (20:55)
[2022-08-08] MEDS: QUEtiapine Fumarate 400 MG TABLET PO (20:56)
[2022-08-09 08:00] VITALS: BP 115/66; PULSE 80; RESP 16; TEMP 36.6; O2SAT 99
[2022-08-09] MEDS: Topiramate 25 MG TABLET 50 MG PO (08:50)
[2022-08-09] MEDS: Multivitamin TABLET 1 TAB PO (08:51)
[2022-08-09] MEDS: lamoTRIgine 100 MG TABLET PO (08:52)
[2022-08-09] MEDS: acetaZOLAMIDE 250 MG TABLET PO (08:52)
--- NOTE | 2022-08-09 11:18 | PC.NURSE ---
Pt discharged home. she denies self harm or intent to harm others. She verbalized understanding of discharge instructions and meds.
== END 2022-08-09 09:55 | disposition home or self-care (01) | DRG 885 ==
LOC: HO.ED 17:51 → HO.PADLT16 19:34
PROVIDERS: Physician Assistant; Psychiatry & Neurology Psychiatry; Social Worker; Admitting Provider Psychiatry & Neurology Psychiatry; Emergency Provider Emergency Medicine; PCP Internal Medicine; Visit Provider Psychiatry & Neurology Psychiatry
PROC: GZB4ZZZ Other Electroconvulsive Therapy (ICD-10-PCS; CPT 90870; principal; 2022-08-01 07:30)
DX: F31.4 Bipolar disorder, current episode depressed, severe, without psychotic features (principal); R45.851 Suicidal ideations; G93.2 Benign intracranial hypertension; Z20.822 Contact with and (suspected) exposure to COVID-19; Z79.899 Other long term (current) drug therapy
CPT/HCPCS: 36415; 80048; 80053; 80061; 80143; 80178; 80179; 80307; 81001; 81003; 82077; 82607; 82746; 83036; 84443; 85025; 85027; 87086; 87635; 90870; 93005; 99285; J0330; J1885; J2405; J3010

== ENCOUNTER 2022-08-10 06:01 | Day surgery (SDC) | payer OTHER, SELFPAY ==
[2022-08-10] VITALS (7 sets, daily range): BP systolic 104–122; BP diastolic 55–81; PULSE 77–82; RESP 16–19; TEMP 36.2; O2SAT 98–100; BMI 31.1
[2022-08-10 06:43] LABS: COVID-19 Test Negative (Negative)
--- NOTE | 2022-08-10 07:04 | MHC.SHP ---
Pre-Procedural Eval Section A Date of Service: 08/10/22 The patient is an INPATIENT: No Changes since office visit: Yes Patient answered all questions; No Cold of Flu in the past 2 weeks, No New Medical Problems and No Changes in Medication The History & Physical has been completed within 30 days and I have reviewed it.: Yes Section B Chief Complaint: depression Allergies: Allergies Allergy/AdvReac Type Severity Reaction Status Date / Time No Known Allergies Allergy Unverified 06/30/20 18:56 [No Known Allergies*] Plan I have reviewed the history and physical and performed a pertinent physical examination on my patient. No changes have occurred unless specified.
--- NOTE | 2022-08-10 07:18 | HO.ECTPROC ---
ECT Procedure Note Diagnosis/Treatment Date of Service: 08/10/22 Diagnosis: Bipolar disorder Previous ECT Date: 08/08/22 Current Treatment Number: 5 Treatment: Series Interval Clinical Notes: pt d/c from hosp staying with mood ok ECT Settings Device: THYMATRON DGx Electrode Placement: Bitemporal Program/Pulse Width: 0.25 Energy Percent: 100 Seizure Duration By EEG (in seconds): 79 Medications Administration General Anesthetic: Etomidate (16) Muscle Relaxant: Succinylcholine (100) Ancillary Medications Analgesics: Torodol - Pre ECT and Narcotics (50 mcg fentanyl) Anti-emetics: Zofran - Pre ECT Airway Management Airway Management: Bag Mask Ventilation Treatment Recommendations Energy Percent: 75 Notes: oxycodone post cont tx series Pt Tolerated Procedure w/o Issue: Yes
[2022-08-10] MEDS: Acetaminophen 325 MG TABLET 650 MG PO (07:51)
[2022-08-10] MEDS: oxyCODONE HCl Immed Release 5 MG TABLET 10 MG PO (07:54)
--- NOTE | 2022-08-10 08:16 | P.CONAN_ITS ---
HPI - Anesthesia Eval Consult details Narrative: Bipolar depression [facility] Active Problems Active Problems: All Active Problems (Updated 07/31/22 @ 16:06 by Graciela Salmon MD) Migraine (Acute) Pseudotumor cerebri (Acute) Bipolar 1 disorder, depressed, severe (Acute) Bipolar 1 disorder (Acute) Suicidal ideation (Acute) Depression (Acute) Paranoid behavior (Acute) Past Medical History Medical History Bipolar 1 disorder Migraines Mild intermittent asthma Pseudotumor cerebri Family History Family History Brother Bipolar disorder Depression Paternal Grandfather Bipolar disorder Father Alcohol dependence Mother Breast cancer Family history of problems with anesthesia: No Surgical History History of Problems with Anesthesia: No Social History Social History Household Members: None Housing: Apartment Do you presently have visiting nurse or other home services: No Alcohol intake: current Alcohol intake frequency: a few times a week Patient Tobacco Use Status: Current someday Tobacco user Tobacco use type: Cigarette e-Cigarette/Vaping Use: Currently Using Second Hand Smoke Exposure: No Substance Use Type: Marijuana Advance Directives: No Advance Directives Information Provided: Yes service: No Sexual orientation: Straight/Heterosexual Meds Allergies Allergy/AdvReac Type Severity Reaction Status Date / Time No Known Allergies Allergy Unverified 06/30/20 18:56 [No Known Allergies*] Home Medications Medication Instructions Recorded Confirmed Last Taken Type acetazolamide 250 mg tablet 250 mg PO BID 07/24/22 07/24/22 Unknown History lithium carbonate 450 mg 900 mg PO BEDTIME 07/24/22 07/24/22 Unknown History tablet,extended release lorazepam 1 mg tablet 1 tab PO BID PRN Anxiety 07/24/22 07/24/22 Unknown History multivitamin 1 tab PO DAILY 07/24/22 07/24/22 Unknown History ondansetron HCl 8 mg tablet 1 tab PO Q12H PRN nausea 07/24/22 07/24/22 Unknown History sumatriptan succinate 100 mg tablet 100 mg PO Q4H PRN Migraine Headache 07/24/22 07/24/22 Unknown History topiramate 100 mg tablet 100 mg PO BEDTIME 07/24/22 07/24/22 Unknown History Exam Exam Date and Time: August 10, 2022 0816 Height,Weight and Vital Signs: Height 5 ft 2 in Weight 77.111 kg Last Vital Signs Temp 97.1 F 08/10/22 07:32 Pulse 80 08/10/22 07:47 Resp 19 08/10/22 07:47 BP 116/65 08/10/22 07:47 Pulse Ox 99 08/10/22 07:47 O2 Del Method 08/10/22 07:47 O2 Flow Rate 2 08/10/22 07:37 Pertinent Lab Results Pertinent Lab Results: Laboratory Tests 08/10/22 06:16 COVID-19 ([facility]) Negative COVID-19 Clin Com See Note Airway Mallampati Class: III TM Dist: >3cm Neck ROM: Full Loose/Missing/Broken Teeth: No Heart: rrr+s1s2 Lungs: cta b/l Assessment and Plan Assessment Anesthesia Assessment: Anesthesia Plan Discussed and Chart Reviewed Final Anesthetic Review Family History of Problems with Anesthesia: No History of Problems with Anesthesia: No NPO: Yes ASA Class: II Final Preanesthetic Review: No Changes in Pt Med Stat, Meds/Allgs Chart Reviewed, Consent Obtained/Reviewed and Anes Risks/Benef Reviewed Patient Risk: Intermediate Procedure Risk: Intermediate Assessment/Block/Sedation in SS: Assess/Block/Sedation-SS Anesthetic Plan Anesthetic Plan: GA and Agree w/ Assess. and Plan Disposition: Standard PACU
== END 2022-08-10 09:05 | disposition home or self-care (01) ==
PROVIDERS: PCP Psychiatry & Neurology Psychiatry; Visit Provider Psychiatry & Neurology Psychiatry
PROC: (CPT 90870; principal; 2022-08-10 07:30)
DX: F31.4 Bipolar disorder, current episode depressed, severe, without psychotic features (principal); G43.909 Migraine, unspecified, not intractable, without status migrainosus; J45.20 Mild intermittent asthma, uncomplicated; G93.2 Benign intracranial hypertension; Z79.899 Other long term (current) drug therapy; F17.290 Nicotine dependence, other tobacco product, uncomplicated; Z20.822 Contact with and (suspected) exposure to COVID-19
CPT/HCPCS: 87635; 90870; J0330; J0461; J1885; J2405; J3010

== ENCOUNTER 2022-08-13 05:52 | Day surgery (SDC) | payer OTHER, SELFPAY ==
[2022-08-13] VITALS (7 sets, daily range): BP systolic 104–122; BP diastolic 65–78; PULSE 77–88; RESP 16–18; TEMP 36.4–36.9; O2SAT 97–100; BMI 31.1
[2022-08-13 06:33] LABS: COVID-19 Test Negative (Negative)
--- NOTE | 2022-08-13 06:52 | HO.ANESPROP2 ---
HPI - Anesthesia Eval Consult details Narrative: Major depression [facility] Active Problems Active Problems: All Active Problems (Updated 07/31/22 @ 16:06 by Graciela Salmon MD) Migraine (Acute) Pseudotumor cerebri (Acute) Bipolar 1 disorder, depressed, severe (Acute) Bipolar 1 disorder (Acute) Suicidal ideation (Acute) Depression (Acute) Paranoid behavior (Acute) Past Medical History Medical History Bipolar 1 disorder Migraines Mild intermittent asthma Pseudotumor cerebri Family History Family History Brother Bipolar disorder Depression Paternal Grandfather Bipolar disorder Father Alcohol dependence Mother Breast cancer Family history of problems with anesthesia: No Surgical History History of Problems with Anesthesia: No Social History Social History Household Members: None Housing: Apartment Do you presently have visiting nurse or other home services: No Alcohol intake: current Alcohol intake frequency: a few times a week Patient Tobacco Use Status: Current someday Tobacco user Tobacco use type: Cigarette e-Cigarette/Vaping Use: Currently Using Second Hand Smoke Exposure: No Substance Use Type: Marijuana Advance Directives: No Advance Directives Information Provided: Yes service: No Sexual orientation: Straight/Heterosexual Meds Allergies Allergy/AdvReac Type Severity Reaction Status Date / Time No Known Allergies Allergy Unverified 06/30/20 18:56 [No Known Allergies*] Home Medications Medication Instructions Recorded Confirmed Last Taken Type acetazolamide 250 mg tablet 250 mg PO BID 07/24/22 07/24/22 Unknown History lithium carbonate 450 mg 900 mg PO BEDTIME 07/24/22 07/24/22 Unknown History tablet,extended release lorazepam 1 mg tablet 1 tab PO BID PRN Anxiety 07/24/22 07/24/22 Unknown History multivitamin 1 tab PO DAILY 07/24/22 07/24/22 Unknown History ondansetron HCl 8 mg tablet 1 tab PO Q12H PRN nausea 07/24/22 07/24/22 Unknown History sumatriptan succinate 100 mg tablet 100 mg PO Q4H PRN Migraine Headache 07/24/22 07/24/22 Unknown History topiramate 100 mg tablet 100 mg PO BEDTIME 07/24/22 07/24/22 Unknown History Exam Exam Date and Time: August 13, 2022 0652 Height,Weight and Vital Signs: Height 5 ft 2 in Weight 77.111 kg Last Vital Signs Temp 97.5 F 08/13/22 06:20 Pulse 84 08/13/22 06:20 Resp 18 08/13/22 06:20 BP 122/78 08/13/22 06:20 Pulse Ox 99 08/13/22 06:20 O2 Del Method 08/13/22 06:20 Pertinent Lab Results Pertinent Lab Results: Laboratory Tests 08/13/22 06:05 COVID-19 ([facility]) Negative COVID-19 Clin Com See Note Airway Mallampati Class: II TM Dist: >3cm Neck ROM: Full Loose/Missing/Broken Teeth: No Heart: rrr+s1s2 Lungs: cta b/l Assessment and Plan Assessment Anesthesia Assessment: Anesthesia Plan Discussed and Chart Reviewed Final Anesthetic Review Family History of Problems with Anesthesia: No History of Problems with Anesthesia: No NPO: Yes ASA Class: II Final Preanesthetic Review: No Changes in Pt Med Stat, Meds/Allgs Chart Reviewed, Consent Obtained/Reviewed and Anes Risks/Benef Reviewed Patient Risk: Intermediate Procedure Risk: Intermediate Assessment/Block/Sedation in SS: Assess/Block/Sedation-SS Anesthetic Plan Anesthetic Plan: GA and Agree w/ Assess. and Plan Disposition: Standard PACU
--- NOTE | 2022-08-13 07:02 | MHC.SHP ---
Pre-Procedural Eval Section A Date of Service: 08/13/22 The patient is an INPATIENT: No Changes since office visit: No Cold of Flu in the past 2 weeks, No New Medical Problems, No Changes in Medication and No Patient answered all questions The History & Physical has been completed within 30 days and I have reviewed it.: Yes Section B Chief Complaint: depression Allergies: Allergies Allergy/AdvReac Type Severity Reaction Status Date / Time No Known Allergies Allergy Unverified 06/30/20 18:56 [No Known Allergies*] Plan I have reviewed the history and physical and performed a pertinent physical examination on my patient. No changes have occurred unless specified.
--- NOTE | 2022-08-13 07:03 | HO.ECTPROC ---
ECT Procedure Note Diagnosis/Treatment Date of Service: 08/13/22 Diagnosis: Bipolar disorder Previous ECT Date: 08/10/22 Current Treatment Number: 6 Treatment: Series ECT Settings Device: THYMATRON DGx Electrode Placement: Bitemporal Program/Pulse Width: 0.25 Energy Percent: 100 Seizure Duration By EEG (in seconds): 28 By Motor Observation (in seconds): 21 Medications Administration General Anesthetic: Etomidate (16) Muscle Relaxant: Succinylcholine (100) Ancillary Medications Analgesics: Torodol - Pre ECT Anti-emetics: Zofran - Pre ECT Airway Management Airway Management: Bag Mask Ventilation Treatment Recommendations No Changes Recommended: No change Pt Tolerated Procedure w/o Issue: Yes
[2022-08-13] MEDS: oxyCODONE HCl Immed Release 5 MG TABLET 10 MG PO (07:47)
[2022-08-13] MEDS: Acetaminophen 325 MG TABLET 650 MG PO (07:47)
== END 2022-08-13 08:43 | disposition home or self-care (01) ==
PROVIDERS: PCP Internal Medicine; Visit Provider Psychiatry & Neurology Psychiatry
PROC: (CPT 90870; principal; 2022-08-13 07:00)
DX: F31.9 Bipolar disorder, unspecified (principal); J45.20 Mild intermittent asthma, uncomplicated; G43.909 Migraine, unspecified, not intractable, without status migrainosus; G93.2 Benign intracranial hypertension; Z79.899 Other long term (current) drug therapy; F17.210 Nicotine dependence, cigarettes, uncomplicated; Z20.822 Contact with and (suspected) exposure to COVID-19
CPT/HCPCS: 87635; 90870; J0330; J1885; J2405; J3010

== ENCOUNTER 2022-08-15 05:56 | Day surgery (SDC) | payer OTHER, SELFPAY ==
[2022-08-15] VITALS (7 sets, daily range): BP systolic 111–133; BP diastolic 68–81; PULSE 72–85; RESP 11–17; TEMP 36.4–36.8; O2SAT 96–99; BMI 31.1
[2022-08-15 06:32] LABS: COVID-19 Test Negative (Negative)
--- NOTE | 2022-08-15 06:43 | P.CONAN_ITS ---
[facility] Active Problems Active Problems: All Active Problems (Updated 07/31/22 @ 16:06 by Graciela Salmon MD) Migraine (Acute) Pseudotumor cerebri (Acute) Bipolar 1 disorder, depressed, severe (Acute) Bipolar 1 disorder (Acute) Suicidal ideation (Acute) Depression (Acute) Paranoid behavior (Acute) Past Medical History Medical History Bipolar 1 disorder Migraines Mild intermittent asthma Pseudotumor cerebri Family History Family History Brother Bipolar disorder Depression Paternal Grandfather Bipolar disorder Father Alcohol dependence Mother Breast cancer Family history of problems with anesthesia: No Surgical History History of Problems with Anesthesia: No Social History Social History Household Members: None Housing: Apartment Do you presently have visiting nurse or other home services: No Alcohol intake: current Alcohol intake frequency: a few times a week Patient Tobacco Use Status: Never used Tobacco Tobacco use type: Cigarette e-Cigarette/Vaping Use: Currently Using Second Hand Smoke Exposure: No Substance Use Type: Marijuana Advance Directives: No Advance Directives Information Provided: Yes service: No Sexual orientation: Straight/Heterosexual Meds Allergies Allergy/AdvReac Type Severity Reaction Status Date / Time No Known Allergies Allergy Unverified 06/30/20 18:56 [No Known Allergies*] Home Medications Medication Instructions Recorded Confirmed Last Taken Type acetazolamide 250 mg tablet 250 mg PO BID 07/24/22 07/24/22 Unknown History lithium carbonate 450 mg 900 mg PO BEDTIME 07/24/22 07/24/22 Unknown History tablet,extended release lorazepam 1 mg tablet 1 tab PO BID PRN Anxiety 07/24/22 07/24/22 Unknown History multivitamin 1 tab PO DAILY 07/24/22 07/24/22 Unknown History ondansetron HCl 8 mg tablet 1 tab PO Q12H PRN nausea 07/24/22 07/24/22 Unknown History sumatriptan succinate 100 mg tablet 100 mg PO Q4H PRN Migraine Headache 07/24/22 07/24/22 Unknown History topiramate 100 mg tablet 100 mg PO BEDTIME 07/24/22 07/24/22 Unknown History Exam Exam Date and Time: August 15, 2022 0643 Pertinent Lab Results Pertinent Lab Results: Laboratory Tests 08/15/22 06:10 COVID-19 ([facility]) Negative COVID-19 Clin Com See Note Airway Mallampati Class: II TM Dist: >3cm Neck ROM: Full Heart: rrr Lungs: cta Assessment and Plan Assessment Anesthesia Assessment: Anesthesia Plan Discussed and Chart Reviewed Final Anesthetic Review Family History of Problems with Anesthesia: No History of Problems with Anesthesia: No NPO: Yes ASA Class: III Final Preanesthetic Review: No Changes in Pt Med Stat, Meds/Allgs Chart Reviewed and Consent Obtained/Reviewed Patient Risk: Intermediate Procedure Risk: Intermediate Anesthetic Plan Anesthetic Plan: GA Disposition: Standard PACU
--- NOTE | 2022-08-15 07:04 | MHC.SHP ---
Pre-Procedural Eval Section A Date of Service: 08/15/22 The patient is an INPATIENT: No Changes since office visit: No Cold of Flu in the past 2 weeks, No New Medical Problems, No Changes in Medication and No Patient answered all questions The History & Physical has been completed within 30 days and I have reviewed it.: Yes Section B Chief Complaint: depression Allergies: Allergies Allergy/AdvReac Type Severity Reaction Status Date / Time No Known Allergies Allergy Unverified 06/30/20 18:56 [No Known Allergies*] Plan I have reviewed the history and physical and performed a pertinent physical examination on my patient. No changes have occurred unless specified.
[2022-08-15] MEDS: Acetaminophen 325 MG TABLET 650 MG PO (08:10)
[2022-08-15] MEDS: oxyCODONE HCl Immed Release 5 MG TABLET 10 MG PO (08:10)
--- NOTE | 2022-08-15 08:24 | HO.ECTPROC ---
ECT Procedure Note Diagnosis/Treatment Date of Service: 08/15/22 Diagnosis: Bipolar disorder Current Treatment Number: 5 Treatment: Series Interval Clinical Notes: somewhat better no cognitive s/e on latuda ECT Settings Device: THYMATRON DGx Electrode Placement: Bitemporal Program/Pulse Width: 0.25 Energy Percent: 100 Seizure Duration By EEG (in seconds): 55 Medications Administration General Anesthetic: Etomidate (16) Muscle Relaxant: Succinylcholine (100) Ancillary Medications Analgesics: Narcotics (fentanyl 50 mcg) Airway Management Airway Management: Bag Mask Ventilation Treatment Recommendations No Changes Recommended: No change Notes: cont tx series Pt Tolerated Procedure w/o Issue: Yes
== END 2022-08-15 09:32 | disposition home or self-care (01) ==
PROVIDERS: PCP Internal Medicine; Visit Provider Psychiatry & Neurology Psychiatry
PROC: (CPT 90870; principal; 2022-08-15 07:00)
DX: F31.5 Bipolar disorder, current episode depressed, severe, with psychotic features (principal); G43.909 Migraine, unspecified, not intractable, without status migrainosus; G93.2 Benign intracranial hypertension; J45.20 Mild intermittent asthma, uncomplicated; F17.210 Nicotine dependence, cigarettes, uncomplicated; F12.90 Cannabis use, unspecified, uncomplicated; F14.11 Cocaine abuse, in remission; Z79.899 Other long term (current) drug therapy; Z20.822 Contact with and (suspected) exposure to COVID-19
CPT/HCPCS: 87635; 90870; J0330; J1885; J2405; J3010

== ENCOUNTER 2022-08-29 06:01 | Day surgery (SDC) | payer OTHER, SELFPAY ==
[2022-08-29] VITALS (8 sets, daily range): BP systolic 105–120; BP diastolic 57–74; PULSE 75–87; RESP 12–20; TEMP 36.5–36.8; O2SAT 95–100; BMI 31.1
[2022-08-29 06:39] LABS: COVID-19 Test Negative (Negative); IDNOW Serial# BCCEAD1C
--- NOTE | 2022-08-29 07:11 | PC.NURSE ---
Patient ECT treatment scheduled for 08/29/22. During chart checking process for patient on 08/28/22, documentation supports that patient had recently been inpatient on M[facility], cleared for ECT by hospitalist, then discharged from hospital on 08/09/22. No documentation/visit from PCP supporting follow up post discharge for new clearance. Spoke with patient 08/28/22 1440 and stated I am seeing her [PCP] on saturday [08/31/22] at [facility] in [place], Dr Julieth Ulloa. Notified Dale Nagel, medical genetics director, of upcoming appt for patient and per CARYL, okvipul for patient to proceed with treatment on 08/29/22 with clearance from hospitalist, but any further treatments would require PCP clearance. Keyona Claros made aware of situation by this RN. Importance of attending appt on saturday stressed to patient by this RN. Patient verbalized understanding.
--- NOTE | 2022-08-29 07:19 | MHC.SHP ---
Pre-Procedural Eval Section A Date of Service: 08/29/22 Section B Chief Complaint: depression, Details of Present Illness: inc depressed Present Medications: see Short Stay Collaborative assessment Medical History: Significant History Allergies: Allergies Allergy/AdvReac Type Severity Reaction Status Date / Time No Known Allergies Allergy Unverified 06/30/20 18:56 [No Known Allergies*] Review of Systems Sugical H&P ROS: Negative: Cardiovascular and Respiratory and Yes, Specify: Psychiatric (inc depressed) Exam Surgical H&P Exam: Normal: Heart and Normal: Lungs Plan Diagnosis/Plan: Unchanged I have reviewed the history and physical and performed a pertinent physical examination on my patient. No changes have occurred unless specified.
--- NOTE | 2022-08-29 07:21 | HO.ECTPROC ---
ECT Procedure Note Diagnosis/Treatment Date of Service: 08/29/22 Diagnosis: Bipolar disorder Previous ECT Date: 08/13/22 Current Treatment Number: 7 Treatment: Series Interval Clinical Notes: pt has relapsed with depressive sx was started on latuda pt of dr osmar chicas ECT Settings Device: THYMATRON DGx Electrode Placement: Bitemporal Program/Pulse Width: 0.50 Energy Percent: 70 Seizure Duration By EEG (in seconds): 83 Medications Administration General Anesthetic: Etomidate (16) Muscle Relaxant: Succinylcholine (100) Ancillary Medications Analgesics: Torodol - Pre ECT and Narcotics (fentanyl 50mcg) Anti-emetics: Zofran - Pre ECT Miscillaneous Medications: Propofol (30 mg post at 63 s) Airway Management Airway Management: Bag Mask Ventilation Treatment Recommendations No Changes Recommended: No change Electrode Placement: Bitemporal Notes: scheduled ect for 09/03 and if needed 09/05 monitor response changed to 0.5 program got 50 mcg fentanyl per protocal Pt Tolerated Procedure w/o Issue: Yes
--- NOTE | 2022-08-29 07:26 | HO.ANESPROP2 ---
[facility] Active Problems Active Problems: All Active Problems (Updated 08/17/22 @ 00:03 by Venkata Donohue) Pseudotumor cerebri (Acute) Bipolar 1 disorder (Acute) Past Medical History Medical History Bipolar 1 disorder Bipolar 1 disorder, depressed, severe Migraines Mild intermittent asthma Pseudotumor cerebri Family History Family History Brother Bipolar disorder Depression Paternal Grandfather Bipolar disorder Father Alcohol dependence Mother Breast cancer Family history of problems with anesthesia: No Surgical History History of Problems with Anesthesia: No Social History Social History Household Members: None Housing: Apartment Do you presently have visiting nurse or other home services: No Alcohol intake: current Alcohol intake frequency: a few times a week Patient Tobacco Use Status: Never used Tobacco Tobacco use type: Cigarette e-Cigarette/Vaping Use: Currently Using Second Hand Smoke Exposure: No Substance Use Type: Marijuana Advance Directives: No Advance Directives Information Provided: Yes service: No Sexual orientation: Straight/Heterosexual Meds Allergies Allergy/AdvReac Type Severity Reaction Status Date / Time No Known Allergies Allergy Unverified 06/30/20 18:56 [No Known Allergies*] Home Medications Medication Instructions Recorded Confirmed Last Taken Type acetazolamide 250 mg tablet 250 mg PO BID 07/24/22 07/24/22 Unknown History lithium carbonate 450 mg 900 mg PO BEDTIME 07/24/22 07/24/22 Unknown History tablet,extended release lorazepam 1 mg tablet 1 tab PO BID PRN Anxiety 07/24/22 07/24/22 Unknown History multivitamin 1 tab PO DAILY 07/24/22 07/24/22 Unknown History ondansetron HCl 8 mg tablet 1 tab PO Q12H PRN nausea 07/24/22 07/24/22 Unknown History sumatriptan succinate 100 mg tablet 100 mg PO Q4H PRN Migraine Headache 07/24/22 07/24/22 Unknown History topiramate 100 mg tablet 100 mg PO BEDTIME 07/24/22 07/24/22 Unknown History Exam Exam Date and Time: August 29, 2022 0726 Height,Weight and Vital Signs: Height 5 ft 2 in Weight 77.111 kg Last Vital Signs Temp 98.3 F 08/29/22 06:38 Pulse 87 08/29/22 06:38 Resp 19 08/29/22 06:38 BP 120/67 08/29/22 06:38 Pulse Ox 98 08/29/22 06:38 O2 Del Method 08/29/22 06:38 Pertinent Lab Results Pertinent Lab Results: Laboratory Tests 08/29/22 06:15 COVID-19 ([facility]) Negative COVID-19 Clin Com See Note Airway Mallampati Class: II TM Dist: >3cm Neck ROM: Full Loose/Missing/Broken Teeth: No Heart: RRR Lungs: CTA Assessment and Plan Assessment Anesthesia Assessment: Anesthesia Plan Discussed and Chart Reviewed Final Anesthetic Review Family History of Problems with Anesthesia: No History of Problems with Anesthesia: No ASA Class: II Final Preanesthetic Review: Meds/Allgs Chart Reviewed, Consent Obtained/Reviewed and Anes Risks/Benef Reviewed Patient Risk: Low Procedure Risk: Intermediate Anesthetic Plan Anesthetic Plan: GA Disposition: Standard PACU
[2022-08-29] MEDS: oxyCODONE HCl Immed Release 5 MG TABLET PO (08:22)
[2022-08-29] MEDS: Acetaminophen 325 MG TABLET 650 MG PO (08:22)
== END 2022-08-29 09:09 | disposition home or self-care (01) ==
PROVIDERS: PCP Internal Medicine; Visit Provider Psychiatry & Neurology Psychiatry
PROC: (CPT 90870; principal; 2022-08-29 07:30)
DX: F31.4 Bipolar disorder, current episode depressed, severe, without psychotic features (principal); G93.2 Benign intracranial hypertension; J45.20 Mild intermittent asthma, uncomplicated; G43.909 Migraine, unspecified, not intractable, without status migrainosus; Z79.899 Other long term (current) drug therapy; Z20.822 Contact with and (suspected) exposure to COVID-19; F17.210 Nicotine dependence, cigarettes, uncomplicated; F12.90 Cannabis use, unspecified, uncomplicated
CPT/HCPCS: 87635; 90870; J0330; J1885; J2405; J3010

== ENCOUNTER → 2022-08-31 09:54 | Outpatient (REF) | payer OTHER, SELFPAY ==
--- NOTE | 2022-08-31 10:04 | ECG_ITS ---
Test Reason : BIPOLAR Blood Pressure : / mmHG Vent. Rate : 090 BPM Atrial Rate : 090 BPM P-R Int : 142 ms QRS Dur : 106 ms QT Int : 376 ms P-R-T Axes : 051 041 042 degrees QTc Int : 459 ms Normal sinus rhythm RSR' or QR pattern in V1 suggests right ventricular conduction delay Borderline ECG When compared with ECG of 25-JUL-2022 21:03, No significant change was found Referred By: Laci Brady Electronically Signed By:MICHAEL IZAGUIRRE MD
[2022-08-31 10:28] LABS: MANUAL DIFF FLAG NO
[2022-08-31 10:42] LABS: Basophils Absolute Auto 0.1 X10*3/uL (0.0-0.2); Basophils Percent Auto 0.7 % (0-2); Eosinophils Absolute Auto 0.2 X10*3/uL (0.0-0.4); Eosinophils Percent Auto 2.1 % (0-4); Hematocrit 41.9 % (37.0-47.0); Hemoglobin 13.9 g/dl (12.0-16.0); Imm Gran Abs Auto 0.02 X10*3/uL (0.00-0.03); Imm Gran Pct Auto 0.3 % (0.0-0.4); Lymphocytes Absolute Auto 1.4 X10*3/uL (1.2-4.9); Lymphocytes Percent Auto 18.6 % (20-40); Mean Corpuscular HGB Conc 33.2 g/dl (31.0-35.0); Mean Corpuscular Hemoglobin 30.5 pg (27.0-33.0); Mean Corpuscular Volume 91.9 fL (80.0-98.0); Mean Platelet Volume 9.4 fL (9.4-12.3); Monocytes Absolute Auto 0.4 X10*3/uL (0.1-1.2); Monocytes Percent Auto 5.7 % (2-11); Neutrophils Absolute Auto 5.5 x10*3/uL (2.0-8.3); Neutrophils Percent Auto 72.6 % (45-73); Platelet Count 221 X10*3/uL (160-400); Red Blood Count 4.56 X10*6/uL (4.20-5.50); Red Cell Distribution Width 12.4 % (11.0-16.0); White Blood Count 7.6 X10*3/uL (4.8-10.8)
[2022-08-31 10:58] LABS: Lithium 0.57 mmol/L (0.60-1.20)
[2022-08-31 11:08] LABS: Alanine Aminotransferase 7 U/L (0-31); Albumin Level 4.4 g/dL (3.5-5.0); Alkaline Phosphatase 59 U/L (39-117); Anion Gap 10 (12-20); Anion Gap 15 (12-20); Aspartate Amino Transferase 12 U/L (5-31); Bilirubin Total 0.5 mg/dL (0.0-1.0); Blood Urea Nitrogen 10 mg/dL (9-16); Calcium 9.4 mg/dL (8.4-10.2); Carbon Dioxide 17 mmol/L (22-29); Carbon Dioxide 19 mmol/L (22-29); Chloride 112 mmol/L (96-108); Chloride 113 mmol/L (96-108); Cholesterol 203 mg/dL; Estimated Glomerular Filt Rate > 60; Glucose Fasting 91 mg/dL (60-99); Glucose Random 90 mg/dL (60-115); HDL Cholesterol 59 mg/dL; LDL Cholesterol Calculated 133 mg/dl; Potassium 3.9 mmol/L (3.3-5.1); Sodium 138 mmol/L (135-145); Sodium 140 mmol/L (135-145); Total Protein 6.8 g/dL (6.5-8.0); Triglycerides 57 mg/dL
[2022-08-31 11:23] LABS: Estimated Average Glucose 82 mg/dL; Hemoglobin A1c % 4.5 %
[2022-08-31 11:24] LABS: Thyroid Stimulating Hormone 2.76 uIU/mL (0.32-4.0)
== END ==
LOC: HO.CARD 09:54
PROVIDERS: Absent Provider Psychiatry & Neurology Psychiatry; PCP Internal Medicine; Visit Provider Psychiatry & Neurology Psychiatry
DX: Z01.818 Encounter for other preprocedural examination (principal); F31.9 Bipolar disorder, unspecified
CPT/HCPCS: 36415; 80048; 80053; 80061; 80178; 82947; 83036; 84443; 85025; 93005

== ENCOUNTER 2022-09-03 06:02 | Day surgery (SDC) | payer OTHER, SELFPAY ==
--- NOTE | 2022-08-31 15:18 | P.CONAN_ITS ---
HPI - Anesthesia Eval Consult details Narrative: 32yo F for Electro-Convulsive Therapy PCP clearance 08/31/22 [place] [facility] [place] - No signif abnormalities PMFSH Active Problems Active Problems: All Active Problems (Updated 08/30/22 @ 15:57 by Laci Brady MD) Pre-op evaluation (Acute) Pseudotumor cerebri (Acute) Bipolar 1 disorder (Acute) Past Medical History Medical History Bipolar 1 disorder Bipolar 1 disorder, depressed, severe Migraines Mild intermittent asthma Pseudotumor cerebri Family History Family History Brother Bipolar disorder Depression Paternal Grandfather Bipolar disorder Father Alcohol dependence Mother Breast cancer Family history of problems with anesthesia: No Surgical History History of Problems with Anesthesia: No Social History Social History Household Members: None Housing: Apartment Do you presently have visiting nurse or other home services: No Alcohol intake: current Alcohol intake frequency: a few times a week Patient Tobacco Use Status: Never used Tobacco Tobacco use type: Cigarette e-Cigarette/Vaping Use: Currently Using Second Hand Smoke Exposure: No Substance Use Type: Marijuana service: No Sexual orientation: Straight/Heterosexual Meds Allergies Allergy/AdvReac Type Severity Reaction Status Date / Time No Known Allergies Allergy Unverified 06/30/20 18:56 [No Known Allergies*] Home Medications Medication Instructions Recorded Confirmed Last Taken Type acetazolamide 250 mg tablet 250 mg PO BID 07/24/22 07/24/22 Unknown History lithium carbonate 450 mg 900 mg PO BEDTIME 07/24/22 07/24/22 Unknown History tablet,extended release lorazepam 1 mg tablet 1 tab PO BID PRN Anxiety 07/24/22 07/24/22 Unknown History multivitamin 1 tab PO DAILY 07/24/22 07/24/22 Unknown History ondansetron HCl 8 mg tablet 1 tab PO Q12H PRN nausea 07/24/22 07/24/22 Unknown History sumatriptan succinate 100 mg tablet 100 mg PO Q4H PRN Migraine Headache 07/24/22 07/24/22 Unknown History topiramate 100 mg tablet 100 mg PO BEDTIME 07/24/22 07/24/22 Unknown History Exam Exam Date and Time: August 31, 2022 1518 Pertinent Lab Results Pertinent Lab Results: Laboratory Tests 08/31/22 08/31/22 10:26 10:26 WBC 7.6 Hgb 13.9 Hct 41.9 Plt Count 221 Sodium 138 Potassium 4.0 Chloride 113 H Carbon Dioxide 19 L BUN 10 Creatinine 0.95 Narrative Narrative: EKG 08/2022 Vent. Rate : 090 BPM ? ? Atrial Rate : 090 BPM ?? P-R Int : 142 ms? QRS Dur : 106 ms ? ? QT Int : 376 ms ? ? ? P-R-T Axes : 051 041 042 degrees ?? QTc Int : 459 ms ? Normal sinus rhythm RSR' or QR pattern in V1 suggests right ventricular conduction delay Borderline ECG When compared with ECG of 25-JUL-2022 21:03, No significant change was found Assessment and Plan Assessment Anesthesia Assessment: Chart Reviewed Final Anesthetic Review Family History of Problems with Anesthesia: No History of Problems with Anesthesia: No
[2022-09-03] VITALS (7 sets, daily range): BP systolic 102–123; BP diastolic 53–79; PULSE 68–87; RESP 13–18; TEMP 36.6–36.8; O2SAT 97–100; BMI 30.2
[2022-09-03 06:48] LABS: COVID-19 Test Negative (Negative); IDNOW Serial# BCCEAD1C
--- NOTE | 2022-09-03 07:08 | MHC.SHP ---
Pre-Procedural Eval Section A Date of Service: 09/03/22 The patient is an INPATIENT: No Changes since office visit: No Cold of Flu in the past 2 weeks, No New Medical Problems, No Changes in Medication and No Patient answered all questions The History & Physical has been completed within 30 days and I have reviewed it.: Yes Section B Chief Complaint: depression Allergies: Allergies Allergy/AdvReac Type Severity Reaction Status Date / Time No Known Allergies Allergy Unverified 06/30/20 18:56 [No Known Allergies*] Plan I have reviewed the history and physical and performed a pertinent physical examination on my patient. No changes have occurred unless specified.
[2022-09-03] MEDS: Lactated Ringers 1,000 ML 100 ML IVCONT (07:09)
--- NOTE | 2022-09-03 07:22 | HO.ECTPROC ---
ECT Procedure Note Diagnosis/Treatment Date of Service: 09/03/22 Diagnosis: Bipolar disorder Previous ECT Date: 08/31/22 Current Treatment Number: 9 Treatment: Series Interval Clinical Notes: The patient reported that Latuda was increased recently up to 40 mg by her primary psychiatrist. Mood is reported as better, brighter range of affect. No side effects with previous ECT. ECT Settings Device: THYMATRON DGx Electrode Placement: Bitemporal Program/Pulse Width: 0.50 Energy Percent: 70 Seizure Duration By EEG (in seconds): 178 By Motor Observation (in seconds): 21 Medications Administration General Anesthetic: Etomidate (16) Muscle Relaxant: Succinylcholine (100) Ancillary Medications Analgesics: Torodol - Pre ECT Anti-emetics: Zofran - Pre ECT Miscillaneous Medications: Propofol Airway Management Airway Management: Bag Mask Ventilation Treatment Recommendations Electrode Placement: Bifrontal Program/Pulse Width: 0.50 Energy Percent: 60 Notes: The patient had a very long seizure, she stopped her Klonopin last morning, probably that is why it was too long. Propofol was given but she stopped her seizure by herself. Pt Tolerated Procedure w/o Issue: Yes
--- NOTE | 2022-09-03 07:42 | HO.ECTPROC ---
ECT Procedure Note Diagnosis/Treatment Date of Service: 09/03/22 Diagnosis: Schizoaffective Disorder Previous ECT Date: 08/31/22 Current Treatment Number: 2 Treatment: Series Interval Clinical Notes: The patient reported no major side effects with the first ECT last Saturday, her mood is better but still constricted. ECT Settings Device: THYMATRON DGx Electrode Placement: Right Unilateral Program/Pulse Width: 0.25 Energy Percent: 90 Seizure Duration By EEG (in seconds): 74 By Motor Observation (in seconds): 40 Medications Administration General Anesthetic: Etomidate (12) Muscle Relaxant: Succinylcholine (80) Ancillary Medications Analgesics: Torodol - Pre ECT Anti-emetics: Zofran - Pre ECT Miscillaneous Medications: Propofol (30) and Midazolam Airway Management Airway Management: Bag Mask Ventilation Treatment Recommendations Electrode Placement: Right Unilateral Program/Pulse Width: 0.25 Energy Percent: 80 Notes: ECT without complications, she could respond to a lower energy % since she is young Pt Tolerated Procedure w/o Issue: Yes
== END 2022-09-03 09:20 | disposition home or self-care (01) ==
PROVIDERS: PCP Internal Medicine; Visit Provider Psychiatry & Neurology Psychiatry
PROC: (CPT 90870; principal; 2022-09-03 08:00)
DX: F25.0 Schizoaffective disorder, bipolar type (principal); F41.1 Generalized anxiety disorder; J45.909 Unspecified asthma, uncomplicated; G43.909 Migraine, unspecified, not intractable, without status migrainosus; G93.2 Benign intracranial hypertension; Z20.822 Contact with and (suspected) exposure to COVID-19
CPT/HCPCS: 87635; 90870; J0330; J1885; J2405; J3010

== ENCOUNTER 2022-09-05 05:59 | Day surgery (SDC) | payer OTHER, SELFPAY ==
[2022-09-05] VITALS (7 sets, daily range): BP systolic 110–129; BP diastolic 61–78; PULSE 77–99; RESP 17–22; TEMP 36.4–37.3; O2SAT 99–100; BMI 30.1
[2022-09-05 06:41] LABS: COVID-19 Test Negative (Negative); IDNOW Serial# 16C4AD1C
--- NOTE | 2022-09-05 07:09 | MHC.SHP ---
Pre-Procedural Eval Section A Date of Service: 09/05/22 Section B Chief Complaint: depression Details of Present Illness: recurrent depression on latuda 40 mg Relevant Family History (Specify if Yes): No Relevant Social History: None Present Medications: see Short Stay Collaborative assessment Allergies: Allergies Allergy/AdvReac Type Severity Reaction Status Date / Time No Known Allergies Allergy Unverified 06/30/20 18:56 [No Known Allergies*] Review of Systems Sugical H&P ROS: Negative: Constitution, Cardiovascular and Respiratory and Yes, Specify: Psychiatric (dep mood ) Exam Surgical H&P Exam: Normal: Heart and Normal: Lungs Plan Diagnosis/Plan: Unchanged I have reviewed the history and physical and performed a pertinent physical examination on my patient. No changes have occurred unless specified.
--- NOTE | 2022-09-05 08:15 | HO.ECTPROC ---
ECT Procedure Note Diagnosis/Treatment Date of Service: 08/15/22 Diagnosis: Bipolar disorder Previous ECT Date: 08/10/22 Current Treatment Number: 5 Treatment: Series Interval Clinical Notes: some improvement noted no c/o s/e ECT Settings Device: THYMATRON DGx Electrode Placement: Bitemporal Program/Pulse Width: 0.25 Energy Percent: 100 Seizure Duration By EEG (in seconds): 36 Medications Administration General Anesthetic: Etomidate (16) Muscle Relaxant: Succinylcholine (100) Ancillary Medications Analgesics: Torodol - Pre ECT and Narcotics (fentanyl 500 mcg) Anti-emetics: Zofran - Pre ECT Airway Management Airway Management: Bag Mask Ventilation Treatment Recommendations No Changes Recommended: No change Notes: cont tx transition to maint Pt Tolerated Procedure w/o Issue: Yes
--- NOTE | 2022-09-05 08:19 | HO.ECTPROC ---
ECT Procedure Note Diagnosis/Treatment Date of Service: 09/05/22 Diagnosis: Bipolar disorder Treatment: Maintenance (3) Interval Clinical Notes: pt had series has had relapse sx doing somewhat better pt had tx 09/03 ECT Settings Device: THYMATRON DGx Electrode Placement: Right Unilateral Program/Pulse Width: 0.25 Energy Percent: 70 Seizure Duration By EEG (in seconds): 46 Medications Administration General Anesthetic: Etomidate (14) Muscle Relaxant: Succinylcholine (100) Ancillary Medications Analgesics: Narcotics (50 mcg fentanyl) Miscillaneous Medications: Propofol (30 mg) Airway Management Airway Management: Bag Mask Ventilation Treatment Recommendations Notes: consider change back to bitemporal if symptomatic f/u tx 09/14/22 pt to return back to work Pt Tolerated Procedure w/o Issue: Yes
== END 2022-09-05 08:45 | disposition home or self-care (01) ==
PROVIDERS: PCP Internal Medicine; Visit Provider Psychiatry & Neurology Psychiatry
PROC: (CPT 90870; principal; 2022-09-05 15:30)
DX: F31.4 Bipolar disorder, current episode depressed, severe, without psychotic features (principal); F41.1 Generalized anxiety disorder; J45.909 Unspecified asthma, uncomplicated; G43.909 Migraine, unspecified, not intractable, without status migrainosus; Z79.899 Other long term (current) drug therapy; Z20.822 Contact with and (suspected) exposure to COVID-19
CPT/HCPCS: 87635; 90870; J0330; J1885; J2405; J3010

== ENCOUNTER 2022-09-14 05:58 | Day surgery (SDC) | payer OTHER, SELFPAY ==
[2022-09-14] VITALS (8 sets, daily range): BP systolic 104–129; BP diastolic 61–79; PULSE 20–84; RESP 12–24; TEMP 36.4–36.8; O2SAT 96–100; BMI 31.1
[2022-09-14 06:36] LABS: COVID-19 Test Negative (Negative); IDNOW Serial# 9DB6401D
--- NOTE | 2022-09-14 07:10 | HO.ANESPROP2 ---
[facility] Active Problems Active Problems: All Active Problems (Updated 08/30/22 @ 15:57 by Laci Brady MD) Pre-op evaluation (Acute) Pseudotumor cerebri (Acute) Bipolar 1 disorder (Acute) Past Medical History Medical History Bipolar 1 disorder Bipolar 1 disorder, depressed, severe Migraines Mild intermittent asthma Pseudotumor cerebri Family History Family History Brother Bipolar disorder Depression Paternal Grandfather Bipolar disorder Father Alcohol dependence Mother Breast cancer Family history of problems with anesthesia: No Surgical History History of Problems with Anesthesia: No Social History Social History Household Members: None Housing: Apartment Do you presently have visiting nurse or other home services: No Alcohol intake: current Alcohol intake frequency: a few times a week Patient Tobacco Use Status: Never used Tobacco Tobacco use type: Cigarette e-Cigarette/Vaping Use: Currently Using Second Hand Smoke Exposure: No Substance Use Type: Marijuana Are you DNR?: No Advance Directives: No Advance Directives Information Provided: Yes service: No Sexual orientation: Straight/Heterosexual Meds Allergies Allergy/AdvReac Type Severity Reaction Status Date / Time No Known Allergies Allergy Unverified 06/30/20 18:56 [No Known Allergies*] Active Medications: Current Medications Lactated Ringer's (Lr) 1,000 mls @ 50 mls/hr IVCONT .Q20H [facility] Home Medications Medication Instructions Recorded Confirmed Last Taken Type acetazolamide 250 mg tablet 250 mg PO BID 07/24/22 07/24/22 Unknown History lithium carbonate 450 mg 900 mg PO BEDTIME 07/24/22 07/24/22 Unknown History tablet,extended release lorazepam 1 mg tablet 1 tab PO BID PRN Anxiety 07/24/22 07/24/22 Unknown History multivitamin 1 tab PO DAILY 07/24/22 07/24/22 Unknown History ondansetron HCl 8 mg tablet 1 tab PO Q12H PRN nausea 07/24/22 07/24/22 Unknown History sumatriptan succinate 100 mg tablet 100 mg PO Q4H PRN Migraine Headache 07/24/22 07/24/22 Unknown History topiramate 100 mg tablet 100 mg PO BEDTIME 07/24/22 07/24/22 Unknown History Exam Exam Date and Time: September 14, 2022 0710 Height,Weight and Vital Signs: Height 5 ft 2 in Weight 77.111 kg Last Vital Signs Temp 98.1 F 09/14/22 06:42 Pulse 84 09/14/22 06:42 Resp 24 H 09/14/22 06:42 BP 129/71 09/14/22 06:42 Pulse Ox 99 09/14/22 06:42 O2 Del Method 09/14/22 06:42 Pertinent Lab Results Pertinent Lab Results: Laboratory Tests 09/14/22 06:11 COVID-19 ([facility]) Negative COVID-19 Clin Com See Note Airway Mallampati Class: II TM Dist: >3cm Neck ROM: Full Heart: rrr Lungs: cta Assessment and Plan Assessment Anesthesia Assessment: Anesthesia Plan Discussed and Chart Reviewed Final Anesthetic Review Family History of Problems with Anesthesia: No History of Problems with Anesthesia: No NPO: Yes ASA Class: III Final Preanesthetic Review: No Changes in Pt Med Stat, Meds/Allgs Chart Reviewed and Consent Obtained/Reviewed Patient Risk: Intermediate Procedure Risk: Intermediate Anesthetic Plan Anesthetic Plan: GA Disposition: Standard PACU
--- NOTE | 2022-09-14 07:12 | MHC.SHP ---
Pre-Procedural Eval Section A Date of Service: 09/14/22 Section B Chief Complaint: depression Details of Present Illness: recurrent depression on latuda 40 mg Relevant Family History (Specify if Yes): No Relevant Social History: None Present Medications: see Short Stay Collaborative assessment Allergies: Allergies Allergy/AdvReac Type Severity Reaction Status Date / Time No Known Allergies Allergy Unverified 06/30/20 18:56 [No Known Allergies*] Review of Systems Sugical H&P ROS: Negative: Constitution, Cardiovascular and Respiratory and Yes, Specify: Psychiatric (elevated mood ) Exam Surgical H&P Exam: Normal: Heart and Normal: Lungs Plan Diagnosis/Plan: Unchanged I have reviewed the history and physical and performed a pertinent physical examination on my patient. No changes have occurred unless specified.
--- NOTE | 2022-09-14 07:36 | HO.ECTPROC ---
ECT Procedure Note Diagnosis/Treatment Date of Service: 09/14/22 Diagnosis: Bipolar disorder Treatment: Maintenance Interval Clinical Notes: Patient has relapsed with manic and dysphoric symptoms will change back to bitemporal use on lithium Seroquel Richard is new but has had manic symptoms she appears not to responded to unilateral treatment ECT Settings Device: THYMATRON DGx Electrode Placement: Bitemporal Program/Pulse Width: 0.25 Energy Percent: 40 Seizure Duration By EEG (in seconds): 38 Medications Administration General Anesthetic: Etomidate (14) Muscle Relaxant: Succinylcholine (100) Ancillary Medications Analgesics: Narcotics (50 mcg fentanyl) Miscillaneous Medications: Propofol (30 mg) Airway Management Airway Management: Bag Mask Ventilation Treatment Recommendations Electrode Placement: Bitemporal Notes: f/u tx 1 week pt will speak to her psychiatrist dr jase chicas Pt Tolerated Procedure w/o Issue: Yes
== END 2022-09-14 09:00 | disposition home or self-care (01) ==
PROVIDERS: PCP Internal Medicine; Visit Provider Psychiatry & Neurology Psychiatry
PROC: (CPT 90870; principal; 2022-09-14 07:30)
DX: F31.10 Bipolar disorder, current episode manic without psychotic features, unspecified (principal); J45.20 Mild intermittent asthma, uncomplicated; G93.2 Benign intracranial hypertension; G43.909 Migraine, unspecified, not intractable, without status migrainosus; Z79.899 Other long term (current) drug therapy; Z20.822 Contact with and (suspected) exposure to COVID-19
CPT/HCPCS: 87635; 90870; J0330; J1885; J2405; J3010

== ENCOUNTER → 2022-09-21 06:02 | Day surgery (SDC) | payer OTHER, SELFPAY ==
[2022-09-21 06:38] VITALS: BP 115/80; PULSE 89; RESP 20; TEMP 36.6; O2SAT 98; BMI 31.1
[2022-09-21 06:42] LABS: COVID-19 Test Positive (Negative); IDNOW Serial# 16C4AD1C
--- NOTE | 2022-09-21 06:55 | P.CONAN_ITS ---
[facility] Active Problems Active Problems: All Active Problems (Updated 08/30/22 @ 15:57 by Laci Brady MD) Pre-op evaluation (Acute) Pseudotumor cerebri (Acute) Bipolar 1 disorder (Acute) Past Medical History Medical History Bipolar 1 disorder Bipolar 1 disorder, depressed, severe Migraines Mild intermittent asthma Pseudotumor cerebri Family History Family History Brother Bipolar disorder Depression Paternal Grandfather Bipolar disorder Father Alcohol dependence Mother Breast cancer Family history of problems with anesthesia: No Surgical History History of Problems with Anesthesia: No Social History Social History Household Members: None Housing: Apartment Do you presently have visiting nurse or other home services: No Alcohol intake: current Alcohol intake frequency: a few times a week Patient Tobacco Use Status: Never used Tobacco Tobacco use type: Cigarette e-Cigarette/Vaping Use: Currently Using Second Hand Smoke Exposure: No Substance Use Type: Marijuana Advance Directives: No Advance Directives Information Provided: Yes service: No Sexual orientation: Straight/Heterosexual Meds Allergies Allergy/AdvReac Type Severity Reaction Status Date / Time No Known Allergies Allergy Unverified 06/30/20 18:56 [No Known Allergies*] Active Medications: Current Medications Lactated Ringer's (Lr) 1,000 mls @ 50 mls/hr IVCONT .Q20H [facility] Home Medications Medication Instructions Recorded Confirmed Last Taken Type acetazolamide 250 mg tablet 250 mg PO BID 07/24/22 07/24/22 Unknown History lithium carbonate 450 mg 900 mg PO BEDTIME 07/24/22 07/24/22 Unknown History tablet,extended release lorazepam 1 mg tablet 1 tab PO BID PRN Anxiety 07/24/22 07/24/22 Unknown History multivitamin 1 tab PO DAILY 07/24/22 07/24/22 Unknown History ondansetron HCl 8 mg tablet 1 tab PO Q12H PRN nausea 07/24/22 07/24/22 Unknown History sumatriptan succinate 100 mg tablet 100 mg PO Q4H PRN Migraine Headache 07/24/22 07/24/22 Unknown History topiramate 100 mg tablet 100 mg PO BEDTIME 07/24/22 07/24/22 Unknown History Exam Exam Date and Time: September 21, 2022 0655 Height,Weight and Vital Signs: Height 5 ft 2 in Weight 77.111 kg Last Vital Signs Temp 97.8 F 09/21/22 06:38 Pulse 89 09/21/22 06:38 Resp 20 09/21/22 06:38 BP 115/80 09/21/22 06:38 Pulse Ox 98 09/21/22 06:38 O2 Del Method 09/21/22 06:38 Pertinent Lab Results Pertinent Lab Results: Laboratory Tests 09/21/22 06:14 COVID-19 ([facility]) Positive A COVID-19 Clin Com See Note Airway Mallampati Class: II TM Dist: >3cm Neck ROM: Full Heart: rrr Lungs: cta Assessment and Plan Assessment Anesthesia Assessment: Anesthesia Plan Discussed and Chart Reviewed Final Anesthetic Review Family History of Problems with Anesthesia: No History of Problems with Anesthesia: No NPO: Yes ASA Class: III Final Preanesthetic Review: No Changes in Pt Med Stat, Meds/Allgs Chart Reviewed and Consent Obtained/Reviewed Patient Risk: Intermediate Procedure Risk: Intermediate Anesthetic Plan Anesthetic Plan: GA Disposition: Standard PACU
[2022-09-21 08:10] LABS: Influenza A PCR NEGATIVE (Negative); Influenza B PCR NEGATIVE (Negative); Resp Syncy Virus RNA Qual PCR NEGATIVE (Negative); SARS COV2 PCR INHOUSE POSITIVE (Negative)
--- NOTE | 2022-09-21 20:15 | PM.EVENT ---
Event Note Date of Service: 09/21/22 Event Note: pt was noted to be covid pos pre ect ect canceled pcr ordered and confirmed pos covid dr huber brennan notified pt started on vraylar case reviewed with anesthesia for planning pt states she feels safe Time Spent With Patient Time: Total time managing care of this patient today ____ minutes.
== END ==
PROVIDERS: PCP Internal Medicine; Visit Provider Psychiatry & Neurology Psychiatry
DX: U07.1 COVID-19 (principal); F31.9 Bipolar disorder, unspecified; J45.20 Mild intermittent asthma, uncomplicated; Z79.899 Other long term (current) drug therapy; Z53.8 Procedure and treatment not carried out for other reasons
CPT/HCPCS: 90870; 0241U; 87635; J0330; J1885; J2405

== ENCOUNTER 2022-09-28 07:28 | Day surgery (SDC) | payer OTHER, SELFPAY ==
[2022-09-28] VITALS (8 sets, daily range): BP systolic 105–121; BP diastolic 22–77; PULSE 67–100; RESP 13–20; TEMP 37.1–37.5; O2SAT 97–99; BMI 31.1
--- NOTE | 2022-09-28 07:58 | P.CONAN_ITS ---
[facility] Active Problems Active Problems: All Active Problems (Updated 08/30/22 @ 15:57 by Laci Brady MD) Pre-op evaluation (Acute) Pseudotumor cerebri (Acute) Bipolar 1 disorder (Acute) Past Medical History Medical History Bipolar 1 disorder Bipolar 1 disorder, depressed, severe Migraines Mild intermittent asthma Pseudotumor cerebri Family History Family History Brother Bipolar disorder Depression Paternal Grandfather Bipolar disorder Father Alcohol dependence Mother Breast cancer Family history of problems with anesthesia: No Surgical History History of Problems with Anesthesia: No Social History Social History Household Members: None Housing: Apartment Do you presently have visiting nurse or other home services: No Alcohol intake: current Alcohol intake frequency: a few times a week Patient Tobacco Use Status: Never used Tobacco Tobacco use type: Cigarette e-Cigarette/Vaping Use: Currently Using Second Hand Smoke Exposure: No Substance Use Type: Marijuana Advance Directives: No Advance Directives Information Provided: Yes service: No Sexual orientation: Straight/Heterosexual Meds Allergies Allergy/AdvReac Type Severity Reaction Status Date / Time No Known Allergies Allergy Unverified 06/30/20 18:56 [No Known Allergies*] Active Medications: Current Medications Lactated Ringer's (Lr) 1,000 mls @ 50 mls/hr IVCONT .Q20H [facility] Home Medications Medication Instructions Recorded Confirmed Last Taken Type acetazolamide 250 mg tablet 250 mg PO BID 07/24/22 07/24/22 Unknown History lithium carbonate 450 mg 900 mg PO BEDTIME 07/24/22 07/24/22 Unknown History tablet,extended release lorazepam 1 mg tablet 1 tab PO BID PRN Anxiety 07/24/22 07/24/22 Unknown History multivitamin 1 tab PO DAILY 07/24/22 07/24/22 Unknown History ondansetron HCl 8 mg tablet 1 tab PO Q12H PRN nausea 07/24/22 07/24/22 Unknown History sumatriptan succinate 100 mg tablet 100 mg PO Q4H PRN Migraine Headache 07/24/22 07/24/22 Unknown History topiramate 100 mg tablet 100 mg PO BEDTIME 07/24/22 07/24/22 Unknown History Exam Exam Date and Time: September 28, 2022 0758 Height,Weight and Vital Signs: Height 5 ft 2 in Weight 77.111 kg Last Vital Signs Temp 99.5 F 09/28/22 07:50 Pulse 100 09/28/22 07:50 Resp 20 09/28/22 07:50 BP 105/22 L 09/28/22 07:50 Pulse Ox 99 09/28/22 07:50 O2 Del Method 09/28/22 07:50 Airway Mallampati Class: II (Retainer perm lower) TM Dist: >3cm Neck ROM: Full Heart: rrr Lungs: cta Assessment and Plan Assessment Anesthesia Assessment: Anesthesia Plan Discussed and Chart Reviewed Final Anesthetic Review Family History of Problems with Anesthesia: No History of Problems with Anesthesia: No NPO: Yes ASA Class: III Final Preanesthetic Review: No Changes in Pt Med Stat, Meds/Allgs Chart Reviewed and Consent Obtained/Reviewed Patient Risk: Intermediate Procedure Risk: Intermediate Anesthetic Plan Anesthetic Plan: GA Disposition: Standard PACU
[2022-09-28 08:06] LABS: COVID-19 Test Positive (Negative); IDNOW Serial# 9DB6401D
[2022-09-28 08:37] LABS: UPreg QC Valid YES; Urine Pregnancy NEGATIVE (NEGATIVE)
--- NOTE | 2022-09-28 08:50 | MHC.SHP ---
Pre-Procedural Eval Section A Date of Service: 09/28/22 Section B Chief Complaint: depression, Details of Present Illness: rcurrent depression has been feeling down now on vraylar bipolar recent covid no sx Relevant Social History: Other (specify) (hx cocaine) Present Medications: see Short Stay Collaborative assessment Allergies: Allergies Allergy/AdvReac Type Severity Reaction Status Date / Time No Known Allergies Allergy Unverified 06/30/20 18:56 [No Known Allergies*] Review of Systems Sugical H&P ROS: Negative: Cardiovascular, Respiratory (no sob o2 sat 100%) and Neurological and Yes, Specify: Psychiatric (depressed no si ) Exam Surgical H&P Exam: Normal: Heart (rr ) and Normal: Lungs Plan Diagnosis/Plan: Unchanged I have reviewed the history and physical and performed a pertinent physical examination on my patient. No changes have occurred unless specified. Time Spent With Patient Time: Total time managing care of this patient today ____ minutes.
--- NOTE | 2022-09-28 10:01 | HO.ECTPROC ---
ECT Procedure Note Diagnosis/Treatment Date of Service: 09/28/22 Diagnosis: Bipolar disorder Previous ECT Date: 09/14/22 Current Treatment Number: 10 Treatment: Other (continuation) Interval Clinical Notes: pt with dep sx s/p covid back at work now on brodie DEL CID Time: Total time managing care of this patient today ____ minutes. ECT Settings Device: THYMATRON DGx Electrode Placement: Bitemporal Program/Pulse Width: 0.25 Energy Percent: 100 Seizure Duration By EEG (in seconds): 111 Medications Administration General Anesthetic: Etomidate (14) Muscle Relaxant: Succinylcholine (100) Ancillary Medications Analgesics: Narcotics (50 mcg fentanyl) Miscillaneous Medications: Propofol (30 mg) Airway Management Airway Management: Bag Mask Ventilation Treatment Recommendations Electrode Placement: Bitemporal Program/Pulse Width: 0.25 Energy Percent: 25 Notes: f/u tx 1 week pt will speak to her psychiatrist dr jase chicas Pt Tolerated Procedure w/o Issue: Yes
== END 2022-09-28 10:45 | disposition home or self-care (01) ==
PROVIDERS: PCP Internal Medicine; Visit Provider Psychiatry & Neurology Psychiatry
PROC: (CPT 90870; principal; 2022-09-28 09:30)
DX: F31.9 Bipolar disorder, unspecified (principal); F41.1 Generalized anxiety disorder; G93.2 Benign intracranial hypertension; J45.909 Unspecified asthma, uncomplicated; G43.909 Migraine, unspecified, not intractable, without status migrainosus; Z86.16 Personal history of COVID-19; Z20.822 Contact with and (suspected) exposure to COVID-19
CPT/HCPCS: 81025; 87635; 90870; J0330; J1885; J2405; J3010

== ENCOUNTER 2022-10-05 05:59 | Day surgery (SDC) | payer OTHER, SELFPAY ==
--- NOTE | 2022-10-05 05:33 | MHC.SHP ---
Pre-Procedural Eval Section A Date of Service: 10/05/22 The patient is an INPATIENT: No Changes since office visit: Yes Changes in Medication and Yes Patient answered all questions; No Cold of Flu in the past 2 weeks and No New Medical Problems The History & Physical has been completed within 30 days and I have reviewed it.: Yes Section B Chief Complaint: depression Details of Present Illness: bipolar depression Relevant Social History: Other (specify) (hx cocaine) Present Medications: see Short Stay Collaborative assessment Allergies: Allergies Allergy/AdvReac Type Severity Reaction Status Date / Time No Known Allergies Allergy Unverified 06/30/20 18:56 [No Known Allergies*] Review of Systems Sugical H&P ROS: Negative: Cardiovascular, Respiratory (no sob o2 sat 100%), Neurological and Psychiatric (euthymic) Exam Surgical H&P Exam: Normal: Heart (rr ) and Normal: Lungs (clear) Plan Diagnosis/Plan: Unchanged I have reviewed the history and physical and performed a pertinent physical examination on my patient. No changes have occurred unless specified. Time Spent With Patient Time: Total time managing care of this patient today ____ minutes.
[2022-10-05 06:27] LABS: UPreg QC Valid YES; Urine Pregnancy NEGATIVE (NEGATIVE)
[2022-10-05 06:32] VITALS: BP 120/78; PULSE 87; RESP 20; TEMP 36.3; O2SAT 100; BMI 31.1
[2022-10-05 06:37] LABS: COVID-19 Test Negative (Negative); IDNOW Serial# BCCEAD1C
--- NOTE | 2022-10-05 06:50 | HO.ANESPROP2 ---
[facility] Active Problems Active Problems: All Active Problems (Updated 08/30/22 @ 15:57 by Laci Brady MD) Pre-op evaluation (Acute) Pseudotumor cerebri (Acute) Bipolar 1 disorder (Acute) Past Medical History Medical History Bipolar 1 disorder Bipolar 1 disorder, depressed, severe Migraines Mild intermittent asthma Pseudotumor cerebri Family History Family History Brother Bipolar disorder Depression Paternal Grandfather Bipolar disorder Father Alcohol dependence Mother Breast cancer Family history of problems with anesthesia: No Surgical History History of Problems with Anesthesia: No Social History Social History Household Members: None Housing: Apartment Do you presently have visiting nurse or other home services: No Alcohol intake: current Alcohol intake frequency: a few times a week Patient Tobacco Use Status: Never used Tobacco Tobacco use type: Cigarette e-Cigarette/Vaping Use: Currently Using Second Hand Smoke Exposure: No Substance Use Type: Marijuana Advance Directives: No Advance Directives Information Provided: Yes service: No Sexual orientation: Straight/Heterosexual Meds Allergies Allergy/AdvReac Type Severity Reaction Status Date / Time No Known Allergies Allergy Unverified 06/30/20 18:56 [No Known Allergies*] Active Medications: Current Medications Acetaminophen (Acetaminophen 325 Mg Tablet) 650 mg PO ONCE PRN PRN Reason: Pain, Mild (Pain Scale 1-3) Lactated Ringer's (Lr) 1,000 mls @ 50 mls/hr IVCONT .Q20H [facility] Home Medications Medication Instructions Recorded Confirmed Last Taken Type acetazolamide 250 mg tablet 250 mg PO BID 07/24/22 07/24/22 Unknown History lithium carbonate 450 mg 900 mg PO BEDTIME 07/24/22 07/24/22 Unknown History tablet,extended release lorazepam 1 mg tablet 1 tab PO BID PRN Anxiety 07/24/22 07/24/22 Unknown History multivitamin 1 tab PO DAILY 07/24/22 07/24/22 Unknown History ondansetron HCl 8 mg tablet 1 tab PO Q12H PRN nausea 07/24/22 07/24/22 Unknown History sumatriptan succinate 100 mg tablet 100 mg PO Q4H PRN Migraine Headache 07/24/22 07/24/22 Unknown History topiramate 100 mg tablet 100 mg PO BEDTIME 07/24/22 07/24/22 Unknown History Exam Exam Date and Time: October 05, 2022 0650 Height,Weight and Vital Signs: Height 5 ft 2 in Weight 77.111 kg Last Vital Signs Temp 97.3 F 10/05/22 06:32 Pulse 87 10/05/22 06:32 Resp 20 10/05/22 06:32 BP 120/78 10/05/22 06:32 Pulse Ox 100 10/05/22 06:32 O2 Del Method 10/05/22 06:32 Pertinent Lab Results Pertinent Lab Results: Laboratory Tests 10/05/22 10/05/22 06:15 06:15 Urine Test NEGATIVE COVID-19 ([facility]) Negative COVID-19 Clin Com See Note Airway Mallampati Class: II TM Dist: >3cm Neck ROM: Full Heart: rrr Lungs: cta Assessment and Plan Assessment Anesthesia Assessment: Anesthesia Plan Discussed and Chart Reviewed Final Anesthetic Review Family History of Problems with Anesthesia: No History of Problems with Anesthesia: No NPO: Yes ASA Class: III Final Preanesthetic Review: No Changes in Pt Med Stat, Meds/Allgs Chart Reviewed and Consent Obtained/Reviewed Patient Risk: Intermediate Procedure Risk: Intermediate Anesthetic Plan Anesthetic Plan: GA Disposition: Standard PACU
[2022-10-05 07:31] VITALS: BP 106/65; PULSE 63; RESP 14; TEMP 36.7; O2SAT 100
[2022-10-05 07:36] VITALS: BP 119/68; PULSE 84; RESP 19; O2SAT 100
[2022-10-05 07:41] VITALS: BP 117/76; PULSE 83; RESP 17; O2SAT 100
[2022-10-05 07:46] VITALS: BP 126/69; PULSE 101; RESP 12; O2SAT 100
--- NOTE | 2022-10-05 07:54 | HO.ECTPROC ---
ECT Procedure Note Diagnosis/Treatment Date of Service: 10/05/22 Diagnosis: Bipolar disorder Previous ECT Date: 09/28/22 Current Treatment Number: 10 Treatment: Maintenance and Other (continuation) Interval Clinical Notes: pt has been feeling much more euthymic able to work this week had [employer] post last ect Time: Total time managing care of this patient today ____ minutes. ECT Settings Device: THYMATRON DGx Electrode Placement: Bitemporal Program/Pulse Width: 0.25 Energy Percent: 20 Seizure Duration By EEG (in seconds): 35 Medications Administration General Anesthetic: Etomidate (14) Muscle Relaxant: Succinylcholine (100) Ancillary Medications Analgesics: Torodol - Pre ECT and Narcotics (50 mcg fentanyl) Anti-emetics: Zofran - Pre ECT Miscillaneous Medications: Propofol (30 mg) Airway Management Airway Management: Bag Mask Ventilation Treatment Recommendations Electrode Placement: Bitemporal Program/Pulse Width: 0.25 Energy Percent: 20 Notes: f/u tx 1 week pt will speak to her psychiatrist dr jase chicas today again doing better with vraylar Pt Tolerated Procedure w/o Issue: Yes
[2022-10-05 08:01] VITALS: BP 128/73; PULSE 83; RESP 20; TEMP 36.3; O2SAT 99
== END 2022-10-05 08:24 | disposition home or self-care (01) ==
PROVIDERS: PCP Internal Medicine; Visit Provider Psychiatry & Neurology Psychiatry
PROC: (CPT 90870; principal; 2022-10-05 08:00)
DX: F31.9 Bipolar disorder, unspecified (principal); F41.1 Generalized anxiety disorder; G93.2 Benign intracranial hypertension; G43.909 Migraine, unspecified, not intractable, without status migrainosus; J45.909 Unspecified asthma, uncomplicated; Z20.822 Contact with and (suspected) exposure to COVID-19
CPT/HCPCS: 81025; 87635; 90870; J0330; J1885; J2405; J3010

== ENCOUNTER 2022-10-12 06:04 | Day surgery (SDC) | payer OTHER, SELFPAY ==
[2022-10-12] VITALS (8 sets, daily range): BP systolic 109–123; BP diastolic 54–76; PULSE 70–96; RESP 14–20; TEMP 36.1–37.3; O2SAT 98–100; BMI 31.1
[2022-10-12 06:26] LABS: UPreg QC Valid YES; Urine Pregnancy NEGATIVE (NEGATIVE)
[2022-10-12 06:38] LABS: COVID-19 Test Negative (Negative); IDNOW Serial# BCCEAD1C
--- NOTE | 2022-10-12 07:01 | HO.ANESPROP2 ---
HPI - Anesthesia Eval Consult details Narrative: 32 yo female patient for ECT PMFSH Active Problems Active Problems: All Active Problems (Updated 08/30/22 @ 15:57 by Laci Brady MD) Pre-op evaluation (Acute) Pseudotumor cerebri (Acute) Bipolar 1 disorder (Acute) Past Medical History Medical History Bipolar 1 disorder Bipolar 1 disorder, depressed, severe Migraines Mild intermittent asthma Pseudotumor cerebri Family History Family History Brother Bipolar disorder Depression Paternal Grandfather Bipolar disorder Father Alcohol dependence Mother Breast cancer Family history of problems with anesthesia: No Surgical History History of Problems with Anesthesia: No Social History Social History Household Members: None Housing: Apartment Do you presently have visiting nurse or other home services: No Alcohol intake: current Alcohol intake frequency: a few times a week Patient Tobacco Use Status: Never used Tobacco Tobacco use type: Cigarette e-Cigarette/Vaping Use: Currently Using Second Hand Smoke Exposure: No Substance Use Type: Marijuana service: No Sexual orientation: Straight/Heterosexual Meds Allergies Allergy/AdvReac Type Severity Reaction Status Date / Time No Known Allergies Allergy Unverified 06/30/20 18:56 [No Known Allergies*] Home Medications Medication Instructions Recorded Confirmed Last Taken Type acetazolamide 250 mg tablet 250 mg PO BID 07/24/22 07/24/22 Unknown History lithium carbonate 450 mg 900 mg PO BEDTIME 07/24/22 07/24/22 Unknown History tablet,extended release lorazepam 1 mg tablet 1 tab PO BID PRN Anxiety 07/24/22 07/24/22 Unknown History multivitamin 1 tab PO DAILY 07/24/22 07/24/22 Unknown History ondansetron HCl 8 mg tablet 1 tab PO Q12H PRN nausea 07/24/22 07/24/22 Unknown History sumatriptan succinate 100 mg tablet 100 mg PO Q4H PRN Migraine Headache 07/24/22 07/24/22 Unknown History topiramate 100 mg tablet 100 mg PO BEDTIME 07/24/22 07/24/22 Unknown History Exam Exam Date and Time: October 12, 2022 07 Height,Weight and Vital Signs: Height 5 ft 2 in Weight 77.111 kg Last Vital Signs Temp 98.7 F 10/12/22 06:30 Pulse 96 10/12/22 06:30 Resp 16 10/12/22 06:30 BP 120/72 10/12/22 06:30 Pulse Ox 100 10/12/22 06:30 O2 Del Method 10/12/22 06:30 Pertinent Lab Results Pertinent Lab Results: Laboratory Tests 10/12/22 10/12/22 06:14 06:17 Urine Test NEGATIVE COVID-19 ([facility]) Negative COVID-19 Clin Com See Note Airway Mallampati Class: III (Small mouth) TM Dist: >3cm Neck ROM: Full Loose/Missing/Broken Teeth: No (Denies) Heart: RRR Lungs: CTAB Assessment and Plan Assessment Anesthesia Assessment: Anesthesia Plan Discussed and Chart Reviewed Final Anesthetic Review Family History of Problems with Anesthesia: No History of Problems with Anesthesia: No NPO: Yes ASA Class: III Final Preanesthetic Review: No Changes in Pt Med Stat, Meds/Allgs Chart Reviewed, Consent Obtained/Reviewed and Anes Risks/Benef Reviewed Patient Risk: Intermediate Procedure Risk: Intermediate Anesthetic Plan Anesthetic Plan: GA Disposition: Standard PACU
--- NOTE | 2022-10-12 07:04 | MHC.SHP ---
Pre-Procedural Eval Section A Date of Service: 10/12/22 The patient is an INPATIENT: No Changes since office visit: Yes Changes in Medication and Yes Patient answered all questions; No Cold of Flu in the past 2 weeks and No New Medical Problems The History & Physical has been completed within 30 days and I have reviewed it.: No Section B Chief Complaint: Major depressive disorder, recurrent, Details of Present Illness: bipolar depression Relevant Social History: Other (specify) (hx cocaine) Present Medications: see Short Stay Collaborative assessment Medical History: Significant History (pseudotumor cerebrei) Allergies: Allergies Allergy/AdvReac Type Severity Reaction Status Date / Time No Known Allergies Allergy Unverified 06/30/20 18:56 [No Known Allergies*] Review of Systems Sugical H&P ROS: Negative: Cardiovascular, Respiratory (no sob o2 sat 100%) and Neurological and Yes, Specify: Psychiatric (some sadness fili ) Exam Surgical H&P Exam: Normal: Heart (rr ) and Normal: Lungs (clear) Plan Diagnosis/Plan: Unchanged I have reviewed the history and physical and performed a pertinent physical examination on my patient. No changes have occurred unless specified. Time Spent With Patient Time: Total time managing care of this patient today ____ minutes.
--- NOTE | 2022-10-12 07:06 | HO.ECTPROC ---
ECT Procedure Note Diagnosis/Treatment Date of Service: 10/12/22 Diagnosis: Bipolar disorder Previous ECT Date: 10/05/22 Current Treatment Number: 11 Treatment: Maintenance Interval Clinical Notes: some sadness this week ? of her mother this yr Time: Total time managing care of this patient today ____ minutes. ECT Settings Device: THYMATRON DGx Electrode Placement: Bitemporal Program/Pulse Width: 0.25 Energy Percent: 40 Seizure Duration By EEG (in seconds): 72 Medications Administration General Anesthetic: Etomidate (14) Muscle Relaxant: Succinylcholine (100) Ancillary Medications Analgesics: Torodol - Pre ECT and Narcotics (50 mcg fentanyl) Anti-emetics: Zofran - Pre ECT Miscillaneous Medications: Propofol (30 mg) Airway Management Airway Management: Bag Mask Ventilation Treatment Recommendations Electrode Placement: Bitemporal Program/Pulse Width: 0.25 Energy Percent: 20 Notes: f/u tx 2week pt to call if feels needs a tx this wk Pt Tolerated Procedure w/o Issue: Yes
[2022-10-12 08:05] LABS: Alanine Aminotransferase 7 U/L (0-31); Alkaline Phosphatase 55 U/L (39-117); Anion Gap 11 (12-20); Aspartate Amino Transferase 13 U/L (5-31); Bilirubin Total 0.4 mg/dL (0.0-1.0); Blood Urea Nitrogen 14 mg/dL (9-16); Calcium 8.4 mg/dL (8.4-10.2); Carbon Dioxide 21 mmol/L (22-29); Chloride 113 mmol/L (96-108); Creatinine Clr Calc Pharmacy 98.3; Estimated Glomerular Filt Rate > 60; Glucose Random 112 mg/dL (60-115); Magnesium 1.9 mg/dL (1.6-2.6); Potassium 4.3 mmol/L (3.3-5.1); Sodium 141 mmol/L (135-145); Total Protein 6.2 g/dL (6.5-8.0)
== END 2022-10-12 08:53 | disposition home or self-care (01) ==
PROVIDERS: PCP Internal Medicine; Visit Provider Psychiatry & Neurology Psychiatry
PROC: (CPT 90870; principal; 2022-10-12 07:30)
DX: F31.4 Bipolar disorder, current episode depressed, severe, without psychotic features (principal); G43.909 Migraine, unspecified, not intractable, without status migrainosus; J45.909 Unspecified asthma, uncomplicated; G93.2 Benign intracranial hypertension; Z79.899 Other long term (current) drug therapy
CPT/HCPCS: 36415; 80053; 81025; 83735; 87635; 90870; J0330; J1885; J2405; J3010

== ENCOUNTER 2022-10-19 06:02 | Day surgery (SDC) | payer OTHER, SELFPAY ==
[2022-10-19] VITALS (7 sets, daily range): BP systolic 108–128; BP diastolic 51–79; PULSE 80–104; RESP 16–18; TEMP 36.8–37.3; O2SAT 99–100; BMI 31.1
[2022-10-19 06:36] LABS: UPreg QC Valid YES; Urine Pregnancy NEGATIVE (NEGATIVE)
[2022-10-19 06:45] LABS: COVID-19 Test Negative (Negative); IDNOW Serial# BCCEAD1C
--- NOTE | 2022-10-19 06:49 | P.CONAN_ITS ---
[facility] Active Problems Active Problems: All Active Problems (Updated 08/30/22 @ 15:57 by Laci Brady MD) Pre-op evaluation (Acute) Pseudotumor cerebri (Acute) Bipolar 1 disorder (Acute) Past Medical History Medical History Bipolar 1 disorder Bipolar 1 disorder, depressed, severe Migraines Mild intermittent asthma Pseudotumor cerebri Family History Family History Brother Bipolar disorder Depression Paternal Grandfather Bipolar disorder Father Alcohol dependence Mother Breast cancer Family history of problems with anesthesia: No Surgical History History of Problems with Anesthesia: No Social History Social History Household Members: None Housing: Apartment Do you presently have visiting nurse or other home services: No Alcohol intake: current Alcohol intake frequency: a few times a week Patient Tobacco Use Status: Current everyday Tobacco user Tobacco use type: Cigarette Smoked in Last 30 Days: Yes e-Cigarette/Vaping Use: Currently Using Patient Interested in Nicotine Replacement: No Second Hand Smoke Exposure: No Substance Use Type: Marijuana Substance Use Frequency: Occasionally Are you DNR?: No Advance Directives: No Advance Directives Information Provided: Yes Nutrition Risks: No Nutritional Risk FDLMP: about two weeks ago service: No Sexual orientation: Straight/Heterosexual Meds Allergies Allergy/AdvReac Type Severity Reaction Status Date / Time No Known Allergies Allergy Unverified 06/30/20 18:56 [No Known Allergies*] Active Medications: Current Medications Lactated Ringer's (Lr) 1,000 mls @ 50 mls/hr IVCONT .Q20H [facility] Home Medications Medication Instructions Recorded Confirmed Last Taken Type acetazolamide 250 mg tablet 250 mg PO BID 07/24/22 07/24/22 Unknown History lithium carbonate 450 mg 900 mg PO BEDTIME 07/24/22 07/24/22 Unknown History tablet,extended release lorazepam 1 mg tablet 1 tab PO BID PRN Anxiety 07/24/22 07/24/22 Unknown History multivitamin 1 tab PO DAILY 07/24/22 07/24/22 Unknown History ondansetron HCl 8 mg tablet 1 tab PO Q12H PRN nausea 07/24/22 07/24/22 Unknown History sumatriptan succinate 100 mg tablet 100 mg PO Q4H PRN Migraine Headache 07/24/22 07/24/22 Unknown History topiramate 100 mg tablet 100 mg PO BEDTIME 07/24/22 07/24/22 Unknown History Exam Exam Date and Time: October 19, 2022 0649 Height,Weight and Vital Signs: Height 5 ft 2 in Weight 77.111 kg Last Vital Signs Temp 98.9 F 10/19/22 06:36 Pulse 104 H 10/19/22 06:36 Resp 18 10/19/22 06:36 BP 128/70 10/19/22 06:36 Pulse Ox 100 10/19/22 06:36 O2 Del Method 10/19/22 06:36 Pertinent Lab Results Pertinent Lab Results: Laboratory Tests 10/19/22 10/19/22 06:03 06:17 Urine Test NEGATIVE COVID-19 ([facility]) Negative COVID-19 Clin Com See Note Airway Mallampati Class: II TM Dist: >3cm Neck ROM: Full Heart: rrr Lungs: cta Assessment and Plan Assessment Anesthesia Assessment: Anesthesia Plan Discussed and Chart Reviewed Final Anesthetic Review Family History of Problems with Anesthesia: No History of Problems with Anesthesia: No NPO: Yes ASA Class: III Final Preanesthetic Review: No Changes in Pt Med Stat, Meds/Allgs Chart Reviewed and Consent Obtained/Reviewed Patient Risk: Intermediate Procedure Risk: Intermediate Anesthetic Plan Anesthetic Plan: GA Disposition: Standard PACU
[2022-10-19] MEDS: Lactated Ringers 1,000 ML 50 ML IVCONT (06:54)
--- NOTE | 2022-10-19 07:12 | MHC.SHP ---
Pre-Procedural Eval Section A Date of Service: 10/19/22 The patient is an INPATIENT: No Changes since office visit: Yes Changes in Medication and Yes Patient answered all questions; No Cold of Flu in the past 2 weeks and No New Medical Problems The History & Physical has been completed within 30 days and I have reviewed it.: No Section B Chief Complaint: depression Details of Present Illness: bipolar depression Relevant Social History: Other (specify) (hx cocaine) Present Medications: see Short Stay Collaborative assessment Medical History: Significant History (pseudotumor cerebrei) Allergies: Allergies Allergy/AdvReac Type Severity Reaction Status Date / Time No Known Allergies Allergy Unverified 06/30/20 18:56 [No Known Allergies*] Review of Systems Sugical H&P ROS: Negative: Cardiovascular, Respiratory (no sob o2 sat 98) and Neurological and Yes, Specify: Psychiatric (some sadness ) Exam Surgical H&P Exam: Normal: Heart (rr ) and Normal: Lungs (clear) Plan Diagnosis/Plan: Unchanged I have reviewed the history and physical and performed a pertinent physical examination on my patient. No changes have occurred unless specified. Has inc depressive sx Time Spent With Patient Time: Total time managing care of this patient today ____ minutes.
--- NOTE | 2022-10-19 08:14 | HO.ECTPROC ---
ECT Procedure Note Diagnosis/Treatment Date of Service: 10/19/22 Diagnosis: Bipolar disorder Previous ECT Date: 10/12/22 Current Treatment Number: 11 Treatment: Maintenance Interval Clinical Notes: remains depressed anxious on vraylar 1.5 has cycled down Time: Total time managing care of this patient today ____ minutes. ECT Settings Device: THYMATRON DGx Electrode Placement: Bitemporal Program/Pulse Width: 0.25 Energy Percent: 20 Seizure Duration By EEG (in seconds): 26 Medications Administration General Anesthetic: Etomidate (14) Muscle Relaxant: Succinylcholine (100) Ancillary Medications Analgesics: Torodol - Pre ECT and Narcotics (50 mcg fentanyl) Anti-emetics: Zofran - Pre ECT Miscillaneous Medications: Propofol (30 mg) Airway Management Airway Management: Bag Mask Ventilation Treatment Recommendations Electrode Placement: Bitemporal Notes: inc vraylar 3 mg daily discussed with dr baires and pt agreed f/u 1 wk Pt Tolerated Procedure w/o Issue: Yes
== END 2022-10-19 08:39 | disposition home or self-care (01) ==
PROVIDERS: PCP Internal Medicine; Visit Provider Psychiatry & Neurology Psychiatry
PROC: (CPT 90870; principal; 2022-10-19 08:00)
DX: F31.4 Bipolar disorder, current episode depressed, severe, without psychotic features (principal); G43.909 Migraine, unspecified, not intractable, without status migrainosus; G93.2 Benign intracranial hypertension; J45.20 Mild intermittent asthma, uncomplicated; F12.90 Cannabis use, unspecified, uncomplicated; F17.210 Nicotine dependence, cigarettes, uncomplicated; F14.11 Cocaine abuse, in remission; Z20.822 Contact with and (suspected) exposure to COVID-19
CPT/HCPCS: 81025; 87635; 90870; J0330; J1885; J2405; J3010

== ENCOUNTER 2022-10-26 06:00 | Day surgery (SDC) | payer OTHER, SELFPAY ==
[2022-10-26] VITALS (7 sets, daily range): BP systolic 112–136; BP diastolic 66–82; PULSE 70–101; RESP 14–18; TEMP 36.1–36.7; O2SAT 96–100; BMI 30.2
[2022-10-26 06:29] LABS: UPreg QC Valid YES; Urine Pregnancy NEGATIVE (NEGATIVE)
[2022-10-26 06:37] LABS: COVID-19 Test Negative (Negative); IDNOW Serial# BCCEAD1C
--- NOTE | 2022-10-26 06:44 | HO.ANESPROP2 ---
[facility] Active Problems Active Problems: All Active Problems (Updated 08/30/22 @ 15:57 by Laci Brady MD) Pre-op evaluation (Acute) Pseudotumor cerebri (Acute) Bipolar 1 disorder (Acute) Past Medical History Medical History Bipolar 1 disorder Bipolar 1 disorder, depressed, severe Migraines Mild intermittent asthma Pseudotumor cerebri Family History Family History Brother Bipolar disorder Depression Paternal Grandfather Bipolar disorder Father Alcohol dependence Mother Breast cancer Family history of problems with anesthesia: No Surgical History History of Problems with Anesthesia: No Social History Social History Household Members: None Housing: Apartment Do you presently have visiting nurse or other home services: No Alcohol intake: current Alcohol intake frequency: a few times a week Patient Tobacco Use Status: Current everyday Tobacco user Tobacco use type: Cigarette e-Cigarette/Vaping Use: Currently Using Second Hand Smoke Exposure: No Substance Use Type: Marijuana Advance Directives: No Advance Directives Information Provided: Yes service: No Sexual orientation: Straight/Heterosexual Meds Allergies Allergy/AdvReac Type Severity Reaction Status Date / Time No Known Allergies Allergy Unverified 06/30/20 18:56 [No Known Allergies*] Home Medications Medication Instructions Recorded Confirmed Last Taken Type acetazolamide 250 mg tablet 250 mg PO BID 07/24/22 07/24/22 Unknown History lithium carbonate 450 mg 900 mg PO BEDTIME 07/24/22 07/24/22 Unknown History tablet,extended release lorazepam 1 mg tablet 1 tab PO BID PRN Anxiety 07/24/22 07/24/22 Unknown History multivitamin 1 tab PO DAILY 07/24/22 07/24/22 Unknown History ondansetron HCl 8 mg tablet 1 tab PO Q12H PRN nausea 07/24/22 07/24/22 Unknown History sumatriptan succinate 100 mg tablet 100 mg PO Q4H PRN Migraine Headache 07/24/22 07/24/22 Unknown History topiramate 100 mg tablet 100 mg PO BEDTIME 07/24/22 07/24/22 Unknown History Exam Exam Date and Time: October 26, 2022 0644 Height,Weight and Vital Signs: Height 5 ft 2 in Weight 74.843 kg Last Vital Signs Temp 97 F 10/26/22 06:33 Pulse 101 H 10/26/22 06:33 Resp 18 10/26/22 06:33 BP 121/82 10/26/22 06:33 Pulse Ox 100 10/26/22 06:33 O2 Del Method 10/26/22 06:33 Pertinent Lab Results Pertinent Lab Results: Laboratory Tests 10/26/22 10/26/22 06:15 06:15 Urine Test NEGATIVE COVID-19 ([facility]) Negative COVID-19 Clin Com See Note Airway Mallampati Class: II TM Dist: >3cm Neck ROM: Full Heart: rrr Lungs: cta Assessment and Plan Assessment Anesthesia Assessment: Anesthesia Plan Discussed and Chart Reviewed Final Anesthetic Review Family History of Problems with Anesthesia: No History of Problems with Anesthesia: No NPO: Yes ASA Class: III Final Preanesthetic Review: No Changes in Pt Med Stat, Meds/Allgs Chart Reviewed and Consent Obtained/Reviewed Patient Risk: Intermediate Procedure Risk: Intermediate Anesthetic Plan Anesthetic Plan: MAC: Disposition: Standard PACU
--- NOTE | 2022-10-26 07:15 | MHC.SHP ---
Pre-Procedural Eval Section A Date of Service: 10/26/22 The patient is an INPATIENT: No Changes since office visit: Yes Changes in Medication and Yes Patient answered all questions; No Cold of Flu in the past 2 weeks and No New Medical Problems The History & Physical has been completed within 30 days and I have reviewed it.: Yes Section B Chief Complaint: depression Allergies: Allergies Allergy/AdvReac Type Severity Reaction Status Date / Time No Known Allergies Allergy Unverified 06/30/20 18:56 [No Known Allergies*] Plan I have reviewed the history and physical and performed a pertinent physical examination on my patient. No changes have occurred unless specified. Time Spent With Patient Time: Total time managing care of this patient today ____ minutes.
--- NOTE | 2022-10-26 09:17 | HO.ECTPROC ---
ECT Procedure Note Diagnosis/Treatment Date of Service: 10/26/22 Diagnosis: Bipolar disorder Previous ECT Date: 10/19/22 Current Treatment Number: 12 Treatment: Maintenance Interval Clinical Notes: pt with recent cont depressive sx did not tolerate vraylar 3mg no cognitive complaints Time: Total time managing care of this patient today ____ minutes. ECT Settings Device: THYMATRON DGx Electrode Placement: Bitemporal Program/Pulse Width: 0.25 Energy Percent: 50 Seizure Duration By EEG (in seconds): 102 Medications Administration General Anesthetic: Etomidate (14) Muscle Relaxant: Succinylcholine (100) Ancillary Medications Analgesics: Torodol - Pre ECT and Narcotics (50 mcg fentanyl) Anti-emetics: Zofran - Pre ECT Miscillaneous Medications: Propofol (30 mg) Airway Management Airway Management: Bag Mask Ventilation Treatment Recommendations Electrode Placement: Bitemporal Notes: f/u 2 weeks consider next wk if needed Pt Tolerated Procedure w/o Issue: Yes
== END 2022-10-26 08:45 | disposition home or self-care (01) ==
PROVIDERS: PCP Internal Medicine; Visit Provider Psychiatry & Neurology Psychiatry
PROC: (CPT 90870; principal; 2022-10-26 07:00)
DX: F31.30 Bipolar disorder, current episode depressed, mild or moderate severity, unspecified (principal); J45.909 Unspecified asthma, uncomplicated; G43.909 Migraine, unspecified, not intractable, without status migrainosus; Z79.899 Other long term (current) drug therapy; Z20.822 Contact with and (suspected) exposure to COVID-19
CPT/HCPCS: 81025; 87635; 90870; J0330; J1885; J2405; J3010

== ENCOUNTER 2022-11-02 07:56 | Day surgery (SDC) | payer OTHER, SELFPAY ==
[2022-11-02] VITALS (8 sets, daily range): BP systolic 107–132; BP diastolic 66–86; PULSE 67–96; RESP 12–18; TEMP 36.7–37.8; O2SAT 96–100; BMI 31.1
[2022-11-02 08:22] LABS: UPreg QC Valid YES; Urine Pregnancy NEGATIVE (NEGATIVE)
--- NOTE | 2022-11-02 08:26 | HO.ANESPROP2 ---
ON [facility] OF [facility] Active Problems Active Problems: All Active Problems (Updated 08/30/22 @ 15:57 by Laci Brady MD) Pre-op evaluation (Acute) Pseudotumor cerebri (Acute) Bipolar 1 disorder (Acute) Past Medical History Medical History Bipolar 1 disorder Bipolar 1 disorder, depressed, severe Migraines Mild intermittent asthma Pseudotumor cerebri Family History Family History Brother Bipolar disorder Depression Paternal Grandfather Bipolar disorder Father Alcohol dependence Mother Breast cancer Family history of problems with anesthesia: No Surgical History History of Problems with Anesthesia: No Social History Social History Household Members: None Housing: Apartment Do you presently have visiting nurse or other home services: No Alcohol intake: current Alcohol intake frequency: a few times a week Patient Tobacco Use Status: Current everyday Tobacco user Tobacco use type: Cigarette e-Cigarette/Vaping Use: Currently Using Second Hand Smoke Exposure: No Substance Use Type: Marijuana Advance Directives: No Advance Directives Information Provided: Yes service: No Sexual orientation: Straight/Heterosexual Meds Allergies Allergy/AdvReac Type Severity Reaction Status Date / Time No Known Allergies Allergy Unverified 06/30/20 18:56 [No Known Allergies*] Home Medications Medication Instructions Recorded Confirmed Last Taken Type acetazolamide 250 mg tablet 250 mg PO BID 07/24/22 07/24/22 Unknown History lithium carbonate 450 mg 900 mg PO BEDTIME 07/24/22 07/24/22 Unknown History tablet,extended release lorazepam 1 mg tablet 1 tab PO BID PRN Anxiety 07/24/22 07/24/22 Unknown History multivitamin 1 tab PO DAILY 07/24/22 07/24/22 Unknown History ondansetron HCl 8 mg tablet 1 tab PO Q12H PRN nausea 07/24/22 07/24/22 Unknown History sumatriptan succinate 100 mg tablet 100 mg PO Q4H PRN Migraine Headache 07/24/22 07/24/22 Unknown History topiramate 100 mg tablet 100 mg PO BEDTIME 07/24/22 07/24/22 Unknown History Exam Exam Date and Time: November 02, 2022825 Height,Weight and Vital Signs: Height 5 ft 2 in Weight 77.111 kg Last Vital Signs Temp 98.3 F 11/02/22 08:18 Pulse 96 11/02/22 08:18 Resp 16 11/02/22 08:18 BP 128/86 11/02/22 08:18 Pulse Ox 100 11/02/22 08:18 O2 Del Method 11/02/22 08:18 Pertinent Lab Results Pertinent Lab Results: Laboratory Tests 11/02/22 08:01 Urine Test NEGATIVE Airway Mallampati Class: II TM Dist: >3cm Neck ROM: Full Heart: rrr Lungs: cta Assessment and Plan Assessment Anesthesia Assessment: Anesthesia Plan Discussed and Chart Reviewed Final Anesthetic Review Family History of Problems with Anesthesia: No History of Problems with Anesthesia: No NPO: Yes ASA Class: III Final Preanesthetic Review: No Changes in Pt Med Stat, Meds/Allgs Chart Reviewed and Consent Obtained/Reviewed Patient Risk: Intermediate Procedure Risk: Intermediate Anesthetic Plan Anesthetic Plan: GA Disposition: Standard PACU
[2022-11-02 08:30] LABS: COVID-19 Test Negative (Negative); IDNOW Serial# 16C4AD1C
--- NOTE | 2022-11-02 08:56 | MHC.SHP ---
Pre-Procedural Eval Section A Date of Service: 11/02/22 Section B Chief Complaint: depression Details of Present Illness: recurrent bipolar dep Relevant Social History: Other (specify) (hx cocaaine) Present Medications: see Short Stay Collaborative assessment Medical History: Significant History (pseudotumor ) Allergies: Allergies Allergy/AdvReac Type Severity Reaction Status Date / Time No Known Allergies Allergy Unverified 06/30/20 18:56 [No Known Allergies*] Review of Systems Sugical H&P ROS: Negative: Constitution, Cardiovascular, Respiratory and Neurological and Yes, Specify: Psychiatric (grief) Exam Surgical H&P Exam: Normal: Heart and Normal: Lungs Plan Diagnosis/Plan: Unchanged I have reviewed the history and physical and performed a pertinent physical examination on my patient. No changes have occurred unless specified. Time Spent With Patient Time: Total time managing care of this patient today ____ minutes.
--- NOTE | 2022-11-02 09:15 | HO.ECTPROC ---
ECT Procedure Note Diagnosis/Treatment Date of Service: 11/06/22 Diagnosis: Bipolar disorder Previous ECT Date: 10/19/22 Current Treatment Number: 13 Treatment: Maintenance Interval Clinical Notes: Patient feeling better significantly improved feels more stable back at work no complaints of side effects at this time to ECT Time: Total time managing care of this patient today ____ minutes. ECT Settings Device: THYMATRON DGx Electrode Placement: Bitemporal Program/Pulse Width: 0.25 Energy Percent: 30 Seizure Duration By EEG (in seconds): 44 Medications Administration General Anesthetic: Etomidate (14) Muscle Relaxant: Succinylcholine (100) Ancillary Medications Analgesics: Torodol - Pre ECT and Narcotics (50 mcg fentanyl) Anti-emetics: Zofran - Pre ECT Miscillaneous Medications: Propofol (30 mg) Airway Management Airway Management: Bag Mask Ventilation Treatment Recommendations Electrode Placement: Bitemporal Notes: f/u 2 weeks consider next wk again if needed Pt Tolerated Procedure w/o Issue: Yes
== END 2022-11-02 10:33 | disposition home or self-care (01) ==
PROVIDERS: PCP Internal Medicine; Visit Provider Psychiatry & Neurology Psychiatry
PROC: (CPT 90870; principal; 2022-11-02 15:00)
DX: F31.9 Bipolar disorder, unspecified (principal); G43.909 Migraine, unspecified, not intractable, without status migrainosus; J45.20 Mild intermittent asthma, uncomplicated; G93.2 Benign intracranial hypertension; Z79.899 Other long term (current) drug therapy; F12.90 Cannabis use, unspecified, uncomplicated; F17.210 Nicotine dependence, cigarettes, uncomplicated; Z20.822 Contact with and (suspected) exposure to COVID-19
CPT/HCPCS: 81025; 87635; 90870; J0330; J1885; J2405; J3010

== ENCOUNTER 2022-11-16 05:59 | Day surgery (SDC) | payer OTHER, SELFPAY ==
[2022-11-16] VITALS (8 sets, daily range): BP systolic 102–129; BP diastolic 52–94; PULSE 66–88; RESP 10–19; TEMP 36.3–36.6; O2SAT 94–100; BMI 31.1
[2022-11-16 06:48] LABS: COVID-19 Test Negative (Negative); IDNOW Serial# 08D9AD1C
--- NOTE | 2022-11-16 07:41 | P.CONAN_ITS ---
HPI - Anesthesia Eval Consult details Narrative: Bipolar Disorder [facility] Active Problems Active Problems: All Active Problems (Updated 08/30/22 @ 15:57 by Laci Brady MD) Pre-op evaluation (Acute) Pseudotumor cerebri (Acute) Bipolar 1 disorder (Acute) Past Medical History Medical History Bipolar 1 disorder Bipolar 1 disorder, depressed, severe Migraines Mild intermittent asthma Pseudotumor cerebri Family History Family History Brother Bipolar disorder Depression Paternal Grandfather Bipolar disorder Father Alcohol dependence Mother Breast cancer Family history of problems with anesthesia: No Surgical History History of Problems with Anesthesia: No Social History Social History Household Members: None Housing: Apartment Do you presently have visiting nurse or other home services: No Alcohol intake: current Alcohol intake frequency: a few times a week Patient Tobacco Use Status: Current everyday Tobacco user Tobacco use type: Cigarette e-Cigarette/Vaping Use: Currently Using Second Hand Smoke Exposure: No Substance Use Type: Marijuana Advance Directives: No Advance Directives Information Provided: Yes service: No Sexual orientation: Straight/Heterosexual Meds Allergies Allergy/AdvReac Type Severity Reaction Status Date / Time No Known Allergies Allergy Unverified 06/30/20 18:56 [No Known Allergies*] Home Medications Medication Instructions Recorded Confirmed Last Taken Type acetazolamide 250 mg tablet 250 mg PO BID 07/24/22 07/24/22 Unknown History lithium carbonate 450 mg 900 mg PO BEDTIME 07/24/22 07/24/22 Unknown History tablet,extended release lorazepam 1 mg tablet 1 tab PO BID PRN Anxiety 07/24/22 07/24/22 Unknown History multivitamin 1 tab PO DAILY 07/24/22 07/24/22 Unknown History ondansetron HCl 8 mg tablet 1 tab PO Q12H PRN nausea 07/24/22 07/24/22 Unknown History sumatriptan succinate 100 mg tablet 100 mg PO Q4H PRN Migraine Headache 07/24/22 07/24/22 Unknown History topiramate 100 mg tablet 100 mg PO BEDTIME 07/24/22 07/24/22 Unknown History Exam Exam Date and Time: November 16, 2022 0741 Height,Weight and Vital Signs: Height 5 ft 2 in Weight 77.111 kg Last Vital Signs Temp 97.8 F 11/16/22 06:55 Pulse 88 11/16/22 06:55 Resp 16 11/16/22 06:55 BP 102/62 11/16/22 06:55 Pulse Ox 98 11/16/22 06:55 O2 Del Method 11/16/22 06:55 Pertinent Lab Results Pertinent Lab Results: Laboratory Tests 11/16/22 06:21 COVID-19 ([facility]) Negative COVID-19 Clin Com See Note Airway Mallampati Class: II TM Dist: >3cm Neck ROM: Full Loose/Missing/Broken Teeth: No Heart: rrr+[id number] Lungs: cta b/l Assessment and Plan Assessment Anesthesia Assessment: Anesthesia Plan Discussed and Chart Reviewed Final Anesthetic Review Family History of Problems with Anesthesia: No History of Problems with Anesthesia: No NPO: Yes ASA Class: II Final Preanesthetic Review: No Changes in Pt Med Stat, Meds/Allgs Chart Reviewed, Consent Obtained/Reviewed and Anes Risks/Benef Reviewed Patient Risk: Intermediate Procedure Risk: Intermediate Assessment/Block/Sedation in SS: Assess/Block/Sedation-SS Anesthetic Plan Anesthetic Plan: GA and Agree w/ Assess. and Plan Disposition: Standard PACU
--- NOTE | 2022-11-16 08:08 | MHC.SHP ---
Pre-Procedural Eval Section A Date of Service: 11/16/22 The patient is an INPATIENT: No Changes since office visit: No Cold of Flu in the past 2 weeks, No New Medical Problems, No Changes in Medication and No Patient answered all questions The History & Physical has been completed within 30 days and I have reviewed it.: Yes Section B Chief Complaint: Major depressive disorder, recurrent, Allergies: Allergies Allergy/AdvReac Type Severity Reaction Status Date / Time No Known Allergies Allergy Unverified 06/30/20 18:56 [No Known Allergies*] Plan I have reviewed the history and physical and performed a pertinent physical examination on my patient. No changes have occurred unless specified. Time Spent With Patient Time: Total time managing care of this patient today ____ minutes.
--- NOTE | 2022-11-16 08:09 | HO.ECTPROC ---
ECT Procedure Note Diagnosis/Treatment Date of Service: 11/16/22 Diagnosis: Major Depressive Disorder Previous ECT Date: 11/06/22 Current Treatment Number: 15 Treatment: Maintenance Interval Clinical Notes: The patient reported normal mood, no side effects wtith previous ECT. She also reported that her memory ib better now that ECT frequency is less. Today, she had a very long seizure, needed to push Propofol, last night she didn't sleep well Time: Total time managing care of this patient today ____ minutes. ECT Settings Device: THYMATRON DGx Electrode Placement: Bitemporal Program/Pulse Width: 0.25 Energy Percent: 30 Seizure Duration By EEG (in seconds): 118 By Motor Observation (in seconds): 49 Medications Administration General Anesthetic: Etomidate (14) Muscle Relaxant: Succinylcholine (100) Ancillary Medications Analgesics: Torodol - Pre ECT Anti-emetics: Zofran - Pre ECT Miscillaneous Medications: Propofol and Other (Fentanyl IV) Airway Management Airway Management: Bag Mask Ventilation Treatment Recommendations Electrode Placement: Bitemporal Program/Pulse Width: 0.25 Energy Percent: 25 Pt Tolerated Procedure w/o Issue: Yes
== END 2022-11-16 09:40 | disposition home or self-care (01) ==
PROVIDERS: PCP Internal Medicine; Visit Provider Psychiatry & Neurology Psychiatry
PROC: (CPT 90870; principal; 2022-11-16 07:00)
DX: F31.30 Bipolar disorder, current episode depressed, mild or moderate severity, unspecified (principal); J45.20 Mild intermittent asthma, uncomplicated; G93.2 Benign intracranial hypertension; G43.909 Migraine, unspecified, not intractable, without status migrainosus; R06.83 Snoring; Z79.899 Other long term (current) drug therapy; F17.210 Nicotine dependence, cigarettes, uncomplicated; Z20.822 Contact with and (suspected) exposure to COVID-19
CPT/HCPCS: 87635; 90870; J0330; J1885; J2405; J3010

== ENCOUNTER 2022-12-07 06:01 | Day surgery (SDC) | payer OTHER, SELFPAY ==
[2022-12-07] VITALS (8 sets, daily range): BP systolic 102–128; BP diastolic 59–82; PULSE 69–86; RESP 12–20; TEMP 36.6–36.9; O2SAT 95–100; BMI 31.1
[2022-12-07 06:35] LABS: COVID-19 Test Negative (Negative); IDNOW Serial# BCCEAD1C
--- NOTE | 2022-12-07 07:26 | MHC.SHP ---
Pre-Procedural Eval Section A Date of Service: 12/07/22 The patient is an INPATIENT: No Changes since office visit: Yes Patient answered all questions; No Cold of Flu in the past 2 weeks, No New Medical Problems and No Changes in Medication The History & Physical has been completed within 30 days and I have reviewed it.: No Section B Chief Complaint: bipolar depression Details of Present Illness: recurrent depression some breakthrough Relevant Social History: Other (specify) (hx cocaaine) Present Medications: see Short Stay Collaborative assessment Medical History: Significant History (pseudotumor cerebrei) History of Previous Operations: Relevant previous surgery/procedure and date(s) (ect) Allergies: Allergies Allergy/AdvReac Type Severity Reaction Status Date / Time No Known Allergies Allergy Unverified 06/30/20 18:56 [No Known Allergies*] Review of Systems Sugical H&P ROS: Negative: Constitution, Cardiovascular, Respiratory and Neurological and Yes, Specify: Psychiatric (some depressive sx) Exam Surgical H&P Exam: Normal: Heart and Normal: Lungs Plan Diagnosis/Plan: Unchanged I have reviewed the history and physical and performed a pertinent physical examination on my patient. No changes have occurred unless specified. Time Spent With Patient Time: Total time managing care of this patient today ____ minutes.
--- NOTE | 2022-12-07 07:30 | HO.ANESPROP2 ---
[facility] Active Problems Active Problems: All Active Problems (Updated 08/30/22 @ 15:57 by Laci Brady MD) Pre-op evaluation (Acute) Pseudotumor cerebri (Acute) Bipolar 1 disorder (Acute) Past Medical History Medical History Bipolar 1 disorder Bipolar 1 disorder, depressed, severe Migraines Mild intermittent asthma Pseudotumor cerebri Family History Family History Brother Bipolar disorder Depression Paternal Grandfather Bipolar disorder Father Alcohol dependence Mother Breast cancer Family history of problems with anesthesia: No Surgical History History of Problems with Anesthesia: No Social History Social History Household Members: None Housing: Apartment Do you presently have visiting nurse or other home services: No Alcohol intake: current Alcohol intake frequency: a few times a week Patient Tobacco Use Status: Current everyday Tobacco user Tobacco use type: Cigarette e-Cigarette/Vaping Use: Currently Using Second Hand Smoke Exposure: No Substance Use Type: Marijuana Advance Directives: No Advance Directives Information Provided: Yes service: No Sexual orientation: Straight/Heterosexual Meds Allergies Allergy/AdvReac Type Severity Reaction Status Date / Time No Known Allergies Allergy Unverified 06/30/20 18:56 [No Known Allergies*] Home Medications Medication Instructions Recorded Confirmed Last Taken Type acetazolamide 250 mg tablet 250 mg PO BID 07/24/22 07/24/22 Unknown History lithium carbonate 450 mg 900 mg PO BEDTIME 07/24/22 07/24/22 Unknown History tablet,extended release lorazepam 1 mg tablet 1 tab PO BID PRN Anxiety 07/24/22 07/24/22 Unknown History multivitamin 1 tab PO DAILY 07/24/22 07/24/22 Unknown History ondansetron HCl 8 mg tablet 1 tab PO Q12H PRN nausea 07/24/22 07/24/22 Unknown History sumatriptan succinate 100 mg tablet 100 mg PO Q4H PRN Migraine Headache 07/24/22 07/24/22 Unknown History topiramate 100 mg tablet 100 mg PO BEDTIME 07/24/22 07/24/22 Unknown History Exam Exam Date and Time: December 07, [id number] Height,Weight and Vital Signs: Height 5 ft 2 in Weight 77.111 kg Last Vital Signs Temp 97.9 F 12/07/22 06:34 Pulse 83 12/07/22 06:34 Resp 20 12/07/22 06:34 BP 119/79 12/07/22 06:34 Pulse Ox 100 12/07/22 06:34 O2 Del Method 12/07/22 06:34 Pertinent Lab Results Pertinent Lab Results: Laboratory Tests 12/07/22 06:13 COVID-19 ([facility]) Negative COVID-19 Clin Com See Note Airway Mallampati Class: II TM Dist: >3cm Neck ROM: Full Loose/Missing/Broken Teeth: No Heart: RRR Lungs: CTA Assessment and Plan Assessment Anesthesia Assessment: Anesthesia Plan Discussed and Chart Reviewed Final Anesthetic Review Family History of Problems with Anesthesia: No History of Problems with Anesthesia: No NPO: Yes ASA Class: II Final Preanesthetic Review: Meds/Allgs Chart Reviewed, Consent Obtained/Reviewed and Anes Risks/Benef Reviewed Patient Risk: Low Procedure Risk: Intermediate Anesthetic Plan Anesthetic Plan: GA Disposition: Standard PACU
--- NOTE | 2022-12-07 07:53 | HO.ECTPROC ---
ECT Procedure Note Diagnosis/Treatment Date of Service: 12/07/22 Diagnosis: Major Depressive Disorder Previous ECT Date: 11/16/22 Current Treatment Number: Other (16) Treatment: Maintenance Interval Clinical Notes: Patient has generally been doing well but starts have some relapse symptoms a few days ago Time: Total time managing care of this patient today ____ minutes. ECT Settings Device: THYMATRON DGx Electrode Placement: Bitemporal Program/Pulse Width: 0.25 Energy Percent: 25 Seizure Duration By EEG (in seconds): 114 By Motor Observation (in seconds): 49 Medications Administration General Anesthetic: Etomidate (14) Muscle Relaxant: Succinylcholine (100) Ancillary Medications Analgesics: Torodol - Pre ECT and Narcotics (did receive fentanyl plan was to cut dose in half but received 50 mcg ) Anti-emetics: Zofran - Pre ECT Miscillaneous Medications: Propofol and Other (Fentanyl IV) Airway Management Airway Management: Bag Mask Ventilation Treatment Recommendations Electrode Placement: Bitemporal Program/Pulse Width: 0.25 Energy Percent: 15 Notes: Treatments scheduled for 2 weeks secondary to relapse symptoms Pt Tolerated Procedure w/o Issue: Yes
== END 2022-12-07 09:06 ==
PROVIDERS: PCP Internal Medicine; Visit Provider Psychiatry & Neurology Psychiatry
PROC: (CPT 90870; principal; 2022-12-07 07:00)
DX: F31.4 Bipolar disorder, current episode depressed, severe, without psychotic features (principal); J45.20 Mild intermittent asthma, uncomplicated; G43.909 Migraine, unspecified, not intractable, without status migrainosus; G93.2 Benign intracranial hypertension; Z79.899 Other long term (current) drug therapy; F17.210 Nicotine dependence, cigarettes, uncomplicated; Z20.822 Contact with and (suspected) exposure to COVID-19
CPT/HCPCS: 87635; 90870; J0330; J1885; J2405; J3010

== ENCOUNTER 2022-12-21 05:58 | Day surgery (SDC) | payer OTHER, SELFPAY ==
[2022-12-21] VITALS (8 sets, daily range): BP systolic 101–141; BP diastolic 59–70; PULSE 74–86; RESP 15–20; TEMP 36.1–36.9; O2SAT 97–100; BMI 31.1
[2022-12-21 06:34] LABS: COVID-19 Test Negative (Negative); IDNOW Serial# BCCEAD1C
--- NOTE | 2022-12-21 06:48 | P.CONAN_ITS ---
[facility] Active Problems Active Problems: All Active Problems (Updated 08/30/22 @ 15:57 by Laci Brady MD) Pre-op evaluation (Acute) Pseudotumor cerebri (Acute) Bipolar 1 disorder (Acute) Past Medical History Medical History Bipolar 1 disorder Bipolar 1 disorder, depressed, severe Migraines Mild intermittent asthma Pseudotumor cerebri Family History Family History Brother Bipolar disorder Depression Paternal Grandfather Bipolar disorder Father Alcohol dependence Mother Breast cancer Family history of problems with anesthesia: No Surgical History History of Problems with Anesthesia: No Social History Social History Household Members: None Housing: Apartment Do you presently have visiting nurse or other home services: No Alcohol intake: current Alcohol intake frequency: a few times a week Patient Tobacco Use Status: Current everyday Tobacco user Tobacco use type: Cigarette e-Cigarette/Vaping Use: Currently Using Second Hand Smoke Exposure: No Substance Use Type: Marijuana Advance Directives: No Advance Directives Information Provided: Yes service: No Sexual orientation: Straight/Heterosexual Meds Allergies Allergy/AdvReac Type Severity Reaction Status Date / Time No Known Allergies Allergy Unverified 06/30/20 18:56 [No Known Allergies*] Active Medications: Current Medications Lactated Ringer's (Lr) 1,000 mls @ 50 mls/hr IVCONT .Q20H [facility] Home Medications Medication Instructions Recorded Confirmed Last Taken Type acetazolamide 250 mg tablet 250 mg PO BID 07/24/22 07/24/22 Unknown History lithium carbonate 450 mg 900 mg PO BEDTIME 07/24/22 07/24/22 Unknown History tablet,extended release lorazepam 1 mg tablet 1 tab PO BID PRN Anxiety 07/24/22 07/24/22 Unknown History multivitamin 1 tab PO DAILY 07/24/22 07/24/22 Unknown History ondansetron HCl 8 mg tablet 1 tab PO Q12H PRN nausea 07/24/22 07/24/22 Unknown History sumatriptan succinate 100 mg tablet 100 mg PO Q4H PRN Migraine Headache 07/24/22 07/24/22 Unknown History topiramate 100 mg tablet 100 mg PO BEDTIME 07/24/22 07/24/22 Unknown History Exam Exam Date and Time: December 21, 2022 0648 Height,Weight and Vital Signs: Height 5 ft 2 in Weight 77.111 kg Last Vital Signs Temp 98.4 F 12/21/22 06:27 Pulse 85 12/21/22 06:27 Resp 20 12/21/22 06:27 BP 106/70 12/21/22 06:27 Pulse Ox 98 12/21/22 06:27 O2 Del Method 12/21/22 06:27 Pertinent Lab Results Pertinent Lab Results: Laboratory Tests 12/21/22 06:13 COVID-19 ([facility]) Negative COVID-19 Clin Com See Note Airway Mallampati Class: II TM Dist: >3cm Neck ROM: Full Heart: rrr Lungs: cta Assessment and Plan Assessment Anesthesia Assessment: Anesthesia Plan Discussed and Chart Reviewed Final Anesthetic Review Family History of Problems with Anesthesia: No History of Problems with Anesthesia: No NPO: Yes ASA Class: III Final Preanesthetic Review: No Changes in Pt Med Stat, Meds/Allgs Chart Reviewed and Consent Obtained/Reviewed Patient Risk: Intermediate Procedure Risk: Intermediate Anesthetic Plan Anesthetic Plan: GA Disposition: Standard PACU
--- NOTE | 2022-12-21 07:06 | MHC.SHP ---
Pre-Procedural Eval Section A Date of Service: 12/21/22 Section B Chief Complaint: Major depressive disorder, recurrent, Details of Present Illness: bipolar depression Relevant Social History: None (sober) Present Medications: None Medical History: Significant History (ect) Allergies: Allergies Allergy/AdvReac Type Severity Reaction Status Date / Time No Known Allergies Allergy Unverified 06/30/20 18:56 [No Known Allergies*] Review of Systems Sugical H&P ROS: Negative: Cardiovascular and Respiratory and Yes, Specify: Psychiatric (limited depression) Review of Systems Comment: pseudobulbar palsy Exam Surgical H&P Exam: Normal: Heart, Normal: Lungs and Normal: Extremities Plan Diagnosis/Plan: Unchanged I have reviewed the history and physical and performed a pertinent physical examination on my patient. No changes have occurred unless specified. Time Spent With Patient Time: Total time managing care of this patient today ____ minutes.
--- NOTE | 2022-12-21 07:30 | HO.ECTPROC ---
ECT Procedure Note Diagnosis/Treatment Date of Service: 12/21/22 Diagnosis: Bipolar disorder Previous ECT Date: 12/07/22 Current Treatment Number: Other (17) Treatment: Maintenance Interval Clinical Notes: Patient has generally been feeling more stable Time: Total time managing care of this patient today ____ minutes. ECT Settings Device: THYMATRON DGx Electrode Placement: Bitemporal Program/Pulse Width: 0.25 Energy Percent: 15 Seizure Duration By EEG (in seconds): 97 Medications Administration General Anesthetic: Etomidate (14) Muscle Relaxant: Succinylcholine (100) Ancillary Medications Analgesics: Torodol - Pre ECT and Narcotics (10 mg oxycodone pre plus 5 postfor home) Anti-emetics: Zofran - Pre ECT Miscillaneous Medications: Propofol and Other Airway Management Airway Management: Bag Mask Ventilation Treatment Recommendations Electrode Placement: Bitemporal Program/Pulse Width: 0.25 Energy Percent: 10 Notes: Treatments scheduled for 2 weeks patient still feels somewhat tenuous although back at work will then try and change to every 3-4 weeks she remains on Vraylar 1.5 mg Seroquel Lamictal and lithium Pt Tolerated Procedure w/o Issue: Yes
== END 2022-12-21 08:58 | disposition home or self-care (01) ==
PROVIDERS: PCP Internal Medicine; Visit Provider Psychiatry & Neurology Psychiatry
PROC: (CPT 90870; principal; 2022-12-21 07:00)
DX: F31.4 Bipolar disorder, current episode depressed, severe, without psychotic features (principal); J45.20 Mild intermittent asthma, uncomplicated; G93.2 Benign intracranial hypertension; G43.909 Migraine, unspecified, not intractable, without status migrainosus; Z79.899 Other long term (current) drug therapy; Z20.822 Contact with and (suspected) exposure to COVID-19; F17.210 Nicotine dependence, cigarettes, uncomplicated
CPT/HCPCS: 87635; 90870; J0330; J1885; J2405; J2550

== ENCOUNTER 2023-01-04 06:04 | Day surgery (SDC) | payer OTHER, SELFPAY ==
[2023-01-04 06:32] VITALS: BP 109/64; PULSE 79; RESP 16; TEMP 36.3; O2SAT 99; BMI 31.1
[2023-01-04 06:37] LABS: COVID-19 Test Negative (Negative); IDNOW Serial# 6674DD1D
--- NOTE | 2023-01-04 06:56 | P.CONAN_ITS ---
[facility] Active Problems Active Problems: All Active Problems (Updated 08/30/22 @ 15:57 by Laci Brady MD) Pre-op evaluation (Acute) Pseudotumor cerebri (Acute) Bipolar 1 disorder (Acute) Past Medical History Medical History Bipolar 1 disorder Bipolar 1 disorder, depressed, severe Migraines Mild intermittent asthma Pseudotumor cerebri Family History Family History Brother Bipolar disorder Depression Paternal Grandfather Bipolar disorder Father Alcohol dependence Mother Breast cancer Family history of problems with anesthesia: No Surgical History History of Problems with Anesthesia: No Social History Social History Household Members: None Housing: Apartment Do you presently have visiting nurse or other home services: No Alcohol intake: current Alcohol intake frequency: a few times a month Patient Tobacco Use Status: Former Tobacco user Tobacco use type: Cigarette e-Cigarette/Vaping Use: Currently Using Second Hand Smoke Exposure: No Use of substances other than those prescribed or required for medical reasons: No Substance Use Type: Marijuana Are you DNR?: No Advance Directives: No Advance Directives Information Provided: Yes service: No Sexual orientation: Straight/Heterosexual Meds Allergies Allergy/AdvReac Type Severity Reaction Status Date / Time No Known Allergies Allergy Verified 01/04/23 06:31 [No Known Allergies*] Active Medications: Current Medications Lactated Ringer's (Lr) 1,000 mls @ 50 mls/hr IVCONT .Q20H [facility] Home Medications Medication Instructions Recorded Confirmed Last Taken Type acetazolamide 250 mg tablet 250 mg PO BID 07/24/22 07/24/22 Unknown History lithium carbonate 450 mg 900 mg PO BEDTIME 07/24/22 07/24/22 Unknown History tablet,extended release lorazepam 1 mg tablet 1 tab PO BID PRN Anxiety 07/24/22 07/24/22 Unknown History multivitamin 1 tab PO DAILY 07/24/22 07/24/22 Unknown History ondansetron HCl 8 mg tablet 1 tab PO Q12H PRN nausea 07/24/22 07/24/22 Unknown History sumatriptan succinate 100 mg tablet 100 mg PO Q4H PRN Migraine Headache 07/24/22 07/24/22 Unknown History topiramate 100 mg tablet 100 mg PO BEDTIME 07/24/22 07/24/22 Unknown History Exam Exam Date and Time: January 04, 2023 0656 Height,Weight and Vital Signs: Height 5 ft 2 in Weight 77.111 kg Last Vital Signs Temp 97.3 F 01/04/23 06:32 Pulse 79 01/04/23 06:32 Resp 16 01/04/23 06:32 BP 109/64 01/04/23 06:32 Pulse Ox 99 01/04/23 06:32 O2 Del Method Room Air 01/04/23 06:32 Pertinent Lab Results Pertinent Lab Results: Laboratory Tests 01/04/23 06:12 COVID-19 ([facility]) Negative COVID-19 Clin Com See Note Airway Mallampati Class: II TM Dist: >3cm Neck ROM: Full Heart: rrr Lungs: cta Assessment and Plan Assessment Anesthesia Assessment: Anesthesia Plan Discussed and Chart Reviewed Final Anesthetic Review Family History of Problems with Anesthesia: No History of Problems with Anesthesia: No NPO: Yes ASA Class: III Final Preanesthetic Review: No Changes in Pt Med Stat, Meds/Allgs Chart Reviewed and Consent Obtained/Reviewed Patient Risk: Intermediate Procedure Risk: Intermediate Anesthetic Plan Anesthetic Plan: GA Disposition: Standard PACU
[2023-01-04] MEDS: Lactated Ringers 1,000 ML 50 ML IVCONT (06:58)
[2023-01-04 07:18] LABS: UPreg QC Valid YES; Urine Pregnancy NEGATIVE (NEGATIVE)
--- NOTE | 2023-01-04 07:55 | MHC.SHP ---
Pre-Procedural Eval Section A Date of Service: 01/04/23 Changes since office visit: Yes Patient answered all questions; No Cold of Flu in the past 2 weeks, No New Medical Problems and No Changes in Medication Section B Chief Complaint: Major depressive disorder, recurrent, severe with Details of Present Illness: bipolar depression Relevant Social History: None (sober) Present Medications: None Medical History: Significant History (ect) History of Previous Operations: Relevant previous surgery/procedure and date(s) (ect) Allergies: Allergies Allergy/AdvReac Type Severity Reaction Status Date / Time No Known Allergies Allergy Verified 01/04/23 06:31 [No Known Allergies*] Review of Systems Sugical H&P ROS: Negative: Cardiovascular, Respiratory and Neurological Exam Surgical H&P Exam: Normal: Heart, Normal: Lungs and Normal: Extremities Exam Comment: pseudotumor cerebrei Plan Diagnosis/Plan: Unchanged I have reviewed the history and physical and performed a pertinent physical examination on my patient. No changes have occurred unless specified. Time Spent With Patient Time: Total time managing care of this patient today ____ minutes.
--- NOTE | 2023-01-04 08:03 | HO.ECTPROC ---
ECT Procedure Note Diagnosis/Treatment Date of Service: 01/04/23 Diagnosis: Bipolar disorder Previous ECT Date: 12/07/22 Current Treatment Number: Other (17) Treatment: Maintenance Interval Clinical Notes: Patient has generally been feeling more stable things are going well feels work is doing better Time: Total time managing care of this patient today ____ minutes. ECT Settings Device: THYMATRON DGx Electrode Placement: Bitemporal Program/Pulse Width: 0.25 Energy Percent: 10 Seizure Duration By EEG (in seconds): 64 Medications Administration General Anesthetic: Etomidate (14) Muscle Relaxant: Succinylcholine (100) Ancillary Medications Analgesics: Torodol - Pre ECT and Narcotics (10 mg oxycodone pre plus 5 postfor home) Anti-emetics: Zofran - Pre ECT Miscillaneous Medications: Propofol Airway Management Airway Management: Bag Mask Ventilation Treatment Recommendations Electrode Placement: Bitemporal Program/Pulse Width: 0.25 Energy Percent: 10 Notes: Treatments scheduled for 3 weeks patient doing much better oxycodone 5 mg 1 x for home Pt Tolerated Procedure w/o Issue: Yes
[2023-01-04] MEDS: oxyCODONE HCl Immed Release 5 MG TABLET 10 MG PO (08:04)
[2023-01-04 08:21] VITALS: BP 157/80; PULSE 90; RESP 24; TEMP 36.3; O2SAT 100
[2023-01-04 08:26] VITALS: BP 115/67; PULSE 92; RESP 20; O2SAT 100
[2023-01-04 08:31] VITALS: BP 122/61; PULSE 85; RESP 18; O2SAT 99
[2023-01-04 08:36] VITALS: BP 117/55; PULSE 84; RESP 18; O2SAT 99
[2023-01-04 08:51] VITALS: BP 117/58; PULSE 80; RESP 16; TEMP 36.7; O2SAT 99
== END 2023-01-04 09:19 | disposition home or self-care (01) ==
PROVIDERS: Anesthesiology; PCP Internal Medicine; Visit Provider Psychiatry & Neurology Psychiatry
PROC: (CPT 90870; principal; 2023-01-04 08:00)
DX: F31.5 Bipolar disorder, current episode depressed, severe, with psychotic features (principal); G93.2 Benign intracranial hypertension; J45.20 Mild intermittent asthma, uncomplicated; G43.909 Migraine, unspecified, not intractable, without status migrainosus; Z79.899 Other long term (current) drug therapy; F12.90 Cannabis use, unspecified, uncomplicated; Z20.822 Contact with and (suspected) exposure to COVID-19; Z87.891 Personal history of nicotine dependence
CPT/HCPCS: 81025; 87635; 90870; J0330; J1885; J2405

== ENCOUNTER 2023-01-25 07:00 | Day surgery (SDC) | payer OTHER, SELFPAY ==
[2023-01-25 06:43] LABS: COVID-19 Test Negative (Negative); IDNOW Serial# BCCEAD1C
[2023-01-25 06:44] VITALS: BMI 31.1
[2023-01-25 06:47] VITALS: BP 113/72; PULSE 73; RESP 16; TEMP 36.1; O2SAT 98
--- NOTE | 2023-01-25 07:00 | P.CONAN_ITS ---
[facility] Active Problems Active Problems: All Active Problems (Updated 08/30/22 @ 15:57 by Laci Brady MD) Pre-op evaluation (Acute) Pseudotumor cerebri (Acute) Bipolar 1 disorder (Acute) Past Medical History Medical History Bipolar 1 disorder Bipolar 1 disorder, depressed, severe Migraines Mild intermittent asthma Pseudotumor cerebri Family History Family History Brother Bipolar disorder Depression Paternal Grandfather Bipolar disorder Father Alcohol dependence Mother Breast cancer Family history of problems with anesthesia: No Surgical History History of Problems with Anesthesia: No Social History Social History Household Members: None Housing: Apartment Do you presently have visiting nurse or other home services: No Alcohol intake: current Alcohol intake frequency: a few times a month Patient Tobacco Use Status: Former Tobacco user Tobacco use type: Cigarette e-Cigarette/Vaping Use: Currently Using Second Hand Smoke Exposure: No Substance Use Type: Marijuana service: No Sexual orientation: Straight/Heterosexual Meds Allergies Allergy/AdvReac Type Severity Reaction Status Date / Time No Known Allergies Allergy Verified 01/04/23 06:31 [No Known Allergies*] Active Medications: Current Medications Lactated Ringer's (Lr) 1,000 mls @ 50 mls/hr IVCONT .Q20H [facility] Home Medications Medication Instructions Recorded Confirmed Last Taken Type acetazolamide 250 mg tablet 250 mg PO BID 07/24/22 07/24/22 Unknown History lithium carbonate 450 mg 900 mg PO BEDTIME 07/24/22 07/24/22 Unknown History tablet,extended release lorazepam 1 mg tablet 1 tab PO BID PRN Anxiety 07/24/22 07/24/22 Unknown History multivitamin 1 tab PO DAILY 07/24/22 07/24/22 Unknown History ondansetron HCl 8 mg tablet 1 tab PO Q12H PRN nausea 07/24/22 07/24/22 Unknown History sumatriptan succinate 100 mg tablet 100 mg PO Q4H PRN Migraine Headache 07/24/22 07/24/22 Unknown History topiramate 100 mg tablet 100 mg PO BEDTIME 07/24/22 07/24/22 Unknown History Exam Exam Date and Time: January 25, 2023 0700 Height,Weight and Vital Signs: Height 5 ft 2 in Weight 77.111 kg Last Vital Signs Temp 97 F 01/25/23 06:47 Pulse 73 01/25/23 06:47 Resp 16 01/25/23 06:47 BP 113/72 01/25/23 06:47 Pulse Ox 98 01/25/23 06:47 O2 Del Method Room Air 01/25/23 06:47 Pertinent Lab Results Pertinent Lab Results: Laboratory Tests 01/25/23 06:18 COVID-19 ([facility]) Negative COVID-19 Clin Com See Note Airway Mallampati Class: II TM Dist: >3cm Neck ROM: Full Heart: rrr Lungs: cta Assessment and Plan Final Anesthetic Review Family History of Problems with Anesthesia: No History of Problems with Anesthesia: No NPO: Yes ASA Class: III Final Preanesthetic Review: No Changes in Pt Med Stat, Meds/Allgs Chart Reviewed and Consent Obtained/Reviewed Patient Risk: Intermediate Procedure Risk: Intermediate Anesthetic Plan Anesthetic Plan: GA Disposition: Standard PACU
--- NOTE | 2023-01-25 07:09 | MHC.SHP ---
Pre-Procedural Eval Section A Date of Service: 01/25/23 Changes since office visit: Yes Patient answered all questions; No Cold of Flu in the past 2 weeks, No New Medical Problems and No Changes in Medication Section B Chief Complaint: Major depressive disorder, recurrent, severe with Details of Present Illness: bipolar dx generally stable with ect anticipatory anxiety re anniversary of mothers Relevant Social History: None (sober) Present Medications: None Medical History: Significant History (ect) History of Previous Operations: Relevant previous surgery/procedure and date(s) (ect) Allergies: Allergies Allergy/AdvReac Type Severity Reaction Status Date / Time No Known Allergies Allergy Verified 01/04/23 06:31 [No Known Allergies*] Review of Systems Sugical H&P ROS: Negative: Cardiovascular, Respiratory, Neurological and Gastrointestinal and Yes, Specify: Psychiatric (anxiety fear re anniversary mothers ) Exam Surgical H&P Exam: Normal: Heart, Normal: Lungs and Normal: Extremities Exam Comment: pseudotumor cerebrei Plan Diagnosis/Plan: Unchanged I have reviewed the history and physical and performed a pertinent physical examination on my patient. No changes have occurred unless specified. Time Spent With Patient Time: Total time managing care of this patient today ____ minutes.
[2023-01-25] MEDS: oxyCODONE HCl Immed Release 5 MG TABLET 10 MG PO (07:56)
[2023-01-25 08:37] VITALS: BP 101/60; PULSE 69; RESP 16; TEMP 37; O2SAT 98
[2023-01-25 08:42] VITALS: BP 110/53; PULSE 76; RESP 17; O2SAT 94
[2023-01-25 08:52] VITALS: BP 118/64; PULSE 81; RESP 22; O2SAT 100
[2023-01-25] MEDS: Acetaminophen 325 MG TABLET 650 MG PO (09:08)
[2023-01-25 09:11] VITALS: BP 124/79; PULSE 76; RESP 19; O2SAT 97
[2023-01-25 09:32] VITALS: BP 99/54; PULSE 81; RESP 17; TEMP 36.8; O2SAT 96
--- NOTE | 2023-02-02 21:42 | HO.ECTPROC ---
ECT Procedure Note Diagnosis/Treatment Date of Service: 01/25/23 Diagnosis: Bipolar disorder Current Treatment Number: Other (18) Treatment: Maintenance Interval Clinical Notes: Patient generally doing okay but worried about the upcoming anniversary of her mother's from cancer Time: Total time managing care of this patient today ____ minutes. ECT Settings Device: THYMATRON DGx Electrode Placement: Bitemporal Program/Pulse Width: 0.25 Energy Percent: 30 Seizure Duration By EEG (in seconds): 71 Medications Administration General Anesthetic: Etomidate (14) Muscle Relaxant: Succinylcholine (100) Ancillary Medications Analgesics: Torodol - Pre ECT and Narcotics (oxycodone 10 pre 5 post) Airway Management Airway Management: Bag Mask Ventilation Treatment Recommendations Notes: Patient initially treated at 10% no seizure recent related at 30% and had seizure at 71 seconds Follow-up 3 weeks patient to call if relapse symptoms Pt Tolerated Procedure w/o Issue: Yes
== END 2023-01-25 09:50 | disposition home or self-care (01) ==
PROVIDERS: PCP Internal Medicine; Visit Provider Psychiatry & Neurology Psychiatry
PROC: (CPT 90870; principal; 2023-01-25 08:30)
DX: F31.9 Bipolar disorder, unspecified (principal); F31.30 Bipolar disorder, current episode depressed, mild or moderate severity, unspecified; J45.20 Mild intermittent asthma, uncomplicated; G93.2 Benign intracranial hypertension; Z79.899 Other long term (current) drug therapy; Z87.891 Personal history of nicotine dependence; Z20.822 Contact with and (suspected) exposure to COVID-19
CPT/HCPCS: 87635; 90870; J0330; J1885; J2405

== ENCOUNTER 2023-02-01 07:01 | Outpatient (REF) | payer OTHER, SELFPAY ==
[2023-02-01 07:29] LABS: MANUAL DIFF FLAG NO
[2023-02-01 08:00] LABS: Basophils Absolute Auto 0.1 X10*3/uL (0.0-0.2); Basophils Percent Auto 0.8 % (0-2); Eosinophils Absolute Auto 0.3 X10*3/uL (0.0-0.4); Eosinophils Percent Auto 3.4 % (0-4); Hematocrit 43.9 % (37.0-47.0); Hemoglobin 14.4 g/dl (12.0-16.0); Imm Gran Abs Auto 0.04 X10*3/uL (0.00-0.03); Imm Gran Pct Auto 0.5 % (0.0-0.4); Lymphocytes Absolute Auto 2.1 X10*3/uL (1.2-4.9); Lymphocytes Percent Auto 23.5 % (20-40); Mean Corpuscular HGB Conc 32.8 g/dl (31.0-35.0); Mean Corpuscular Hemoglobin 30.1 pg (27.0-33.0); Mean Corpuscular Volume 91.8 fL (80.0-98.0); Mean Platelet Volume 9.7 fL (9.4-12.3); Monocytes Absolute Auto 0.5 X10*3/uL (0.1-1.2); Monocytes Percent Auto 5.7 % (2-11); Neutrophils Absolute Auto 5.8 x10*3/uL (2.0-8.3); Neutrophils Percent Auto 66.1 % (45-73); Platelet Count 235 X10*3/uL (160-400); Red Blood Count 4.78 X10*6/uL (4.20-5.50); Red Cell Distribution Width 13.1 % (11.0-16.0); White Blood Count 8.8 X10*3/uL (4.8-10.8)
[2023-02-01 08:03] LABS: Appearance Urine Cloudy; Color Urine Yellow; Glucose Urine UA Negative (Negative); Leukocyte Esterase Urine Negative (Negative); Nitrite Urine Negative (Negative); PH 7.5 (5.0-9.0); Urine Blood Negative (Negative); Urine Ketones Negative (Negative); Urine Protein Negative (Neg-Trace)
[2023-02-01 08:33] LABS: Lithium 0.68 mmol/L (0.60-1.20)
[2023-02-01 08:40] LABS: Bacteria Urine 2+ (None Seen); Hyaline Casts Urine 0-2 /LPF (0-2); RBC Urine 0-2 /HPF (0-2); WBC Urine 0-5 /HPF (0-5)
[2023-02-01 08:46] LABS: Total Protein Urine Random < 7 mg/dL (<12)
[2023-02-01 08:57] LABS: Alanine Aminotransferase 17 U/L (0-31); Albumin Level 4.3 g/dL (3.5-5.0); Alkaline Phosphatase 56 U/L (39-117); Aspartate Amino Transferase 14 U/L (5-31); Bilirubin Total 0.4 mg/dL (0.0-1.0); Blood Urea Nitrogen 15 mg/dL (9-16); Carbon Dioxide 19 mmol/L (22-29); Chloride 116 mmol/L (96-108); Cholesterol 170 mg/dL; Estimated Glomerular Filt Rate 58; Glucose Fasting 90 mg/dL (60-99); HDL Cholesterol 53 mg/dL; LDL Cholesterol Calculated 96 mg/dl; Potassium 4.1 mmol/L (3.3-5.1); Sodium 141 mmol/L (135-145); Thyroid Stimulating Hormone 2.69 uIU/mL (0.32-4.0); Total Protein 6.5 g/dL (6.5-8.0); Triglycerides 107 mg/dL; Vitamin D 25-OH Total 19.9 ng/mL (>30)
[2023-02-01 09:00] LABS: Anion Gap 10 (12-20)
== END 2023-02-01 07:02 | disposition home or self-care (01) ==
LOC: HO.LAB 07:01
PROVIDERS: PCP Internal Medicine; Visit Provider Internal Medicine
DX: E78.5 Hyperlipidemia, unspecified (principal); E03.9 Hypothyroidism, unspecified; E55.9 Vitamin D deficiency, unspecified; Z79.899 Other long term (current) drug therapy
CPT/HCPCS: 36415; 80053; 80061; 80178; 81001; 82306; 84156; 84443; 85025

== ENCOUNTER 2023-02-11 20:00 | Inpatient (IN) | payer OTHER, SELFPAY ==
[2023-02-11 20:29] VITALS: BP 141/92; PULSE 92; RESP 15; TEMP 36.7; O2SAT 99; BMI 30.2
[2023-02-11 20:48] LABS: Appearance Urine Turbid; Color Urine Yellow; Glucose Urine UA Negative (Negative); Leukocyte Esterase Urine Trace (Negative); Nitrite Urine Negative (Negative); Specific Gravity - Urine 1.015 (1.005-1.025); UMIC TRIGGER UA YES; Urine Blood Negative (Negative); Urine Ketones Negative (Negative); Urine Protein Negative (Neg-Trace)
[2023-02-11 20:49] LABS: UPreg QC Valid YES; Urine Pregnancy NEGATIVE (NEGATIVE)
[2023-02-11 20:53] LABS: Bacteria Urine 1+ (None Seen); Hyaline Casts Urine 0-2 /LPF (0-2); RBC Urine 0-2 /HPF (0-2); WBC Urine 0-5 /HPF (0-5)
[2023-02-11 20:59] LABS: Amphetamine Screen Urine Not Detected (Not Detect); Barbiturates, Urine Not Detected (Not Detect); Benzodiazepines Screen Urine Not Detected (Not Detect); Cannabinoid Screen Urine Not Detected (Not Detect); Cocaine Screen Urine Not Detected (Not Detect); Fentanyl, urine Not Detected (Not Detect); Opiate Screen Urine Not Detected (Not Detect); Phencyclidine Screen Urine Not Detected (Not Detect)
[2023-02-11 21:01] LABS: COVID-19 Test Negative (Negative); IDNOW Serial# BCCEAD1C
[2023-02-11 21:12] LABS: MANUAL DIFF FLAG NO
[2023-02-11 21:13] LABS: Basophils Absolute Auto 0.1 X10*3/uL (0.0-0.2); Basophils Percent Auto 0.5 % (0-2); Eosinophils Absolute Auto 0.2 X10*3/uL (0.0-0.4); Eosinophils Percent Auto 2.1 % (0-4); Hematocrit 40.9 % (37.0-47.0); Imm Gran Abs Auto 0.01 X10*3/uL (0.00-0.03); Imm Gran Pct Auto 0.1 % (0.0-0.4); Lymphocytes Absolute Auto 2.4 X10*3/uL (1.2-4.9); Lymphocytes Percent Auto 23.7 % (20-40); Mean Corpuscular HGB Conc 34.2 g/dl (31.0-35.0); Mean Corpuscular Hemoglobin 30.4 pg (27.0-33.0); Mean Corpuscular Volume 88.9 fL (80.0-98.0); Mean Platelet Volume 9.4 fL (9.4-12.3); Monocytes Absolute Auto 0.7 X10*3/uL (0.1-1.2); Monocytes Percent Auto 6.9 % (2-11); Neutrophils Absolute Auto 6.8 x10*3/uL (2.0-8.3); Neutrophils Percent Auto 66.7 % (45-73); Platelet Count 248 X10*3/uL (160-400); Red Cell Distribution Width 12.9 % (11.0-16.0); White Blood Count 10.3 X10*3/uL (4.8-10.8)
[2023-02-11] MEDS: LORazepam 1 MG TABLET 2 MG PO (21:27)
--- NOTE | 2023-02-11 21:29 | ED.PSYCH ---
HPI - Psych General Chief Complaint: Psychiatric Symptoms Stated Complaint: SI Time Seen by Provider: 02/11/23 20:29 Source: patient Mode of arrival: ambulatory Limitations: no limitations History of Present Illness HPI Narrative: Patient comes emergency room complaining of suicidal ideation. Patient admits that she does not take her medication as prescribed. However, she is compliant with her ECT 3 times a week. Patient states that today prior to arrival to the ED, patient was contemplating committing suicide by overdosing by taking all of her medications. Patient states that she did not take any meds and came to the emergency room. Related Data Home Medications Medication Instructions Recorded Confirmed lithium carbonate 450 mg 900 mg PO BEDTIME 07/24/22 02/11/23 tablet,extended release multivitamin 1 tab PO DAILY 07/24/22 02/11/23 sumatriptan succinate 100 mg tablet 100 mg PO Q4H PRN Migraine Headache 07/24/22 02/11/23 acetazolamide 250 mg tablet 250 mg PO BID 02/11/23 02/11/23 cariprazine 1.5 mg capsule 1.5 mg PO DAILY 02/11/23 02/11/23 (Vraylar) lamotrigine 100 mg tablet 100 mg PO QAM 02/11/23 02/11/23 topiramate 100 mg tablet 100 mg PO BID 02/11/23 02/11/23 Previous Rx's Medication Instructions Recorded nicotine (polacrilex) 2 mg buccal 2 mg buccal BID PRN Nicotine 08/08/22 lozenge Cravings 30 days #72 ea quetiapine 400 mg tablet 400 mg PO BEDTIME 30 days #30 tabs 08/08/22 Allergies Allergy/AdvReac Type Severity Reaction Status Date / Time No Known Allergies Allergy Verified 01/04/23 06:31 [No Known Allergies*] Review of Systems Review of Systems: Constitutional : No Weight loss, No Fever, No Chills, No Night Sweats, No Fatigue, No Malaise ENT/Mouth : No Hearing loss, No Ear Pain, No Nasal Congestion, No Sinus Pain, No Hoarseness, No sore throat, No Rhinorrhea, No Swallowing Difficulty Eyes: No Eye Pain, No Swelling, No Redness, No Foreign Body, No Discharge, No Vision Changes Cardiovascular : No Chest Pain, No SOB, No Dyspnea on Exertion, No Orthopnea, No Edema, No Palpitations Respiratory : No Cough, No Sputum, No Wheezing, No Smoke Exposure, No Dyspnea Gastrointestinal : No Nausea, No Vomiting, No Diarrhea, No Constipation, No abdominal Pain, No Hematochezia, No Melena Genitourinary : no irregular bleeding, No Dysuria, No Urinary Frequency, No Hematuria, No Urinary Incontinence, No Urgency, No Flank Pain, No Urinary Flow Changes, No Hesitancy Musculoskeletal : No joint pain, No Myalgias, No Joint Swelling Skin : No Skin Lesions, No rash Neuro : No Weakness, No Numbness, No Paresthesias, No Loss of Consciousness, No Dizziness, No Headache Psych : No Anxiety/Panic, complaining of depression and suicidal ideation, no homicidal ideation Heme/Lymph: No Bruising, No Bleeding,No Lymphadenopathy Endocrine : No Polyuria, No Polydipsia, No Temperature Intolerance [facility] Past Medical History Medical History Bipolar 1 disorder Bipolar 1 disorder, depressed, severe Migraines Mild intermittent asthma Pseudotumor cerebri Family History Family History Brother Bipolar disorder Depression Paternal Grandfather Bipolar disorder Father Alcohol dependence Mother Breast cancer Social History Social History Household Members: None Housing: Apartment Do you presently have visiting nurse or other home services: No Alcohol intake: current Alcohol intake frequency: a few times a month Patient Tobacco Use Status: Former Tobacco user Tobacco use type: Cigarette e-Cigarette/Vaping Use: Currently Using Second Hand Smoke Exposure: No Substance Use Type: Marijuana Advance Directives: No Advance Directives Information Provided: Yes service: No Sexual orientation: Straight/Heterosexual Physical Exam Vital Signs: Vital Signs: Last Vital Signs Temp 98.1 F 02/11/23 20:29 Pulse 92 02/11/23 20:29 Resp 15 02/11/23 20:29 BP 141/92 H 02/11/23 20:29 Pulse Ox 99 02/11/23 20:29 O2 Del Method Room Air 02/11/23 20:29 BMI result Body Mass Index 30.2 Const: Other: Appearance: Alert. Oriented X3. No acute distress. Eyes: Pupils equal, round and reactive to light. ENT: Pharynx normal. Neck: Normal inspection. Neck supple. No lymph nodes noted. No crepitus CVS: Normal heart rate and rhythm. Pulses normal. Normal S1 and S2 Respiratory: No respiratory distress. Breath sounds normal. No Wheezing. No rales Abdomen: Soft and nontender. No rigidity. No distention. Skin: Skin warm and dry. Normal skin color. Normal skin turgor. Extremities: No lower extremity edema. No Lacerations. No Rash Neuro: Oriented X 3. No motor deficit. No sensory deficit. Moving all extremities. No slurred speech. CN 2 through 12 grossly intact Psych: calm, cooperative, seems depressed, teary Medications Administered Discontinued Medications Generic Name Dose Route Start Last Admin Trade Name Freq PRN Reason Stop Dose Admin Lorazepam 2 mg 02/11/23 21:21 02/11/23 21:27 Lorazepam 1 Mg Tablet PO 02/11/23 21:22 2 mg ONCE ONE Administration Medical Decision Making Medical Decision Making [facility] Narrative: -patient's labs are at baseline -care team consult pending -physician observation started at 21:30 Lab Data [facility] Lab Attestation statement: I reviewed the patient's lab results. 02/11/23 21:07 02/11/23 21:07 Labs: Lab Results 02/11/23 02/11/23 02/11/23 Range/Units 20:38 20:38 20:38 WBC (4.8-10.8) X10*3/uL RBC (4.20-5.50) X10*6/uL Hgb (12.0-16.0) g/dl Hct (37.0-47.0) % MCV (80.0-98.0) fL MCH (27.0-33.0) pg MCHC (31.0-35.0) g/dl RDW (11.0-16.0) % Plt Count (160-400) X10*3/uL MPV (9.4-12.3) fL Immature Gran % (Auto) (0.0-0.4) % Neut % (Auto) (45-73) % Lymph % (Auto) (20-40) % [place] % (Auto) (2-11) % Eos % (Auto) (0-4) % Baso % (Auto) (0-2) % Lymph # (Auto) (1.2-4.9) X10*3/uL [place] # (Auto) (0.1-1.2) X10*3/uL Eos # (Auto) (0.0-0.4) X10*3/uL Baso # (Auto) (0.0-0.2) X10*3/uL Abs Immat Gran (auto) (0.00-0.03) X10*3/uL Absolute Neuts (auto) (2.0-8.3) x10*3/uL Absolute Nucleated RBC (0.0-0.012) X10*3/uL Nucleated RBC % (auto) (0.0-0.2) /100WBC Sodium (135-145) mmol/L Potassium (3.3-5.1) mmol/L Chloride (96-108) mmol/L Carbon Dioxide (22-29) mmol/L Anion Gap (12-20) BUN (9-16) mg/dL Creatinine (0.5-1.4) mg/dL Estim Creat Clear Calc Estimated GFR Random Glucose (60-115) mg/dL Calcium (8.4-10.2) mg/dL Total Bilirubin (0.0-1.0) mg/dL AST (5-31) U/L ALT (0-31) U/L Alkaline Phosphatase (39-117) U/L Total Protein (6.5-8.0) g/dL Albumin (3.5-5.0) g/dL Urine Color Yellow Urine Appearance Turbid Urine pH 7.0 (5.0-9.0) Ur Specific [place] 1.015 (1.005-1.025) Urine Protein Negative (Neg-Trace) mg/dL Urine Glucose (UA) Negative (Negative) mg/dL Urine Ketones Negative (Negative) mg/dL Urine Blood Negative (Negative) Urine Nitrite Negative (Negative) Ur Leukocyte Esterase Trace H (Negative) Urine RBC 0-2 (0-2) /HPF Urine WBC 0-5 (0-5) /HPF Ur Squamous Epith Cells 6-10 (0-2) /HPF Urine Bacteria 1+ (None Seen) Hyaline Casts 0-2 (0-2) /LPF Urine Test (NEGATIVE) Urine Opiates Screen Not Detected (Not Detect) Urine Fentanyl Screen Not Detected (Not Detect) Ur Barbiturates Screen Not Detected (Not Detect) Ur Phencyclidine Scrn Not Detected (Not Detect) Ur Amphetamines Screen Not Detected (Not Detect) U Benzodiazepines Scrn Not Detected (Not Detect) [place] (0.60-1.20) mmol/L Urine Cocaine Screen Not Detected (Not Detect) U Marijuana (THC) Screen Not Detected (Not Detect) Ethyl Alcohol mg/dL COVID-19 (MIGUEL) Negative (Negative) COVID-19 Clin Com See Note 02/11/23 02/11/23 02/11/23 Range/Units 20:38 21:06 21:07 WBC (4.8-10.8) X10*3/uL RBC (4.20-5.50) X10*6/uL Hgb (12.0-16.0) g/dl Hct (37.0-47.0) % MCV (80.0-98.0) fL MCH (27.0-33.0) pg MCHC (31.0-35.0) g/dl RDW (11.0-16.0) % Plt Count (160-400) X10*3/uL MPV (9.4-12.3) fL Immature Gran % (Auto) (0.0-0.4) % Neut % (Auto) (45-73) % Lymph % (Auto) (20-40) % [place] % (Auto) (2-11) % Eos % (Auto) (0-4) % Baso % (Auto) (0-2) % Lymph # (Auto) (1.2-4.9) X10*3/uL [place] # (Auto) (0.1-1.2) X10*3/uL Eos # (Auto) (0.0-0.4) X10*3/uL Baso # (Auto) (0.0-0.2) X10*3/uL Abs Immat Gran (auto) (0.00-0.03) X10*3/uL Absolute Neuts (auto) (2.0-8.3) x10*3/uL Absolute Nucleated RBC (0.0-0.012) X10*3/uL Nucleated RBC % (auto) (0.0-0.2) /100WBC Sodium 140 (135-145) mmol/L Potassium 3.7 (3.3-5.1) mmol/L Chloride 113 H (96-108) mmol/L Carbon Dioxide 18 L (22-29) mmol/L Anion Gap 13 (12-20) BUN 12 (9-16) mg/dL Creatinine 0.84 (0.5-1.4) mg/dL Estim Creat Clear Calc 91.0 Estimated GFR > 60 Random Glucose 104 (60-115) mg/dL Calcium 8.9 (8.4-10.2) mg/dL Total Bilirubin 0.5 (0.0-1.0) mg/dL AST 13 (5-31) U/L ALT 10 (0-31) U/L Alkaline Phosphatase 53 (39-117) U/L Total Protein 6.4 L (6.5-8.0) g/dL Albumin 4.2 (3.5-5.0) g/dL Urine Color Urine Appearance Urine pH (5.0-9.0) Ur Specific [place] (1.005-1.025) Urine Protein (Neg-Trace) mg/dL Urine Glucose (UA) (Negative) mg/dL Urine Ketones (Negative) mg/dL Urine Blood (Negative) Urine Nitrite (Negative) Ur Leukocyte Esterase (Negative) Urine RBC (0-2) /HPF Urine WBC (0-5) /HPF Ur Squamous Epith Cells (0-2) /HPF Urine Bacteria (None Seen) Hyaline Casts (0-2) /LPF Urine Test NEGATIVE (NEGATIVE) Urine Opiates Screen (Not Detect) Urine Fentanyl Screen (Not Detect) Ur Barbiturates Screen (Not Detect) Ur Phencyclidine Scrn (Not Detect) Ur Amphetamines Screen (Not Detect) U Benzodiazepines Scrn (Not Detect) [place] 0.30 L (0.60-1.20) mmol/L Urine Cocaine Screen (Not Detect) U Marijuana (THC) Screen (Not Detect) Ethyl Alcohol < 10 mg/dL COVID-19 (MIGUEL) (Negative) COVID-19 Clin Com 02/11/23 Range/Units 21:07 WBC 10.3 (4.8-10.8) X10*3/uL RBC 4.60 (4.20-5.50) X10*6/uL Hgb 14.0 (12.0-16.0) g/dl Hct 40.9 (37.0-47.0) % MCV 88.9 (80.0-98.0) fL MCH 30.4 (27.0-33.0) pg MCHC 34.2 (31.0-35.0) g/dl RDW 12.9 (11.0-16.0) % Plt Count 248 (160-400) X10*3/uL MPV 9.4 (9.4-12.3) fL Immature Gran % (Auto) 0.1 (0.0-0.4) % Neut % (Auto) 66.7 (45-73) % Lymph % (Auto) 23.7 (20-40) % [place] % (Auto) 6.9 (2-11) % Eos % (Auto) 2.1 (0-4) % Baso % (Auto) 0.5 (0-2) % Lymph # (Auto) 2.4 (1.2-4.9) X10*3/uL [place] # (Auto) 0.7 (0.1-1.2) X10*3/uL Eos # (Auto) 0.2 (0.0-0.4) X10*3/uL Baso # (Auto) 0.1 (0.0-0.2) X10*3/uL Abs Immat Gran (auto) 0.01 (0.00-0.03) X10*3/uL Absolute Neuts (auto) 6.8 (2.0-8.3) x10*3/uL Absolute Nucleated RBC 0.000 (0.0-0.012) X10*3/uL Nucleated RBC % (auto) 0.0 (0.0-0.2) /100WBC Sodium (135-145) mmol/L Potassium (3.3-5.1) mmol/L Chloride (96-108) mmol/L Carbon Dioxide (22-29) mmol/L Anion Gap (12-20) BUN (9-16) mg/dL Creatinine (0.5-1.4) mg/dL Estim Creat Clear Calc Estimated GFR Random Glucose (60-115) mg/dL Calcium (8.4-10.2) mg/dL Total Bilirubin (0.0-1.0) mg/dL AST (5-31) U/L ALT (0-31) U/L Alkaline Phosphatase (39-117) U/L Total Protein (6.5-8.0) g/dL Albumin (3.5-5.0) g/dL Urine Color Urine Appearance Urine pH (5.0-9.0) Ur Specific [place] (1.005-1.025) Urine Protein (Neg-Trace) mg/dL Urine Glucose (UA) (Negative) mg/dL Urine Ketones (Negative) mg/dL Urine Blood (Negative) Urine Nitrite (Negative) Ur Leukocyte Esterase (Negative) Urine RBC (0-2) /HPF Urine WBC (0-5) /HPF Ur Squamous Epith Cells (0-2) /HPF Urine Bacteria (None Seen) Hyaline Casts (0-2) /LPF Urine Test (NEGATIVE) Urine Opiates Screen (Not Detect) Urine Fentanyl Screen (Not Detect) Ur Barbiturates Screen (Not Detect) Ur Phencyclidine Scrn (Not Detect) Ur Amphetamines Screen (Not Detect) U Benzodiazepines Scrn (Not Detect) [place] (0.60-1.20) mmol/L Urine Cocaine Screen (Not Detect) U Marijuana (THC) Screen (Not Detect) Ethyl Alcohol mg/dL COVID-19 (MIGUEL) (Negative) COVID-19 Clin Com Discharge Plan Discharge Clinical Impression: Suicidal ideation, Depression Patient Disposition: Still a Patient Prescriptions: No Action sumatriptan succinate 100 mg Tablet 100 mg PO Q4H PRN (Reason: Migraine Headache) Rx Instructions: do not exceed 2 doses per 24 hrs lithium carbonate 450 mg Tablet Extended Release 900 mg PO BEDTIME Rx Instructions: Take 2 tablets at bedtime multivitamin Tablet 1 tab PO DAILY nicotine (polacrilex) 2 mg Lozenge 2 mg buccal BID PRN (Reason: Nicotine Cravings) 30 Days Qty: 72 0RF quetiapine 400 mg Tablet 400 mg PO BEDTIME 30 Days Qty: 30 0RF acetazolamide 250 mg tablet 250 mg PO BID Vraylar 1.5 mg capsule 1.5 mg PO DAILY topiramate 100 mg tablet 100 mg PO BID lamotrigine 100 mg tablet 100 mg PO QAM
[2023-02-11 21:31] LABS: Alanine Aminotransferase 10 U/L (0-31); Albumin Level 4.2 g/dL (3.5-5.0); Alkaline Phosphatase 53 U/L (39-117); Anion Gap 13 (12-20); Aspartate Amino Transferase 13 U/L (5-31); Bilirubin Total 0.5 mg/dL (0.0-1.0); Blood Urea Nitrogen 12 mg/dL (9-16); Calcium 8.9 mg/dL (8.4-10.2); Carbon Dioxide 18 mmol/L (22-29); Chloride 113 mmol/L (96-108); Estimated Glomerular Filt Rate > 60; Ethanol < 10 mg/dL; Glucose Random 104 mg/dL (60-115); Potassium 3.7 mmol/L (3.3-5.1); Sodium 140 mmol/L (135-145); Total Protein 6.4 g/dL (6.5-8.0)
--- NOTE | 2023-02-12 02:29 | PC.NURSE ---
Patient currently in bed appears sleeping, respiration +/=/non-labored bilaterally, no distress observed/reported, at the time of arrival patient was tearful and depressed, Ativan 2 mg PO administered as ordered @ 2126 with + effect, med rec completed, pending provider's approval, care consult ordered/pending evaluation in the morning, behavior non concerning, no safety concerns at this time, labs completed/resulted, VSS, will continue to monitor.
[2023-02-12 06:20] VITALS: BP 114/80; PULSE 82; RESP 16; TEMP 36.4; O2SAT 99
[2023-02-12] MEDS: LORazepam 1 MG TABLET PO ×2 (07:24→21:22)
--- NOTE | 2023-02-12 07:30 | PC.NURSE ---
Pt grieving loss of Mother on this 1 year anniversary of her . Admits thoughts of SI. Pt has attempt in the past. Pt is tearful. Medicated as ordered. Warm blanket and reassurance given.
[2023-02-12 14:00] VITALS: BP 149/79; PULSE 94; RESP 16; TEMP 36.1; O2SAT 96
--- NOTE | 2023-02-12 16:04 | MHC.CARE ---
Addendum entered by Ana Hollins [facility] 02/12/23 16:05: Note written in error Original Note: Pt seen by CARE team for consult and referred to hospital case management.
[2023-02-12 17:00] VITALS: BP 124/74; PULSE 79; RESP 16; TEMP 36.8; O2SAT 99
[2023-02-12] MEDS: hydrOXYzine HCL 25 MG TABLET PO (18:45)
--- NOTE | 2023-02-12 18:48 | PC.ADMIT ---
Jodi Navarrete was admitted to M3 at 1647 from [facility] [place] [place] [facility] on CV for treatment of Bipolar II Disorder. 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 She is alert and oriented x4. She was cooperative with admission process. She reports depressed mood and was tearful during interview. She denies auditory and visual hallucinations. Thought process is organized and focus is fair. She endorses current intrusive thoughts of suicide but reports she can seek out staff if feeling unsafe and states I don't have access to what would be my plan while I'm in the hospital anyway . She reports appetite and sleep are poor. She reports occasional ETOH use 2-3x a month and once a week use of marijuana. Utox was negative and BAL was <10. She reports intermittent nausea that she believes is related to anxiety. Patient is placed on 15 minute checks for safety.
[2023-02-12 21:45] VITALS: BP 123/75; PULSE 74; TEMP 36.9; O2SAT 99
[2023-02-12] MEDS: Topiramate 100 MG TABLET PO (21:54)
[2023-02-12] MEDS: QUEtiapine Fumarate 400 MG TABLET PO (21:54)
[2023-02-12] MEDS: Lithium Carbonate ER 450 MG TABLET.ER 900 MG PO (21:55)
--- NOTE | 2023-02-12 22:47 | HO.PM.IMCN ---
History of Present Illness Data of Consult Service Date: 02/12/23 Primary Care Provider: Julieth Ulloa MD [facility] Reason for consult: ECT Clearance Patient is a 32-year-old female with a PMH significant for severe bipolar depression was admitted to M3 psychiatry unit for ECT therapy d/t suicidal ideation with a plan to OD. Medical consult for ECT clearance Pt reports she has undergone ECT in the past within the last years and feels this was helpful, denies adverse response. Pt denies a PMH of cerebral hemorrhage or stroke, CAD, space-occupying intracranial lesion, bleeding or otherwise unstable vascular aneurysm, seizure, TBI, and severe pulmonary condition. Pt denies any past problems with anesthesia. EKG negative for acute ischemia and prolonged QTc. Pt has no acute medical complaints at this time. She denies chest pain/pressure, SOB, dizziness or lightheadedness. No abdominal pain, hematachezia, melena. There are no obvious contraindications to the planned procedure. Review of Systems Review of Systems: Patient has no acute medical complaints at this time Yes all other systems are reviewed and are negative [facility] Medical History Bipolar 1 disorder Bipolar 1 disorder, depressed, severe Migraines Mild intermittent asthma Pseudotumor cerebri Family History Brother Bipolar disorder Depression Paternal Grandfather Bipolar disorder Father Alcohol dependence Mother Breast cancer Social History Household Members: None Housing: Apartment Housing Other:: patient states she stays with boyfriend 50% of the time Do you presently have visiting nurse or other home services: No Alcohol intake: current Alcohol intake frequency: a few times a month Alcohol type: wine Patient Tobacco Use Status: Former Tobacco user Tobacco use type: Cigarette Smoked in Last 30 Days: Yes e-Cigarette/Vaping Use: Currently Using Frequency of e-Cigarette/Vaping Use: daily Patient Interested in Nicotine Replacement: Yes Patient Given Instructions on How to Stop Smoking: Yes Date Education Initiated: 02/12/23 Second Hand Smoke Exposure: Yes Use of substances other than those prescribed or required for medical reasons: Yes Substance Use Type: Marijuana Substance Use Frequency: Weekly Last Used Substance: Unknown Currently Displaying Signs/Symptoms of Drug Intoxication Withdrawal: No Any prior treatment program specific to substance use: No Have you been hit, kicked, punched, or otherwise hurt by someone within the past year? If so, by whom?: No Do you feel safe in your current relationship?: Yes Is there a partner from a previous relationship who is making you feel unsafe now?: No Are you made to feel afraid or neglected: No Spiritual Healthcare Practices: none Congregational Healthcare Practices: none Cultural Healthcare Practices: none Advance Directives: No Advance Directives Information Provided: Yes Healthcare Proxy: No Guardian: No Do you have thoughts of harming others: None Do you have a plan to hurt others: No Plan Recently lost weight without trying: Yes How much weight loss: 2-13 pounds Eating poorly because of decreased appetite: No Nutrition screen score: 3 Nutrition Risks: No Nutritional Risk Patient : No : No Poor oral hygiene: No service: No Sexual orientation: Straight/Heterosexual Meds Allergies Allergy/AdvReac Type Severity Reaction Status Date / Time No Known Allergies Allergy Verified 01/04/23 06:31 [No Known Allergies*] Active Medications: Current Medications Acetaminophen (Acetaminophen 325 Mg Tablet) 650 mg PO Q6H PRN PRN Reason: Headache/Pain Mild Scale (1-3) Acetazolamide (Acetazolamide 250 Mg Tablet) 250 mg PO BIDWM KACI Al Hydroxide/Mg Hydroxide (Magnesium Hydrox/Alum Hydrox 30 Ml Oral.Susp) 30 ml PO Q6H PRN PRN Reason: Heartburn/Nausea Cariprazine (Cariprazine Hcl 1.5 Mg Capsule) 1.5 mg PO DAILY [facility] Hydroxyzine HCl (Hydroxyzine Hcl 25 Mg Tablet) 25 mg PO Q6H PRN PRN Reason: Anxiety Last Admin: 02/12/23 18:45 Dose: 25 mg Lamotrigine (Lamotrigine 100 Mg Tablet) 100 mg PO DAILY [facility] Ch[place] Carbonate ([place] Carbonate Er 450 Mg Tablet.Er) 900 mg PO BEDTIME KACI Last Admin: 02/12/23 21:55 Dose: 900 mg Magnesium Hydroxide (Milk Of Magnesia 30 Ml Oral.Susp) 30 ml PO DAILY PRN PRN Reason: Constipation Multivitamins/Vitamin C (Multivitamin Tablet) 1 tab PO DAILY [facility] Nicotine Polacrilex (Nicotine Polacrilex Lozenge 2 Mg Lozenge) 2 mg BUCCAL BID PRN PRN Reason: Nicotine Cravings Quetiapine Fumarate (Quetiapine Fumarate 400 Mg Tablet) 400 mg PO BEDTIME [facility] Last Admin: 02/12/23 21:54 Dose: 400 mg Sumatriptan Succinate (Sumatriptan Succinate 100 Mg Tablet) 100 mg PO Q4H PRN PRN Reason: Migraine Headache Topiramate (Topiramate 100 Mg Tablet) 100 mg PO BID [facility] Last Admin: 02/12/23 21:54 Dose: 100 mg Trazodone HCl (Trazodone Hcl 50 Mg Tablet) 50 mg PO BEDTIME MRX1 PRN PRN Reason: Insomnia Home Medications Medication Instructions Recorded Confirmed Last Taken Type lithium carbonate 450 mg 900 mg PO BEDTIME 07/24/22 02/11/23 Unknown History tablet,extended release multivitamin 1 tab PO DAILY 07/24/22 02/11/23 Unknown History sumatriptan succinate 100 mg tablet 100 mg PO Q4H PRN Migraine Headache 07/24/22 02/11/23 Unknown History acetazolamide 250 mg tablet 250 mg PO BID 02/11/23 02/11/23 Unknown History cariprazine 1.5 mg capsule 1.5 mg PO DAILY 02/11/23 02/11/23 Unknown History (Abelino) lamotrigine 100 mg tablet 100 mg PO QAM 02/11/23 02/11/23 Unknown History topiramate 100 mg tablet 100 mg PO BID 02/11/23 02/11/23 Unknown History Physical Exam Vital Signs and Narrative: Vital Signs: Last Vital Signs Temp 98.5 F 02/12/23 21:45 Pulse 74 02/12/23 21:45 Resp 16 02/12/23 17:00 BP 123/75 02/12/23 21:45 Pulse Ox 99 02/12/23 21:45 O2 Del Method Room Air 02/12/23 21:45 BMI result Body Mass Index 30.2 Constitutional: Alert, in no acute distress. Mental Status: Oriented to person, place and time. Eyes: Pupils are equal, round, and reactive to light. Ear, Nose, and Throat: Oropharynx clear, mucous membranes moist. Ears and nose without deformities. Trachea midline. Respiratory: Clear to auscultation bilaterally. No wheezing, rales, or rhonchi. Cardiovascular: S1, S2 regular. No murmurs, rubs, or gallops. Gastrointestinal: Abdomen soft, non-tender, non-distended. Normal bowel sounds. Neurologic: Cranial nerves II-XII are grossly intact bilaterally. No focal neurological deficits. Moves all extremities spontaneously. Skin: No rashes or lesions noted. Musculoskeletal: No cyanosis or clubbing. Extremities: No edema. Psychiatric: Normal mood and affect. Results Labs 02/11/23 21:07 02/11/23 21:07 Assessment and Plan (1) Pre-op evaluation: Status: Acute Plan Patient is a 32-year-old female with a PMH significant for severe bipolar depression was admitted to M3 psychiatry unit for ECT therapy d/t suicidal ideation with a plan to OD. Medical consult for ECT clearance Pt reports she has undergone ECT in the past within the last years and feels this was helpful, denies adverse response. Pt denies a PMH of cerebral hemorrhage or stroke, CAD, space-occupying intracranial lesion, bleeding or otherwise unstable vascular aneurysm, seizure, TBI, and severe pulmonary condition. Pt denies any past problems with anesthesia. EKG negative for acute ischemia and prolonged QTc. Pt has no acute medical complaints at this time. ECT therapy Patient with positive response to ECT therapy in the past [place] for possible ECT tomorrow Plan as per Psychiatry At this time there are no obvious medical contraindications to the planned procedure Thank you for allowing us to participate in the care of this patient. Signing off at this time. Please let us know if there are any acute complaints or questions. Time Spent With Patient Time: Total time managing care of this patient today ____ minutes.
--- NOTE | 2023-02-12 22:58 | PC.NURSE ---
ECT-ekg done. seen by hospitalist. will prepare patient for potential ECT treatment for tomorrow. has maintenance ECT scheduled for Saturday. is aware to maintain NPO status. has clean johnnies/socks at bedside.
[2023-02-13] VITALS (11 sets, daily range): BP systolic 98–129; BP diastolic 51–78; PULSE 74–95; RESP 16–18; TEMP 36.3–36.8; O2SAT 96–100
--- NOTE | 2023-02-13 08:00 | ECG_ITS ---
Test Reason : doctors order Blood Pressure : / mmHG Vent. Rate : 066 BPM Atrial Rate : 066 BPM P-R Int : 150 ms QRS Dur : 104 ms QT Int : 394 ms P-R-T Axes : 060 047 029 degrees QTc Int : 413 ms Normal sinus rhythm Normal ECG When compared with ECG of 31-AUG-2022 10:12, QT has shortened Referred By: Laci Brady Electronically Signed By:SANDEEP GALINDO MD
[2023-02-13 09:15] LABS: Alanine Aminotransferase 10 U/L (0-31); Albumin Level 4.1 g/dL (3.5-5.0); Alkaline Phosphatase 52 U/L (39-117); Anion Gap 9 (12-20); Aspartate Amino Transferase 13 U/L (5-31); Bilirubin Total 0.9 mg/dL (0.0-1.0); Blood Urea Nitrogen 9 mg/dL (9-16); Calcium 9.3 mg/dL (8.4-10.2); Carbon Dioxide 21 mmol/L (22-29); Chloride 112 mmol/L (96-108); Cholesterol 177 mg/dL; Estimated Glomerular Filt Rate > 60; Glucose Fasting 89 mg/dL (60-99); HDL Cholesterol 51 mg/dL; LDL Cholesterol Calculated 113 mg/dl; Potassium 4.1 mmol/L (3.3-5.1); Sodium 138 mmol/L (135-145); Total Protein 6.4 g/dL (6.5-8.0); Triglycerides 69 mg/dL
[2023-02-13 09:23] LABS: Estimated Average Glucose 82 mg/dL; Hemoglobin A1c % 4.5 %
--- NOTE | 2023-02-13 09:39 | P.HPPS_ITS ---
[facility] Date of Service: 02/13/23 Chief Complaint: SI bipolar depression Sources of Information: patient interviewed, chart reviewed and crisis/core team assessment reviewed Additional Sources of Information: The patient was seen in evaluation 09:00 this morning February 13 [facility] Subjective Notes: Summers Warning and Conditional Voluntary Narrative: This is 1 and a few psychiatric hospitalizations for this 32-year-old female with a history of fairly unstable bipolar [address] Francisca chicas for medication management and has been getting maintenance ECT treatment by this rfp writer. The patient has felt increasingly depressed restless agitated hopeless helpless despondent and having thoughts that she would be better off . She had. Of in elevated mood state recently had spent 2000 dollars on things that she does not need and then had crashed in to anxiety racing thoughts irritab ility intense despair hopelessness also significant restlessness. She had stopped taking her Seroquel which was prescribed 300 mg at a regular basis. Should be noted that it is the anniversary of her mother's about 1 year ago and she had for she stated in different events regarding this. ECT at this point has been on an every 3 week basis she had been having intense thoughts to overdose on her medications. he patient has been prescribed lithium Topamax Vraylar 1.5 mg higher doses were agitating Seroquel 300 mg which she has not been taking Diamox and Topamax. 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 cherie metzger for therapy. intermittently in therapy and meds since 20 yo. h/o at least 7 psych hosps. MRE 11/04 at [facility] after SA via overdose. h/o 4 SAs, all via overdose (ages 16, 20, 26, 31) [place] [facility] [place] Evaluation Reviewed: Yes [facility] Medical History (Updated 02/13/23 @ 17:15 by Laci Brady MD) Bipolar 1 disorder Bipolar 1 disorder, depressed, severe Migraines Mild intermittent asthma Pseudotumor cerebri Family History: father - alcohol mother - depression bro - bipolar paternal grandfather - bipolar Social History: in partnership past 3 years. from [place], [place] in intact family. one younger brother and two older half-sisters from her mother's prior partnership. mother 02/02. father in recivery from alcohol addiction. Diagnostics Vital Signs (24Hr): Vital Signs - 24 hr 02/12/23 14:00 02/12/23 17:00 02/12/23 21:45 Temperature 96.9 F 98.2 F 98.5 F Pulse Rate 94 79 74 Respiratory Rate 16 16 Blood Pressure 149/79 H 124/74 123/75 Pulse Oximetry 96 99 99 Oxygen Delivery Method Room Air Room Air Room Air 02/13/23 09:28 Temperature 97.4 F Pulse Rate 95 Respiratory Rate 16 Blood Pressure 116/76 Pulse Oximetry 100 Oxygen Delivery Method Room Air BMI result Body Mass Index 30.2 Labs 02/11/23 21:07 02/13/23 08:32 Labs: Laboratory Results - last 48 hr 02/11/23 02/11/23 02/11/23 20:38 20:38 20:38 WBC RBC Hgb Hct MCV MCH MCHC RDW Plt Count MPV Immature Gran % (Auto) Neut % (Auto) Lymph % (Auto) [place] % (Auto) Eos % (Auto) Baso % (Auto) Lymph # (Auto) [place] # (Auto) Eos # (Auto) Baso # (Auto) Abs Immat Gran (auto) Absolute Neuts (auto) Absolute Nucleated RBC Nucleated RBC % (auto) Sodium Potassium Chloride Carbon Dioxide Anion Gap BUN Creatinine Estim Creat Clear Calc Estimated GFR Random Glucose Fasting Glucose Estimat Average Glucose Hemoglobin A1c % Calcium Total Bilirubin AST ALT Alkaline Phosphatase Total Protein Albumin Triglycerides Cholesterol LDL Cholesterol, Calc HDL Cholesterol Urine Color Yellow Urine Appearance Turbid Urine pH 7.0 Ur Specific [place] 1.015 Urine Protein Negative Urine Glucose (UA) Negative Urine Ketones Negative Urine Blood Negative Urine Nitrite Negative Ur Leukocyte Esterase Trace H Urine RBC 0-2 Urine WBC 0-5 Ur Squamous Epith Cells 6-10 Urine Bacteria 1+ Hyaline Casts 0-2 Urine Test Urine Opiates Screen Not Detected Urine Fentanyl Screen Not Detected Ur Barbiturates Screen Not Detected Ur Phencyclidine Scrn Not Detected Ur Amphetamines Screen Not Detected U Benzodiazepines Scrn Not Detected [place] Urine Cocaine Screen Not Detected U Marijuana (THC) Screen Not Detected Ethyl Alcohol COVID-19 (MIGUEL) Negative COVID-19 Clin Com See Note 02/11/23 02/11/23 02/11/23 20:38 21:06 21:07 WBC RBC Hgb Hct MCV MCH MCHC RDW Plt Count MPV Immature Gran % (Auto) Neut % (Auto) Lymph % (Auto) [place] % (Auto) Eos % (Auto) Baso % (Auto) Lymph # (Auto) [place] # (Auto) Eos # (Auto) Baso # (Auto) Abs Immat Gran (auto) Absolute Neuts (auto) Absolute Nucleated RBC Nucleated RBC % (auto) Sodium 140 Potassium 3.7 Chloride 113 H Carbon Dioxide 18 L Anion Gap 13 BUN 12 Creatinine 0.84 Estim Creat Clear Calc 91.0 Estimated GFR > 60 Random Glucose 104 Fasting Glucose Estimat Average Glucose Hemoglobin A1c % Calcium 8.9 Total Bilirubin 0.5 AST 13 ALT 10 Alkaline Phosphatase 53 Total Protein 6.4 L Albumin 4.2 Triglycerides Cholesterol LDL Cholesterol, Calc HDL Cholesterol Urine Color Urine Appearance Urine pH Ur Specific [place] Urine Protein Urine Glucose (UA) Urine Ketones Urine Blood Urine Nitrite Ur Leukocyte Esterase Urine RBC Urine WBC Ur Squamous Epith Cells Urine Bacteria Hyaline Casts Urine Test NEGATIVE Urine Opiates Screen Urine Fentanyl Screen Ur Barbiturates Screen Ur Phencyclidine Scrn Ur Amphetamines Screen U Benzodiazepines Scrn [place] 0.30 L Urine Cocaine Screen U Marijuana (THC) Screen Ethyl Alcohol < 10 COVID-19 (MIGUEL) COVID-19 Clin Com 02/11/23 02/13/23 02/13/23 21:07 08:32 08:32 WBC 10.3 RBC 4.60 Hgb 14.0 Hct 40.9 MCV 88.9 MCH 30.4 MCHC 34.2 RDW 12.9 Plt Count 248 MPV 9.4 Immature Gran % (Auto) 0.1 Neut % (Auto) 66.7 Lymph % (Auto) 23.7 [place] % (Auto) 6.9 Eos % (Auto) 2.1 Baso % (Auto) 0.5 Lymph # (Auto) 2.4 [place] # (Auto) 0.7 Eos # (Auto) 0.2 Baso # (Auto) 0.1 Abs Immat Gran (auto) 0.01 Absolute Neuts (auto) 6.8 Absolute Nucleated RBC 0.000 Nucleated RBC % (auto) 0.0 Sodium 138 Potassium 4.1 Chloride 112 H Carbon Dioxide 21 L Anion Gap 9 L BUN 9 Creatinine 0.84 Estim Creat Clear Calc 91.0 Estimated GFR > 60 Random Glucose Fasting Glucose 89 Estimat Average Glucose 82 Hemoglobin A1c % 4.5 Calcium 9.3 Total Bilirubin 0.9 AST 13 ALT 10 Alkaline Phosphatase 52 Total Protein 6.4 L Albumin 4.1 Triglycerides 69 Cholesterol 177 LDL Cholesterol, Calc 113 HDL Cholesterol 51 Urine Color Urine Appearance Urine pH Ur Specific [place] Urine Protein Urine Glucose (UA) Urine Ketones Urine Blood Urine Nitrite Ur Leukocyte Esterase Urine RBC Urine WBC Ur Squamous Epith Cells Urine Bacteria Hyaline Casts Urine Test Urine Opiates Screen Urine Fentanyl Screen Ur Barbiturates Screen Ur Phencyclidine Scrn Ur Amphetamines Screen U Benzodiazepines Scrn [place] Urine Cocaine Screen U Marijuana (THC) Screen Ethyl Alcohol COVID-19 (MIGUEL) COVID-19 Clin Com Meds/Allergies Meds Home Medications Medication Instructions Recorded Confirmed Type lithium carbonate 450 mg 900 mg PO BEDTIME 07/24/22 02/11/23 History tablet,extended release multivitamin 1 tab PO DAILY 07/24/22 02/11/23 History sumatriptan succinate 100 mg tablet 100 mg PO Q4H PRN Migraine Headache 07/24/22 02/11/23 History acetazolamide 250 mg tablet 250 mg PO BID 02/11/23 02/11/23 History cariprazine 1.5 mg capsule 1.5 mg PO DAILY 02/11/23 02/11/23 History (Vraylar) lamotrigine 100 mg tablet 100 mg PO QAM 02/11/23 02/11/23 History topiramate 100 mg tablet 100 mg PO BID 02/11/23 02/11/23 History Allergies Allergies Allergy/AdvReac Type Severity Reaction Status Date / Time No Known Allergies Allergy Verified 01/04/23 06:31 [No Known Allergies*] Mental Status Exam Mental Status Exam Patient Appearance: Disheveled Patient Orientation: Person, Place, Time and Situation Level of Consciousness: Awake and Appropriate Patient Behavior: Crying Mood Description: Depressed, Anxious, Labile and Blunted Affect Description: Constricted, Depressed, Anxious and Labile Patient Cognition Impaired: No Ability to Follow Directions: Good Speech Pattern: Clear Memory Description: Intact Delusions: Not Present Thought Process: Rumination and Goal Oriented Thought Content: positive for Goal Oriented, positive for Preoccupation, positive for Suicidal Ideation (Thought she would be better off unsafe effect of the hospital) and negative for Homicidal Ideation Depressive Symptoms: Increased Anxiety, Increased Irritability, Crying Spells, Hopelessness, Feelings of Guilt, Increased Fatigue, Thoughts of /Suicide, Loss of Energy and Difficulty Concentrating Abnormal Motor Activity Signs and Symptoms: Psychomotor Retardation Judgement: Fair Judgement and Insight: Patient states she can maintain safety in the hospital had been worried about relapse given anniversary of her mother's from cancer which has been quite triggering for her Assessment & Plan Assessment & Plan (1) Pseudotumor cerebri: Status: Acute Code(s): G93.2 - Benign intracranial hypertension (2) Bipolar 1 disorder, depressed, severe: Status: Acute Code(s): F31.4 - Bipolar disorder, current episode depressed, severe, without psychotic features Plan Patient is suffering from grief and not been stable on her current medication regimen although own need to clarify whether not patient has been taking medication as prescribed. It is clear that she had only intermittently been taking Seroquel lithium level was 0.3. Patient appears to be having rapid c ycling she does feel perhaps Vraylar is connect to akathisia ECT can scheduled for later today strongly always been helpful in stabilizing patient's mood The patient has had trials Abilify low-dose Trileptal unclear if has been on Tegretol Depakote will coordinate care with outpatient provider Dr. Francisca chicas Will try for short ECT course if possible and clarify whether not the patient has been taking other medications regularly including lithium Vraylar TOPAMAX NO CURRENT SUBSTANCE ABUSE should be noted the patient does have pseudotumor cerebri and has tolerated ECT generally Patient educated on: diagnosis and ECT Informed Consent: understands Reason for continued inpatient stay Substantial Risk for: harm to self and rapid decompensation Statement Statement: I have reviewed the history and physical and performed a pertinent examination on my patient. No changes have occurred unless specified. If the History and Physical was not performed prior to admission, the Hospitalist's service will be consulted for completing the admission physical. Time Spent With Patient Time: Total time managing care of this patient today ____ minutes.
[2023-02-13 09:43] LABS: Folate 10.8 ng/mL (> or = 4.0); Free T4 (Free Thyroxine) 0.96 ng/dL (0.71-1.85); Thyroid Stimulating Hormone 2.92 uIU/mL (0.32-4.0); Vitamin B12 373 pg/mL (200-900)
--- NOTE | 2023-02-13 10:04 | HO.ANESPROP2 ---
[facility] Active Problems Active Problems: All Active Problems (Updated 02/11/23 @ 21:35 by Kimmy Dickerson MD) Suicidal ideation (Acute) Depression (Acute) Pre-op evaluation (Acute) Pseudotumor cerebri (Acute) Bipolar 1 disorder (Acute) Past Medical History Medical History Bipolar 1 disorder Bipolar 1 disorder, depressed, severe Migraines Mild intermittent asthma Pseudotumor cerebri Family History Family History Brother Bipolar disorder Depression Paternal Grandfather Bipolar disorder Father Alcohol dependence Mother Breast cancer Family history of problems with anesthesia: No Surgical History History of Problems with Anesthesia: No Social History Social History Household Members: None Housing: Apartment Housing Other:: patient states she stays with boyfriend 50% of the time Do you presently have visiting nurse or other home services: No Alcohol intake: current Alcohol intake frequency: a few times a month Alcohol type: wine Patient Tobacco Use Status: Former Tobacco user Tobacco use type: Cigarette Smoked in Last 30 Days: Yes e-Cigarette/Vaping Use: Currently Using Frequency of e-Cigarette/Vaping Use: daily Patient Interested in Nicotine Replacement: Yes Patient Given Instructions on How to Stop Smoking: Yes Date Education Initiated: 02/12/23 Second Hand Smoke Exposure: Yes Use of substances other than those prescribed or required for medical reasons: Yes Substance Use Type: Marijuana Substance Use Frequency: Weekly Last Used Substance: Unknown Currently Displaying Signs/Symptoms of Drug Intoxication Withdrawal: No Any prior treatment program specific to substance use: No Have you been hit, kicked, punched, or otherwise hurt by someone within the past year? If so, by whom?: No Do you feel safe in your current relationship?: Yes Is there a partner from a previous relationship who is making you feel unsafe now?: No Are you made to feel afraid or neglected: No Spiritual Healthcare Practices: none [facility] Practices: none Cultural Healthcare Practices: none Advance Directives: No Advance Directives Information Provided: Yes Healthcare Proxy: No Guardian: No Do you have thoughts of harming others: None Do you have a plan to hurt others: No Plan Recently lost weight without trying: Yes How much weight loss: 2-13 pounds Eating poorly because of decreased appetite: No Nutrition screen score: 3 Nutrition Risks: No Nutritional Risk Patient : No : No Poor oral hygiene: No service: No Sexual orientation: Straight/Heterosexual Meds Allergies Allergy/AdvReac Type Severity Reaction Status Date / Time No Known Allergies Allergy Verified 01/04/23 06:31 [No Known Allergies*] Active Medications: Current Medications Acetaminophen (Acetaminophen 325 Mg Tablet) 650 mg PO Q6H PRN PRN Reason: Headache/Pain Mild Scale (1-3) Acetazolamide (Acetazolamide 250 Mg Tablet) 250 mg PO BIDWM [facility] Al Hydroxide/Mg Hydroxide (Magnesium Hydrox/Alum Hydrox 30 Ml Oral.Susp) 30 ml PO Q6H PRN PRN Reason: Heartburn/Nausea Cariprazine (Cariprazine Hcl 1.5 Mg Capsule) 1.5 mg PO DAILY [facility] Hydroxyzine HCl (Hydroxyzine Hcl 25 Mg Tablet) 25 mg PO Q6H PRN PRN Reason: Anxiety Last Admin: 02/12/23 18:45 Dose: 25 mg Lamotrigine (Lamotrigine 100 Mg Tablet) 100 mg PO DAILY [facility] [place] Carbonate ([place] Carbonate Er 450 Mg Tablet.Er) 900 mg PO BEDTIME [facility] Last Admin: 02/12/23 21:55 Dose: 900 mg Magnesium Hydroxide (Milk Of Magnesia 30 Ml Oral.Susp) 30 ml PO DAILY PRN PRN Reason: Constipation Multivitamins/Vitamin C (Multivitamin Tablet) 1 tab PO DAILY [facility] Nicotine Polacrilex (Nicotine Polacrilex Lozenge 2 Mg Lozenge) 2 mg BUCCAL BID PRN PRN Reason: Nicotine Cravings Quetiapine Fumarate (Quetiapine Fumarate 400 Mg Tablet) 400 mg PO BEDTIME [facility] Last Admin: 02/12/23 21:54 Dose: 400 mg Sumatriptan Succinate (Sumatriptan Succinate 100 Mg Tablet) 100 mg PO Q4H PRN PRN Reason: Migraine Headache Topiramate (Topiramate 100 Mg Tablet) 100 mg PO BID [facility] Last Admin: 02/12/23 21:54 Dose: 100 mg Trazodone HCl (Trazodone Hcl 50 Mg Tablet) 50 mg PO BEDTIME MRX1 PRN PRN Reason: Insomnia Home Medications Medication Instructions Recorded Confirmed Last Taken Type lithium carbonate 450 mg 900 mg PO BEDTIME 07/24/22 02/11/23 Unknown History tablet,extended release multivitamin 1 tab PO DAILY 07/24/22 02/11/23 Unknown History sumatriptan succinate 100 mg tablet 100 mg PO Q4H PRN Migraine Headache 07/24/22 02/11/23 Unknown History acetazolamide 250 mg tablet 250 mg PO BID 02/11/23 02/11/23 Unknown History cariprazine 1.5 mg capsule 1.5 mg PO DAILY 02/11/23 02/11/23 Unknown History (Vraylar) lamotrigine 100 mg tablet 100 mg PO QAM 02/11/23 02/11/23 Unknown History topiramate 100 mg tablet 100 mg PO BID 02/11/23 02/11/23 Unknown History Exam Exam Date and Time: February 13, 2023 1004 Height,Weight and Vital Signs: Height 5 ft 2 in Weight 74.843 kg Last Vital Signs Temp 97.4 F 02/13/23 09:28 Pulse 95 02/13/23 09:28 Resp 16 02/13/23 09:28 BP 116/76 02/13/23 09:28 Pulse Ox 100 02/13/23 09:28 O2 Del Method Room Air 02/13/23 09:28 Pertinent Lab Results Pertinent Lab Results: Laboratory Tests 02/11/23 02/11/23 02/11/23 20:38 20:38 20:38 WBC RBC Hgb Hct MCV MCH MCHC RDW Plt Count MPV Immature Gran % (Auto) Neut % (Auto) Lymph % (Auto) [place] % (Auto) Eos % (Auto) Baso % (Auto) Lymph # (Auto) [place] # (Auto) Eos # (Auto) Baso # (Auto) Abs Immat Gran (auto) Absolute Neuts (auto) Absolute Nucleated RBC Nucleated RBC % (auto) Sodium Potassium Chloride Carbon Dioxide Anion Gap BUN Creatinine Estim Creat Clear Calc Estimated GFR Random Glucose Fasting Glucose Estimat Average Glucose Hemoglobin A1c % Calcium Total Bilirubin AST ALT Alkaline Phosphatase Total Protein Albumin Triglycerides Cholesterol LDL Cholesterol, Calc HDL Cholesterol Vitamin B12 Folate TSH Free T4 Urine Color Yellow Urine Appearance Turbid Urine pH 7.0 Ur Specific [place] 1.015 Urine Protein Negative Urine Glucose (UA) Negative Urine Ketones Negative Urine Blood Negative Urine Nitrite Negative Ur Leukocyte Esterase Trace H Urine RBC 0-2 Urine WBC 0-5 Ur Squamous Epith Cells 6-10 Urine Bacteria 1+ Hyaline Casts 0-2 Urine Test Urine Opiates Screen Not Detected Urine Fentanyl Screen Not Detected Ur Barbiturates Screen Not Detected Ur Phencyclidine Scrn Not Detected Ur Amphetamines Screen Not Detected U Benzodiazepines Scrn Not Detected [place] Urine Cocaine Screen Not Detected U Marijuana (THC) Screen Not Detected Ethyl Alcohol COVID-19 (MIGUEL) Negative COVID-19 Clin Com See Note 02/11/23 02/11/23 02/11/23 20:38 21:06 21:07 WBC RBC Hgb Hct MCV MCH MCHC RDW Plt Count MPV Immature Gran % (Auto) Neut % (Auto) Lymph % (Auto) [place] % (Auto) Eos % (Auto) Baso % (Auto) Lymph # (Auto) [place] # (Auto) Eos # (Auto) Baso # (Auto) Abs Immat Gran (auto) Absolute Neuts (auto) Absolute Nucleated RBC Nucleated RBC % (auto) Sodium 140 Potassium 3.7 Chloride 113 H Carbon Dioxide 18 L Anion Gap 13 BUN 12 Creatinine 0.84 Estim Creat Clear Calc 91.0 Estimated GFR > 60 Random Glucose 104 Fasting Glucose Estimat Average Glucose Hemoglobin A1c % Calcium 8.9 Total Bilirubin 0.5 AST 13 ALT 10 Alkaline Phosphatase 53 Total Protein 6.4 L Albumin 4.2 Triglycerides Cholesterol LDL Cholesterol, Calc HDL Cholesterol Vitamin B12 Folate TSH Free T4 Urine Color Urine Appearance Urine pH Ur Specific [place] Urine Protein Urine Glucose (UA) Urine Ketones Urine Blood Urine Nitrite Ur Leukocyte Esterase Urine RBC Urine WBC Ur Squamous Epith Cells Urine Bacteria Hyaline Casts Urine Test NEGATIVE Urine Opiates Screen Urine Fentanyl Screen Ur Barbiturates Screen Ur Phencyclidine Scrn Ur Amphetamines Screen U Benzodiazepines Scrn [place] 0.30 L Urine Cocaine Screen U Marijuana (THC) Screen Ethyl Alcohol < 10 COVID-19 (MIGUEL) COVID-19 Clin Com 02/11/23 02/13/23 02/13/23 21:07 08:32 08:32 WBC 10.3 RBC 4.60 Hgb 14.0 Hct 40.9 MCV 88.9 MCH 30.4 MCHC 34.2 RDW 12.9 Plt Count 248 MPV 9.4 Immature Gran % (Auto) 0.1 Neut % (Auto) 66.7 Lymph % (Auto) 23.7 [place] % (Auto) 6.9 Eos % (Auto) 2.1 Baso % (Auto) 0.5 Lymph # (Auto) 2.4 [place] # (Auto) 0.7 Eos # (Auto) 0.2 Baso # (Auto) 0.1 Abs Immat Gran (auto) 0.01 Absolute Neuts (auto) 6.8 Absolute Nucleated RBC 0.000 Nucleated RBC % (auto) 0.0 Sodium 138 Potassium 4.1 Chloride 112 H Carbon Dioxide 21 L Anion Gap 9 L BUN 9 Creatinine 0.84 Estim Creat Clear Calc 91.0 Estimated GFR > 60 Random Glucose Fasting Glucose 89 Estimat Average Glucose 82 Hemoglobin A1c % 4.5 Calcium 9.3 Total Bilirubin 0.9 AST 13 ALT 10 Alkaline Phosphatase 52 Total Protein 6.4 L Albumin 4.1 Triglycerides 69 Cholesterol 177 LDL Cholesterol, Calc 113 HDL Cholesterol 51 Vitamin B12 373 Folate 10.8 TSH 2.92 Free T4 0.96 Urine Color Urine Appearance Urine pH Ur Specific [place] Urine Protein Urine Glucose (UA) Urine Ketones Urine Blood Urine Nitrite Ur Leukocyte Esterase Urine RBC Urine WBC Ur Squamous Epith Cells Urine Bacteria Hyaline Casts Urine Test Urine Opiates Screen Urine Fentanyl Screen Ur Barbiturates Screen Ur Phencyclidine Scrn Ur Amphetamines Screen U Benzodiazepines Scrn [place] Urine Cocaine Screen U Marijuana (THC) Screen Ethyl Alcohol COVID-19 (MIGUEL) COVID-19 Clin Com Airway Mallampati Class: II TM Dist: >3cm Neck ROM: Full Heart: RRR Lungs: CTA Assessment and Plan Final Anesthetic Review Family History of Problems with Anesthesia: No History of Problems with Anesthesia: No ASA Class: III Final Preanesthetic Review: Meds/Allgs Chart Reviewed, Consent Obtained/Reviewed and Anes Risks/Benef Reviewed Patient Risk: Low Procedure Risk: Low Anesthetic Plan Anesthetic Plan: GA Disposition: Standard PACU
[2023-02-13] MEDS: oxyCODONE HCl Immed Release 5 MG TABLET 10 MG PO (10:32)
--- NOTE | 2023-02-13 10:41 | MHC.SHP ---
Pre-Procedural Eval Section A Date of Service: 02/13/23 The patient is an INPATIENT: Yes Changes since office visit: Yes Changes in Medication and Yes Patient answered all questions; No Cold of Flu in the past 2 weeks and No New Medical Problems The History & Physical has been completed within 30 days and I have reviewed it.: Yes Section B Chief Complaint: SI Allergies: Allergies Allergy/AdvReac Type Severity Reaction Status Date / Time No Known Allergies Allergy Verified 01/04/23 06:31 [No Known Allergies*] Plan I have reviewed the history and physical and performed a pertinent physical examination on my patient. No changes have occurred unless specified. Time Spent With Patient Time: Total time managing care of this patient today ____ minutes.
--- NOTE | 2023-02-13 10:53 | HO.ECTPROC ---
ECT Procedure Note Diagnosis/Treatment Date of Service: 02/13/23 Diagnosis: Bipolar disorder Current Treatment Number: 1 Treatment: Series Interval Clinical Notes: severely depressed hopeless helpless given 10 mg oxycodone prior to tx Time: Total time managing care of this patient today ____ minutes. ECT Settings Device: THYMATRON DGx Electrode Placement: Bitemporal Program/Pulse Width: 0.25 Energy Percent: 70 Seizure Duration By EEG (in seconds): 31 Medications Administration General Anesthetic: Etomidate Muscle Relaxant: Succinylcholine Ancillary Medications Analgesics: Torodol - Pre ECT Anti-emetics: Zofran - Pre ECT Treatment Recommendations Notes: ifconsider change to 0.5 pw Pt Tolerated Procedure w/o Issue: Yes
--- NOTE | 2023-02-13 11:09 | HO.POSTANES ---
Post Anesthesia Evaluation Post Anesthesia Evaluation Vital Signs: Vital Signs Temp Pulse Resp BP Pulse Ox O2 Del Method O2 Flow Rate 02/13/23 11:03 80 16 111/74 97 Nasal Cannula 02/13/23 10:20 92 16 129/74 100 Room Air 02/13/23 10:59 98.2 F 82 18 107/75 96 Nasal Cannula 2 02/13/23 10:29 98.2 F 86 16 124/78 100 Room Air 02/13/23 09:28 97.4 F 95 16 116/76 100 Room Air Anesthesia: General Mental Status: Awake Pain Control: Satisfactory Nausea/Vomiting: None Hydration: Adequate Anesthesia-Related Issues: No Anes. Related Issues
[2023-02-13] MEDS: Cariprazine HCl 1.5 MG CAPSULE PO (13:11)
[2023-02-13] MEDS: Multivitamin TABLET 1 TAB PO (13:11)
[2023-02-13] MEDS: lamoTRIgine 100 MG TABLET PO (13:12)
[2023-02-13] MEDS: acetaZOLAMIDE 250 MG TABLET PO ×2 (13:19→18:26)
[2023-02-13] MEDS: Topiramate 100 MG TABLET PO ×2 (13:20→20:49)
--- NOTE | 2023-02-13 13:30 | PC.NURSE ---
Pt.'s morning meds were administered per Dr. Brady between 13:11 to 13:20. Pt. returned from ECT at 12:15. She reported to feel tired but she denied pain. Pt. rested, VS WNL.
--- NOTE | 2023-02-13 16:01 | MHC.CLN ---
NUTRITION CONSULT FOR WEIGHT LOSS. STATED THAT HAS LOST FIVE POUNDS BUT THINKS TIMEFRAME IS GREATER THAN ONE WEEK. REPORTS FAIR APPETITE. DOES NOT WANT ENSURE SUPPLEMENT. AWARE THAT SNACKS ARE AVAILABLE ON THE UNIT. NO ADDITIONAL NUTRITION INTERVENTIONS AT THIS TIME.
[2023-02-13] MEDS: Lithium Carbonate ER 450 MG TABLET.ER 900 MG PO (20:49)
[2023-02-13] MEDS: QUEtiapine Fumarate 50 MG TABLET 150 MG PO (20:50)
[2023-02-14 08:50] VITALS: BP 112/57; PULSE 81; RESP 20; TEMP 36.7; O2SAT 97
[2023-02-14] MEDS: lamoTRIgine 100 MG TABLET PO (09:01)
[2023-02-14] MEDS: Multivitamin TABLET 1 TAB PO (09:02)
[2023-02-14] MEDS: Cariprazine HCl 1.5 MG CAPSULE PO (09:02)
[2023-02-14] MEDS: Topiramate 100 MG TABLET PO (09:02)
[2023-02-14] MEDS: acetaZOLAMIDE 250 MG TABLET PO ×2 (09:02→18:02)
[2023-02-14] MEDS: Acetaminophen 325 MG TABLET 650 MG PO ×2 (09:03→20:44)
[2023-02-14 11:04] VITALS: BMI 31.4
[2023-02-14] MEDS: QUEtiapine Fumarate 50 MG TABLET PO (11:36)
[2023-02-14 20:40] VITALS: BP 119/72; PULSE 72; RESP 16; TEMP 36.5; O2SAT 99
[2023-02-14] MEDS: QUEtiapine Fumarate 200 MG TABLET PO (20:44)
--- NOTE | 2023-02-14 20:57 | HO.PHPPROGNO ---
Subjective Subjective Date of Service: 02/14/23 Reason For Visit: SI bipolar depression Healthcare Proxy: No Guardianship: No Interim History: pt feels brodie has been stimulating has not had therapeutic dose lithium looking back for about 2 yrs in addition to grief has fairly rapid cycling recently euphoric Attending Groups: Yes Mental Status Exam Mental Status Exam Patient Orientation: Person, Place, Time and Situation Level of Consciousness: Awake and Appropriate Patient Behavior: Crying Mood Description: Depressed, Anxious, Labile and Blunted Affect Description: Constricted, Depressed, Anxious and Labile Patient Cognition Impaired: No Ability to Follow Directions: Good Speech Pattern: Clear Memory Description: Intact Delusions: Not Present Thought Process: Rumination and Goal Oriented Thought Content: positive for Goal Oriented, positive for Preoccupation, positive for Suicidal Ideation (Thought she would be better off unsafe effect of the hospital) and negative for Homicidal Ideation Depressive Symptoms: Increased Anxiety, Increased Irritability, Crying Spells, Hopelessness, Feelings of Guilt, Increased Fatigue, Thoughts of /Suicide, Loss of Energy and Difficulty Concentrating Abnormal Motor Activity Signs and Symptoms: Psychomotor Retardation Judgement: Fair Judgement and Insight: Patient states she can maintain safety in the hospital had been worried about relapse given anniversary of her mother's from cancer which has been quite triggering for her Diagnostics Vital Signs (24Hr): Vital Signs - 24 hr 02/14/23 08:50 Temperature 98.1 F Pulse Rate 81 Respiratory Rate 20 Blood Pressure 112/57 L Pulse Oximetry 97 Oxygen Delivery Method Room Air BMI result Body Mass Index 31.4 Labs 02/11/23 21:07 02/13/23 08:32 Labs: Laboratory Results - last 48 hr 02/13/23 02/13/23 08:32 08:32 Sodium 138 Potassium 4.1 Chloride 112 H Carbon Dioxide 21 L Anion Gap 9 L BUN 9 Creatinine 0.84 Estim Creat Clear Calc 91.0 Estimated GFR > 60 Fasting Glucose 89 Estimat Average Glucose 82 Hemoglobin A1c % 4.5 Calcium 9.3 Total Bilirubin 0.9 AST 13 ALT 10 Alkaline Phosphatase 52 Total Protein 6.4 L Albumin 4.1 Triglycerides 69 Cholesterol 177 LDL Cholesterol, Calc 113 HDL Cholesterol 51 Vitamin B12 373 Folate 10.8 TSH 2.92 Free T4 0.96 Assessment & Plan Certification I certify that partial hospital treatment is medically necessary due to the symptoms and problems resulting from the patient's mental illness and the failure to treat the patient at the partial hospital level of care would likely result in the patient requiring inpatient psychiatric care which could not be prevented at a less intensive level of care. Total time managing care of this patient today ____ minutes. Discharge Plan Discharge Referrals: Julieth Ulloa MD [Primary Care Provider] - 1 Week Discharge Medications: No Action sumatriptan succinate 100 mg Tablet 100 mg PO Q4H PRN (Reason: Migraine Headache) Rx Instructions: do not exceed 2 doses per 24 hrs lithium carbonate 450 mg Tablet Extended Release 900 mg PO BEDTIME Rx Instructions: Take 2 tablets at bedtime multivitamin Tablet 1 tab PO DAILY nicotine (polacrilex) 2 mg Lozenge 2 mg buccal BID PRN (Reason: Nicotine Cravings) 30 Days Qty: 72 0RF quetiapine 400 mg Tablet 400 mg PO BEDTIME 30 Days Qty: 30 0RF acetazolamide 250 mg tablet 250 mg PO BID Vraylar 1.5 mg capsule 1.5 mg PO DAILY topiramate 100 mg tablet 100 mg PO BID lamotrigine 100 mg tablet 100 mg PO QAM
--- NOTE | 2023-02-14 21:16 | P.PNPSI_ITS ---
Subjective Subjective Date of Service: 02/14/23 Reason For Visit: SI bipolar depression Subjective Notes: Conditional Voluntary Healthcare Proxy: No Guardianship: No Interim History: Pt has had subtherapeutic lithium level x extended period rapid cycling periods of euphoria then severe dep complicated by grief feels brodie may be inc cycling she was only taking 150 seroquel Medication Compliance: Yes Mental Status Exam Mental Status Exam Patient Appearance: Appropriate Patient Orientation: Person, Place, Time and Situation Level of Consciousness: Awake and Appropriate Patient Behavior: Appropriate and Good Eye Contact Mood Description: Depressed, Anxious, Labile and Blunted Affect Description: Constricted, Depressed, Anxious and Labile Patient Cognition Impaired: No Ability to Follow Directions: Good Speech Pattern: Clear Memory Description: Intact Delusions: Not Present Thought Process: Rumination and Goal Oriented Thought Content: positive for Goal Oriented, positive for Preoccupation, positive for Suicidal Ideation (Thought she would be better off unsafe effect of the hospital) and negative for Homicidal Ideation Depressive Symptoms: Increased Anxiety, Increased Irritability, Crying Spells, Hopelessness, Feelings of Guilt, Increased Fatigue, Thoughts of /Suicide, Loss of Energy and Difficulty Concentrating Abnormal Motor Activity Signs and Symptoms: Psychomotor Retardation Judgement: Fair Diagnostics Vital Signs (24Hr): Vital Signs - 24 hr 02/14/23 08:50 02/14/23 20:40 Temperature 98.1 F 97.7 F Pulse Rate 81 72 Respiratory Rate 20 16 Blood Pressure 112/57 L 119/72 Pulse Oximetry 97 99 Oxygen Delivery Method Room Air Room Air BMI result Body Mass Index 31.4 Labs 02/11/23 21:07 02/13/23 08:32 Labs: Laboratory Results - last 48 hr 02/13/23 02/13/23 08:32 08:32 Sodium 138 Potassium 4.1 Chloride 112 H Carbon Dioxide 21 L Anion Gap 9 L BUN 9 Creatinine 0.84 Estim Creat Clear Calc 91.0 Estimated GFR > 60 Fasting Glucose 89 Estimat Average Glucose 82 Hemoglobin A1c % 4.5 Calcium 9.3 Total Bilirubin 0.9 AST 13 ALT 10 Alkaline Phosphatase 52 Total Protein 6.4 L Albumin 4.1 Triglycerides 69 Cholesterol 177 LDL Cholesterol, Calc 113 HDL Cholesterol 51 Vitamin B12 373 Folate 10.8 TSH 2.92 Free T4 0.96 Medications Medications Current Medications Acetaminophen (Acetaminophen 325 Mg Tablet) 650 mg PO Q6H PRN PRN Reason: Headache/Pain Mild Scale (1-3) Last Admin: 02/14/23 20:44 Dose: 650 mg Acetazolamide (Acetazolamide 250 Mg Tablet) 250 mg PO BIDWM [facility] Last Admin: 02/14/23 18:02 Dose: 250 mg Al Hydroxide/Mg Hydroxide (Magnesium Hydrox/Alum Hydrox 30 Ml Oral.Susp) 30 ml PO Q6H PRN PRN Reason: Heartburn/Nausea Hydroxyzine HCl (Hydroxyzine Hcl 25 Mg Tablet) 25 mg PO Q6H PRN PRN Reason: Anxiety Last Admin: 02/12/23 18:45 Dose: 25 mg Lamotrigine (Lamotrigine 100 Mg Tablet) 100 mg PO DAILY [facility] Last Admin: 02/14/23 09:01 Dose: 100 mg [place] Carbonate ([place] Carbonate Er 450 Mg Tablet.Er) 900 mg PO BEDTIME [facility] Last Admin: 02/14/23 20:35 Dose: Not Given Magnesium Hydroxide (Milk Of Magnesia 30 Ml Oral.Susp) 30 ml PO DAILY PRN PRN Reason: Constipation Multivitamins/Vitamin C (Multivitamin Tablet) 1 tab PO DAILY [facility] Last Admin: 02/14/23 09:02 Dose: 1 tab Nicotine Polacrilex (Nicotine Polacrilex Lozenge 2 Mg Lozenge) 2 mg BUCCAL BID PRN PRN Reason: Nicotine Cravings Ondansetron HCl (Ondansetron Hcl 4 Mg/2 Ml Vial) 4 mg IVPUSH ONCE PRN PRN Reason: Nausea and Vomiting Quetiapine Fumarate (Quetiapine Fumarate 50 Mg Tablet) 50 mg PO Q4H PRN PRN Reason: Anxiety Last Admin: 02/14/23 11:36 Dose: 50 mg Quetiapine Fumarate (Quetiapine Fumarate 200 Mg Tablet) 200 mg PO BEDTIME [facility] Last Admin: 02/14/23 20:44 Dose: 200 mg Sumatriptan Succinate (Sumatriptan Succinate 100 Mg Tablet) 100 mg PO Q4H PRN PRN Reason: Migraine Headache Topiramate (Topiramate 100 Mg Tablet) 100 mg PO DAILY [facility] Trazodone HCl (Trazodone Hcl 50 Mg Tablet) 50 mg PO BEDTIME MRX1 PRN PRN Reason: Insomnia Allergies Allergies Allergy/AdvReac Type Severity Reaction Status Date / Time No Known Allergies Allergy Verified 01/04/23 06:31 [No Known Allergies*] Assessment & Plan Assessment & Plan (1) Pseudotumor cerebri: Status: Acute Code(s): G93.2 - Benign intracranial hypertension (2) Bipolar 1 disorder, depressed, severe: Status: Acute Code(s): F31.4 - Bipolar disorder, current episode depressed, severe, without psychotic features Plan hold vraylar ect in am seroquel 200 hs pt feels somewhat better Patient educated on: diagnosis, medication risk/benefits and ECT Reason for continued inpatient stay Substantial Risk for: harm to self Time Spent With Patient Time: Total time managing care of this patient today _35___ minutes.
[2023-02-15] VITALS (10 sets, daily range): BP systolic 98–123; BP diastolic 50–85; PULSE 70–87; RESP 16–20; TEMP 36.2–36.9; O2SAT 95–100
--- NOTE | 2023-02-15 07:52 | MHC.SHP ---
Pre-Procedural Eval Section A Date of Service: 02/15/23 The patient is an INPATIENT: Yes Changes since office visit: Yes Changes in Medication and Yes Patient answered all questions; No Cold of Flu in the past 2 weeks and No New Medical Problems The History & Physical has been completed within 30 days and I have reviewed it.: Yes Section B Chief Complaint: SI bipolar depression Allergies: Allergies Allergy/AdvReac Type Severity Reaction Status Date / Time No Known Allergies Allergy Verified 02/15/23 06:33 [No Known Allergies*] Plan I have reviewed the history and physical and performed a pertinent physical examination on my patient. No changes have occurred unless specified. Time Spent With Patient Time: Total time managing care of this patient today ____ minutes.
--- NOTE | 2023-02-15 07:52 | HO.ECTPROC ---
ECT Procedure Note Diagnosis/Treatment Date of Service: 02/15/23 Diagnosis: Bipolar disorder Previous ECT Date: 02/13/23 Current Treatment Number: 2 Treatment: Series Interval Clinical Notes: severely depressed some improvement given 10 mg oxycodone prior to tx lamictal topamax lithium held nite prior Time: Total time managing care of this patient today ____ minutes. ECT Settings Device: THYMATRON DGx Electrode Placement: Bitemporal Program/Pulse Width: 0.25 Energy Percent: 100 Seizure Duration By EEG (in seconds): 71 Medications Administration General Anesthetic: Etomidate Muscle Relaxant: Succinylcholine Ancillary Medications Analgesics: Torodol - Pre ECT Anti-emetics: Zofran - Pre ECT Airway Management Airway Management: Bag Mask Ventilation Treatment Recommendations Electrode Placement: Bitemporal Program/Pulse Width: 0.25 Energy Percent: 100 Notes: give oxycodone on arrival to pacu
--- NOTE | 2023-02-15 07:53 | HO.ANESPROP2 ---
[facility] Active Problems Active Problems: All Active Problems (Updated 02/13/23 @ 17:15 by Laci Brady MD) Bipolar 1 disorder, depressed, severe (Acute) Suicidal ideation (Acute) Depression (Acute) Pre-op evaluation (Acute) Pseudotumor cerebri (Acute) Bipolar 1 disorder (Acute) Past Medical History Medical History Bipolar 1 disorder Bipolar 1 disorder, depressed, severe Migraines Mild intermittent asthma Pseudotumor cerebri Family History Family History Brother Bipolar disorder Depression Paternal Grandfather Bipolar disorder Father Alcohol dependence Mother Breast cancer Family history of problems with anesthesia: No Surgical History History of Problems with Anesthesia: No Social History Social History Household Members: None Housing: Apartment Housing Other:: patient states she stays with boyfriend 50% of the time Do you presently have visiting nurse or other home services: No Alcohol intake: current Alcohol intake frequency: holidays/special occasions only Alcohol type: wine Patient Tobacco Use Status: Former Tobacco user Tobacco use type: Cigarette Smoked in Last 30 Days: Yes e-Cigarette/Vaping Use: Currently Using Frequency of e-Cigarette/Vaping Use: daily Patient Interested in Nicotine Replacement: Yes Patient Given Instructions on How to Stop Smoking: Yes Date Education Initiated: 02/12/23 Second Hand Smoke Exposure: Yes Use of substances other than those prescribed or required for medical reasons: No Substance Use Type: Marijuana Substance Use Frequency: Weekly Last Used Substance: Unknown Currently Displaying Signs/Symptoms of Drug Intoxication Withdrawal: No Any prior treatment program specific to substance use: No Have you been hit, kicked, punched, or otherwise hurt by someone within the past year? If so, by whom?: No Do you feel safe in your current relationship?: Yes Is there a partner from a previous relationship who is making you feel unsafe now?: No Are you made to feel afraid or neglected: No Spiritual Healthcare Practices: none Mu-Ism Healthcare Practices: none Cultural Healthcare Practices: none Advance Directives: No Advance Directives Information Provided: Yes Healthcare Proxy: No Guardian: No Do you have thoughts of harming others: None Do you have a plan to hurt others: No Plan Recently lost weight without trying: Yes How much weight loss: 2-13 pounds Eating poorly because of decreased appetite: No Nutrition screen score: 3 Nutrition Risks: No Nutritional Risk Patient : No : No Poor oral hygiene: No service: No Sexual orientation: Straight/Heterosexual Meds Allergies Allergy/AdvReac Type Severity Reaction Status Date / Time No Known Allergies Allergy Verified 02/15/23 06:33 [No Known Allergies*] Active Medications: Current Medications Acetaminophen (Acetaminophen 325 Mg Tablet) 650 mg PO Q6H PRN PRN Reason: Headache/Pain Mild Scale (1-3) Last Admin: 02/14/23 20:44 Dose: 650 mg Acetazolamide (Acetazolamide 250 Mg Tablet) 250 mg PO BIDWM [facility] Last Admin: 02/14/23 18:02 Dose: 250 mg Al Hydroxide/Mg Hydroxide (Magnesium Hydrox/Alum Hydrox 30 Ml Oral.Susp) 30 ml PO Q6H PRN PRN Reason: Heartburn/Nausea Hydroxyzine HCl (Hydroxyzine Hcl 25 Mg Tablet) 25 mg PO Q6H PRN PRN Reason: Anxiety Last Admin: 02/12/23 18:45 Dose: 25 mg Lamotrigine (Lamotrigine 100 Mg Tablet) 100 mg PO DAILY [facility] Last Admin: 02/14/23 09:01 Dose: 100 mg [place] Carbonate ([place] Carbonate Er 450 Mg Tablet.Er) 900 mg PO BEDTIME [facility] Last Admin: 02/14/23 20:35 Dose: Not Given Magnesium Hydroxide (Milk Of Magnesia 30 Ml Oral.Susp) 30 ml PO DAILY PRN PRN Reason: Constipation Multivitamins/Vitamin C (Multivitamin Tablet) 1 tab PO DAILY [facility] Last Admin: 02/14/23 09:02 Dose: 1 tab Nicotine Polacrilex (Nicotine Polacrilex Lozenge 2 Mg Lozenge) 2 mg BUCCAL BID PRN PRN Reason: Nicotine Cravings Ondansetron HCl (Ondansetron Hcl 4 Mg/2 Ml Vial) 4 mg IVPUSH ONCE PRN PRN Reason: Nausea and Vomiting Quetiapine Fumarate (Quetiapine Fumarate 50 Mg Tablet) 50 mg PO Q4H PRN PRN Reason: Anxiety Last Admin: 02/14/23 11:36 Dose: 50 mg Quetiapine Fumarate (Quetiapine Fumarate 200 Mg Tablet) 200 mg PO BEDTIME [facility] Last Admin: 02/14/23 20:44 Dose: 200 mg Sumatriptan Succinate (Sumatriptan Succinate 100 Mg Tablet) 100 mg PO Q4H PRN PRN Reason: Migraine Headache Topiramate (Topiramate 100 Mg Tablet) 100 mg PO DAILY [facility] Trazodone HCl (Trazodone Hcl 50 Mg Tablet) 50 mg PO BEDTIME MRX1 PRN PRN Reason: Insomnia Home Medications Medication Instructions Recorded Confirmed Last Taken Type lithium carbonate 450 mg 900 mg PO BEDTIME 07/24/22 02/11/23 Unknown History tablet,extended release multivitamin 1 tab PO DAILY 07/24/22 02/11/23 Unknown History sumatriptan succinate 100 mg tablet 100 mg PO Q4H PRN Migraine Headache 07/24/22 02/11/23 Unknown History acetazolamide 250 mg tablet 250 mg PO BID 02/11/23 02/11/23 Unknown History cariprazine 1.5 mg capsule 1.5 mg PO DAILY 02/11/23 02/11/23 Unknown History (Vraylar) lamotrigine 100 mg tablet 100 mg PO QAM 02/11/23 02/11/23 Unknown History topiramate 100 mg tablet 100 mg PO BID 02/11/23 02/11/23 Unknown History Exam Exam Date and Time: February 15, 2023 0753 Height,Weight and Vital Signs: Height 5 ft 2 in Weight 77.927 kg Last Vital Signs Temp 97.2 F 02/15/23 06:33 Pulse 87 02/15/23 06:33 Resp 20 02/15/23 06:33 BP 123/73 02/15/23 06:33 Pulse Ox 100 02/15/23 06:33 O2 Del Method Room Air 02/15/23 06:33 O2 Flow Rate 2 02/13/23 10:59 Pertinent Lab Results Pertinent Lab Results: Laboratory Tests 02/11/23 02/11/23 02/11/23 20:38 20:38 20:38 WBC RBC Hgb Hct MCV MCH MCHC RDW Plt Count MPV Immature Gran % (Auto) Neut % (Auto) Lymph % (Auto) [place] % (Auto) Eos % (Auto) Baso % (Auto) Lymph # (Auto) [place] # (Auto) Eos # (Auto) Baso # (Auto) Abs Immat Gran (auto) Absolute Neuts (auto) Absolute Nucleated RBC Nucleated RBC % (auto) Sodium Potassium Chloride Carbon Dioxide Anion Gap BUN Creatinine Estim Creat Clear Calc Estimated GFR Random Glucose Fasting Glucose Estimat Average Glucose Hemoglobin A1c % Calcium Total Bilirubin AST ALT Alkaline Phosphatase Total Protein Albumin Triglycerides Cholesterol LDL Cholesterol, Calc HDL Cholesterol Vitamin B12 Folate TSH Free T4 Urine Color Yellow Urine Appearance Turbid Urine pH 7.0 Ur Specific [place] 1.015 Urine Protein Negative Urine Glucose (UA) Negative Urine Ketones Negative Urine Blood Negative Urine Nitrite Negative Ur Leukocyte Esterase Trace H Urine RBC 0-2 Urine WBC 0-5 Ur Squamous Epith Cells 6-10 Urine Bacteria 1+ Hyaline Casts 0-2 Urine Test Urine Opiates Screen Not Detected Urine Fentanyl Screen Not Detected Ur Barbiturates Screen Not Detected Ur Phencyclidine Scrn Not Detected Ur Amphetamines Screen Not Detected U Benzodiazepines Scrn Not Detected [place] Urine Cocaine Screen Not Detected U Marijuana (THC) Screen Not Detected Ethyl Alcohol COVID-19 ([facility]) Negative COVID-[employer] See Note 02/11/23 02/11/23 02/11/23 20:38 21:06 21:07 WBC RBC Hgb Hct MCV MCH MCHC RDW Plt Count MPV Immature Gran % (Auto) Neut % (Auto) Lymph % (Auto) [place] % (Auto) Eos % (Auto) Baso % (Auto) Lymph # (Auto) [place] # (Auto) Eos # (Auto) Baso # (Auto) Abs Immat Gran (auto) Absolute Neuts (auto) Absolute Nucleated RBC Nucleated RBC % (auto) Sodium 140 Potassium 3.7 Chloride 113 H Carbon Dioxide 18 L Anion Gap 13 BUN 12 Creatinine 0.84 Estim Creat Clear Calc 91.0 Estimated GFR > 60 Random Glucose 104 Fasting Glucose Estimat Average Glucose Hemoglobin A1c % Calcium 8.9 Total Bilirubin 0.5 AST 13 ALT 10 Alkaline Phosphatase 53 Total Protein 6.4 L Albumin 4.2 Triglycerides Cholesterol LDL Cholesterol, Calc HDL Cholesterol Vitamin B12 Folate TSH Free T4 Urine Color Urine Appearance Urine pH Ur Specific [place] Urine Protein Urine Glucose (UA) Urine Ketones Urine Blood Urine Nitrite Ur Leukocyte Esterase Urine RBC Urine WBC Ur Squamous Epith Cells Urine Bacteria Hyaline Casts Urine Test NEGATIVE Urine Opiates Screen Urine Fentanyl Screen Ur Barbiturates Screen Ur Phencyclidine Scrn Ur Amphetamines Screen U Benzodiazepines Scrn [place] 0.30 L Urine Cocaine Screen U Marijuana (THC) Screen Ethyl Alcohol < 10 COVID-19 ([facility]) [employer] 02/11/23 02/13/23 02/13/23 21:07 08:32 08:32 WBC 10.3 RBC 4.60 Hgb 14.0 Hct 40.9 MCV 88.9 MCH 30.4 MCHC 34.2 RDW 12.9 Plt Count 248 MPV 9.4 Immature Gran % (Auto) 0.1 Neut % (Auto) 66.7 Lymph % (Auto) 23.7 [place] % (Auto) 6.9 Eos % (Auto) 2.1 Baso % (Auto) 0.5 Lymph # (Auto) 2.4 [place] # (Auto) 0.7 Eos # (Auto) 0.2 Baso # (Auto) 0.1 Abs Immat Gran (auto) 0.01 Absolute Neuts (auto) 6.8 Absolute Nucleated RBC 0.000 Nucleated RBC % (auto) 0.0 Sodium 138 Potassium 4.1 Chloride 112 H Carbon Dioxide 21 L Anion Gap 9 L BUN 9 Creatinine 0.84 Estim Creat Clear Calc 91.0 Estimated GFR > 60 Random Glucose Fasting Glucose 89 Estimat Average Glucose 82 Hemoglobin A1c % 4.5 Calcium 9.3 Total Bilirubin 0.9 AST 13 ALT 10 Alkaline Phosphatase 52 Total Protein 6.4 L Albumin 4.1 Triglycerides 69 Cholesterol 177 LDL Cholesterol, Calc 113 HDL Cholesterol 51 Vitamin B12 373 Folate 10.8 TSH 2.92 Free T4 0.96 Urine Color Urine Appearance Urine pH Ur Specific [place] Urine Protein Urine Glucose (UA) Urine Ketones Urine Blood Urine Nitrite Ur Leukocyte Esterase Urine RBC Urine WBC Ur Squamous Epith Cells Urine Bacteria Hyaline Casts Urine Test Urine Opiates Screen Urine Fentanyl Screen Ur Barbiturates Screen Ur Phencyclidine Scrn Ur Amphetamines Screen U Benzodiazepines Scrn [place] Urine Cocaine Screen U Marijuana (THC) Screen Ethyl Alcohol COVID-19 ([facility]) COVID-19 Clin Com Airway Mallampati Class: I Heart: CTA Lungs: RRR Assessment and Plan Final Anesthetic Review Family History of Problems with Anesthesia: No History of Problems with Anesthesia: No Anesthetic Plan Anesthetic Plan: GA
[2023-02-15] MEDS: oxyCODONE HCl Immed Release 5 MG TABLET 10 MG PO (07:56)
--- NOTE | 2023-02-15 08:30 | P.PNPSI_ITS ---
Subjective Subjective Date of Service: 02/15/23 Reason For Visit: SI bipolar depression Subjective Notes: Conditional Voluntary Healthcare Proxy: No Guardianship: No Interim History: pt depressed anxious s/p ect pos si denies plan in bed post ect Mental Status Exam Mental Status Exam Patient Appearance: Appropriate Patient Orientation: Person, Place, Time and Situation Level of Consciousness: Awake and Appropriate Patient Behavior: Appropriate and Good Eye Contact Mood Description: Depressed, Anxious, Labile and Blunted Affect Description: Constricted, Depressed, Anxious and Labile Patient Cognition Impaired: No Ability to Follow Directions: Good Speech Pattern: Clear Memory Description: Intact Delusions: Not Present Thought Process: Rumination and Goal Oriented Thought Content: positive for Goal Oriented, positive for Preoccupation, positive for Suicidal Ideation (Thought she would be better off unsafe effect of the hospital) and negative for Homicidal Ideation Depressive Symptoms: Increased Anxiety, Increased Irritability, Crying Spells, Hopelessness, Feelings of Guilt, Increased Fatigue, Thoughts of /Suicide, Loss of Energy and Difficulty Concentrating Abnormal Motor Activity Signs and Symptoms: Psychomotor Retardation Judgement: Fair Diagnostics Vital Signs (24Hr): Vital Signs - 24 hr 02/14/23 08:50 02/14/23 20:40 02/15/23 05:56 Temperature 98.1 F 97.7 F 97.6 F Pulse Rate 81 72 86 Respiratory Rate 20 16 18 Blood Pressure 112/57 L 119/72 122/85 Pulse Oximetry 97 99 99 Oxygen Delivery Method Room Air Room Air 02/15/23 06:33 02/15/23 08:15 02/15/23 08:20 Temperature 97.2 F 98.4 F Pulse Rate 87 70 80 Respiratory Rate 20 20 20 Blood Pressure 123/73 112/62 116/74 Pulse Oximetry 100 95 98 Oxygen Delivery Method Room Air Room Air Room Air 02/15/23 08:25 Temperature Pulse Rate 81 Respiratory Rate 17 Blood Pressure 117/70 Pulse Oximetry 100 Oxygen Delivery Method Room Air BMI result Body Mass Index 31.4 Labs 02/11/23 21:07 02/13/23 08:32 Labs: Laboratory Results - last 48 hr 02/13/23 02/13/23 08:32 08:32 Sodium 138 Potassium 4.1 Chloride 112 H Carbon Dioxide 21 L Anion Gap 9 L BUN 9 Creatinine 0.84 Estim Creat Clear Calc 91.0 Estimated GFR > 60 Fasting Glucose 89 Estimat Average Glucose 82 Hemoglobin A1c % 4.5 Calcium 9.3 Total Bilirubin 0.9 AST 13 ALT 10 Alkaline Phosphatase 52 Total Protein 6.4 L Albumin 4.1 Triglycerides 69 Cholesterol 177 LDL Cholesterol, Calc 113 HDL Cholesterol 51 Vitamin B12 373 Folate 10.8 TSH 2.92 Free T4 0.96 Medications Medications Current Medications Acetaminophen (Acetaminophen 325 Mg Tablet) 650 mg PO Q6H PRN PRN Reason: Headache/Pain Mild Scale (1-3) Last Admin: 02/14/23 20:44 Dose: 650 mg Acetazolamide (Acetazolamide 250 Mg Tablet) 250 mg PO BIDWM [facility] Last Admin: 02/14/23 18:02 Dose: 250 mg Al Hydroxide/Mg Hydroxide (Magnesium Hydrox/Alum Hydrox 30 Ml Oral.Susp) 30 ml PO Q6H PRN PRN Reason: Heartburn/Nausea Hydroxyzine HCl (Hydroxyzine Hcl 25 Mg Tablet) 25 mg PO Q6H PRN PRN Reason: Anxiety Last Admin: 02/12/23 18:45 Dose: 25 mg Lamotrigine (Lamotrigine 100 Mg Tablet) 100 mg PO DAILY [facility] Last Admin: 02/14/23 09:01 Dose: 100 mg [place] Carbonate ([place] Carbonate Er 450 Mg Tablet.Er) 900 mg PO BEDTIME [facility] Last Admin: 02/14/23 20:35 Dose: Not Given Magnesium Hydroxide (Milk Of Magnesia 30 Ml Oral.Susp) 30 ml PO DAILY PRN PRN Reason: Constipation Multivitamins/Vitamin C (Multivitamin Tablet) 1 tab PO DAILY [facility] Last Admin: 02/14/23 09:02 Dose: 1 tab Nicotine Polacrilex (Nicotine Polacrilex Lozenge 2 Mg Lozenge) 2 mg BUCCAL BID PRN PRN Reason: Nicotine Cravings Ondansetron HCl (Ondansetron Hcl 4 Mg/2 Ml Vial) 4 mg IVPUSH ONCE PRN PRN Reason: Nausea and Vomiting Quetiapine Fumarate (Quetiapine Fumarate 50 Mg Tablet) 50 mg PO Q4H PRN PRN Reason: Anxiety Last Admin: 02/14/23 11:36 Dose: 50 mg Quetiapine Fumarate (Quetiapine Fumarate 200 Mg Tablet) 200 mg PO BEDTIME [facility] Last Admin: 02/14/23 20:44 Dose: 200 mg Sumatriptan Succinate (Sumatriptan Succinate 100 Mg Tablet) 100 mg PO Q4H PRN PRN Reason: Migraine Headache Topiramate (Topiramate 100 Mg Tablet) 100 mg PO DAILY [facility] Trazodone HCl (Trazodone Hcl 50 Mg Tablet) 50 mg PO BEDTIME MRX1 PRN PRN Reason: Insomnia Allergies Allergies Allergy/AdvReac Type Severity Reaction Status Date / Time No Known Allergies Allergy Verified 02/15/23 06:33 [No Known Allergies*] Assessment & Plan Assessment & Plan (1) Pseudotumor cerebri: Status: Acute Code(s): G93.2 - Benign intracranial hypertension (2) Bipolar 1 disorder, depressed, severe: Status: Acute Code(s): F31.4 - Bipolar disorder, current episode depressed, severe, without psychotic features Plan hold vraylar ect in am seroquel 200 hs pt feels somewhat better inc lithium to therapeutic levels hold off on ect for now reevaluate Patient educated on: diagnosis and medication risk/benefits Reason for continued inpatient stay Substantial Risk for: harm to self Time Spent With Patient Time: Total time managing care of this patient today ____ minutes.
[2023-02-15] MEDS: Acetaminophen 325 MG TABLET 650 MG PO ×2 (09:13→14:42)
[2023-02-15] MEDS: acetaZOLAMIDE 250 MG TABLET PO ×2 (11:16→18:42)
[2023-02-15] MEDS: Topiramate 100 MG TABLET PO (11:16)
[2023-02-15] MEDS: oxyCODONE HCl Immed Release 5 MG TABLET PO (11:16)
[2023-02-15] MEDS: lamoTRIgine 100 MG TABLET PO (11:16)
[2023-02-15] MEDS: Multivitamin TABLET 1 TAB PO (11:16)
[2023-02-15] MEDS: Ibuprofen 600 MG TABLET PO (18:54)
[2023-02-15] MEDS: Lithium Carbonate ER 450 MG TABLET.ER 900 MG PO (20:16)
[2023-02-15] MEDS: QUEtiapine Fumarate 200 MG TABLET PO (20:17)
--- NOTE | 2023-02-16 00:36 | PC.NURSE ---
Jodi is admitted to [facility] for safety, observation and ECT Treatments, diagnosis Bipolar disorder without psychosis. Jodi had ECT treatment #11/25 today, she was visible in the dayroom for short periods, requested meds, took without problems, no reported or observed medication side effects, reported feeling tired with BRENNAN 11/23, she received analgesic prior to TW shift starting, She reports improvement in her symptoms with ECT, They not going to do it on Saturday. denied confusion, SI/AVH, no behavior issues, feels safe on the unit, POC as outlined, 15 min unit safety observation.
[2023-02-16] MEDS: Acetaminophen 325 MG TABLET 650 MG PO ×2 (06:32→17:08)
[2023-02-16 08:15] VITALS: BP 108/58; PULSE 79; RESP 16; TEMP 36.9; O2SAT 99
[2023-02-16] MEDS: Multivitamin TABLET 1 TAB PO (08:38)
[2023-02-16] MEDS: acetaZOLAMIDE 250 MG TABLET PO ×2 (08:38→17:08)
[2023-02-16] MEDS: QUEtiapine Fumarate 50 MG TABLET PO ×2 (08:38→17:07)
[2023-02-16] MEDS: Topiramate 100 MG TABLET PO (08:38)
[2023-02-16] MEDS: lamoTRIgine 100 MG TABLET PO (08:38)
--- NOTE | 2023-02-16 20:03 | P.PNPSI_ITS ---
Subjective Subjective Date of Service: 02/16/23 Reason For Visit: SI bipolar depression Medical Problems Affecting Mental Status: No Interim History: Reports severe headache yesterday post ECT. Today better. Remains depressed and hopeless. Concerned about length of seizure yesterday and discussing same with primary team after weekend. Still anxious. Reports overall mood is less depressed. NO active SI. No psychosis Medication Compliance: Yes Side effects from medications: No Attending Groups: Intermittent Review of Systems Acute medical concerns: No Review of Systems Review of Systems headache post ECT Mental Status Exam Mental Status Exam Patient Appearance: Appropriate Patient Orientation: Person, Place, Time and Situation Level of Consciousness: Awake and Appropriate Patient Behavior: Appropriate and Good Eye Contact Mood Description: Depressed, Anxious, Labile and Blunted Affect Description: Constricted, Depressed, Anxious and Labile Patient Cognition Impaired: No Ability to Follow Directions: Good Speech Pattern: Clear Memory Description: Intact Delusions: Not Present Thought Process: Rumination and Goal Oriented Thought Content: positive for Suicidal Ideation (passive wish) Depressive Symptoms: Increased Anxiety, Increased Irritability, Crying Spells, Hopelessness, Feelings of Guilt, Increased Fatigue, Thoughts of /Suicide, Loss of Energy and Difficulty Concentrating Abnormal Motor Activity Signs and Symptoms: Psychomotor Retardation Judgement: Fair Diagnostics Vital Signs (24Hr): Vital Signs - 24 hr 02/16/23 08:15 Temperature 98.4 F Pulse Rate 79 Respiratory Rate 16 Blood Pressure 108/58 L Pulse Oximetry 99 Oxygen Delivery Method Room Air BMI result Body Mass Index 31.4 Labs 02/11/23 21:07 02/13/23 08:32 Medications Medications Current Medications Acetaminophen (Acetaminophen 325 Mg Tablet) 650 mg PO Q6H PRN PRN Reason: Headache/Pain Mild Scale (1-3) Last Admin: 02/16/23 17:08 Dose: 650 mg Acetazolamide (Acetazolamide 250 Mg Tablet) 250 mg PO BIDWM [facility] Last Admin: 02/16/23 17:08 Dose: 250 mg Al Hydroxide/Mg Hydroxide (Magnesium Hydrox/Alum Hydrox 30 Ml Oral.Susp) 30 ml PO Q6H PRN PRN Reason: Heartburn/Nausea Hydroxyzine HCl (Hydroxyzine Hcl 25 Mg Tablet) 25 mg PO Q6H PRN PRN Reason: Anxiety Last Admin: 02/12/23 18:45 Dose: 25 mg Lamotrigine (Lamotrigine 100 Mg Tablet) 100 mg PO DAILY [facility] Last Admin: 02/16/23 08:38 Dose: 100 mg [place] Carbonate ([place] Carbonate Er 450 Mg Tablet.Er) 900 mg PO BEDTIME [facility] Last Admin: 02/15/23 20:16 Dose: 900 mg Magnesium Hydroxide (Milk Of Magnesia 30 Ml Oral.Susp) 30 ml PO DAILY PRN PRN Reason: Constipation Multivitamins/Vitamin C (Multivitamin Tablet) 1 tab PO DAILY [facility] Last Admin: 02/16/23 08:38 Dose: 1 tab Nicotine Polacrilex (Nicotine Polacrilex Lozenge 2 Mg Lozenge) 2 mg BUCCAL BID PRN PRN Reason: Nicotine Cravings Oxycodone HCl (Oxycodone Hcl Immed Release 5 Mg Tablet) 5 mg PO ONCE PRN PRN Reason: Headache Last Admin: 02/15/23 11:16 Dose: 5 mg Quetiapine Fumarate (Quetiapine Fumarate 50 Mg Tablet) 50 mg PO Q4H PRN PRN Reason: Anxiety Last Admin: 02/16/23 17:07 Dose: 50 mg Quetiapine Fumarate (Quetiapine Fumarate 200 Mg Tablet) 200 mg PO BEDTIME [facility] Last Admin: 02/15/23 20:17 Dose: 200 mg Sumatriptan Succinate (Sumatriptan Succinate 100 Mg Tablet) 100 mg PO Q4H PRN PRN Reason: Migraine Headache Topiramate (Topiramate 100 Mg Tablet) 100 mg PO DAILY [facility] Last Admin: 02/16/23 08:38 Dose: 100 mg Trazodone HCl (Trazodone Hcl 50 Mg Tablet) 50 mg PO BEDTIME MRX1 PRN PRN Reason: Insomnia Allergies Allergies Allergy/AdvReac Type Severity Reaction Status Date / Time No Known Allergies Allergy Verified 02/15/23 06:33 [No Known Allergies*] Assessment & Plan Assessment & Plan (1) Pseudotumor cerebri: Status: Acute Code(s): G93.2 - Benign intracranial hypertension (2) Bipolar 1 disorder, depressed, severe: Status: Acute Code(s): F31.4 - Bipolar disorder, current episode depressed, severe, without psychotic features Plan hold vraylar ect in am seroquel 200 hs pt feels somewhat better inc lithium to therapeutic levels hold off on ect for now reevaluate 02/16: no changes, team re evaluating ECT Reason for continued inpatient stay Substantial Risk for: harm to self and inability to function Time Spent With Patient Time: Total time managing care of this patient today ____ minutes.
[2023-02-16 20:10] VITALS: BP 109/72; PULSE 75; RESP 16; O2SAT 100
[2023-02-16] MEDS: Lithium Carbonate ER 450 MG TABLET.ER 900 MG PO (20:46)
[2023-02-16] MEDS: QUEtiapine Fumarate 200 MG TABLET PO (20:46)
[2023-02-17 07:47] LABS: Lithium 0.69 mmol/L (0.60-1.20)
[2023-02-17] MEDS: acetaZOLAMIDE 250 MG TABLET PO ×2 (09:19→17:22)
[2023-02-17] MEDS: lamoTRIgine 100 MG TABLET PO (09:19)
[2023-02-17] MEDS: Topiramate 100 MG TABLET PO (09:19)
[2023-02-17] MEDS: Multivitamin TABLET 1 TAB PO (09:19)
[2023-02-17 09:30] VITALS: BP 121/59; PULSE 75; RESP 18; TEMP 36.6; O2SAT 100
[2023-02-17] MEDS: hydrOXYzine HCL 25 MG TABLET PO ×2 (10:11→17:22)
--- NOTE | 2023-02-17 12:56 | HO.PSYCHPN ---
Subjective Subjective Date of Service: 02/17/23 Reason For Visit: SI bipolar depression Interim History: Remains depressed and hopeless. Suicidal thoughts in context of stress around work, guilt and letting people down. 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 Medication Compliance: Yes Side effects from medications: No Attending Groups: Yes Review of Systems Acute medical concerns: No Review of Systems Review of Systems Yes all other systems are reviewed and are negative Mental Status Exam Mental Status Exam Patient Appearance: Appropriate Patient Orientation: Person, Place, Time and Situation Level of Consciousness: Awake and Appropriate Patient Behavior: Appropriate and Good Eye Contact Mood Description: Depressed, Anxious, Labile and Blunted Affect Description: Constricted, Depressed, Anxious and Labile Patient Cognition Impaired: No Ability to Follow Directions: Good Speech Pattern: Clear Memory Description: Intact Hallucinations: None Delusions: Not Present Thought Process: Intact Thought Content: positive for Intact Depressive Symptoms: Increased Anxiety and Thoughts of /Suicide Diagnostics Vital Signs (24Hr): Vital Signs - 24 hr 02/16/23 20:10 02/17/23 09:30 Temperature 97.8 F Pulse Rate 75 75 Respiratory Rate 16 18 Blood Pressure 109/72 121/59 L Pulse Oximetry 100 100 Oxygen Delivery Method Room Air Room Air BMI result Body Mass Index 31.4 Labs 02/11/23 21:07 02/13/23 08:32 Labs: Laboratory Results - last 48 hr 02/17/23 07:16 [place] 0.69 Medications Medications Current Medications Acetaminophen (Acetaminophen 325 Mg Tablet) 650 mg PO Q6H PRN PRN Reason: Headache/Pain Mild Scale (1-3) Last Admin: 02/16/23 17:08 Dose: 650 mg Acetazolamide (Acetazolamide 250 Mg Tablet) 250 mg PO BIDWM [facility] Last Admin: 02/17/23 09:19 Dose: 250 mg Al Hydroxide/Mg Hydroxide (Magnesium Hydrox/Alum Hydrox 30 Ml Oral.Susp) 30 ml PO Q6H PRN PRN Reason: Heartburn/Nausea Hydroxyzine HCl (Hydroxyzine Hcl 25 Mg Tablet) 25 mg PO Q6H PRN PRN Reason: Anxiety Last Admin: 02/17/23 10:11 Dose: 25 mg Lamotrigine (Lamotrigine 100 Mg Tablet) 100 mg PO DAILY [facility] Last Admin: 05/07/23 09:19 Dose: 100 mg [place] Carbonate ([place] Carbonate Er 450 Mg Tablet.Er) 900 mg PO BEDTIME [facility] Last Admin: 02/16/23 20:46 Dose: 900 mg Magnesium Hydroxide (Milk Of Magnesia 30 Ml Oral.Susp) 30 ml PO DAILY PRN PRN Reason: Constipation Multivitamins/Vitamin C (Multivitamin Tablet) 1 tab PO DAILY [facility] Last Admin: 02/17/23 09:19 Dose: 1 tab Nicotine Polacrilex (Nicotine Polacrilex Lozenge 2 Mg Lozenge) 2 mg BUCCAL BID PRN PRN Reason: Nicotine Cravings Oxycodone HCl (Oxycodone Hcl Immed Release 5 Mg Tablet) 5 mg PO ONCE PRN PRN Reason: Headache Last Admin: 02/15/23 11:16 Dose: 5 mg Quetiapine Fumarate (Quetiapine Fumarate 50 Mg Tablet) 50 mg PO Q4H PRN PRN Reason: Anxiety Last Admin: 02/16/23 17:07 Dose: 50 mg Quetiapine Fumarate (Quetiapine Fumarate 200 Mg Tablet) 200 mg PO BEDTIME [facility] Last Admin: 02/16/23 20:46 Dose: 200 mg Sumatriptan Succinate (Sumatriptan Succinate 100 Mg Tablet) 100 mg PO Q4H PRN PRN Reason: Migraine Headache Topiramate (Topiramate 100 Mg Tablet) 100 mg PO DAILY [facility] Last Admin: 02/17/23 09:19 Dose: 100 mg Trazodone HCl (Trazodone Hcl 50 Mg Tablet) 50 mg PO BEDTIME MRX1 PRN PRN Reason: Insomnia Allergies Allergies Allergy/AdvReac Type Severity Reaction Status Date / Time No Known Allergies Allergy Verified 02/15/23 06:33 [No Known Allergies*] Assessment & Plan Assessment & Plan (1) Pseudotumor cerebri: Status: Acute Code(s): G93.2 - Benign intracranial hypertension (2) Bipolar 1 disorder, depressed, severe: Status: Acute Code(s): F31.4 - Bipolar disorder, current episode depressed, severe, without psychotic features Plan hold vraylar ect in am seroquel 200 hs pt feels somewhat better inc lithium to therapeutic levels hold off on ect for now reevaluate 02/17: no changes, team re evaluating ECT and ativan as an option for anxiety in context of same Reason for continued inpatient stay Substantial Risk for: harm to self and inability to function Time Spent With Patient Time: Total time managing care of this patient today ____ minutes.
[2023-02-17] MEDS: QUEtiapine Fumarate 200 MG TABLET PO (21:00)
[2023-02-17] MEDS: Lithium Carbonate ER 300 MG TABLET.ER 1200 MG PO (21:00)
[2023-02-17 21:15] VITALS: BP 123/72; PULSE 73; RESP 18; TEMP 36.6; O2SAT 99
[2023-02-18] MEDS: lamoTRIgine 100 MG TABLET PO (08:57)
[2023-02-18] MEDS: Multivitamin TABLET 1 TAB PO (08:58)
[2023-02-18] MEDS: Topiramate 100 MG TABLET PO (08:58)
[2023-02-18] MEDS: acetaZOLAMIDE 250 MG TABLET PO ×2 (08:58→17:24)
[2023-02-18 08:59] VITALS: BP 115/88; PULSE 80; RESP 18; TEMP 36.7; O2SAT 98
[2023-02-18] MEDS: hydrOXYzine HCL 25 MG TABLET PO ×2 (09:44→16:31)
--- NOTE | 2023-02-18 13:57 | HO.PSYCHPN ---
Subjective Subjective Date of Service: 02/18/23 Reason For Visit: SI bipolar depression Interim History: calm, cooperative. reports her depression is better today than it was yesterday. anxiety about the same. meds reviewed - pt is off of vraylar and lithium has been increased from 900 mg QHS to 1200 mg QHS as of last night. no complaints or requests. per staff, very sad. anxiety improved. sleeping. social. attending groups. depressed. pleasant. +meds and meals. Mental Status Exam Mental Status Exam Patient Appearance: Appropriate Patient Orientation: Person, Place, Time and Situation Level of Consciousness: Awake and Appropriate Patient Behavior: Appropriate and Good Eye Contact Mood Description: Depressed, Anxious, Labile and Blunted Affect Description: Constricted, Depressed, Anxious and Labile Patient Cognition Impaired: No Ability to Follow Directions: Good Speech Pattern: Clear Memory Description: Intact Hallucinations: None Delusions: Not Present Thought Process: Intact Thought Content: positive for Intact Depressive Symptoms: Increased Anxiety and Thoughts of /Suicide Diagnostics Vital Signs (24Hr): Vital Signs - 24 hr 02/17/23 21:15 02/18/23 08:59 Temperature 97.9 F 98.0 F Pulse Rate 73 80 Respiratory Rate 18 18 Blood Pressure 123/72 115/88 Pulse Oximetry 99 98 Oxygen Delivery Method Room Air BMI result Body Mass Index 31.4 Labs 02/11/23 21:07 02/13/23 08:32 Labs: Laboratory Results - last 48 hr 02/17/23 07:16 [place] 0.69 Medications Medications Current Medications Acetaminophen (Acetaminophen 325 Mg Tablet) 650 mg PO Q6H PRN PRN Reason: Headache/Pain Mild Scale (1-3) Last Admin: 02/16/23 17:08 Dose: 650 mg Acetazolamide (Acetazolamide 250 Mg Tablet) 250 mg PO BIDWM [facility] Last Admin: 02/18/23 08:58 Dose: 250 mg Al Hydroxide/Mg Hydroxide (Magnesium Hydrox/Alum Hydrox 30 Ml Oral.Susp) 30 ml PO Q6H PRN PRN Reason: Heartburn/Nausea Hydroxyzine HCl (Hydroxyzine Hcl 25 Mg Tablet) 25 mg PO Q6H PRN PRN Reason: Anxiety Last Admin: 02/18/23 09:44 Dose: 25 mg Lamotrigine (Lamotrigine 100 Mg Tablet) 100 mg PO DAILY [facility] Last Admin: 02/18/23 08:57 Dose: 100 mg [place] Carbonate ([place] Carbonate Er 300 Mg Tablet.Er) 1,200 mg PO BEDTIME [facility] Last Admin: 02/17/23 21:00 Dose: 1,200 mg Magnesium Hydroxide (Milk Of Magnesia 30 Ml Oral.Susp) 30 ml PO DAILY PRN PRN Reason: Constipation Multivitamins/Vitamin C (Multivitamin Tablet) 1 tab PO DAILY [facility] Last Admin: 02/18/23 08:58 Dose: 1 tab Nicotine Polacrilex (Nicotine Polacrilex Lozenge 2 Mg Lozenge) 2 mg BUCCAL BID PRN PRN Reason: Nicotine Cravings Oxycodone HCl (Oxycodone Hcl Immed Release 5 Mg Tablet) 5 mg PO ONCE PRN PRN Reason: Headache Last Admin: 02/15/23 11:16 Dose: 5 mg Quetiapine Fumarate (Quetiapine Fumarate 50 Mg Tablet) 50 mg PO Q4H PRN PRN Reason: Anxiety Last Admin: 02/16/23 17:07 Dose: 50 mg Quetiapine Fumarate (Quetiapine Fumarate 200 Mg Tablet) 200 mg PO BEDTIME [facility] Last Admin: 02/17/23 21:00 Dose: 200 mg Sumatriptan Succinate (Sumatriptan Succinate 100 Mg Tablet) 100 mg PO Q4H PRN PRN Reason: Migraine Headache Topiramate (Topiramate 100 Mg Tablet) 100 mg PO DAILY [facility] Last Admin: 02/18/23 08:58 Dose: 100 mg Trazodone HCl (Trazodone Hcl 50 Mg Tablet) 50 mg PO BEDTIME MRX1 PRN PRN Reason: Insomnia Allergies Allergies Allergy/AdvReac Type Severity Reaction Status Date / Time No Known Allergies Allergy Verified 02/15/23 06:33 [No Known Allergies*] Assessment & Plan Assessment & Plan (1) Pseudotumor cerebri: Status: Acute Code(s): G93.2 - Benign intracranial hypertension (2) Bipolar 1 disorder, depressed, severe: Status: Acute Code(s): F31.4 - Bipolar disorder, current episode depressed, severe, without psychotic features Plan hold vraylar ect in am seroquel 200 hs pt feels somewhat better inc lithium to therapeutic levels hold off on ect for now reevaluate 02/17: no changes, team re evaluating ECT and ativan as an option for anxiety in context of same 02/18: lithium dosing increased to 1200 mg last night, toerhwise no changes. both anxiety and depression have improved in the past couple of days. Reason for continued inpatient stay Substantial Risk for: harm to self, inability to function and rapid decompensation Time Spent With Patient Time: Total time managing care of this patient today _25___ minutes.
[2023-02-18 20:41] VITALS: BP 111/76; PULSE 69; RESP 18; TEMP 36.6; O2SAT 99
[2023-02-18] MEDS: Lithium Carbonate ER 300 MG TABLET.ER 1200 MG PO (20:44)
[2023-02-18] MEDS: QUEtiapine Fumarate 200 MG TABLET PO (20:44)
[2023-02-19 05:30] LABS: Lithium 1.19 mmol/L (0.60-1.20)
[2023-02-19 09:00] VITALS: BP 115/59; PULSE 74; TEMP 36.6; O2SAT 100
[2023-02-19] MEDS: Multivitamin TABLET 1 TAB PO (09:00)
[2023-02-19] MEDS: acetaZOLAMIDE 250 MG TABLET PO ×2 (09:00→17:47)
[2023-02-19] MEDS: lamoTRIgine 100 MG TABLET PO (09:01)
[2023-02-19] MEDS: Topiramate 100 MG TABLET PO (09:01)
[2023-02-19] MEDS: hydrOXYzine HCL 25 MG TABLET PO (17:48)
[2023-02-19 18:00] VITALS: BP 122/59; PULSE 71; TEMP 36.4; O2SAT 98
[2023-02-19] MEDS: Lithium Carbonate ER 300 MG TABLET.ER 1200 MG PO (20:59)
[2023-02-19] MEDS: QUEtiapine Fumarate 200 MG TABLET PO (21:00)
--- NOTE | 2023-02-19 21:24 | P.PNPSI_ITS ---
Subjective Subjective Date of Service: 02/19/23 Reason For Visit: SI bipolar depression Subjective Notes: Conditional Voluntary Guardianship: No Interim History: Patient is feeling somewhat better feels safe to discharge tomorrow denies acti ve self-harm. Agreeable to try and maintaining better compliance with medication particularly lithium has been okay off Vraylar Seroquel to 200 mg at bedtime we discussed doing an outpatient ECT post discharge Medication Compliance: Yes Attending Groups: Yes Mental Status Exam Mental Status Exam Patient Appearance: Appropriate Patient Orientation: Person, Place, Time and Situation Level of Consciousness: Awake and Appropriate Patient Behavior: Appropriate and Good Eye Contact Mood Description: Depressed, Anxious and Blunted Affect Description: Constricted, Depressed and Anxious Patient Cognition Impaired: No Ability to Follow Directions: Good Speech Pattern: Clear Memory Description: Intact Hallucinations: None Delusions: Not Present Thought Process: Intact Thought Content: positive for Intact Depressive Symptoms: Increased Anxiety Judgement and Insight: Better insight future oriented denies SI states doing better with her boyfriend who is quite supportive this is quite reassuring to her Diagnostics Vital Signs (24Hr): Vital Signs - 24 hr 02/19/23 09:00 Temperature 97.8 F Pulse Rate 74 Blood Pressure 115/59 L Pulse Oximetry 100 Oxygen Delivery Method Room Air BMI result Body Mass Index 31.4 Labs 02/11/23 21:07 02/13/23 08:32 Labs: Laboratory Results - last 48 hr 02/19/23 05:07 [place] 1.19 Medications Medications Current Medications Acetaminophen (Acetaminophen 325 Mg Tablet) 650 mg PO Q6H PRN PRN Reason: Headache/Pain Mild Scale (1-3) Last Admin: 02/16/23 17:08 Dose: 650 mg Acetazolamide (Acetazolamide 250 Mg Tablet) 250 mg PO BIDWM [facility] Last Admin: 02/19/23 17:47 Dose: 250 mg Al Hydroxide/Mg Hydroxide (Magnesium Hydrox/Alum Hydrox 30 Ml Oral.Susp) 30 ml PO Q6H PRN PRN Reason: Heartburn/Nausea Hydroxyzine HCl (Hydroxyzine Hcl 25 Mg Tablet) 25 mg PO Q6H PRN PRN Reason: Anxiety Last Admin: 02/19/23 17:48 Dose: 25 mg Lamotrigine (Lamotrigine 100 Mg Tablet) 100 mg PO DAILY [facility] Last Admin: 02/19/23 09:01 Dose: 100 mg [place] Carbonate ([place] Carbonate Er 300 Mg Tablet.Er) 1,200 mg PO BEDTIME [facility] Last Admin: 02/19/23 20:59 Dose: 1,200 mg Magnesium Hydroxide (Milk Of Magnesia 30 Ml Oral.Susp) 30 ml PO DAILY PRN PRN Reason: Constipation Multivitamins/Vitamin C (Multivitamin Tablet) 1 tab PO DAILY [facility] Last Admin: 02/19/23 09:00 Dose: 1 tab Nicotine Polacrilex (Nicotine Polacrilex Lozenge 2 Mg Lozenge) 2 mg BUCCAL BID PRN PRN Reason: Nicotine Cravings Oxycodone HCl (Oxycodone Hcl Immed Release 5 Mg Tablet) 5 mg PO ONCE PRN PRN Reason: Headache Last Admin: 02/15/23 11:16 Dose: 5 mg Quetiapine Fumarate (Quetiapine Fumarate 50 Mg Tablet) 50 mg PO Q4H PRN PRN Reason: Anxiety Last Admin: 02/16/23 17:07 Dose: 50 mg Quetiapine Fumarate (Quetiapine Fumarate 200 Mg Tablet) 200 mg PO BEDTIME [facility] Last Admin: 02/19/23 21:00 Dose: 200 mg Sumatriptan Succinate (Sumatriptan Succinate 100 Mg Tablet) 100 mg PO Q4H PRN PRN Reason: Migraine Headache Topiramate (Topiramate 100 Mg Tablet) 100 mg PO DAILY [facility] Last Admin: 02/19/23 09:01 Dose: 100 mg Trazodone HCl (Trazodone Hcl 50 Mg Tablet) 50 mg PO BEDTIME MRX1 PRN PRN Reason: Insomnia Allergies Allergies Allergy/AdvReac Type Severity Reaction Status Date / Time No Known Allergies Allergy Verified 02/15/23 06:33 [No Known Allergies*] Assessment & Plan Assessment & Plan (1) Bipolar 1 disorder, depressed, severe: Status: Acute Code(s): F31.4 - Bipolar disorder, current episode depressed, severe, without psychotic features (2) Pseudotumor cerebri: Status: Acute Code(s): G93.2 - Benign intracranial hypertension Plan hold vraylar ect in am seroquel 200 hs pt feels somewhat better inc lithium to therapeutic levels hold off on ect for now reevaluate 02/17: no changes, team re evaluating ECT and ativan as an option for anxiety in context of same 02/18: lithium dosing increased to 1200 mg last night, toerhwise no changes. both anxiety and depression have improved in the past couple of days. 02/19/2023 Monitor how patient does on increase lithium follow levels continue Seroquel ECT scheduled as outpatient will follow-up with Dr. Jensen chicas seem safe for discharge in a.m. Reason for continued inpatient stay Substantial Risk for: harm to self, harm to others and rapid decompensation Time Spent With Patient Time: Total time managing care of this patient today ____ minutes.
[2023-02-20 08:11] VITALS: BP 127/68; PULSE 78; RESP 18; TEMP 36.3; O2SAT 99
[2023-02-20] MEDS: lamoTRIgine 100 MG TABLET PO (08:12)
[2023-02-20] MEDS: Topiramate 100 MG TABLET PO (08:12)
[2023-02-20] MEDS: acetaZOLAMIDE 250 MG TABLET PO (08:13)
[2023-02-20] MEDS: Multivitamin TABLET 1 TAB PO (08:13)
--- NOTE | 2023-02-20 09:42 | PM.PSYDC ---
DS: Providers Provider Date of Service: 02/20/23 Date of admission: 02/12/23 16:26 Date of discharge: 02/20/23 Primary care physician: Julieth Ulloa MD Attending physician on admission: aLci Brady Consults: 02/12/23 20:05 Consult to Hospitalist Routine Comment: Consulting Provider: Hospitalist Reason For Exam: ect risk stratification Attending physician on discharge: Laci Brady DS: Diagnosis Discharge Diagnosis (1) Bipolar 1 disorder, depressed, severe: Status: Acute (2) Pseudotumor cerebri: Status: Acute DS: Medications Discharge Medications Home Medications: Home Medications Medication Instructions Recorded Confirmed lithium carbonate 450 mg 900 mg PO BEDTIME 07/24/22 02/11/23 tablet,extended release multivitamin 1 tab PO DAILY 07/24/22 02/11/23 sumatriptan succinate 100 mg tablet 100 mg PO Q4H PRN Migraine Headache 07/24/22 02/11/23 acetazolamide 250 mg tablet 250 mg PO BID 02/11/23 02/11/23 cariprazine 1.5 mg capsule 1.5 mg PO DAILY 02/11/23 02/11/23 (Vraylar) lamotrigine 100 mg tablet 100 mg PO QAM 02/11/23 02/11/23 topiramate 100 mg tablet 100 mg PO BID 02/11/23 02/11/23 Previous Rx's Medication Instructions Recorded nicotine (polacrilex) 2 mg buccal 2 mg buccal BID PRN Nicotine 08/08/22 lozenge Cravings 30 days #72 ea quetiapine 400 mg tablet 400 mg PO BEDTIME 30 days #30 tabs 08/08/22 Mental Status Exam Mental Status Exam Patient Appearance: Appropriate Patient Orientation: Person, Place, Time and Situation Level of Consciousness: Awake and Appropriate Patient Behavior: Appropriate and Good Eye Contact Mood Description: Blunted Affect Description: Constricted and Anxious Patient Cognition Impaired: No Ability to Follow Directions: Good Speech Pattern: Clear Memory Description: Intact Hallucinations: None Delusions: Not Present Thought Process: Intact Thought Content: positive for Intact Depressive Symptoms: Increased Anxiety Judgement and Insight: Better insight future oriented denies SI states doing better with her boyfriend who is quite supportive this is quite reassuring to her feels safe for d/c Data Data Completed and Pending Completed studies during hospitalization [Text1]: 02/13/23 02/17/23 02/19/23 08:32 07:16 05:07 Vitamin B12 373 Folate 10.8 TSH 2.92 Free T4 0.96 Blakely 0.69 1.19 DS: Summary Hospital Course Hospital Course: Psychiatry Admission Note (In)Signed Patient: Morena Navarrete#: [id number]: 1990Acct:[id number]/Sex: 32 / FLoc:[id number]: Laci Brady MD cc: Laci Brady MD~ HPI Date of Service: 02/13/23 Chief Complaint: SI bipolar depression Sources of Information: patient interviewed, chart reviewed and crisis/core team assessment reviewed Additional Sources of Information: The patient was seen in evaluation 09:00 this morning February 13 HPI Subjective Notes: Summers Warning and Conditional Voluntary Narrative: This is 1 and a few psychiatric hospitalizations for this 32-year-old female with a history of fairly unstable bipolar [address] Francisca chicas for medication management and has been getting maintenance ECT treatment by this investment underwriter. The patient has felt increasingly depressed restless agitated hopeless helpless despondent and having thoughts that she would be better off . She had. Of in elevated mood state recently had spent 2000 dollars on things that she does not need and then had crashed in to anxiety racing thoughts irritability intense despair hopelessness also significant restlessness. She had stopped taking her Seroquel which was prescribed 300 mg at a regular basis. Should be noted that it is the anniversary of her mother's about 1 year ago and she had for she stated in different events regarding this. ECT at this point has been on an every 3 week basis she had been having intense thoughts to overdose on her medications. he patient has been prescribed lithium Topamax Vraylar 1.5 mg higher doses were agitating Seroquel 300 mg which she has not been taking Diamox and Topamax. 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 cherie metzger for therapy. intermittently in therapy and meds since 20 yo. h/o at least 7 psych hosps. [facility]04 [facility] via overdose. h/o 4 SAs, all via overdose (ages 16, 20, 26, 31) has done PHP and ECT at [facility] [place]. Medical Evaluation Reviewed: Yes [facility] Medical History (Updated 02/13/23 @ 17:15 by Laci Brady MD) Bipolar 1 disorder Bipolar 1 disorder, depressed, severe Migraines Mild intermittent asthma Pseudotumor cerebri Family History: father - alcohol mother - depression bro - bipolar paternal grandfather - bipolar Social History: in partnership past 3 years. from [place] in intact family. one younger brother and two older half-sisters from her mother's prior partnership. mother 02/02. father in recivery from alcohol addiction. Diagnostics Vital Signs (24Hr): Vital Signs - 24 hr 02/12/23 14:00 02/12/23 17:00 02/12/23 21:45 Temperature 96.9 F 98.2 F 98.5 F Pulse Rate 94 79 74 Respiratory Rate 16 16 Blood Pressure 149/79 H 124/74 123/75 Pulse Oximetry 96 99 99 Oxygen Delivery Method Room Air Room Air Room Air 02/13/23 09:28 Temperature 97.4 F Pulse Rate 95 Respiratory Rate 16 Blood Pressure 116/76 Pulse Oximetry 100 Oxygen Delivery Method Room Air BMI result Body Mass Index 30.2 Labs 02/11/23 21:07 document embedded image 02/13/23 08:32 document embedded image Labs: Laboratory Results - last 48 hr 02/11/23 02/11/23 02/11/23 20:38 20:38 20:38 WBC RBC Hgb Hct MCV MCH MCHC RDW Plt Count MPV Immature Gran % (Auto) Neut % (Auto) Lymph % (Auto) [place] % (Auto) Eos % (Auto) Baso % (Auto) Lymph # (Auto) [place] # (Auto) Eos # (Auto) Baso # (Auto) Abs Immat Gran (auto) Absolute Neuts (auto) Absolute Nucleated RBC Nucleated RBC % (auto) Sodium Potassium Chloride Carbon Dioxide Anion Gap BUN Creatinine Estim Creat Clear Calc Estimated GFR Random Glucose Fasting Glucose Estimat Average Glucose Hemoglobin A1c % Calcium Total Bilirubin AST ALT Alkaline Phosphatase Total Protein Albumin Triglycerides Cholesterol LDL Cholesterol, Calc HDL Cholesterol Urine Color Yellow Urine Appearance Turbid Urine pH 7.0 Ur Specific Red [place] 1.015 Urine Protein Negative Urine Glucose (UA) Negative Urine Ketones Negative Urine Blood Negative Urine Nitrite Negative Ur Leukocyte Esterase Trace H Urine RBC 0-2 Urine WBC 0-5 Ur Squamous Epith Cells 6-10 Urine Bacteria 1+ Hyaline Casts 0-2 Urine Test Urine Opiates Screen Not Detected Urine Fentanyl Screen Not Detected Ur Barbiturates Screen Not Detected Ur Phencyclidine Scrn Not Detected Ur Amphetamines Screen Not Detected U Benzodiazepines Scrn Not Detected Blakely Urine Cocaine Screen Not Detected U Marijuana (THC) Screen Not Detected Ethyl Alcohol COVID-19 (MIGUEL) Negative COVID-19 [employer] Com See Note 02/11/23 02/11/23 02/11/23 20:38 21:06 21:07 WBC RBC Hgb Hct MCV MCH MCHC RDW Plt Count MPV Immature Gran % (Auto) Neut % (Auto) Lymph % (Auto) [place] % (Auto) Eos % (Auto) Baso % (Auto) Lymph # (Auto) [place] # (Auto) Eos # (Auto) Baso # (Auto) Abs Immat Gran (auto) Absolute Neuts (auto) Absolute Nucleated RBC Nucleated RBC % (auto) Sodium 140 Potassium 3.7 Chloride 113 H Carbon Dioxide 18 L Anion Gap 13 BUN 12 Creatinine 0.84 Estim Creat Clear Calc 91.0 Estimated GFR > 60 Random Glucose 104 Fasting Glucose Estimat Average Glucose Hemoglobin A1c % Calcium 8.9 Total Bilirubin 0.5 AST 13 ALT 10 Alkaline Phosphatase 53 Total Protein 6.4 L Albumin 4.2 Triglycerides Cholesterol LDL Cholesterol, Calc HDL Cholesterol Urine Color Urine Appearance Urine pH Ur Specific Red [place] Urine Protein Urine Glucose (UA) Urine Ketones Urine Blood Urine Nitrite Ur Leukocyte Esterase Urine RBC Urine WBC Ur Squamous Epith Cells Urine Bacteria Hyaline Casts Urine Test NEGATIVE Urine Opiates Screen Urine Fentanyl Screen Ur Barbiturates Screen Ur Phencyclidine Scrn Ur Amphetamines Screen U Benzodiazepines Scrn [place]ak[place] 0.30 L Urine Cocaine Screen U Marijuana (THC) Screen Ethyl Alcohol < 10 COVID-19 (MIGUEL) COVID-19 [employer] 02/11/23 02/13/23 02/13/23 21:07 08:32 08:32 WBC 10.3 RBC 4.60 Hgb 14.0 Hct 40.9 MCV 88.9 MCH 30.4 MCHC 34.2 RDW 12.9 Plt Count 248 MPV 9.4 Immature Gran % (Auto) 0.1 Neut % (Auto) 66.7 Lymph % (Auto) 23.7 [place] % (Auto) 6.9 Eos % (Auto) 2.1 Baso % (Auto) 0.5 Lymph # (Auto) 2.4 [place] # (Auto) 0.7 Eos # (Auto) 0.2 Baso # (Auto) 0.1 Abs Immat Gran (auto) 0.01 Absolute Neuts (auto) 6.8 Absolute Nucleated RBC 0.000 Nucleated RBC % (auto) 0.0 Sodium 138 Potassium 4.1 Chloride 112 H Carbon Dioxide 21 L Anion Gap 9 L BUN 9 Creatinine 0.84 Estim Creat Clear Calc 91.0 Estimated GFR > 60 Random Glucose Fasting Glucose 89 Estimat Average Glucose 82 Hemoglobin A1c % 4.5 Calcium 9.3 Total Bilirubin 0.9 AST 13 ALT 10 Alkaline Phosphatase 52 Total Protein 6.4 L Albumin 4.1 Triglycerides 69 Cholesterol 177 LDL Cholesterol, Calc 113 HDL Cholesterol 51 Urine Color Urine Appearance Urine pH Ur Specific [place] Urine Protein Urine Glucose (UA) Urine Ketones Urine Blood Urine Nitrite Ur Leukocyte Esterase Urine RBC Urine WBC Ur Squamous Epith Cells Urine Bacteria Hyaline Casts Urine Test Urine Opiates Screen Urine Fentanyl Screen Ur Barbiturates Screen Ur Phencyclidine Scrn Ur Amphetamines Screen U Benzodiazepines Scrn [place]ak[place] Urine Cocaine Screen U Marijuana (THC) Screen Ethyl Alcohol COVID-19 (MIGUEL) COVID-19 Clin Com Meds/Allergies Meds Home Medications Medication Instructions Recorded Confirmed Type lithium carbonate 450 mg 900 mg PO BEDTIME 07/24/22 02/11/23 History tablet,extended release multivitamin 1 tab PO DAILY 07/24/22 02/11/23 History sumatriptan succinate 100 mg tablet 100 mg PO Q4H PRN Migraine Headache 07/24/22 02/11/23 History acetazolamide 250 mg tablet 250 mg PO BID 02/11/23 02/11/23 History cariprazine 1.5 mg capsule 1.5 mg PO DAILY 02/11/23 02/11/23 History (Vraylar) lamotrigine 100 mg tablet 100 mg PO QAM 02/11/23 02/11/23 History topiramate 100 mg tablet 100 mg PO BID 02/11/23 02/11/23 History Allergies Allergies Allergy/AdvReac Type Severity Reaction Status Date / Time No Known Allergies Allergy Verified 01/04/23 06:31 [No Known Allergies*] Mental Status Exam Mental Status Exam Patient Appearance: Disheveled Patient Orientation: Person, Place, Time and Situation Level of Consciousness: Awake and Appropriate Patient Behavior: Crying Mood Description: Depressed, Anxious, Labile and Blunted Affect Description: Constricted, Depressed, Anxious and Labile Patient Cognition Impaired: No Ability to Follow Directions: Good Speech Pattern: Clear Memory Description: Intact Delusions: Not Present Thought Process: Rumination and Goal Oriented Thought Content: positive for Goal Oriented, positive for Preoccupation, positive for Suicidal Ideation (Thought she would be better off unsafe effect of the hospital) and negative for Homicidal Ideation Depressive Symptoms: Increased Anxiety, Increased Irritability, Crying Spells, Hopelessness, Feelings of Guilt, Increased Fatigue, Thoughts of /Suicide, Loss of Energy and Difficulty Concentrating Abnormal Motor Activity Signs and Symptoms: Psychomotor Retardation Judgement: Fair Judgement and Insight: Patient states she can maintain safety in the hospital had been worried about relapse given anniversary of her mother's from cancer which has been quite triggering for her Assessment & Plan Assessment & Plan (1) Pseudotumor cerebri: Status: Acute Code(s): G93.2 - Benign intracranial hypertension (2) Bipolar 1 disorder, depressed, severe: Status: Acute Code(s): F31.4 - Bipolar disorder, current episode depressed, severe, without psychotic features Plan Patient is suffering from grief and not been stable on her current medication regimen although own need to clarify whether not patient has been taking medication as prescribed. It is clear that she had only intermittently been taking Seroquel lithium level was 0.3. Patient appears to be having rapid cycling she does feel perhaps Vraylar is connect to akathisia ECT can scheduled for later today strongly always been helpful in stabilizing patient's mood The patient has had trials Abilify low-dose Trileptal unclear if has been on Tegretol Depakote will coordinate care with outpatient provider Dr. Francisca chicas Will try for short ECT course if possible and clarify whether not the patient has been taking other medications regularly including lithium Vraylar TOPAMAX NO CURRENT SUBSTANCE ABUSE should be noted the patient does have pseudotumor cerebri and has tolerated ECT generally Patient educated on: diagnosis and ECT Informed Consent: understands Reason for continued inpatient stay Substantial Risk for: harm to self and rapid decompensation Statement Statement: I have reviewed the history and physical and performed a pertinent examination on my patient. No changes have occurred unless specified. If the History and Physical was not performed prior to admission, the Hospitalist's service will be consulted for completing the admission physical. Hospital course Patient was admitted [facility] in agitated depressed anxious state. She did have ECT x2 prior to discharge the patient had felt that Vryalar perhaps was causing for back fusion increased cycling. Vraylar was discontinued patient made a committed commitment to be more consistent with taking her medication including lithium. Blakely was increased 1200 mg daily today Seroquel 300 mg 25 mg p.r.n. patient was much calmer less depressed future oriented by the time of discharge. Return to work 11 days. pt was clearly dealing with cycling grief related to her mothers Patient have the support for father and boyfriend will be seeing Dr. Jensen chicas as an outpatient Status at Discharge Functional status at discharge: independent ambulation Time Spent with Patient Time attestation: Total time managing care of this patient today ____ minutes. Time spent: Greater than 30 minutes Discharge Plan Discharge Anticipated Discharge Date/Time: 02/20/23 11:25 Patient Disposition: Home, Self-Care Discharge Diagnosis: bipolar 1 depressed severe Referrals: Julieth Ulloa MD [Primary Care Provider] - 1 Week (Patient will follow up with her PCP herself.) Discharge Medications: New lamotrigine 150 mg tablet 150 mg PO DAILY 30 Days Qty: 30 1RF lithium carbonate 300 mg Tablet Extended Release 1,200 mg PO BEDTIME 30 Days Qty: 60 0RF quetiapine 25 mg tablet 50 mg PO Q4H PRN (Reason: Anxiety) 30 Days Qty: 60 0RF Continued sumatriptan succinate 100 mg Tablet 100 mg PO Q4H PRN (Reason: Migraine Headache) Rx Instructions: do not exceed 2 doses per 24 hrs multivitamin Tablet 1 tab PO DAILY nicotine (polacrilex) 2 mg Lozenge 2 mg buccal BID PRN (Reason: Nicotine Cravings) 30 Days Qty: 72 0RF acetazolamide 250 mg tablet 250 mg PO BID topiramate 100 mg tablet 100 mg PO BID quetiapine 300 mg tablet 300 mg PO Discontinued lithium carbonate 450 mg Tablet Extended Release 900 mg PO BEDTIME Rx Instructions: Take 2 tablets at bedtime Vraylar 1.5 mg capsule 1.5 mg PO DAILY lamotrigine 100 mg tablet 100 mg PO QAM Discharge Orders: Discharge Order (Routine); Ordered 02/20/23 Ordered By: Laci Brady Diet: Advance to usual diet Activity on Discharge: As tolerated Stand Alone Forms: Patient Portal Discharge page, Community Support Care Plan Goals: stabilize mood no self harm more regularly take your medication Health Concerns: severe depression psuedotumor cerebreii intermittent non compliance Plan of Treatment: medication lithium inc 1200 mg lamictal 150 mg vraylar stopped seroquel 300 mg outpt ect scheduled 02/22/23 outpt therapy call 911 or ziyad line if feeling unsafe Assessment: pt much more stable future oriented no si not psychotic Patient Instructions: Electroconvulsive Therapy (DC), Electroconvulsive Therapy (IP), Electroconvulsive Therapy (PRE) Discharge Date/Time: 02/20/23 11:21
[2023-02-20] MEDS: QUEtiapine Fumarate 50 MG TABLET PO (10:21)
== END 2023-02-20 11:21 | disposition home or self-care (01) | DRG 885 ==
LOC: HO.ED 02-12 13:52 → HO.PADLT16 02-12 16:30
PROVIDERS: Admitting Provider Psychiatry & Neurology Psychiatry; Emergency Provider Emergency Medicine; PCP Internal Medicine; Visit Provider Psychiatry & Neurology Psychiatry
PROC: GZB4ZZZ Other Electroconvulsive Therapy (ICD-10-PCS; CPT 90870; principal; 2023-02-13 10:30)
DX: F31.4 Bipolar disorder, current episode depressed, severe, without psychotic features (principal); R45.851 Suicidal ideations; G93.2 Benign intracranial hypertension; Z20.822 Contact with and (suspected) exposure to COVID-19; Z87.891 Personal history of nicotine dependence; Z79.899 Other long term (current) drug therapy
CPT/HCPCS: 36415; 80053; 80061; 80178; 80307; 81001; 81025; 82607; 82746; 83036; 84439; 84443; 85025; 87635; 90870; 93005; 99285; J0330; J1885; J2405; S9485

== ENCOUNTER 2023-02-22 05:58 | Day surgery (SDC) | payer OTHER, SELFPAY ==
[2023-02-22] VITALS (7 sets, daily range): BP systolic 98–122; BP diastolic 55–77; PULSE 67–86; RESP 12–18; TEMP 36.4–36.9; O2SAT 97–99; BMI 30.2
[2023-02-22 06:21] LABS: UPreg QC Valid YES; Urine Pregnancy NEGATIVE (NEGATIVE)
--- NOTE | 2023-02-22 06:39 | HO.ANESPROP2 ---
[facility] Active Problems Active Problems: All Active Problems (Updated 02/13/23 @ 17:15 by Laci Brady MD) Bipolar 1 disorder, depressed, severe (Acute) Suicidal ideation (Acute) Depression (Acute) Pre-op evaluation (Acute) Pseudotumor cerebri (Acute) Bipolar 1 disorder (Acute) Past Medical History Medical History Bipolar 1 disorder Bipolar 1 disorder, depressed, severe Migraines Mild intermittent asthma Pseudotumor cerebri Family History Family History Brother Bipolar disorder Depression Paternal Grandfather Bipolar disorder Father Alcohol dependence Mother Breast cancer Family history of problems with anesthesia: No Surgical History History of Problems with Anesthesia: No Social History Social History Household Members: None Housing: Apartment Housing Other:: patient states she stays with boyfriend 50% of the time Do you presently have visiting nurse or other home services: No Alcohol intake: current Alcohol intake frequency: holidays/special occasions only Alcohol type: wine Patient Tobacco Use Status: Former Tobacco user Tobacco use type: Cigarette e-Cigarette/Vaping Use: Currently Using Second Hand Smoke Exposure: Yes Substance Use Type: Marijuana Advance Directives: No Advance Directives Information Provided: Yes service: No Sexual orientation: Straight/Heterosexual Meds Allergies Allergy/AdvReac Type Severity Reaction Status Date / Time No Known Allergies Allergy Verified 02/15/23 06:33 [No Known Allergies*] Active Medications: Current Medications Lactated Ringer's (Lr) 1,000 mls @ 50 mls/hr IVCONT .Q20H [facility] Home Medications Medication Instructions Recorded Confirmed Last Taken Type multivitamin 1 tab PO DAILY 07/24/22 02/11/23 Unknown History sumatriptan succinate 100 mg tablet 100 mg PO Q4H PRN Migraine Headache 07/24/22 02/11/23 Unknown History acetazolamide 250 mg tablet 250 mg PO BID 02/11/23 02/11/23 Unknown History topiramate 100 mg tablet 100 mg PO BID 02/11/23 02/11/23 Unknown History quetiapine 300 mg tablet 300 mg PO 02/20/23 Unknown History Exam Exam Date and Time: February 22, 2023 0639 Height,Weight and Vital Signs: Height 5 ft 2 in Weight 74.843 kg Last Vital Signs Temp 97.8 F 02/22/23 06:29 Pulse 83 02/22/23 06:29 Resp 16 02/22/23 06:29 BP 111/66 02/22/23 06:29 Pulse Ox 99 02/22/23 06:29 O2 Del Method Room Air 02/22/23 06:29 Pertinent Lab Results Pertinent Lab Results: Laboratory Tests 02/22/23 06:10 Urine Test NEGATIVE Airway Mallampati Class: II TM Dist: >3cm Neck ROM: Full Heart: rrr Lungs: cta Assessment and Plan Assessment Anesthesia Assessment: Anesthesia Plan Discussed and Chart Reviewed Final Anesthetic Review Family History of Problems with Anesthesia: No History of Problems with Anesthesia: No NPO: Yes ASA Class: III Final Preanesthetic Review: No Changes in Pt Med Stat, Meds/Allgs Chart Reviewed and Consent Obtained/Reviewed Patient Risk: Intermediate Procedure Risk: Intermediate Anesthetic Plan Anesthetic Plan: GA Disposition: Standard PACU
[2023-02-22] MEDS: oxyCODONE HCl Immed Release 5 MG TABLET PO (06:46)
[2023-02-22] MEDS: Lactated Ringers 1,000 ML 50 ML IVCONT (06:46)
--- NOTE | 2023-02-22 07:21 | MHC.SHP ---
Pre-Procedural Eval Section A Date of Service: 02/22/23 The patient is an INPATIENT: No Changes since office visit: Yes Changes in Medication and Yes Patient answered all questions; No Cold of Flu in the past 2 weeks and No New Medical Problems The History & Physical has been completed within 30 days and I have reviewed it.: Yes Section B Chief Complaint: Major depressive disorder, recurrent, severe Allergies: Allergies Allergy/AdvReac Type Severity Reaction Status Date / Time No Known Allergies Allergy Verified 02/15/23 06:33 [No Known Allergies*] Plan I have reviewed the history and physical and performed a pertinent physical examination on my patient. No changes have occurred unless specified. Time Spent With Patient Time: Total time managing care of this patient today ____ minutes.
--- NOTE | 2023-02-22 07:54 | HO.ECTPROC ---
ECT Procedure Note Diagnosis/Treatment Date of Service: 02/22/23 Diagnosis: Bipolar disorder Previous ECT Date: 02/18/23 Treatment: Maintenance Interval Clinical Notes: pt feeling much better future focused sees dr huber chicas Time: Total time managing care of this patient today ____ minutes. ECT Settings Device: THYMATRON DGx Electrode Placement: Bitemporal Program/Pulse Width: 0.25 Energy Percent: 60 Seizure Duration By EEG (in seconds): 94 Medications Administration General Anesthetic: Etomidate (14) Muscle Relaxant: Succinylcholine (100) Ancillary Medications Analgesics: Torodol - Pre ECT and Narcotics (oxycodone 5 mg ) Anti-emetics: Zofran - Pre ECT Miscillaneous Medications: Propofol Airway Management Airway Management: Bag Mask Ventilation Treatment Recommendations Program/Pulse Width: 0.25 Energy Percent: 25 Notes: will schedule 4 weeks some tachycardia after etomidate given Pt Tolerated Procedure w/o Issue: Yes
== END 2023-02-22 08:55 | disposition home or self-care (01) ==
PROVIDERS: PCP Internal Medicine; Visit Provider Psychiatry & Neurology Psychiatry
PROC: (CPT 90870; principal; 2023-02-22 07:30)
DX: F31.4 Bipolar disorder, current episode depressed, severe, without psychotic features (principal)
CPT/HCPCS: 81025; 90870; J0330; J1885; J2405

== ENCOUNTER 2023-03-12 07:41 | Outpatient (REF) | payer OTHER, SELFPAY ==
[2023-03-12 09:12] LABS: Lithium 0.57 mmol/L (0.60-1.20)
[2023-03-12 09:31] LABS: Alanine Aminotransferase 14 U/L (0-31); Albumin Level 4.3 g/dL (3.5-5.0); Alkaline Phosphatase 51 U/L (39-117); Anion Gap 9 (12-20); Aspartate Amino Transferase 15 U/L (5-31); Bilirubin Total 0.6 mg/dL (0.0-1.0); Blood Urea Nitrogen 10 mg/dL (9-16); Calcium 9.4 mg/dL (8.4-10.2); Carbon Dioxide 20 mmol/L (22-29); Chloride 113 mmol/L (96-108); Estimated Glomerular Filt Rate > 60; Glucose Random 93 mg/dL (60-115); Potassium 3.9 mmol/L (3.3-5.1); Sodium 138 mmol/L (135-145); Total Protein 6.7 g/dL (6.5-8.0)
== END 2023-03-12 07:42 | disposition home or self-care (01) ==
LOC: HO.LAB 07:41
PROVIDERS: PCP Internal Medicine; Visit Provider Psychiatry & Neurology Psychiatry
DX: F31.75 Bipolar disorder, in partial remission, most recent episode depressed (principal); Z79.899 Other long term (current) drug therapy
CPT/HCPCS: 36415; 80053; 80178; 84443

== ENCOUNTER 2023-08-30 07:28 | Outpatient (REF) | payer OTHER, SELFPAY ==
[2023-08-30 07:59] LABS: Lithium 1.17 mmol/L (0.60-1.20)
[2023-08-30 08:13] LABS: Alanine Aminotransferase 10 U/L (0-31); Alkaline Phosphatase 54 U/L (39-117); Anion Gap 9 (12-20); Aspartate Amino Transferase 14 U/L (5-31); Bilirubin Total 0.3 mg/dL (0.0-1.0); Blood Urea Nitrogen 12 mg/dL (9-16); Carbon Dioxide 22 mmol/L (22-29); Chloride 116 mmol/L (96-108); Estimated Glomerular Filt Rate > 60; Glucose Random 85 mg/dL (60-115); Potassium 3.6 mmol/L (3.3-5.1); Sodium 143 mmol/L (135-145); Total Protein 6.7 g/dL (6.5-8.0)
== END 2023-08-30 07:29 | disposition home or self-care (01) ==
LOC: HO.LAB 07:28
PROVIDERS: PCP Internal Medicine; Visit Provider Psychiatry & Neurology Psychiatry
DX: F31.75 Bipolar disorder, in partial remission, most recent episode depressed (principal)
CPT/HCPCS: 36415; 80053; 80178; 84443

== ENCOUNTER 2023-10-11 08:14 | Outpatient (REF) | payer OTHER, SELFPAY ==
[2023-10-11 09:12] LABS: Lithium 1.04 mmol/L (0.60-1.20)
[2023-10-11 09:21] LABS: Alanine Aminotransferase 10 U/L (0-31); Albumin Level 4.1 g/dL (3.5-5.0); Alkaline Phosphatase 61 U/L (39-117); Anion Gap 10 (12-20); Aspartate Amino Transferase 16 U/L (5-31); Bilirubin Total 0.5 mg/dL (0.0-1.0); Blood Urea Nitrogen 13 mg/dL (9-16); Calcium 9.2 mg/dL (8.4-10.2); Carbon Dioxide 21 mmol/L (22-29); Chloride 112 mmol/L (96-108); Estimated Glomerular Filt Rate > 60; Glucose Random 92 mg/dL (60-115); Potassium 3.9 mmol/L (3.3-5.1); Sodium 139 mmol/L (135-145); Total Protein 6.8 g/dL (6.5-8.0)
== END 2023-10-11 08:15 | disposition home or self-care (01) ==
LOC: HO.LAB 08:14
PROVIDERS: PCP Internal Medicine; Visit Provider Psychiatry & Neurology Psychiatry
DX: F31.75 Bipolar disorder, in partial remission, most recent episode depressed (principal)
CPT/HCPCS: 36415; 80053; 80178

== ENCOUNTER 2024-05-15 09:52 | Outpatient (REF) | payer BC, SELFPAY ==
[2024-05-15 10:13] LABS: MANUAL DIFF FLAG NO
[2024-05-15 11:04] LABS: Basophils Absolute Auto 0.1 X10*3/uL (0.0-0.2); Basophils Percent Auto 0.7 % (0-2); Eosinophils Absolute Auto 0.2 X10*3/uL (0.0-0.4); Eosinophils Percent Auto 2.7 % (0-4); Hematocrit 42.8 % (37.0-47.0); Hemoglobin 14.2 g/dl (12.0-16.0); Imm Gran Abs Auto 0.03 X10*3/uL (0.00-0.03); Imm Gran Pct Auto 0.3 % (0.0-0.4); Lymphocytes Percent Auto 22.1 % (20-40); Mean Corpuscular HGB Conc 33.2 g/dl (31.0-35.0); Mean Corpuscular Hemoglobin 30.7 pg (27.0-33.0); Mean Corpuscular Volume 92.4 fL (80.0-98.0); Mean Platelet Volume 9.8 fL (9.4-12.3); Monocytes Absolute Auto 0.5 X10*3/uL (0.1-1.2); Neutrophils Percent Auto 68.2 % (45-73); Platelet Count 229 X10*3/uL (160-400); Red Blood Count 4.63 X10*6/uL (4.20-5.50); Red Cell Distribution Width 13.1 % (11.0-16.0); White Blood Count 8.9 X10*3/uL (4.8-10.8)
[2024-05-15 12:03] LABS: Anion Gap 10 (12-20); Blood Urea Nitrogen 9 mg/dL (9-16); Calcium 9.5 mg/dL (8.4-10.2); Carbon Dioxide 20 mmol/L (22-29); Chloride 114 mmol/L (96-108); Estimated Glomerular Filt Rate > 60; Glucose Random 89 mg/dL (60-115); Potassium 3.7 mmol/L (3.3-5.1); Sodium 140 mmol/L (135-145)
[2024-05-15 12:06] LABS: Thyroid Stimulating Hormone 3.22 uIU/mL (0.32-4.0)
[2024-05-15 12:27] LABS: Lithium 0.79 mmol/L (0.60-1.20)
== END 2024-05-15 09:53 | disposition home or self-care (01) ==
LOC: HO.LAB 09:52
PROVIDERS: PCP Internal Medicine; Visit Provider Psychiatry & Neurology Psychiatry
DX: F31.75 Bipolar disorder, in partial remission, most recent episode depressed (principal); Z79.899 Other long term (current) drug therapy
CPT/HCPCS: 36415; 80048; 80178; 84443; 85025

== ENCOUNTER 2025-04-13 09:03 | Outpatient (AMB) | payer BC, SELFPAY ==
--- OUTSIDE RECORDS SUMMARY | 2025-04-13 09:30 | XMS_ITS | Clinical Summary ---
Author Organization [facility] Address [address] [place] [address] Care Team Providers Care Chemical Dependency Counselor Name Role Phone Julieth Ulloa MD Primary Care Provider [phone] Surgical History Surgery Date Site/Laterality Comments OTHER SURGICAL HISTORY PROCEDURE: DENIES PREVIOUS SURGERY Medical History Medical History Date Comments Asthma DX:Asthma Depression with anxiety DX:Depre ssion with anxiety; COMMENT: hosp 2007, Dr. Sanz Environmental allergies DX:Envir onmental allergies OCD (obsessive compulsive disorder) DX:OCD (obsessive compulsive disorder); COMMENT: Anila aragon at service net counselor Dysmenorrhea DX:Dysmenorrhea IBS (irritable bowel syndrome) D X:IBS (irritable bowel syndrome) Pseudotumor cerebri DX:Pseudotum or cerebri Family History Medical History Relation Name Comments Mental illness Brother 1 odd Mental illness Mother anxiety Stroke Other 1 mgf Other: migriaines Other 2 moth Coronary artery disease Other 3 mgf Other: abdominal hernia Other 4 dad Relation Name Status Comments Brother 1 Brother 2 Alive Father Alive Mother Alive Other 1 Other 2 Other 3 Other 4 Other 5 Social History Tobacco Use Types Packs/Day Years Used Date Smoking Tobacco: Former Cigarettes Q uit: 03/24/2012 Smokeless Tobacco: Former Quit: 03/24/2012 Alcohol Use Standard Drinks/Week Comments Yes 0 (1 standard drink = 0.6 oz pur e alcohol) Comments Unknown Sex and Gender Information Value Date Recorded Sex Assigned at Not on file Legal Sex Female 8:31 AM EST Gender Identity Not on file Sexual Orientation Not on file Obstetrics History Plan of Treatment Health Maintenance Due Date Last Done Comments Cervical Cancer Screening: Pap Smear 2011 DTaP,Tdap,and Td Vaccines (8 - Td or Tdap) 03/31/2022 03/31/2012, 03/06/2011, 07/07/2000, Additional history exists COVID-19 Vaccine ( season) 2024 Influenza Vaccine (Season Ended) 2025 06/23/2015, 08/12/2009 HIB Vaccines Completed 10/23/1991, 01/13, 1990, Additional history exists IPV Vaccines Completed 02/02/1992, 10/14, 02/06/1991, Additional history exists MMR Vaccines Completed 08/06/1995, 10/23/1991 Hepatitis B Vaccines Completed 01/29/1997, 09/07/1996, 07/31/1996 HPV Vaccines Completed 07/31/2007, 03/14, 01/24/2007 Meningococcal ACWY Vaccine Aged Out 11/02/2009 N o longer eligible based on patient's age to complete this topic Pneumococcal Vaccine: Pediatrics (0 to 5 Years) and At-Risk Patients (6 to 64 Years) Aged Out 03/17/2014 No longer eligible based on patient's age to complete this topic Varicella Vaccines Completed 05/19/2014, 0 04/21/2014, 11/02/2009, Additional history exists Hepatitis A Vaccines Aged Out No long er eligible based on patient's age to complete this topic Meningococcal B Vaccine Aged Out No l onger eligible based on patient's age to complete this topic RSV Immunization Patients Under 20 months Aged Out No longer eligible based on patient's age to complete this topic Care Teams Chemical Dependency Counselor Relationship Specialty Start Date End Date Julieth Ulloa MD PCP - General Internal Medicine 11/07/21
--- OUTSIDE RECORDS SUMMARY | 2025-04-13 09:30 | XMS_ITS | Clinical Summary ---
Author Organization [facility] Address [address] [place] [address] Phone Care Team Providers Care Machine Feeder Floorperson Name Role Phone Julieth Ulloa MD Primary Care Provider [phone] Allergies No known active allergies Medications No known medications Active Problems No known active problems Social History Tobacco Use Types Packs/Day Years Used Date Smoking Tobacco: Never Assessed Comments Unknown Sex and Gender Information Value Date Recorded Sex Assigned at Not on file Legal Sex Female 1:08 PM EDT Gender Identity Not on file Sexual Orientation Not on file Last Filed Vital Signs Vital Sign Reading Time Taken Comments Blood Pressure 118/76 04/29/2024 4:09 PM EDT Pulse 72 04/29/2024 4:09 PM EDT Temperature - - Respiratory Rate - - Oxygen Saturation - - Inhaled Oxygen Concentration - - Weight - - Height - - Body Mass Index - - Plan of Treatment Upcoming Encounters Date Type Department Care Team (Late st Contact Info) Description 07/14/2025 2:30 PM EDT Office Visit [facility], [address] [place] [address] Baljeet Thomas, DO [address] [place] [address] Health Maintenance Due Date Last Done Comments Hepatitis B Vaccine (1 of 3 - 19+ 3-dose series) 08/05 Pneumococcal Vaccine: Peds ( 0 to 5 Years) and At-Risk Patients (6 to 49 Years) (1 of 2 - PCV) 2009 Influenza Vaccine (#1) 2025 Insurance [facility] Care Teams Machine Feeder Floorperson Relationship Specialty Start Date End Date Julieth Ulloa MD [address] [place] [address] PCP - General Internal Medicine 02/13/24
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
== END 2025-04-13 09:57 | disposition home or self-care (01) ==
LOC: HO.HSM 09:04
PROVIDERS: PCP Internal Medicine; Visit Provider Psychiatry & Neurology Neurology
DX: G93.2 Benign intracranial hypertension (principal); G43.909 Migraine, unspecified, not intractable, without status migrainosus
CPT/HCPCS: 99214

== ENCOUNTER 2025-08-16 11:58 | Emergency (ER) | payer BC, SELFPAY ==
--- NOTE | ~2025-08-16 | XR_ITS ---
EXAMINATION: XR KNEE, LEFT CLINICAL INFORMATION: pain, injury COMPARISON: None available. TECHNIQUE: Four views of the left knee. FINDINGS: There is no joint effusion. Joint spaces are preserved. There is minute marginal osteophyte involving lateral tibial plateau. No fracture is identified. XR/XR knee LT 4V IMPRESSION: No acute abnormality of the left knee. Electronically signed by: Jim Dill MD 08/16/2025 12:47 PM [facility]
--- NOTE | 2025-08-16 12:18 | ED.GENADULT ---
HPI - General Adult General Chief complaint: Extremity Problem Stated complaint: fell this am, l knee pain. hit head Time Seen by Provider: 08/16/25 14:51 Source: patient and other (patient's partner) Mode of arrival: wheelchair Limitations: no limitations History of Present Illness ED Provider: Umu Elias PA-C HPI narrative: Patient is a 35 year old assigned female at with a history of bipolar disorder and migraines presenting to the emergency department today with left knee pain and headache. Patient states that she was falling down 4 stairs when she stopped herself and heard / felt her left knee pop. Patient states that she hit her head but didn't have any loss of consciousness with the incident. Patient denies any vomiting but states she has felt somewhat nauseous. Patient denies any other complaints at this time. Related Data Home Medications ?Medication ?Instructions ?Recorded ?Confirmed lorazepam 1 mg tablet 1 mg PO BEDTIME PRN 04/12/25 04/13/25 ondansetron HCl 4 mg tablet 4 mg PO DAILY PRN 04/12/25 04/13/25 quetiapine 300 mg tablet 150 mg PO DAILY 04/12/25 04/13/25 clonidine HCl 0.1 mg tablet 0.1 mg PO .PRN 04/13/25 04/13/25 levothyroxine 25 mcg tablet 50 mcg PO DAILY 04/13/25 04/13/25 (Levoxyl) Previous Rx's ?Medication ?Instructions ?Recorded lamotrigine 150 mg tablet 150 mg PO DAILY 30 days #30 tabs 02/20/23 lithium carbonate 300 mg 1,200 mg (4 x 300 mg) PO BEDTIME 03/01/23 tablet,extended release 30 days #60 tabs acetazolamide 250 mg tablet 250 mg PO DAILY #90 tabs 04/13/25 sumatriptan succinate 100 mg tablet 100 mg PO Q4H PRN Migraine 04/13/25 Headache #9 tabs topiramate 100 mg tablet 100 mg PO BID 90 days #180 tabs 04/13/25 Allergies Allergy/AdvReac Type Severity Reaction Status Date / Time No Known Allergies (No Known Allergy Verified 08/16/25 12:21 Allergies*) Review of Systems Constitutional: Constitutional: Reports as per HPI Eyes: Eyes: Reports as per HPI ENT: Reports as per HPI Cardiovascular: Cardiovascular: Reports as per HPI Respiratory: Respiratory: Reports as per HPI Gastrointestinal: Gastrointestinal: Reports as per HPI Genitourinary: Genitourinary: Reports as per HPI Musculoskeletal: Musculoskeletal: Reports as per HPI Integumentary/Breasts: Skin/Breast: Reports as per HPI Neurologic: Reports as per HPI Psychiatric: Psychiatric: Reports as per HPI Endocrine: Endocrine: Reports as per HPI Hematologic/Lymphatic: Hematologic/Lymphatic: Reports as per HPI Allergic/Immunologic: Allergic/Immunologic: Reports as per HPI [facility] Past Medical History Attestation statement: The following information was validated with the patient. Source: old records reviewed and nursing notes reviewed Medical History Substance abuse Anxiety and depression Bronchial asthma Pre-op evaluation Bipolar 1 disorder, depressed, severe Migraines Mild intermittent asthma Pseudotumor cerebri Bipolar 1 disorder Family History Family History Brother Bipolar disorder Depression Paternal Grandfather Bipolar disorder Father Alcohol dependence Mother Breast cancer Social History Social History Household Members: None Housing: Apartment Housing Other:: patient states she stays with boyfriend 50% of the time Do you presently have visiting nurse or other home services: No Alcohol intake: current Alcohol intake frequency: holidays/special occasions only Alcohol type: wine Patient Tobacco Use Status: Former Tobacco user Tobacco use type: Cigarette e-Cigarette/Vaping Use: Currently Using Second Hand Smoke Exposure: Yes Substance Use Type: Marijuana Advance Directives: No Advance Directives Information Provided: No service: No Sexual orientation: Straight/Heterosexual Physical Exam ED Vital Signs: Vital Signs - 24 hr 08/16/25 12:19 08/16/25 15:01 Temperature 97.8 F 97.8 F Pulse Rate 92 92 Respiratory Rate 16 16 Blood Pressure 148/83 H 148/83 H Pulse Oximetry 99 99 Oxygen Delivery Method Room Air Room Air BMI result Body Mass Index 31.1 Const General: cooperative, no acute distress, alert and awake Nutritional Appearance: well nourished Orientation/consciousness: patient oriented x3 HENMT Head: Yes normal to inspection and Yes atraumatic Ears: hearing grossly normal bilaterally and external ears normal General nose exam: Normal external nose present, no nasal discharge noted and no epistaxis Face and sinus: Yes normal facial exam, No abrasion and No laceration Mouth: Normal oral and palatal mucosa present, no drooling and no muffled voice Eyes General: appearance normal, both eyes and all related structures Periorbital: periorbital findings normal Eyelids: Yes eyelids normal Conjunctivae: conjunctivae normal Pupils: Equal, round and reactive pupils present EOM: EOMs intact bilaterally Neck Neck: Yes normal visual inspection and Yes full ROM Resp Effort & Inspection: normal respiratory effort and able to speak in complete sentences Neuro General: patient oriented x3, moves all extremities and CN's II-XI intact bilaterally Cranial nerves: Yes Equal, round and reactive pupils present Cognition (Neuro): normal cognition Extrem Other: pain in left knee with flexion and with lifting the left quad General: Yes normal to inspection and Yes capillary refill normal Psych Appearance: grossly normal Mental Status: mental status grossly normal Affect: normal affect Attitude: cooperative Thought process: Normal thought process present Thought content: Normal thought content present Insight: Good insight present (Psych) Course Course Course Narrative: Rapid medical examination performed in triage by Umu Elias PA-C: Patient is a 35 year old assigned female at presenting to the emergency department with patient states that she was going to fall down some stairs earlier today and she caught herself and her left knee popped. Patient states that she hit her head as well but had no loss of consciousness. Detailed physical exam and review of systems are deferred to the primary special educator. Imaging ordered. Patient placed back in the waiting room pending room availability and results. Medications Administered Discontinued Medications Generic Name Dose Route Start Last Admin Trade Name Freq PRN Reason Stop Dose Admin Ketorolac Tromethamine 15 mg 08/16/25 14:51 08/16/25 14:58 Ketorolac Tromethamine 15 Mg/Ml Vial IM 08/16/25 14:52 15 mg ONCE ONE Administration Procedures Orthopedic Splinting/Casting Left knee sprain: Side: left Lower Extremity Injury Location: knee Lower Extremity Immobilizer: knee immobilizer Other Orthopedic Equipment: crutches Medical Decision Making Medical Decision Making MDM Narrative: Patient is a 35 year old assigned female at with a history of bipolar disorder and migraines presenting to the emergency department today with left knee pain and headache. Patient's physical exam was as noted in the physical exam portion of this note and consistent with a left knee sprain vs. left quadriceps injury. Patient's left knee x-ray showed no acute process. I explained my physical exam findings as well as all test results to the patient and the patient's partner. I answered all questions asked by the patient and the patient's partner. Patient's left knee was placed in an immobilizer and the patient was given crutches. Patient's PMS was intact prior to and after immobilizer placement. Patient was able to demonstrate proper crutch use while in the department. I stressed the importance of the patient taking her medication as directed (either prescribed or as the over the counter packaging recommends). I stressed the importance of the patient following up with her primary care provider and the orthopedic team. I stressed the importance of the patient returning to the emergency department immediately if her symptoms were to worsen or if she were to develop any dizziness, shortness of breath, difficulty breathing, chest pain, blurry vision, loss of vision, nausea, vomiting, abdominal pain, fever, chills, back pain, or any other complaints. Patient verbalized agreement and understanding with this treatment plan and discharge. Differential Diagnosis Differential Diagnoses: The differential diagnosis associated with the presentation includes Left knee sprain Left knee strain Left quad pain Left quad strain Admission/Observation Consideration of admission/observation: Escalation of care including admission/observation considered Patient would have been admitted to the hospital had her work up had any findings where hospital admission was appropriate and her clinical presentation warranted hospital admission. Independent Interpretation I performed an independent interpretation of an: Plain X-Ray Interpretation: My interpretation is in agreement with the radiologist's impression of this imaging study. Reason for Exam: pain, injury EXAMINATION: XR KNEE, LEFT CLINICAL INFORMATION: pain, injury COMPARISON: None available. TECHNIQUE: Four views of the left knee. FINDINGS: There is no joint effusion. Joint spaces are preserved. There is minute marginal osteophyte involving lateral tibial plateau. No fracture is identified. XR/XR knee LT 4V IMPRESSION: No acute abnormality of the left knee. Electronically signed by: Jim Dill MD 08/16/2025 12:47 PM [facility] Dictated By: Jim Dill MD Signed By: Electronically signed by Jim Dill MD 08/16/25 1247 Radiology Impression Discussion of test interpretation with radiology: I have reviewed the radiologist's reading. Independent Historian Clinical information obtained from an independent historian. History obtained from or confirmed by: Other (patient's partner provided additional history and confirmed the history provided by the patient. ) Discharge Plan Discharge Clinical Impression: Knee sprain Patient Disposition: Home, Self-Care Instructions: Knee Sprain (DC), Crutch Instructions (ED), Knee Immobilizer (ED) Additional Instructions: Your left knee x-ray showed no evidence of fracture / break. I am suspicious you have either an internal knee injury or a quadriceps muscle / tendon injury. Please wear the knee immobilizer brace for 24 to 48 hours and allow your knee to rest. After 48 hours you can work on gentle range of motion testing of the left knee but stop when you have pain. Use crutches as needed and you can bear weight on your toes as you tolerate. IF you are prescribed home medications and/or you are taking over the counter medications at home - it is very important you continue to do so as prescribed / directed unless told otherwise. Follow up with your primary care provider and the orthopedic team. Return to the emergency department immediately if your symptoms worsen or if you develop any numbness, tingling, dizziness, shortness of breath, difficulty breathing, chest pain, blurry vision, loss of vision, nausea, vomiting, abdominal pain, fever, chills, back pain, or any other complaints. Please see the information below about our Patient Portal. If you are not yet enrolled in the [facility] Patient Portal, you will receive an enrollment email invitation following your visit to any [facility] care setting. You may also self-enroll in the Patient Portal by visiting our website: [email or web address] The following information is required to access the Patient Portal: - Your [facility] Medical Record Number - Your personal home email address (must match what is in your electronic medical record, Registration staff can assist with this) - Name - Date of Capabilities of the Patient Portal: - Message some providers - View upcoming appointments - Access your health summary, medical history, and visit history - View current conditions and allergies - View procedure and lab results - View your medications, including guidelines, side effects, and precautions - Complete pre-appointment questionnaires requested by your provider - Ready summary reports of your office visits and procedures To access the Patient Portal Mobile Rabia, follow these directions: - Search [employer] in the Rabia Store or Google Play Store - Download the Rabia - Search for [facility] - Enter your login/password Prescriptions: No Action lithium carbonate 300 mg tablet extended release 1,200 mg PO BEDTIME 30 Days Qty: 60 0RF lamotrigine 150 mg tablet 150 mg PO DAILY 30 Days Qty: 30 1RF quetiapine 300 mg tablet 150 mg PO DAILY ondansetron HCl 4 mg tablet 4 mg PO DAILY PRN lorazepam 1 mg tablet 1 mg PO BEDTIME PRN clonidine HCl 0.1 mg tablet 0.1 mg PO .PRN levothyroxine [Levoxyl] 25 mcg tablet 50 mcg PO DAILY sumatriptan succinate 100 mg tablet 100 mg PO Q4H PRN (Reason: Migraine Headache) Qty: 9 6RF Rx Instructions: do not exceed 2 doses per 24 hrs acetazolamide 250 mg tablet 250 mg PO DAILY Qty: 90 3RF topiramate 100 mg tablet 100 mg PO BID 90 Days Qty: 180 3RF Referrals: [facility] Orthopedic Surgeons [Provider Group] Referral Note: Call to establish and follow up with the orthopedic team for your left knee sprain / strain / injury. Julieth Ulloa MD [Primary Care Provider, Medical] Stand Alone Forms: Work/School Release Interventions: ED Discharge Assessment Last Done: 08/16/25 15:01 Discharge Date/Time: 08/16/25 15:03 Print Language: Iraqi
[2025-08-16 12:19] VITALS: BP 148/83; PULSE 92; RESP 16; TEMP 36.6; O2SAT 99; BMI 31.1
[2025-08-16 15:01] VITALS: BP 148/83; PULSE 92; RESP 16; TEMP 36.6; O2SAT 99
--- OUTSIDE RECORDS SUMMARY | 2025-08-16 16:21 | XMS_ITS | Clinical Summary ---
Author Organization [facility] Address [address] [place] [address] Phone Care Team Providers Care Clinical Haematologist Name Role Phone Julieth Ulloa MD Primary Care Provider [phone] Allergies No known active allergies Medications No [...] Care Team (Late st Contact Info) Description 09/02/2025 3:30 PM EST Office Visit [facility], [address] [place] [address] Baljeet Thomas, [address] [place] [address] Health Maintenance Due Date Last Done Comments Hepatitis B Vaccine (1 of 3 - 19+ 3-dose series) 2009 Influenza Vaccine (#1) 2025 Pneumococcal Vaccine: Peds ( 0 to 5 Years) and At-Risk Patients (6 to 49 Years) Aged Out No longer eligible b ased on patient's age to complete this topic Insurance [facility] Care Teams Clinical Haematologist Relationship Specialty Start Date End Date Julieth Ulloa MD [address] [place] [address] PCP - General Internal Medicine 02/13/24
--- OUTSIDE RECORDS SUMMARY | 2025-08-16 16:21 | XMS_ITS | Clinical Summary ---
Author Organization [facility] Address [address] [place] [address] Phone Care Team Providers Care Renewable Energy Project Manager Name Role Phone Iris Mahajan MD Primary Care Provider [phone] Allergies No known active allergies Medications * This document contains information received from the source organization and may not represent a complete record from that organization. lamoTRIgine (LAMICTAL) 100 MG tablet Take 100 mg by mouth 2 (two) times a day. Active QUEtiapine (SEROQUEL) 200 MG tablet Take 200 mg by mouth nightly. Active topiramate (TOPAMAX) 100 MG tablet Take 100 mg by mouth 2 (two) times a day. Active ACETAZOLAMIDE (DIAMOX SEQUELS ORAL) Take 375 mg by mouth 2 (two) times a day. Active hydrOXYzine (VISTARIL) 50 MG capsule Take 1 capsule (50 mg total) by mouth 3 (three) times a day as needed for anxiety (insomnia). 60 capsule 11/27/2017 Active lithium (LITHOBID) 450 MG CR tablet Take 2 tablets (900 mg total) by mouth nightly. 60 tablet 11/27/2017 Active nicotine polacrilex (NICORETTE) [address] 1 each (2 mg total) inside cheek every 2 (two) hours as needed for smoking cessation. 100 each 11/27/2017 Active Active Problems Problem Noted Date Diagnosed Date Bipolar affective disorder, depressed, severe Social History Tobacco Use Types Packs/Day Years Used Date Smoking Tobacco: Every Day Cigarettes Smokeless Tobacco: Never Tobacco Cessation:Ready to Q uit: No; Counseling Given: No Alcohol Use Standard Drinks/Week Comments Yes 4 (1 standard drink = 0.6 oz pur e alcohol) social Education Answer Date Recorded Are you interested in more education? Not on naveen e 02/08/2023 Are you concerned about learning? Not on file 02/08/2023 No 02/08/2023 No 02/08/2023 Digital Access Answer Date Recorded No 03/11/2023 No 03/11/2023 No 03/11/2023 Reliable internet access at home? Not on file 03/11/2023 Device with a working camera? Not on file Comments Unknown Sex and Gender Information Value Date Recorded Sex Assigned at Female 11/16/2017 12:51 PM EST Legal Sex Female 2:49 PM EDT Gender Identity Female 11/16/2017 12:51 PM EST Sexual Orientation Straight 11/16/2017 12 :51 PM EST Last Filed Vital Signs Vital Sign Reading Time Taken Comments Blood Pressure 118/82 11/27/2017 7:00 AM EST Pulse 87 11/27/2017 7:00 AM EST Temperature 36.6 C (97.9 F) 11/27/2017 7:00 AM EST Respiratory Rate 18 11/27/2017 7:00 AM EST Oxygen Saturation 98% 11/27/2017 7:00 AM EST Inhaled Oxygen Concentration - - Weight 70.6 kg (155 lb 11.2 oz) 11/23/2017 6:26 PM EST Height 157.5 cm (5' 2 ) 11/16/2017 12:4 5 PM EST Body Mass Index 28.48 11/16/2017 12:45 PM EST Plan of Treatment Health Maintenance Due Date Last Done Comments TSH LEVEL 1990 DEPRESSION SCREENING 2002 SMOKING Hx and SMOKELESS TOBACCO SCREENING 2003 HEPATITIS C SCREENING 2008 HIV ONE-TIME SCREENING (18-65 YEARS) 2008 PAP SMEAR 2011 PNEUMOCOCCAL VACCINES (0-49 years) (2 of 2 - PCV) 03/17/2015 03/17/2014 CREATININE LEVEL 11/16/2018 11/16/2017 LITHIUM LEVEL 11/26/2018 11/26/2017, 05/2018, 11/16/2017 Adult Td,Tdap Booster 03/31/2022 03/31/2012 , 03/06/2011, 07/07/2000 INFLUENZA VACCINE (#1) 2025 06/23/2015, 2008 COVID-19 VACCINE ( season) 2025 01/05/2021, 12/08/2020 HIB VACCINES Completed 10/23/1991, 01/13, 1990, Additional history exists MENINGOCOCCAL VACCINES (ACWY) Aged Out 11/02/2009 No longer eligible based on patient's age to complete this topic HEPATITIS A VACCINES Aged Out No long er eligible based on patient's age to complete this topic MENINGOCOCCAL VACCINES (B) Aged Out N o longer eligible based on patient's age to complete this topic Medical Devices Not on file Procedures Procedure Name Priority Date/Time Associated Diagnosis Comments LITHIUM LEVEL Timed 11/26/2017 9:52 AM EST BASIC METABOLIC PANEL (BMP) STAT 11/16/2017 1:07 PM EST from Last 3 Months or Most Recently Relevant to Health Maintenance Results * [place] level (11/26/2017 9:52 AM EST) LITHIUM 0.63 0.50 - 1.00 mmol/L [facility] Blood 11/26/2017 9:52 AM EST 11/26/2017 10:00 AM EST Leisa Estrada MD LAB BLOOD BKR ORDERABLES Andria l Result [address] [address] * (ABNORMAL) Basic metabolic panel (11/16/2017 1:07 PM EST) SODIUM 142 133 - 146 mmol/L [facility] CHLORIDE 110(H) 96 - 108 mmol/L [facility] POTASSIUM 3.8 3.3 - 5.1 mmol/L [facility] CO2 18(L) 21 - 35 mmol/L [facility] BUN 7 6 - 19 mg/dL [facility] CREATININE 0.70 0.5 - 1.5 mg/dL [facility] GLUCOSE 81 70 - 99 mg/dL [facility] CALCIUM 9.0 8.4 - 10.3 mg/dL [facility] EGFR >60 >60 mL/min/1.7 3m2 [facility] Comment:Abnormal if <60. If patient is -Vincentian, multiply the result by 1.21. ANION GAP 18 10 - 20 mmol/L [facility] Blood 11/16/2017 1:07 PM EST 11/16/2017 1:28 PM EST us Emanuel York MD LAB BLOOD BKR ORDERABLES Andria costa Result [facility] [address] [place] [address] from Last 3 Months or Most Recently Relevant to Health Maintenance Insurance PPO EPO [facility] [place] [address] [place] [address] [place] [address] [place] [address] [place] [address] [place] [address] P[address] E[place] [address] [place] [address] [place] [place] [address] PPO EPO [facility] PPO EPO Advance Directives For more information, please contact: [phone] (9AM - 5PM [facility], Saturday-Saturday) * Full Code (Presumed) (Latest Code Status on File) Date Activated Date Inactivated Comments 11/16/2017 6:29 PM 11/27/2017 1:34 PM Care Teams Renewable Energy Project Manager Relationship Specialty Start Date End Date Iris Mahajan MD [email or web address] PCP - General Internal Medicine 02/11/17 Additional Source Comments The information contained in this document represents components of the legal health record. It is not the complete legal health record.[facility]
--- OUTSIDE RECORDS SUMMARY | 2025-08-16 16:21 | XMS_ITS | Encounter Summary ---
Author Organization [facility], Address [address] [place] [address] Phone Care Team Providers Care Family Resource Specialist Name Role Phone Julieth Ulloa MD Primary Care Provider [phone] Encounter Details Date Type Department Care Team (Late st Contact Info) Description 01/28/2024 Documentation Only [facility] [address] [place] [phone] [place] [address] [place] [address] Social History Tobacco Use Types Packs/Day Years Used Date Smoking Tobacco: Never Assessed Comments Unknown Sex and Gender Information Value Date Recorded Sex Assigned at Not on file Legal Sex Female 1:08 PM EDT Gender Identity Not on file Sexual Orientation Not on file documented as of this encounter Plan of Treatment Upcoming Encounters Date Type Department Care Team (Late st Contact Info) Description 09/02/2025 3:30 PM EST Office Visit [facility] [address] [place] [address] Baljeet Thomas DO [address] [place] [address] [place] [phone] documented as of this encounter Visit Diagnoses Not on filedocumented in this encounter Care Teams Family Resource Specialist Relationship Specialty Start Date End Date Julieth Ulloa MD [address] [place] [address] PCP - General Internal Medicine 02/13/24 documented as of this encounter
--- OUTSIDE RECORDS SUMMARY | 2025-08-16 16:21 | XMS_ITS | Clinical Summary ---
Author Organization [facility] it Address [address] [place] [address] Care Team Providers Care Bag Patcher Name Role Phone Julieth Ulloa MD Primary Care Provider [phone] Surgical History Surgery Date Site/Laterality Comments OTHER [...] 03/31/2022 03/31/2012, 03/06/2011, 07/07/2000, Additional history exists Depression Screening 10/14/2024 COVID-19 Vaccine ( season) 2025 Influenza Vaccine (#1) 2025 06/23/2015, 2008 RSV Immunization Adult Patients (1 - 1-dose 75+ series) 2065 HIB Vaccines Completed 10/23/1991, 01/13, 1990, Additional [...] Patients (6 to 49 Years) Aged Out 03/17/2014 No longer eligible [...] age to complete this topic Care Teams Bag Patcher Relationship Specialty Start Date End Date Julieth Ulloa MD PCP - General Internal Medicine 11/07/21
== END 2025-08-16 15:03 | disposition home or self-care (01) ==
PROVIDERS: Emergency Provider Emergency Medicine; PCP Internal Medicine
DX: S83.92XA Sprain of unspecified site of left knee, initial encounter (principal); W10.8XXA Fall (on) (from) other stairs and steps, initial encounter; Y93.89 Activity, other specified; Y92.098 Other place in other non-institutional residence as the place of occurrence of the external cause; Y99.8 Other external cause status; Z87.891 Personal history of nicotine dependence
CPT/HCPCS: 73564; 96372; 99283; 99284; J1885

== ENCOUNTER → 2025-08-16 12:20 | Outpatient (BNV) | payer BC, SELFPAY | PROVIDERS: PCP Internal Medicine; Visit Provider Radiology Diagnostic Radiology | DX: S80.912A Unspecified superficial injury of left knee, initial encounter (principal) | CPT/HCPCS: 73564 ==